=== PATIENT | male | born 1935 | race Caucasian/White ===

== ENCOUNTER 2018-01-04 23:34 | Inpatient (IN) | payer MEDICARE, SELFPAY ==
[2017-03-26 13:31] VITALS: BMI 25.5
[2018-01-04 23:45] VITALS: BP 115/50; PULSE 84; RESP 18; TEMP 37.3; O2SAT 96
--- NOTE | 2018-01-04 23:45 | PCM.HP.STD ---
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 Patient is a poor historian. Per records he was sitting at kitchen table earlier this evening when he became dizzy and felt like he was going to throw up. He was confused and disoriented which is not normal for him. In the ER patient was diagnosed with urinary tract infection and given a gram of Rocephin. initial lactate is 2.0, UA is positive for nitrites and leukocytes and blood. Currently his sodium is 135, potassium 3.9 chloride 103 bicarb 28 and glucose 108. Troponin is negative, WBC count is 11.8, hemoglobin 12.4, hematocrit 38.4, INR is 1.16. Chest xray report shows possible bilateral upper lobe infiltrates but may be the result of pulmonary edema. The patient has a smoking history despite an extensive cardiac history and his BNTP is markedly elevated. The patient denies pain or nausea presently but is confused and not reliable as a historian. He will be admitted for further management. Blood cultures were drawn in [facility]. Initial temp in [place] was 99.3. Past Medical History Past Medical History (Chronic Problems): Chronic Problems (Last Reviewed 01/01/18 @ 15:45 by Cherelle Regan) 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) Implant: 01/26/2013 Other secondary pulmonary hypertension (Chronic) Nonrheumatic tricuspid (valve) insufficiency (Chronic) Nonrheumatic mitral (valve) insufficiency (Chronic) Chronic systolic (congestive) heart failure (Chronic) Old myocardial infarction (Chronic) Atherosclerotic heart disease of [place] coronary artery without angina pectoris (Chronic) History of coronary artery stent placement (Chronic) PCI/BMS to distal LAD 03/26/2017 Renal insufficiency (Chronic) Acute on chronic systolic (congestive) heart failure (Chronic) Status post ICD and pacemaker (Chronic) Ischemic cardiomyopathy (Chronic) Coronary artery disease (Chronic) Status post stents Hyperlipidemia (Chronic) Hypertension (Chronic) Allergies No Known Allergies Allergy (Verified 01/01/18 15:49) Home Medications: Ambulatory Orders Medication Instructions Recorded Aspirin E.C. [Ecotrin] 81 mg PO DAILY@0800 #90 tab 03/27/17 Atorvastatin Calcium [Lipitor] 20 mg PO QHS #90 tab 03/27/17 Carvedilol [Coreg (Beta Eric)] 3.125 mg PO BID #90 tab 03/27/17 Clopidogrel Bisulfate [Plavix] 75 mg PO DAILY #90 tab 03/27/17 Furosemide [Lasix] 40 mg PO DAILY #90 tab 03/27/17 losartan 25 mg tablet 25 mg PO QDAY 11/10/17 hydrochlorothiazide 25 mg tablet 25 mg PO QAM #30 tab 01/01/18 Smoking Status: Former smoker - *Family History Maternal History Items: No pertinent history Review of Systems Constitutional: Reports: Chills, Fever, Malaise, Weakness. Denies: Weight Change HEENT: Denies: Head Aches, Sinus Congestion, Sinus Drainage Cardiovascular: Denies: Chest Pain, Palpitations Respiratory: Denies: Cough, Shortness of breath at rest, Sputum production Gastrointestinal: Denies: Abdominal Pain, Nausea, Vomiting Genitourinary: Reports: Dysuria, Incontinence Musculoskeletal: Denies: Joint Pain, Joint Tenderness Skin: Denies: Rash, Wounds Neurological: Reports: Confusion. Denies: Focal weakness, Numbness, Tingling Psychiatric: Denies: Anxiety, Depression, Homicidal Ideations, Suicidal Ideations Hematologic/ Lymphatic: Denies: Easy Bruising, Easy Bleeding VTE Information - Inpt Only VTE Present on Admission: No VTE Mechan Device Prophylaxis: SCD's VTE Pharm Prophylaxis ordered?: No Patient Problems: Active and Suspected Problems (Last Reviewed 01/01/18 @ 15:45 by Cherelle Regan) UTI (urinary tract infection) (Acute) - Physical Exam General: Alert, Cooperative, Confused HEENT: Atraumatic, Normocephalic Neck: Supple Lungs: Clear to auscultation, Normal air movement Cardiovascular: Regular rate, Regular Rhythm, Normal S1, Normal S2, No murmurs Abdomen: Bowel Sounds Present, Soft, Non Tender Extremities: No edema, Capillary Refill Less than 3 Seconds Skin: No rashes Musculoskeletal: No Tenderness to Palpation of Joints or Extremities, - - no cva tenderness Neurological: Neuro grossly intact Psych/Mental Status: Normal Affect, Appropriate Assessment/Plan Active and Suspected Problems (Last Reviewed 01/01/18 @ 15:45 by Cherelle Regan) UTI (urinary tract infection) (Acute) Chronic Problems (Last Reviewed 01/01/18 @ 15:45 by Cherelle Regan) 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) Implant: 01/26/2013 Other secondary pulmonary hypertension (Chronic) Nonrheumatic tricuspid (valve) insufficiency (Chronic) Nonrheumatic mitral (valve) insufficiency (Chronic) Chronic systolic (congestive) heart failure (Chronic) Old myocardial infarction (Chronic) Atherosclerotic heart disease of [place] coronary artery without angina pectoris (Chronic) History of coronary artery stent placement (Chronic) PCI/BMS to distal LAD 03/26/2017 Renal insufficiency (Chronic) Acute on chronic systolic (congestive) heart failure (Chronic) Status post ICD and pacemaker (Chronic) Ischemic cardiomyopathy (Chronic) Coronary artery disease (Chronic) Status post stents Hyperlipidemia (Chronic) Hypertension (Chronic) Plan - admit to PCU - 1gram iv rocephin q 24hours - IV hydration with normal saline at 100cc/hour due to history of CHF we will try gentle rehydration - cbc, bmp in am - continue routine home medications - zofran 4mg IV q8hrs prn - scds for DVT prophylaxis Code Visit Inpatient E&M: 79070 Init Hosp L3
[2018-01-04 23:51] VITALS: BMI 23.6
[2018-01-05] VITALS (12 sets, daily range): BP systolic 95–116; BP diastolic 47–61; PULSE 62–103; RESP 16–18; TEMP 36.6–37.3; O2SAT 95–96
[2018-01-05] MEDS: 0.9% Normal Saline 1,000 ML 100 ML IV (01:33)
[2018-01-05] MEDS: 0.9% NaCl Peripheral Flush Adult/Peds IV (01:34)
[2018-01-05 06:36] LABS: Hematocrit 36.6 % (40-54); Hemoglobin 11.5 g/dl (13.0-16.5); Mean Corp Hgb Conc 31.4 g/gl (32-36); Mean Corpuscular Hgb 28.5 pg (27.0-32.0); Mean Corpuscular Volume 90.6 fL (80-94); Mean Platelet Vol. 11.5 fl (6.2-12.0); Platelet Count 120 K/mm3 (150-450); RBC Distribution Width CV 16.1 % (11.6-14.6); RBC Distribution Width SD 53.3 fl (35.1-43.9); Red Blood Count 4.04 M/mm3 (4.6-6.2); White Blood Count 10.8 K/mm3 (4.4-11.0)
[2018-01-05 06:37] LABS: Scan Indicated on CBC? Y/N NO
[2018-01-05 06:54] LABS: Anion Gap 10 (5-15); BUN 28 mg/dL (7-18); BUN/Creat Ratio 18.3 RATIO (10-20); Chloride 105 mmol/L (98-107); Creatinine, Serum 1.53 mg/dL (0.70-1.30); EST Glomerular Filtration Rate 47 mL/min (>60); Est Glom Filt Rate - Afr Amer 56 mL/min (>60); Estimated Creatinine Clearance 38.44 ml/min; Glucose 86 mg/dL (74-106); Potassium 3.2 mmol/L (3.5-5.1); Sodium Level 141 mmol/L (136-145)
--- NOTE | 2018-01-05 07:50 | RAD_ITS ---
STUDY: X-RAY CHEST REASON FOR EXAM: Male, 82 years old. Congestive heart failure. TECHNIQUE: AP and lateral views of the chest. COMPARISON: Comparison is made with prior study dated March 24, 2017. FINDINGS: Mild degree of vascular congestion. Increased markings at the left lung base suggestive of left basilar atelectasis. There is no demonstrated pleural abnormality. There is borderline cardiomegaly. Left sided dual chamber pacemaker. Mitral valve replacement. Normal mediastinum and timothy. Normal visualized pulmonary arteries. There is atherosclerotic tortuosity of the aortic arch and descending thoracic aorta. There are diffuse degenerative changes of the visualized thoracic spine. Normal visualized ribs, clavicles, and shoulders. There is no demonstrated abnormality of the visualized soft tissue structures of the upper abdomen. RAD/Chest PA and Lateral IMPRESSION: Mild degree of vascular congestion and mild left basilar atelectasis. Electronically Signed: Tarik Sanchez MD at 13:55 EDT Tel [phone], Service support ,
[2018-01-05] MEDS: Clopidogrel Bisulfate 75 MG Tablet PO (10:44)
[2018-01-05] MEDS: Aspirin E.C. 81 MG Tablet PO (10:44)
[2018-01-05] MEDS: Carvedilol 3.125 MG TABLET PO ×2 (10:44→21:41)
--- NOTE | 2018-01-05 11:14 | CASEMGMT ---
This RN CM to room to complete CM assessment at this time. Pt still with confusion and is extremely hard of hearing. Pt states for this RN CM to call his lduejpka-hr-uth, Tatianna, for information at this time. Pt states not to call daughter in law, Cheryle, because they have some issues, but there is no number for her on chart at this time. Message left with Tatianna, daughter in law, at this time to return call to this RN CM to complete CM assessment. SStaten RN CM
--- NOTE | 2018-01-05 12:38 | PN_ITS ---
<Babar Nunez - Last Filed: 01/05/18 12:26> Patient Problems: Active and Suspected Problems (Last Reviewed 01/01/18 @ 15:45 by Cherelle Regan) UTI (urinary tract infection) (Acute) Subjective: The pt is in bed upright. He is confused and very hard of hearing. He was retaining about 800 cc of urine and a bolivar was placed. He states he has urinary problems frequently, and when asked about a urologist he says he does not see one because he has no use for one. He denies abdominal pain. No fevers or chills overnight. He is coughing frequently. - Physical Exam General: Alert, Cooperative, Confused HEENT: Atraumatic, PERRLA, EOMI, Normocephalic Neck: Supple, No JVD, Negative Carotid Bruits Lungs: Clear to auscultation, Normal air movement Cardiovascular: Regular rate, No murmurs Abdomen: Bowel Sounds Present, Soft, Non Tender Extremities: No edema, Capillary Refill Less than 3 Seconds Skin: No rashes, No breakdown Musculoskeletal: No Tenderness to Palpation of Joints or Extremities Neurological: Cranial nerves II-XII grossly intact Psych/Mental Status: Normal Affect, Appropriate, Alert and oriented to time, place, person, mood and affect Comment: bolivar with pink urine Vital Signs Temp Pulse Resp BP Pulse Ox 98.9 F 67 16 95/48 L 95 01/05/18 10:55 01/05/18 10:55 01/05/18 10:55 01/05/18 10:55 01/05/18 10:55 Oxygen Delivery Method Room Air Weight: 74.5 kg Body Mass Index (BMI) 23.6 Intake and Output for Last 24 Hours 01/03/18 01/04/18 01/05/18 23:59 23:59 23:59 Intake Total 1139 / 1139 Output Total 1650 / 1650 Balance -511 / -511 Laboratory Tests Past 24 Hrs 01/05/18 01/05/18 05:10 05:10 WBC 10.8 RBC 4.04 L Hgb 11.5 L Hct 36.6 L MCV 90.6 MCH 28.5 MCHC 31.4 L RDW 16.1 H RDW Differential 53.3 H Plt Count 120 L MPV 11.5 Sodium 141 Potassium 3.2 L Chloride 105 Carbon Dioxide 26.0 Anion Gap 10 BUN 28 H Creatinine 1.53 H Estim Creat Clear Calc 38.44 Est GFR (MDRD) Af Amer 56 L Est GFR (MDRD) Non-Af 47 L BUN/Creatinine Ratio 18.3 Glucose 86 Calcium 8.0 L Assessment/Plan Active and Suspected Problems (Last Reviewed 01/01/18 @ 15:45 by Cherelle Regan) UTI (urinary tract infection) (Acute) 1. Acute sepsis 2/2 UTI, questionable pna BL upper baltazar - he presented to [place] and was found to have elevated white count, + UA, LA of 2.0, tachycardia, and a cxr with BL upper lobe infiltrates. Continue rocephin will add azithro until we see repeat CXR. White count resolved, afebrile. We will need to obtain the urine and blood culture results from [place] tomorrow if they have resulted. 2. Acute metabolic encephalopathy 2/2 above - presenting complaint was confusion. He answers questions but seems confused. He is also very hard of hearing making it difficult to communicate. He lives by himself with family next door. 3. Acute urinary retention - bolivar in place. add flomax. 4. Hx of CHF with cardiomyopathy- continue home medications. he has a ICD and pacemaker 5. Elevated Creatinine - unclear baseline. Trend. 6. Hx CAD with prior [place] - on asa, statin, coreg, plavix, cozaar 7. HTN - hold HCTZ for unclear renal status. 8. Debility - ptot eval DVT ppx: SCDs DC planning: PTOT, may need placed. SW to discuss with family today This patient was seen by Babar Nunez PA-C under the supervision of Doctor Omaira. <James Castano - Last Filed: 01/05/18 13:08> - Physical Exam Vital Signs Temp Pulse Resp BP Pulse Ox 99.1 F 62 16 101/47 L 95 01/05/18 12:25 01/05/18 12:25 01/05/18 12:25 01/05/18 12:25 01/05/18 12:25 Oxygen Delivery Method Room Air Weight: 74.5 kg Body Mass Index (BMI) 23.6 Intake and Output for Last 24 Hours 01/03/18 01/04/18 01/05/18 23:59 23:59 23:59 Intake Total 1139 / 1139 Output Total 1650 / 1650 Balance -511 / -511 Laboratory Tests Past 24 Hrs 01/05/18 01/05/18 05:10 05:10 WBC 10.8 RBC 4.04 L Hgb 11.5 L Hct 36.6 L MCV 90.6 MCH 28.5 MCHC 31.4 L RDW 16.1 H RDW Differential 53.3 H Plt Count 120 L MPV 11.5 Sodium 141 Potassium 3.2 L Chloride 105 Carbon Dioxide 26.0 Anion Gap 10 BUN 28 H Creatinine 1.53 H Estim Creat Clear Calc 38.44 Est GFR (MDRD) Af Amer 56 L Est GFR (MDRD) Non-Af 47 L BUN/Creatinine Ratio 18.3 Glucose 86 Calcium 8.0 L Assessment/Plan This patient was seen in conjunction with Babar Nunez PA-C. I have independently interviewed and examined the patient and reviewed pertinent historical, laboratory, and other data. Please refer to Babar Nunez PA-C note for details of this patient's presentation, findings, and recommendations. I have reviewed Babar Nunez PA-C note and concur with documented findings. In brief, patient is a 82-year-old male past medical history significant for hypertension CAD cardiomyopathy status post AICD was transferred from [facility] with changes in his mental status and assessment of sepsis secondary to acute cystitis versus suspected pneumonia made admitted to a monitored bed for further management Physical Examination: GENERAL: Not in distress HEENT: Clear conjunctiva, NECK; supple, normal thyroid, CHEST: Diminished to auscultation bilaterally, HEART: Regular S1 S2, no audible murmurs ABDOMEN: soft, non-tender, normoactive bowel sounds, [employer] AS[employer]BLER: Awake, oriented to self and place SKIN: No Rash Assessment: 1. Sepsis secondary to acute cystitis and suspected community-acquired pneumonia 2. Acute infectious encephalopathy 3. Coronary artery disease; patient is on dual antiplatelet therapy in addition to beta blockers as well as statin therapy 4. Hypertension 5. Dyslipidemia 6. Ischemic cardiomyopathy status post AICD placement 7. Acute urinary retention 8. Kidney disease stage III 9. Debility Recommendations: 1. I have discussed the results of my overview and impressions with the patient 2. Options for management were reviewed Code Visit Code Visit Inpatient E&M: 80193 Subs Hosp L3
[2018-01-05] MEDS: Furosemide 40 MG Tablet PO (13:51)
[2018-01-05] MEDS: Tamsulosin HCl 0.4 MG Capsule PO (17:19)
[2018-01-05] MEDS: guaiFENesin 1,200 MG Tablet 1200 MG PO (21:41)
[2018-01-05] MEDS: Atorvastatin Calcium 20 MG Tablet PO (21:41)
[2018-01-06] VITALS (15 sets, daily range): BP systolic 94–105; BP diastolic 42–58; PULSE 64–89; RESP 16–21; TEMP 36.3–37.9; O2SAT 93–96
[2018-01-06 05:57] LABS: Absolute Lymphocyte Count 1.63 X10^3/ul (0.83-4.51); Absolute Neutrophil Count 6.1 X10^3/uL (2.0-7.7); Basophil# 0.02 X10^3/uL; Basophil% 0.2 % (0-1); Eosinophil# 0.19 X10^3/uL; Hematocrit 36.1 % (40-54); Hemoglobin 11.7 g/dl (13.0-16.5); Lymphocyte # 1.63 X10^3/ul (4.0); Lymphocyte % 17.4 % (19-41); Mean Corp Hgb Conc 32.4 g/gl (32-36); Mean Corpuscular Volume 89.6 fL (80-94); Mean Platelet Vol. 11.5 fl (6.2-12.0); Monocyte# 1.41 X10^3/uL; Monocyte% 15.1 % (0-10); Neutrophil # 6.09 X10^3/uL (2.7-7.7); Neutrophil % 65.1 % (47-70); Platelet Count 116 K/mm3 (150-450); RBC Distribution Width CV 15.8 % (11.6-14.6); RBC Distribution Width SD 51.5 fl (35.1-43.9); Red Blood Count 4.03 M/mm3 (4.6-6.2); White Blood Count 9.4 K/mm3 (4.4-11.0)
[2018-01-06 06:05] LABS: Anion Gap 7 (5-15); BUN 25 mg/dL (7-18); BUN/Creat Ratio 17.5 RATIO (10-20); Calcium,Total 8.1 mg/dL (8.5-10.1); Chloride 104 mmol/L (98-107); Creatinine, Serum 1.43 mg/dL (0.70-1.30); EST Glomerular Filtration Rate 50 mL/min (>60); Est Glom Filt Rate - Afr Amer 61 mL/min (>60); Estimated Creatinine Clearance 41.12 ml/min; Glucose 87 mg/dL (74-106); Potassium 3.5 mmol/L (3.5-5.1); Sodium Level 138 mmol/L (136-145)
[2018-01-06 06:11] LABS: POSITIVE COUNT NO; POSITIVE DIFFERENTIAL NO; POSITIVE MORPHOLOGY NO
[2018-01-06] MEDS: Ipratropium/Albuterol Sulfate 3 ML AMPUL.NEB INHALATION ×3 (06:54→19:57)
[2018-01-06] MEDS: Aspirin E.C. 81 MG Tablet PO (09:20)
[2018-01-06] MEDS: Carvedilol 3.125 MG TABLET PO (09:20)
[2018-01-06] MEDS: Furosemide 40 MG Tablet PO (09:21)
[2018-01-06] MEDS: guaiFENesin 1,200 MG Tablet 1200 MG PO ×2 (09:21→21:23)
[2018-01-06] MEDS: Clopidogrel Bisulfate 75 MG Tablet PO (09:21)
[2018-01-06] MEDS: 0.9% NaCl Peripheral Flush Adult/Peds IV (09:23)
--- NOTE | 2018-01-06 12:42 | CASEMGMT ---
Addendum entered by Lorraine Agosto 01/06/18 13:56: Pt is current with [facility] and per Reba Edison from [facility], pt is stubborn and refuses to take lasix and flomax most of time. She states that pt is not knowledgeable about his chronic medical conditions at all. She states that daughter in law and son prepare all meals for pt. Per daughter in law, pt was confused for her when she visited last pm. She states that pt is active with [facility] and that the program has been a great help to pt and family. This RN CM to f/u with daughter in law in the am to verify discharge plan for pt at that time. Yunier ESCOBAR CM Original Note: Face to Face with patient for initial transition planning/care coordination assessment and pt is unable to answer questions for assessment at this time. This RN JUMA placed call to pt's daughter in law, Tatianna, at this time and RN JUMA introduced self and role at [facility], Tatianna voices understanding and consents to assessment for pt at this time. Pt A/O x2 at this time and unable to answers questions appropriately at this time. Pt is sitting up in bed in no distress at this time. Care providers, pharmacy, and demographics verified. See attached link. Pt voices no further concerns/needs at this time. Advised pt to ask for CM if any further questions/concerns/needs arise, voices understanding. PLAN: Home with family, possible C, if family agrees. Yunier ESCOBAR CM
--- NOTE | 2018-01-06 14:15 | PCM.PROGNOTE ---
<Babar Nunez - Last Filed: 01/06/18 14:15> Patient Problems: Active and Suspected Problems (Last Reviewed 01/01/18 @ 15:45 by Cherelle Regan) UTI (urinary tract infection) (Acute) Subjective: Pt up in bed, no complaints today. Denies fever or chills. No further cough. No SOB. The bolivar is somewhat uncomfortably, he denies burning. He reportedly at home has severe urinary retention and only urinates 20cc at a time but refuses to see a urologist and take flomax. He also intermittently refuses to take lasix. [facility] checks on him at home and encourages him to take his meds. 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 The family talked to him last night and said they feel he is confused. - Physical Exam General: Alert, Cooperative, Confused HEENT: Atraumatic, PERRLA, EOMI, Normocephalic, - - severely hard of hearing Neck: Supple, No JVD, Negative Carotid Bruits Lungs: Clear to auscultation, Normal air movement Cardiovascular: Regular rate, No murmurs Abdomen: Bowel Sounds Present, Soft, Non Tender Extremities: No edema, Capillary Refill Less than 3 Seconds Skin: No rashes, No breakdown Musculoskeletal: No Tenderness to Palpation of Joints or Extremities Neurological: Cranial nerves II-XII grossly intact Psych/Mental Status: Normal Affect, Appropriate Vital Signs Temp Pulse Resp BP Pulse Ox 100.3 F H 89 20 H 97/51 L 95 01/06/18 09:22 01/06/18 13:45 01/06/18 13:45 01/06/18 09:22 01/06/18 09:22 Oxygen Delivery Method Room Air Weight: 74.5 kg Body Mass Index (BMI) 23.6 Intake and Output for Last 24 Hours 01/04/18 01/05/18 01/06/18 23:59 23:59 23:59 Intake Total 1379 / 1379 935 / 935 Output Total 2175 / 2175 1325 / 1325 Balance -796 / -796 -390 / -390 Microbiology Past 72 Hours 01/05/18 17:00 Legionella Antigen - Final Urine Catheter - Bolivar 01/05/18 17:00 Streptococcus pneumoniae Antigen (M - Final Urine Catheter - [place] Laboratory Tests Past 24 Hrs 01/06/18 01/06/18 05:00 05:00 WBC 9.4 RBC 4.03 L Hgb 11.7 L Hct 36.1 L MCV 89.6 MCH 29.0 MCHC 32.4 RDW 15.8 H RDW Differential 51.5 H Plt Count 116 L MPV 11.5 Immature Gran % (Auto) 0.200 Neut % (Auto) 65.1 Lymph % (Auto) 17.4 L Young % (Auto) 15.1 H Eos % (Auto) 2.0 Baso % (Auto) 0.2 Absolute Neuts (auto) 6.1 Absolute Lymphs (auto) 1.63 Total Counted Not Reportable Sodium 138 Potassium 3.5 Chloride 104 Carbon Dioxide 27.0 Anion Gap 7 BUN 25 H Creatinine 1.43 H Estim Creat Clear Calc 41.12 Est GFR (MDRD) Af Amer 61 Est GFR (MDRD) Non-Af 50 L BUN/Creatinine Ratio 17.5 Glucose 87 Calcium 8.1 L Assessment/Plan Active and Suspected Problems (Last Reviewed 01/01/18 @ 15:45 by Cherelle Regan) UTI (urinary tract infection) (Acute) 1. Acute sepsis 2/2 UTI, questionable pna BL upper baltazar - he presented to [place] and was found to have elevated white count, + UA, LA of 2.0, tachycardia, and a cxr with BL upper lobe infiltrates. Rocephin and Azithro. Repeat CXR with vascular congestion and atelectasis. Lungs are now clear on exam. I suspect this was more fluid overload and urinary retention with the patient not taking flomax or lasix at home. White count resolved The prelim urine culture shows presumptive E coli. Blood cultures still pending will call [place] tomorrow to check. He continues to have a fever. Will continue IV abx overnight and re-eval in the AM. 2. Acute metabolic encephalopathy 2/2 above - according to family he is still confused presenting complaint was confusion. He answers questions but seems confused. He is also very hard of hearing making it difficult to communicate. He lives by himself with family next door. 3. Acute urinary retention - bolivar in place. Flomax. He needs outpatient follow up with Urology which he refuses to do. He does not take his flomax at home and urinates 20 cc at a time reportedly. 4. Hx of CHF with cardiomyopathy- continue home medications. he has a ICD and pacemaker. Continue lasix. 5. Elevated Creatinine - improve. Likely underlying CKD we will see how much he improves with the bolivar and flomax. 6. Hx CAD with prior [place] - on asa, statin, coreg, plavix, cozaar 7. HTN - NICHOLAS and HCTZ held for poor blood pressure 8. Debility - ptot 9. Hypokalemia resolved. DVT ppx: SCDs DC planning: PTOT. Family does not want SNF or Home health as they care for him near deputy insurance commissioner. He will likely be stable for discharge home tomorrow. This patient was seen by Babar Nunez PA-C under the supervision of Doctor Omaira. <James Castano - Last Filed: 01/06/18 15:10> - Physical Exam Vital Signs Temp Pulse Resp BP Pulse Ox 100.3 F H 89 20 H 97/51 L 95 01/06/18 09:22 01/06/18 13:45 01/06/18 13:45 01/06/18 09:22 01/06/18 09:22 Oxygen Delivery Method Room Air Weight: 74.5 kg Body Mass Index (BMI) 23.6 Intake and Output for Last 24 Hours 01/04/18 01/05/18 01/06/18 23:59 23:59 23:59 Intake Total 1379 / 1379 935 / 935 Output Total 2175 / 2175 1325 / 1325 Balance -796 / -796 -390 / -390 Microbiology Past 72 Hours 01/05/18 17:00 Legionella Antigen - Final Urine Catheter - Bol[place]ar 01/05/18 17:00 Streptococcus pneumoniae Antigen (M - Final Urine Catheter - [place] Laboratory Tests Past 24 Hrs 01/06/18 01/06/18 05:00 05:00 WBC 9.4 RBC 4.03 L Hgb 11.7 L Hct 36.1 L MCV 89.6 MCH 29.0 MCHC 32.4 RDW 15.8 H RDW Differential 51.5 H Plt Count 116 L MPV 11.5 Immature Gran % (Auto) 0.200 Neut % (Auto) 65.1 Lymph % (Auto) 17.4 L Young % (Auto) 15.1 H Eos % (Auto) 2.0 Baso % (Auto) 0.2 Absolute Neuts (auto) 6.1 Absolute Lymphs (auto) 1.63 Total Counted Not Reportable Sodium 138 Potassium 3.5 Chloride 104 Carbon Dioxide 27.0 Anion Gap 7 BUN 25 H Creatinine 1.43 H Estim Creat Clear Calc 41.12 Est GFR (MDRD) Af Amer 61 Est GFR (MDRD) Non-Af 50 L BUN/Creatinine Ratio 17.5 Glucose 87 Calcium 8.1 L Assessment/Plan This patient was seen in conjunction with Babar Nunez PA-C. I have independently interviewed and examined the patient and reviewed pertinent historical, laboratory, and other data. Please refer to Babar Nunez PA-C note for details of this patient's presentation, findings, and recommendations. I have reviewed Babar Nunez PA-C note and concur with documented findings. In brief, patient is a 82-year-old male past medical history significant for hypertension CAD cardiomyopathy status post AICD was transferred from [facility] with changes in his mental status and assessment of sepsis secondary to acute cystitis versus suspected pneumonia made admitted to a monitored bed for further management 01/06/2018: Patient seen his level of sensorium and clinical condition continues to improve Physical Examination: GENERAL: Not in distress HEENT: Clear conjunctiva, NECK; supple, normal thyroid, CHEST: Diminished to auscultation bilaterally, HEART: Regular S1 S2, no audible murmurs ABDOMEN: soft, non-tender, normoactive bowel sounds, MANAGER FOOD BEVERAGE: Awake, oriented to self and place SKIN: No Rash Assessment: 1. Sepsis secondary to acute cystitis and suspected community-acquired pneumonia 2. Acute infectious encephalopathy 3. Coronary artery disease; patient is on dual antiplatelet therapy in addition to beta blockers as well as statin therapy 4. Hypertension 5. Dyslipidemia 6. Ischemic cardiomyopathy status post AICD placement 7. Acute urinary retention 8. Kidney disease stage III 9. Debility Recommendations: 1. I have discussed the results of my overview and impressions with the patient 2. Options for management were reviewed Code Visit Inpatient E&M: 77545 Subs Hosp L2
--- NOTE | 2018-01-06 14:27 | PN_ITS ---
<Babar Nunez - Last Filed: 01/06/18 14:15> Patient Problems: Active and Suspected Problems (Last Reviewed 01/01/18 @ 15:45 by Cherelle Regan) UTI (urinary tract infection) (Acute) Subjective: Pt up in bed, no complaints today. Denies fever or chills. No further cough. No SOB. The bolivar is somewhat uncomfortably, he denies burning. He reportedly at home has severe urinary retention and only urinates 20cc at a time but refuses to see a urologist and take flomax. He also intermittently refuses to take lasix. [facility] checks on him at home and encourages him to take his meds. His family lives next door and they do not want him placed as they provide him with nearly medical secretary receptionist care. The family talked to him last night and said they feel he is confused. - Physical Exam General: Alert, Cooperative, Confused HEENT: Atraumatic, PERRLA, EOMI, Normocephalic, - - severely hard of hearing Neck: Supple, No JVD, Negative Carotid Bruits Lungs: Clear to auscultation, Normal air movement Cardiovascular: Regular rate, No murmurs Abdomen: Bowel Sounds Present, Soft, Non Tender Extremities: No edema, Capillary Refill Less than 3 Seconds Skin: No rashes, No breakdown Musculoskeletal: No Tenderness to Palpation of Joints or Extremities Neurological: Cranial nerves II-XII grossly intact Psych/Mental Status: Normal Affect, Appropriate Vital Signs Temp Pulse Resp BP Pulse Ox 100.3 F H 89 20 H 97/51 L 95 01/06/18 09:22 01/06/18 13:45 01/06/18 13:45 01/06/18 09:22 01/06/18 09:22 Oxygen Delivery Method Room Air Weight: 74.5 kg Body Mass Index (BMI) 23.6 Intake and Output for Last 24 Hours 01/04/18 01/05/18 01/06/18 23:59 23:59 23:59 Intake Total 1379 / 1379 935 / 935 Output Total 2175 / 2175 1325 / 1325 Balance -796 / -796 -390 / -390 Microbiology Past 72 Hours 01/05/18 17:00 Legionella Antigen - Final Urine Catheter - [place] 01/05/18 17:00 Streptococcus pneumoniae Antigen (M - Final Urine Catheter - [place] Laboratory Tests Past 24 Hrs 01/06/18 01/06/18 05:00 05:00 WBC 9.4 RBC 4.03 L Hgb 11.7 L Hct 36.1 L MCV 89.6 MCH 29.0 MCHC 32.4 RDW 15.8 H RDW Differential 51.5 H Plt Count 116 L MPV 11.5 Immature Gran % (Auto) 0.200 Neut % (Auto) 65.1 Lymph % (Auto) 17.4 L [place] % (Auto) 15.1 H Eos % (Auto) 2.0 Baso % (Auto) 0.2 Absolute Neuts (auto) 6.1 Absolute Lymphs (auto) 1.63 Total Counted Not Reportable Sodium 138 Potassium 3.5 Chloride 104 Carbon Dioxide 27.0 Anion Gap 7 BUN 25 H Creatinine 1.43 H Estim Creat Clear Calc 41.12 Est GFR (MDRD) Af Amer 61 Est GFR (MDRD) Non-Af 50 L BUN/Creatinine Ratio 17.5 Glucose 87 Calcium 8.1 L Assessment/Plan Active and Suspected Problems (Last Reviewed 01/01/18 @ 15:45 by Cherelle Regan) UTI (urinary tract infection) (Acute) 1. Acute sepsis 2/2 UTI, questionable pna BL upper baltazar - he presented to [facility] and was found to have elevated white count, + UA, LA of 2.0, tachycardia, and a cxr with BL upper lobe infiltrates. Rocephin and Azithro. Repeat CXR with vascular congestion and atelectasis. Lungs are now clear on exam. I suspect this was more fluid overload and urinary retention with the patient not taking flomax or lasix at home. White count resolved The prelim urine culture shows presumptive E coli. Blood cultures still pending will call [facility] tomorrow to check. He continues to have a fever. Will continue IV abx overnight and re-eval in the AM. 2. Acute metabolic encephalopathy 2/2 above - according to family he is still confused presenting complaint was confusion. He answers questions but seems confused. He is also very hard of hearing making it difficult to communicate. He lives by himself with family next door. 3. Acute urinary retention - bolivar in place. Flomax. He needs outpatient follow up with Urology which he refuses to do. He does not take his flomax at home and urinates 20 cc at a time reportedly. 4. Hx of CHF with cardiomyopathy- continue home medications. he has a ICD and pacemaker. Continue lasix. 5. Elevated Creatinine - improve. Likely underlying CKD we will see how much he improves with the bolivar and flomax. 6. Hx CAD with prior [place] - on asa, statin, coreg, plavix, cozaar 7. HTN - NICHOLAS and HCTZ held for poor blood pressure 8. Debility - ptot 9. Hypokalemia resolved. DVT ppx: SCDs DC planning: PTOT. Family does not want SNF or Home health as they care for him near medical secretary receptionist. He will likely be stable for discharge home tomorrow. This patient was seen by Babar Nunez PA-C under the supervision of Doctor Omaira. <James Castano - Last Filed: 01/06/18 15:10> - Physical Exam Vital Signs Temp Pulse Resp BP Pulse Ox 100.3 F H 89 20 H 97/51 L 95 01/06/18 09:22 01/06/18 13:45 01/06/18 13:45 01/06/18 09:22 01/06/18 09:22 Oxygen Delivery Method Room Air Weight: 74.5 kg Body Mass Index (BMI) 23.6 Intake and Output for Last 24 Hours 01/04/18 01/05/18 01/06/18 23:59 23:59 23:59 Intake Total 1379 / 1379 935 / 935 Output Total 2175 / 2175 1325 / 1325 Balance -796 / -796 -390 / -390 Microbiology Past 72 Hours 01/05/18 17:00 Legionella Antigen - Final Urine Catheter - [place] 01/05/18 17:00 Streptococcus pneumoniae Antigen (M - Final Urine Catheter - [place] Laboratory Tests Past 24 Hrs 01/06/18 01/06/18 05:00 05:00 WBC 9.4 RBC 4.03 L Hgb 11.7 L Hct 36.1 L MCV 89.6 MCH 29.0 MCHC 32.4 RDW 15.8 H RDW Differential 51.5 H Plt Count 116 L MPV 11.5 Immature Gran % (Auto) 0.200 Neut % (Auto) 65.1 Lymph % (Auto) 17.4 L [place] % (Auto) 15.1 H Eos % (Auto) 2.0 Baso % (Auto) 0.2 Absolute Neuts (auto) 6.1 Absolute Lymphs (auto) 1.63 Total Counted Not Reportable Sodium 138 Potassium 3.5 Chloride 104 Carbon Dioxide 27.0 Anion Gap 7 BUN 25 H Creatinine 1.43 H Estim Creat Clear Calc 41.12 Est GFR (MDRD) Af Amer 61 Est GFR (MDRD) Non-Af 50 L BUN/Creatinine Ratio 17.5 Glucose 87 Calcium 8.1 L Assessment/Plan This patient was seen in conjunction with Babar Nunez PA-C. I have independently interviewed and examined the patient and reviewed pertinent historical, laboratory, and other data. Please refer to Babar Nunez PA-C note for details of this patient's presentation, findings, and recommendations. I have reviewed Babar Nunez PA-C note and concur with documented findings. In brief, patient is a 82-year-old male past medical history significant for hypertension CAD cardiomyopathy status post AICD was transferred from [facility] with changes in his mental status and assessment of sepsis secondary to acute cystitis versus suspected pneumonia made admitted to a monitored bed for further management 01/06/2018: Patient seen his level of sensorium and clinical condition continues to improve Physical Examination: GENERAL: Not in distress HEENT: Clear conjunctiva, NECK; supple, normal thyroid, CHEST: Diminished to auscultation bilaterally, HEART: Regular S1 S2, no audible murmurs ABDOMEN: soft, non-tender, normoactive bowel sounds, CONSTRUCTION MILLWRIGHT: Awake, oriented to self and place SKIN: No Rash Assessment: 1. Sepsis secondary to acute cystitis and suspected community-acquired pneumonia 2. Acute infectious encephalopathy 3. Coronary artery disease; patient is on dual antiplatelet therapy in addition to beta blockers as well as statin therapy 4. Hypertension 5. Dyslipidemia 6. Ischemic cardiomyopathy status post AICD placement 7. Acute urinary retention 8. Kidney disease stage III 9. Debility Recommendations: 1. I have discussed the results of my overview and impressions with the patient 2. Options for management were reviewed Code Visit Inpatient E&M: 64924 Subs Hosp L2
[2018-01-06] MEDS: Tamsulosin HCl 0.4 MG Capsule PO (17:44)
[2018-01-06] MEDS: Atorvastatin Calcium 20 MG Tablet PO (21:23)
[2018-01-07] VITALS (13 sets, daily range): BP systolic 97–106; BP diastolic 44–54; PULSE 64–79; RESP 16–20; TEMP 36.9–37.3; O2SAT 94–96
[2018-01-07] MEDS: Ipratropium/Albuterol Sulfate 3 ML AMPUL.NEB INHALATION ×3 (06:40→19:01)
[2018-01-07] MEDS: Clopidogrel Bisulfate 75 MG Tablet PO (09:21)
[2018-01-07] MEDS: Furosemide 40 MG Tablet PO (09:21)
[2018-01-07] MEDS: guaiFENesin 1,200 MG Tablet 1200 MG PO ×2 (09:21→21:41)
[2018-01-07] MEDS: Aspirin E.C. 81 MG Tablet PO (09:21)
[2018-01-07] MEDS: 0.9% NaCl Peripheral Flush Adult/Peds IV (09:22)
--- NOTE | 2018-01-07 09:40 | CASEMGMT ---
This LUZ DENNISON received call from pt's daughter in law, Tatianna, and she states concerns with pt going home at this time. Emotional support given. Tatianna states that her and her are interested in pt going to a SNF at this time. Daughter in law, Tatianna, states that they do not feel that they will be able to care for pt adequately at home at this time d/t confusion/medical concerns. Tatianna states that they would like pt placed on TCU list and they are also interested in [facility]. Referral to Nere[facility] OROPE[facility] at this time, voices understanding. Yunier ESCOBAR CM
--- NOTE | 2018-01-07 12:39 | PCM.PROGNOTE ---
<Carla Santos - Last Filed: 01/07/18 13:11> Patient Problems: Active and Suspected Problems (Last Reviewed 01/01/18 @ 15:45 by Cherelle Regan) UTI (urinary tract infection) (Acute) Subjective: Patient seen and examined. Confused this morning. Denies fever, chills. Denies cough. Manzano in place and draining. Family notified case management that they do not feel they can take him home. Pre-CERT started for SNF. - Physical Exam General: Alert, Cooperative, No apparent distress, Confused HEENT: Atraumatic, PERRLA, EOMI, Normocephalic Neck: Supple, No JVD, Negative Carotid Bruits Lungs: Clear to auscultation, Normal air movement Cardiovascular: Regular rate, No murmurs Abdomen: Bowel Sounds Present, Soft, Non Tender, Non-Distended Extremities: No clubbing, No cyanosis, No edema, Capillary Refill Less than 3 Seconds Skin: No rashes, No breakdown Musculoskeletal: No Tenderness to Palpation of Joints or Extremities Neurological: Cranial nerves II-XII grossly intact, Neuro grossly intact Psych/Mental Status: Normal Affect, Appropriate Vital Signs Temp Pulse Resp BP Pulse Ox 99 F 68 16 103/50 L 96 01/07/18 09:18 01/07/18 11:33 01/07/18 09:18 01/07/18 09:18 01/07/18 09:18 Oxygen Delivery Method Room Air Weight: 74.5 kg Body Mass Index (BMI) 23.6 Intake and Output for Last 24 Hours 01/05/18 01/06/18 01/07/18 23:59 23:59 23:59 Intake Total 1379 / 1379 1385 / 1385 489 / 489 Output Total 2175 / 2175 2024 / 2024 1350 / 1350 Balance -796 / -796 -640 / -640 -861 / -861 Microbiology Past 72 Hours 01/05/18 17:00 Legionella Antigen - Final Urine Catheter - [place] 01/05/18 17:00 Streptococcus pneumoniae Antigen (M - Final Urine Catheter - [place] Assessment/Plan Active and Suspected Problems (Last Reviewed 01/01/18 @ 15:45 by Cherelle Regan) UTI (urinary tract infection) (Acute) Patient is an 82-year-old male admitted 01/04/2018 due to confusion, nausea, UTI. 1. Acute sepsis secondary to Klebsiella UTI-urine culture completed at [facility] in [place] positive for Klebsiella. Susceptible to Rocephin. Patient with leukocytosis, lactic acid 2.0, tachycardia at outside facility. Patient with questionable pneumonia bilateral upper lobes on admission. Chest x-ray showed mild degree of vascular congestion and mid left basilar atelectasis. Do not further suspect pneumonia. Lungs clear. Suspect congestion secondary to fluid overload as a result of chronic urinary retention and noncompliance with Lasix regimen. Continue home Lasix and Flomax regimen. Manzano catheter in place. No further leukocytosis. T-max 99F over the last 24 hours. Blood cultures drawn at [facility] and pending. 2. Acute metabolic encephalopathy secondary to #1-patient remains confused. Continue treatment as noted above. 3. Acute on chronic urinary retention-Manzano in place, draining. Continue Flomax regimen. Patient has refused to follow-up with urology as outpatient and is also noncompliant with his Flomax and Lasix regimen. Recommend outpatient follow-up with urology. 4. Chronic systolic CHF with ischemic cardiomyopathy-follows with Dr. Soto. Status post ICD and pacemaker. Echocardiogram from February 2017 showed an EF of 20%, moderate mitral valve insufficiency, moderate tricuspid valve insufficiency, mild aortic valve calcification. Continue home regimen of aspirin, statin, beta-josé, Plavix, furosemide. Hydrochlorothiazide, losartan on hold. 5. Elevated creatinine-suspected secondary to urinary retention with underlying chronic kidney disease. Continue Manzano catheter and Flomax. Creatinine improved today. 6. CAD status post PCI-continue aspirin, statin, Plavix, beta-josé. 7. Hypertension-stable, continue current regimen. 8. General physical debility-family agreeable to SNF at discharge. Pre-cert pending. PT/OT. 9. Hypokalemia-resolved. DVT prophylaxis-SCDs. Discharge planning: Stable for discharge pending SNF pre-cert. This patient was seen by KYRIE Johnson under the supervision of Dr. Castano. <James Castano - Last Filed: 01/07/18 14:03> - Physical Exam Vital Signs Temp Pulse Resp BP Pulse Ox 99 F 73 17 103/50 L 96 01/07/18 09:18 01/07/18 13:32 01/07/18 13:32 01/07/18 09:18 01/07/18 09:18 Oxygen Delivery Method Room Air Weight: 74.5 kg Body Mass Index (BMI) 23.6 Intake and Output for Last 24 Hours 01/05/18 01/06/18 01/07/18 23:59 23:59 23:59 Intake Total 1379 / 1379 1385 / 1385 489 / 489 Output Total 2175 / 2175 2024 / 2024 1350 / 1350 Balance -796 / -796 -640 / -640 -861 / -861 Microbiology Past 72 Hours 01/05/18 17:00 Legionella Antigen - Final Urine Catheter - [place] 01/05/18 17:00 Streptococcus pneumoniae Antigen (M - Final Urine Catheter - [place] Assessment/Plan This patient was seen in conjunction with KYRIE Johnson. I have independently interviewed and examined the patient and reviewed pertinent historical, laboratory, and other data. Please refer to KYRIE Johnson note for details of this patient's presentation, findings, and recommendations. I have reviewed KYRIE Johnson note and concur with documented findings. In brief, patient is a 82-year-old male past medical history significant for hypertension CAD cardiomyopathy status post AICD was transferred from [facility] with changes in his mental status and assessment of sepsis secondary to acute cystitis versus suspected pneumonia made admitted to a monitored bed for further management 01/06/2018: Patient seen his level of sensorium and clinical condition continues to improve 01/07/2018: Patient seen remains severely deconditioned and plan is for patient to be discharged to snf facility pending insurance precertification Physical Examination: GENERAL: Not in distress HEENT: Clear conjunctiva, NECK; supple, normal thyroid, CHEST: Diminished to auscultation bilaterally, HEART: Regular S1 S2, no audible murmurs ABDOMEN: soft, non-tender, normoactive bowel sounds, MANAGER PRIMARY: Awake, oriented to self and place SKIN: No Rash Assessment: 1. Sepsis secondary to acute cystitis and suspected community-acquired pneumonia 2. Acute infectious encephalopathy 3. Coronary artery disease; patient is on dual antiplatelet therapy in addition to beta blockers as well as statin therapy 4. Hypertension 5. Dyslipidemia 6. Ischemic cardiomyopathy status post AICD placement 7. Acute urinary retention 8. Kidney disease stage III 9. Debility Recommendations: 1. I have discussed the results of my overview and impressions with the patient 2. Options for management were reviewed Code Visit Inpatient E&M: 25913 Subs Hosp L2
--- NOTE | 2018-01-07 13:08 | PN_ITS ---
<Carla Santos - Last Filed: 01/07/18 13:11> Patient Problems: Active and Suspected Problems (Last Reviewed 01/01/18 @ 15:45 by Cherelle Regan) UTI (urinary tract infection) (Acute) Subjective: Patient seen and examined. Confused this morning. Denies fever, chills. Denies cough. Manzano in place and draining. Family notified case management that they do not feel they can take him home. Pre-CERT started for SNF. - Physical Exam General: Alert, Cooperative, No apparent distress, Confused HEENT: Atraumatic, PERRLA, EOMI, Normocephalic Neck: Supple, No JVD, Negative Carotid Bruits Lungs: Clear to auscultation, Normal air movement Cardiovascular: Regular rate, No murmurs Abdomen: Bowel Sounds Present, Soft, Non Tender, Non-Distended Extremities: No clubbing, No cyanosis, No edema, Capillary Refill Less than 3 Seconds Skin: No rashes, No breakdown Musculoskeletal: No Tenderness to Palpation of Joints or Extremities Neurological: Cranial nerves II-XII grossly intact, Neuro grossly intact Psych/Mental Status: Normal Affect, Appropriate Vital Signs Temp Pulse Resp BP Pulse Ox 99 F 68 16 103/50 L 96 01/07/18 09:18 01/07/18 11:33 01/07/18 09:18 01/07/18 09:18 01/07/18 09:18 Oxygen Delivery Method Room Air Weight: 74.5 kg Body Mass Index (BMI) 23.6 Intake and Output for Last 24 Hours 01/05/18 01/06/18 01/07/18 23:59 23:59 23:59 Intake Total 1379 / 1379 1385 / 1385 489 / 489 Output Total 2175 / 2175 2024 / 2024 1350 / 1350 Balance -796 / -796 -640 / -640 -861 / -861 Microbiology Past 72 Hours 01/05/18 17:00 Legionella Antigen - Final Urine Catheter - [place] 01/05/18 17:00 Streptococcus pneumoniae Antigen (M - Final Urine Catheter - [place] Assessment/Plan Active and Suspected Problems (Last Reviewed 01/01/18 @ 15:45 by Cherelle Regan) UTI (urinary tract infection) (Acute) Patient is an 82-year-old male admitted 01/04/2018 due to confusion, nausea, UTI. 1. Acute sepsis secondary to Klebsiella UTI-urine culture completed at [facility] in [place] positive for Klebsiella. Susceptible to Rocephin. Patient with leukocytosis, lactic acid 2.0, tachycardia at outside facility. Patient with questionable pneumonia bilateral upper lobes on admission. Chest x -ray showed mild degree of vascular congestion and mid left basilar atelectasis. Do not further suspect pneumonia. Lungs clear. Suspect congestion secondary to fluid overload as a result of chronic urinary retention and noncompliance with Lasix regimen. Continue home Lasix and Flomax regimen. Manzano catheter in place. No further leukocytosis. T-max 99F over the last 24 hours. Blood cultures drawn at [facility] and pending. 2. Acute metabolic encephalopathy secondary to #1-patient remains confused. Continue treatment as noted above. 3. Acute on chronic urinary retention-Manzano in place, draining. Continue Flomax regimen. Patient has refused to follow-up with urology as outpatient and is also noncompliant with his Flomax and Lasix regimen. Recommend outpatient follow-up with urology. 4. Chronic systolic CHF with ischemic cardiomyopathy-follows with Dr. Soto. Status post ICD and pacemaker. Echocardiogram from February 2017 showed an EF of 20% , moderate mitral valve insufficiency, moderate tricuspid valve insufficiency, mild aortic valve calcification. Continue home regimen of aspirin, statin, beta- josé, Plavix, furosemide. Hydrochlorothiazide, losartan on hold. 5. Elevated creatinine-suspected secondary to urinary retention with underlying chronic kidney disease. Continue Manzano catheter and Flomax. Creatinine improved today. 6. CAD status post PCI-continue aspirin, statin, Plavix, beta-josé. 7. Hypertension-stable, continue current regimen. 8. General physical debility-family agreeable to SNF at discharge. Pre-cert pending. PT/OT. 9. Hypokalemia-resolved. DVT prophylaxis-SCDs. Discharge planning: Stable for discharge pending SNF pre-cert. This patient was seen by KYRIE Johnson under the supervision of Dr. Castano. <James Castano - Last Filed: 01/07/18 14:03> - Physical Exam Vital Signs Temp Pulse Resp BP Pulse Ox 99 F 73 17 103/50 L 96 01/07/18 09:18 01/07/18 13:32 01/07/18 13:32 01/07/18 09:18 01/07/18 09:18 Oxygen Delivery Method Room Air Weight: 74.5 kg Body Mass Index (BMI) 23.6 Intake and Output for Last 24 Hours 01/05/18 01/06/18 01/07/18 23:59 23:59 23:59 Intake Total 1379 / 1379 1385 / 1385 489 / 489 Output Total 2175 / 2175 2024 / 2024 1350 / 1350 Balance -796 / -796 -640 / -640 -861 / -861 Microbiology Past 72 Hours 01/05/18 17:00 Legionella Antigen - Final Urine Catheter - [place] 01/05/18 17:00 Streptococcus pneumoniae Antigen (M - Final Urine Catheter - [place] Assessment/Plan This patient was seen in conjunction with KYRIE Johnson. I have independently interviewed and examined the patient and reviewed pertinent historical, laboratory, and other data. Please refer to KYRIE Johnson note for details of this patient's presentation, findings, and recommendations. I have reviewed KYRIE Johnson note and concur with documented findings. In brief, patient is a 82-year-old male past medical history significant for hypertension CAD cardiomyopathy status post AICD was transferred from [facility] with changes in his mental status and assessment of sepsis secondary to acute cystitis versus suspected pneumonia made admitted to a monitored bed for further management 01/06/2018: Patient seen his level of sensorium and clinical condition continues to improve 01/07/2018: Patient seen remains severely deconditioned and plan is for [facility] pending insurance precertification Physical Examination: GENERAL: Not in distress HEENT: Clear conjunctiva, NECK; supple, normal thyroid, CHEST: Diminished to auscultation bilaterally, HEART: Regular S1 S2, no audible murmurs ABDOMEN: soft, non-tender, normoactive bowel sounds, SAT ACT INSTRUCTOR: Awake, oriented to self and place SKIN: No Rash Assessment: 1. Sepsis secondary to acute cystitis and suspected community-acquired pneumonia 2. Acute infectious encephalopathy 3. Coronary artery disease; patient is on dual antiplatelet therapy in addition to beta blockers as well as statin therapy 4. Hypertension 5. Dyslipidemia 6. Ischemic cardiomyopathy status post AICD placement 7. Acute urinary retention 8. Kidney disease stage III 9. Debility Recommendations: 1. I have discussed the results of my overview and impressions with the patient 2. Options for management were reviewed Code Visit Inpatient E&M: 65687 Subs Hosp L2
[2018-01-07] MEDS: Tamsulosin HCl 0.4 MG Capsule PO (16:53)
--- NOTE | 2018-01-07 17:16 | CASEMGMT ---
Social Work Reason for referral: SNF placement. Date of referral: 01/07/18 Initial visit: 01/07/18 Met with patient in room. This social science manager introduced self as well as social work role. This social science manager communicating concern of patient returning back to home alone. Patient voicing understanding but unsure of [facility] placement at this time. Patient was open to this socia worker discussing [facility] placement as well as this social science manager speaking with patient daughter, Tatianna about discharge plan. Telephone call to Tatianna. Tatianna voicing to agree that patient requires [facility] stay and is unable to discharge home alone. Tatianna voicing that first option of [facility] would be TCU and second would be [facility]. Support given. Telephone call to TCU, they do not have beds. Telephone call to [facility] reporting to have beds. [facility] reviewed clinical information and is voicing to be able to accept patient in the event that a precert is obtained. [facility] starting precert. [facility] also requesting copies of patient insurance cards, none on chart at this time. This social science manager requesting for Tatianna to bring in cards and have cards copied, Tatianna planning to bring in insurance cards this evening. PLAN: Discharge to [facility] pending precert. Social work to follow up with. Ladonna LORA, ROLL FORMER
[2018-01-07] MEDS: Atorvastatin Calcium 20 MG Tablet PO (21:41)
[2018-01-08] VITALS (13 sets, daily range): BP systolic 94–108; BP diastolic 49–58; PULSE 66–83; RESP 14–18; TEMP 36.5–37.2; O2SAT 93–95
[2018-01-08 06:17] LABS: Hematocrit 37.8 % (40-54); Hemoglobin 12.2 g/dl (13.0-16.5); Mean Corp Hgb Conc 32.3 g/gl (32-36); Mean Corpuscular Hgb 28.5 pg (27.0-32.0); Mean Corpuscular Volume 88.3 fL (80-94); Mean Platelet Vol. 11.3 fl (6.2-12.0); Platelet Count 135 K/mm3 (150-450); RBC Distribution Width CV 15.4 % (11.6-14.6); RBC Distribution Width SD 49.9 fl (35.1-43.9); Red Blood Count 4.28 M/mm3 (4.6-6.2); White Blood Count 8.9 K/mm3 (4.4-11.0)
[2018-01-08 06:18] LABS: Scan Indicated on CBC? Y/N NO
[2018-01-08 06:33] LABS: Anion Gap 8 (5-15); BUN 22 mg/dL (7-18); BUN/Creat Ratio 17.7 RATIO (10-20); Calcium,Total 8.4 mg/dL (8.5-10.1); Chloride 99 mmol/L (98-107); Creatinine, Serum 1.24 mg/dL (0.70-1.30); EST Glomerular Filtration Rate 59 mL/min (>60); Est Glom Filt Rate - Afr Amer 72 mL/min (>60); Estimated Creatinine Clearance 47.42 ml/min; Glucose 95 mg/dL (74-106); Potassium 3.2 mmol/L (3.5-5.1); Sodium Level 135 mmol/L (136-145)
[2018-01-08] MEDS: Ipratropium/Albuterol Sulfate 3 ML AMPUL.NEB INHALATION ×3 (06:38→20:06)
[2018-01-08] MEDS: Clopidogrel Bisulfate 75 MG Tablet PO (09:23)
[2018-01-08] MEDS: guaiFENesin 1,200 MG Tablet 1200 MG PO ×2 (09:23→21:34)
[2018-01-08] MEDS: Aspirin E.C. 81 MG Tablet PO (09:23)
[2018-01-08] MEDS: Furosemide 40 MG Tablet PO (09:23)
[2018-01-08] MEDS: 0.9% NaCl Peripheral Flush Adult/Peds IV (09:24)
--- NOTE | 2018-01-08 10:04 | CASEMGMT ---
SANDIP faxed insurance cards and updated PT/OT to [facility] per their request. Await pre-cert. Denice VOGEL MSW
--- NOTE | 2018-01-08 10:33 | PCM.PROGNOTE ---
<Carla Santos - Last Filed: 01/08/18 10:52> Patient Problems: Active and Suspected Problems (Last Reviewed 01/01/18 @ 15:45 by Cherelle Regan) UTI (urinary tract infection) (Acute) Subjective: Patient seen and examined. Sitting up in bed eating breakfast. States he rested well overnight. Denies complaints. Remains pleasantly confused. Waiting on pre-cert to SNF. - Physical Exam General: Alert, Cooperative, No apparent distress, Confused HEENT: Atraumatic, PERRLA, EOMI, Normocephalic Neck: Supple, No JVD, Negative Carotid Bruits Lungs: Clear to auscultation, Normal air movement Cardiovascular: Regular rate, No murmurs Abdomen: Bowel Sounds Present, Soft, Non Tender, Non-Distended Extremities: No clubbing, No cyanosis, No edema, Capillary Refill Less than 3 Seconds Skin: No rashes, No breakdown Musculoskeletal: No Tenderness to Palpation of Joints or Extremities Neurological: Cranial nerves II-XII grossly intact, Neuro grossly intact Psych/Mental Status: Normal Affect, Appropriate Vital Signs Temp Pulse Resp BP Pulse Ox 97.7 F L 71 16 107/58 L 93 01/08/18 09:22 01/08/18 09:22 01/08/18 09:22 01/08/18 09:22 01/08/18 09:22 Oxygen Delivery Method Room Air Weight: 74.5 kg Body Mass Index (BMI) 23.6 Intake and Output for Last 24 Hours 01/06/18 01/07/18 01/08/18 23:59 23:59 23:59 Intake Total 1385 / 1385 789 / 789 Output Total 2024 350 / 350 Balance -640 / -640 -1261 / -1261 -350 / -350 Microbiology Past 72 Hours 01/05/18 17:00 Legionella Antigen - Final Urine Catheter - Manzano 01/05/18 17:00 Streptococcus pneumoniae Antigen (M - Final Urine Catheter - Manzano Laboratory Tests Past 24 Hrs 01/08/18 01/08/18 05:25 05:25 WBC 8.9 RBC 4.28 L Hgb 12.2 L Hct 37.8 L MCV 88.3 MCH 28.5 MCHC 32.3 RDW 15.4 H RDW Differential 49.9 H Plt Count 135 L MPV 11.3 Sodium 135 L Potassium 3.2 L Chloride 99 Carbon Dioxide 28.0 Anion Gap 8 BUN 22 H Creatinine 1.24 Estim Creat Clear Calc 47.42 Est GFR (MDRD) Af Amer 72 Est GFR (MDRD) Non-Af 59 L BUN/Creatinine Ratio 17.7 Glucose 95 Calcium 8.4 L Assessment/Plan Active and Suspected Problems (Last Reviewed 01/01/18 @ 15:45 by Cherelle Regan) UTI (urinary tract infection) (Acute) Patient is an 82-year-old male admitted 01/04/2018 due to confusion, nausea, UTI. 1. Acute sepsis secondary to Klebsiella UTI-urine culture completed at [facility] in [place] positive for Klebsiella. Susceptible to Rocephin. Patient with leukocytosis, lactic acid 2.0, tachycardia at outside facility. Patient with questionable pneumonia bilateral upper lobes on admission. Chest x-ray showed mild degree of vascular congestion and mid left basilar atelectasis. Do not further suspect pneumonia. Lungs clear. Suspect congestion secondary to fluid overload as a result of chronic urinary retention and noncompliance with Lasix regimen. Continue home Lasix and Flomax regimen. Manzano catheter in place. No further leukocytosis. T-max 99.2F over the last 24 hours. Blood cultures drawn at [facility] and pending. 2. Acute metabolic encephalopathy secondary to #1-patient remains confused although improved. Continue treatment as noted above. 3. Acute on chronic urinary retention-Manzano in place, draining. Continue Flomax regimen. Patient has refused to follow-up with urology as outpatient and is also noncompliant with his Flomax and Lasix regimen. Recommend outpatient follow-up with urology. 4. Chronic systolic CHF with ischemic cardiomyopathy-follows with Dr. Soto. Status post ICD and pacemaker. Echocardiogram from February 2017 showed an EF of 20%, moderate mitral valve insufficiency, moderate tricuspid valve insufficiency, mild aortic valve calcification. Continue home regimen of aspirin, statin, beta-josé, Plavix, furosemide. Hydrochlorothiazide, losartan on hold. 5. Elevated creatinine-suspected secondary to urinary retention with underlying chronic kidney disease. Continue Manzano catheter and Flomax. Creatinine now WNL. 6. CAD status post PCI-continue aspirin, statin, Plavix, beta-josé. 7. Hypertension-stable, continue current regimen. 8. General physical debility-family agreeable to SNF at discharge. Pre-cert pending. PT/OT. 9. Hypokalemia-replaced orally, monitor BMP. DVT prophylaxis-SCDs. Discharge planning: Stable for discharge pending SNF pre-cert. This patient was seen by KYRIE Johnson under the supervision of Dr. Castano. <James Castaon - Last Filed: 01/08/18 13:28> - Physical Exam Vital Signs Temp Pulse Resp BP Pulse Ox 97.7 F L 73 16 107/58 L 93 01/08/18 09:22 01/08/18 11:00 01/08/18 09:22 01/08/18 09:22 01/08/18 09:22 Oxygen Delivery Method Room Air Weight: 74.5 kg Body Mass Index (BMI) 23.6 Intake and Output for Last 24 Hours 01/06/18 01/07/18 01/08/18 23:59 23:59 23:59 Intake Total 1385 / 1385 789 / 789 543 / 543 Output Total 2024 / 2024 2049 / 2049 665 / 665 Balance -640 / -640 -1261 / -1261 -122 / -122 Microbiology Past 72 Hours 01/05/18 17:00 Legionella Antigen - Final Urine Catheter - [facility]zano 01/05/18 17:00 Streptococcus pneumoniae Antigen (M - Final Urine Catheter - Manzano Laboratory Tests Past 24 Hrs 01/08/18 01/08/18 01/08/18 05:25 05:25 05:25 WBC 8.9 RBC 4.28 L Hgb 12.2 L Hct 37.8 L MCV 88.3 MCH 28.5 MCHC 32.3 RDW 15.4 H RDW Differential 49.9 H Plt Count 135 L MPV 11.3 Sodium 135 L Potassium 3.2 L Chloride 99 Carbon Dioxide 28.0 Anion Gap 8 BUN 22 H Creatinine 1.24 Estim Creat Clear Calc 47.42 Est GFR (MDRD) Af Amer 72 Est GFR (MDRD) Non-Af 59 L BUN/Creatinine Ratio 17.7 Glucose 95 Calcium 8.4 L Magnesium 2.0 Assessment/Plan This patient was seen in conjunction with KYRIE Johnson. I have independently interviewed and examined the patient and reviewed pertinent historical, laboratory, and other data. Please refer to Carla Tom, DATA CAPTURE CLERK-C note for details of this patient's presentation, findings, and recommendations. I have reviewed KYRIE Johnson note and concur with documented findings. In brief, patient is a 82-year-old male past medical history significant for hypertension CAD cardiomyopathy status post AICD was transferred from [facility] with changes in his mental status and assessment of sepsis secondary to acute cystitis versus suspected pneumonia made admitted to a monitored bed for further management 01/06/2018: Patient seen his level of sensorium and clinical condition continues to improve 01/07/2018: Patient seen remains severely deconditioned and plan is for [facility] be [facility] facility pending insurance precertification 01/08/2018; insurance approval is still pending prior to patient being discharged to prison facility. Clinical condition continues to improve. Potassium 3.2 today correction initiated. Physical Examination: GENERAL: Not in distress HEENT: Clear conjunctiva, NECK; supple, normal thyroid, CHEST: Diminished to auscultation bilaterally, HEART: Regular S1 S2, no audible murmurs ABDOMEN: soft, non-tender, normoactive bowel sounds, ICT ANALYST: Awake, oriented to self and place SKIN: No Rash Assessment: 1. Sepsis secondary to acute cystitis and suspected community-acquired pneumonia 2. Acute infectious encephalopathy 3. Coronary artery disease; patient is on dual antiplatelet therapy in addition to beta blockers as well as statin therapy 4. Hypertension 5. Dyslipidemia 6. Ischemic cardiomyopathy status post AICD placement 7. Acute urinary retention 8. Kidney disease stage III 9. Debility Recommendations: 1. I have discussed the results of my overview and impressions with the patient 2. Options for management were reviewed Code Visit Inpatient E&M: 07713 Subs Hosp L2
--- NOTE | 2018-01-08 10:51 | PN_ITS ---
<Carla Santos - Last Filed: 01/08/18 10:52> Patient Problems: Active and Suspected Problems (Last Reviewed 01/01/18 @ 15:45 by Cherelle Regan) UTI (urinary tract infection) (Acute) Subjective: Patient seen and examined. Sitting up in bed eating breakfast. States he rested well overnight. Denies complaints. Remains pleasantly confused. Waiting on pre- cert to SNF. - Physical Exam General: Alert, Cooperative, No apparent distress, Confused HEENT: Atraumatic, PERRLA, EOMI, Normocephalic Neck: Supple, No JVD, Negative Carotid Bruits Lungs: Clear to auscultation, Normal air movement Cardiovascular: Regular rate, No murmurs Abdomen: Bowel Sounds Present, Soft, Non Tender, Non-Distended Extremities: No clubbing, No cyanosis, No edema, Capillary Refill Less than 3 Seconds Skin: No rashes, No breakdown Musculoskeletal: No Tenderness to Palpation of Joints or Extremities Neurological: Cranial nerves II-XII grossly intact, Neuro grossly intact Psych/Mental Status: Normal Affect, Appropriate Vital Signs Temp Pulse Resp BP Pulse Ox 97.7 F L 71 16 107/58 L 93 01/08/18 09:22 01/08/18 09:22 01/08/18 09:22 01/08/18 09:22 01/08/18 09:22 Oxygen Delivery Method Room Air Weight: 74.5 kg Body Mass Index (BMI) 23.6 Intake and Output for Last 24 Hours 01/06/18 01/07/18 01/08/18 23:59 23:59 23:59 Intake Total 1385 / 1385 789 / 789 Output Total 2024 350 / 350 Balance -640 / -640 -1261 / -1261 -350 / -350 Microbiology Past 72 Hours 01/05/18 17:00 Legionella Antigen - Final Urine Catheter - [facility]zano 01/05/18 17:00 Streptococcus pneumoniae Antigen (M - Final Urine Catheter - [facility] Laboratory Tests Past 24 Hrs 01/08/18 01/08/18 05:25 05:25 WBC 8.9 RBC 4.28 L Hgb 12.2 L Hct 37.8 L MCV 88.3 MCH 28.5 MCHC 32.3 RDW 15.4 H RDW Differential 49.9 H Plt Count 135 L MPV 11.3 Sodium 135 L Potassium 3.2 L Chloride 99 Carbon Dioxide 28.0 Anion Gap 8 BUN 22 H Creatinine 1.24 Estim Creat Clear Calc 47.42 Est GFR (MDRD) Af Amer 72 Est GFR (MDRD) Non-Af 59 L BUN/Creatinine Ratio 17.7 Glucose 95 Calcium 8.4 L Assessment/Plan Active and Suspected Problems (Last Reviewed 01/01/18 @ 15:45 by Cherelle Regan) UTI (urinary tract infection) (Acute) Patient is an 82-year-old male admitted 01/04/2018 due to confusion, nausea, UTI. 1. Acute sepsis secondary to Klebsiella UTI-urine culture completed at [facility] in [place] positive for Klebsiella. Susceptible to Rocephin. Patient with leukocytosis, lactic acid 2.0, tachycardia at outside facility. Patient with questionable pneumonia bilateral upper lobes on admission. Chest x -ray showed mild degree of vascular congestion and mid left basilar atelectasis. Do not further suspect pneumonia. Lungs clear. Suspect congestion secondary to fluid overload as a result of chronic urinary retention and noncompliance with Lasix regimen. Continue home Lasix and Flomax regimen. Manzano catheter in place. No further leukocytosis. T-max 99.2F over the last 24 hours. Blood cultures drawn at [facility] and pending. 2. Acute metabolic encephalopathy secondary to #1-patient remains confused although improved. Continue treatment as noted above. 3. Acute on chronic urinary retention-Manzano in place, draining. Continue Flomax regimen. Patient has refused to follow-up with urology as outpatient and is also noncompliant with his Flomax and Lasix regimen. Recommend outpatient follow-up with urology. 4. Chronic systolic CHF with ischemic cardiomyopathy-follows with Dr. Soto. Status post ICD and pacemaker. Echocardiogram from February 2017 showed an EF of 20% , moderate mitral valve insufficiency, moderate tricuspid valve insufficiency, mild aortic valve calcification. Continue home regimen of aspirin, statin, beta- josé, Plavix, furosemide. Hydrochlorothiazide, losartan on hold. 5. Elevated creatinine-suspected secondary to urinary retention with underlying chronic kidney disease. Continue Manzano catheter and Flomax. Creatinine now WNL. 6. CAD status post PCI-continue aspirin, statin, Plavix, beta-josé. 7. Hypertension-stable, continue current regimen. 8. General physical debility-family agreeable to SNF at discharge. Pre-cert pending. PT/OT. 9. Hypokalemia-replaced orally, monitor BMP. DVT prophylaxis-SCDs. Discharge planning: Stable for discharge pending SNF pre-cert. This patient was seen by KYRIE Johnson under the supervision of Dr. Castano. <James Castano - Last Filed: 01/08/18 13:28> - Physical Exam Vital Signs Temp Pulse Resp BP Pulse Ox 97.7 F L 73 16 107/58 L 93 01/08/18 09:22 01/08/18 11:00 01/08/18 09:22 01/08/18 09:22 01/08/18 09:22 Oxygen Delivery Method Room Air Weight: 74.5 kg Body Mass Index (BMI) 23.6 Intake and Output for Last 24 Hours 01/06/18 01/07/18 01/08/18 23:59 23:59 23:59 Intake Total 1385 / 1385 789 / 789 543 / 543 Output Total 2024 / 2024 2049 / 2049 665 / 665 Balance -640 / -640 -1261 / -1261 -122 / -122 Microbiology Past 72 Hours 01/05/18 17:00 Legionella Antigen - Final Urine Catheter - [facility]zano 01/05/18 17:00 Streptococcus pneumoniae Antigen (M - Final Urine Catheter - Manzano Laboratory Tests Past 24 Hrs 01/08/18 01/08/18 01/08/18 05:25 05:25 05:25 WBC 8.9 RBC 4.28 L Hgb 12.2 L Hct 37.8 L MCV 88.3 MCH 28.5 MCHC 32.3 RDW 15.4 H RDW Differential 49.9 H Plt Count 135 L MPV 11.3 Sodium 135 L Potassium 3.2 L Chloride 99 Carbon Dioxide 28.0 Anion Gap 8 BUN 22 H Creatinine 1.24 Estim Creat Clear Calc 47.42 Est GFR (MDRD) Af Amer 72 Est GFR (MDRD) Non-Af 59 L BUN/Creatinine Ratio 17.7 Glucose 95 Calcium 8.4 L Magnesium 2.0 Assessment/Plan This patient was seen in conjunction with KYRIE Johnson. I have independently interviewed and examined the patient and reviewed pertinent historical, laboratory, and other data. Please refer to Carla Tom, RIVET HEATER-C note for details of this patient's presentation, findings, and recommendations. I have reviewed KYRIE Johnson note and concur with documented findings. In brief, patient is a 82-year-old male past medical history significant for hypertension CAD cardiomyopathy status post AICD was transferred from [facility] with changes in his mental status and assessment of sepsis secondary to acute cystitis versus suspected pneumonia made admitted to a monitored bed for further management 01/06/2018: Patient seen his level of sensorium and clinical condition continues to improve 01/07/2018: Patient seen remains severely deconditioned and plan is for patient to be discharged to fdc facility pending insurance precertification 01/08/2018; insurance approval is still pending prior to patient being discharged to fdc facility. Clinical condition continues to improve. Potassium 3.2 today correction initiated. Physical Examination: GENERAL: Not in distress HEENT: Clear conjunctiva, NECK; supple, normal thyroid, CHEST: Diminished to auscultation bilaterally, HEART: Regular S1 S2, no audible murmurs ABDOMEN: soft, non-tender, normoactive bowel sounds, LITHOGRAPHIC PROOFER APPRENTICE: Awake, oriented to self and place SKIN: No Rash Assessment: 1. Sepsis secondary to acute cystitis and suspected community-acquired pneumonia 2. Acute infectious encephalopathy 3. Coronary artery disease; patient is on dual antiplatelet therapy in addition to beta blockers as well as statin therapy 4. Hypertension 5. Dyslipidemia 6. Ischemic cardiomyopathy status post AICD placement 7. Acute urinary retention 8. Kidney disease stage III 9. Debility Recommendations: 1. I have discussed the results of my overview and impressions with the patient 2. Options for management were reviewed Code Visit Inpatient E&M: 58392 Subs Hosp L2
--- NOTE | 2018-01-08 16:58 | CASEMGMT ---
This LUZ DENNISON received message from pt's daughter in law requesting update on SNF placement. Call to bridget Campuzanotr in law, and updated that we are awaiting precert from insurance at this time. Precert explained and she voices understanding at this time. Advised her that it will now be until Thursday before pt can be dispositioned pending precert, voices understanding. Tatianna voices no further concerns/questions at this time. Advised her that Olivia OROPEZA would call her as soon as precert obtained and that she is welcome to call thursday am to check on status, voices understanding. SStvalreiy ESCOBAR CM
[2018-01-08] MEDS: Tamsulosin HCl 0.4 MG Capsule PO (17:10)
[2018-01-08] MEDS: Atorvastatin Calcium 20 MG Tablet PO (21:34)
[2018-01-09] VITALS (14 sets, daily range): BP systolic 96–117; BP diastolic 51–58; PULSE 67–83; RESP 16–18; TEMP 36.2–37.5; O2SAT 94–100
[2018-01-09 06:19] LABS: Anion Gap 7 (5-15); BUN 18 mg/dL (7-18); BUN/Creat Ratio 15.3 RATIO (10-20); Calcium,Total 8.5 mg/dL (8.5-10.1); Chloride 100 mmol/L (98-107); Creatinine, Serum 1.18 mg/dL (0.70-1.30); EST Glomerular Filtration Rate 63 mL/min (>60); Est Glom Filt Rate - Afr Amer 76 mL/min (>60); Estimated Creatinine Clearance 49.84 ml/min; Glucose 98 mg/dL (74-106); Potassium 3.2 mmol/L (3.5-5.1); Sodium Level 134 mmol/L (136-145)
[2018-01-09] MEDS: Ipratropium/Albuterol Sulfate 3 ML AMPUL.NEB INHALATION ×3 (07:14→18:44)
--- NOTE | 2018-01-09 10:53 | PCM.PROGNOTE ---
Patient Problems: Active and Suspected Problems (Last Reviewed 01/01/18 @ 15:45 by Cherelle Regan) UTI (urinary tract infection) (Acute) Subjective: He is awake and alert, mild to moderate confusion, probably at baseline. Minimal cough. +Manzano cath for urinary retention. - Physical Exam General: Alert, Cooperative, Confused - oriented to person, some difficulty with place, not to time. HEENT: Atraumatic, Normocephalic Oral: Moist Mucosa, No Gingival or Mucosal Lesions/ Ulcerations Neck: Supple, No JVD Lungs: Clear to auscultation, Normal air movement, No rhonchi, No wheeze, No rales Cardiovascular: Regular rate, Regular Rhythm, Normal S1, Normal S2, No murmurs, No Ectopic Activity Abdomen: Bowel Sounds Present, Soft, Non Tender, Non-Distended, No Hepato-splenomegaly Extremities: No clubbing, No cyanosis, No edema Skin: No rashes, No breakdown Musculoskeletal: No Tenderness to Palpation of Joints or Extremities, No Muscle Wasting Lymphatic: No Cervical, Supraclavicular, or Inguinal Adenopathy Neurological: Cranial nerves II-XII grossly intact, Neuro grossly intact Psych/Mental Status: Normal Affect Vital Signs Temp Pulse Resp BP Pulse Ox 97.2 F L 73 16 117/56 L 95 01/09/18 09:34 01/09/18 09:34 01/09/18 09:34 01/09/18 09:34 01/09/18 09:34 Oxygen Delivery Method Room Air Weight: 164 lb 3.91 oz Body Mass Index (BMI) 23.6 Intake and Output for Last 24 Hours 01/07/18 01/08/18 01/09/18 23:59 23:59 23:59 Intake Total 789 / 789 963 / 963 Output Total 2049 / 2049 1565 / 1565 300 / 300 Balance -1261 / -1261 -602 / -602 -300 / -300 Laboratory Tests Past 24 Hrs 01/08/18 01/09/18 05:25 05:22 Sodium 134 L Potassium 3.2 L Chloride 100 Carbon Dioxide 27.0 Anion Gap 7 BUN 18 Creatinine 1.18 Estim Creat Clear Calc 49.84 Est GFR (MDRD) Af Amer 76 Est GFR (MDRD) Non-Af 63 BUN/Creatinine Ratio 15.3 Glucose 98 Calcium 8.5 Magnesium 2.0 Diagnostic Data Chest X-Ray 01/05/18 07:50 IMPRESSION: Mild degree of vascular congestion and mild left basilar atelectasis. Electronically Signed: Tarik Sanchez MD at 13:55 EDT Tel [phone], Service support , Medical Necessity - Tobacco Use Smoking Status: Former smoker Assessment/Plan Active and Suspected Problems (Last Reviewed 01/01/18 @ 15:45 by Cherelle Regan) UTI (urinary tract infection) (Acute) Patient is a 82-year-old male past medical history significant for hypertension CAD cardiomyopathy status post AICD was transferred from [facility] with changes in his mental status and assessment of sepsis secondary to acute cystitis versus suspected pneumonia made admitted to a monitored bed for further management #1 Acute metabolic encephalopathy with underling mild to moderate dementia, due to klebsiella UTI. Culture from [facility] in [place] showed Klebsiella, susceptible to ceftriaxone. Positive for leukocytosis and elevated lactic acid to 2.0, along with tachycardia. CXR showed mild congestion and atelectasis, pneumonia less likely. Continue ceftriaxone. Plan to discharge with quinolone (CIPRO or Levaquin), or Ceftin. Bacteria sensitive cross the spectrum except penicillin group. His mental status probably at baseline now. #2 Urinary retention. Continue Manzano catheter. Planned for follow-up with urology as outpatient. Continue Flomax. He had been non-compliant with Flomax, and also did not see urology as outpatient before. #3 Chronic systolic CHF with ischemic cardiomyopathy He follows with Dr. Soto as outpatient. Status post ICD and pacemaker placement at [place] [facility] [place]. Echocardiogram from February 2017 showed an EF of 20%, moderate mitral valve insufficiency, moderate tricuspid valve insufficiency, mild aortic valve calcification. Continue home regimen of aspirin, statin, beta-josé, Plavix, furosemide. HCTZ and losartan on hold for low blood pressure. #4 STACY. Due to urinary retention / obstruction. Creatinine 1.53 on admission, improved to 1.18. #5 Coronary artery disease. History of PCI. Continue aspirin, Plavix, statin, and Beta-josé. #6 Essential hypertension. Blood pressure has been low. HCTZ and Losartan on hold. Continue to monitor. Plan to restart ARB when possible. #7 generalized weakness with deconditioning. With likely underling mild to moderate dementia. Agreeable for SNF for rehab. Pre-cert pending. PT/OT. #8 Hypokalemia. Corrected. Monitor BMP. VTE prophylaxis: SCD / Lovenox. GI prophylaxis: PPI po. Patient is full code. Disposition: SNF. Pre-cert pending. Code Visit Inpatient E&M: 45118 Subs Hosp L2
[2018-01-09] MEDS: Furosemide 40 MG Tablet PO (10:56)
[2018-01-09] MEDS: Clopidogrel Bisulfate 75 MG Tablet PO (10:56)
[2018-01-09] MEDS: Aspirin E.C. 81 MG Tablet PO (10:56)
[2018-01-09] MEDS: guaiFENesin 1,200 MG Tablet 1200 MG PO ×2 (10:56→21:45)
[2018-01-09] MEDS: 0.9% NaCl Peripheral Flush Adult/Peds IV (10:57)
[2018-01-09] MEDS: Carvedilol 3.125 MG TABLET PO (10:58)
--- NOTE | 2018-01-09 11:05 | PN_ITS ---
Patient Problems: Active and Suspected Problems (Last Reviewed 01/01/18 @ 15:45 by Cherelle Regan) UTI (urinary tract infection) (Acute) Subjective: He is awake and alert, mild to moderate confusion, probably at baseline. Minimal cough. +Manzano cath for urinary retention. - Physical Exam General: Alert, Cooperative, Confused - oriented to person, some difficulty with place, not to time. HEENT: Atraumatic, Normocephalic Oral: Moist Mucosa, No Gingival or Mucosal Lesions/ Ulcerations Neck: Supple, No JVD Lungs: Clear to auscultation, Normal air movement, No rhonchi, No wheeze, No rales Cardiovascular: Regular rate, Regular Rhythm, Normal S1, Normal S2, No murmurs, No Ectopic Activity Abdomen: Bowel Sounds Present, Soft, Non Tender, Non-Distended, No Hepato- splenomegaly Extremities: No clubbing, No cyanosis, No edema Skin: No rashes, No breakdown Musculoskeletal: No Tenderness to Palpation of Joints or Extremities, No Muscle Wasting Lymphatic: No Cervical, Supraclavicular, or Inguinal Adenopathy Neurological: Cranial nerves II-XII grossly intact, Neuro grossly intact Psych/Mental Status: Normal Affect Vital Signs Temp Pulse Resp BP Pulse Ox 97.2 F L 73 16 117/56 L 95 01/09/18 09:34 01/09/18 09:34 01/09/18 09:34 01/09/18 09:34 01/09/18 09:34 Oxygen Delivery Method Room Air Weight: 164 lb 3.91 oz Body Mass Index (BMI) 23.6 Intake and Output for Last 24 Hours 01/07/18 01/08/18 01/09/18 23:59 23:59 23:59 Intake Total 789 / 789 963 / 963 Output Total 2049 / 2049 1565 / 1565 300 / 300 Balance -1261 / -1261 -602 / -602 -300 / -300 Laboratory Tests Past 24 Hrs 01/08/18 01/09/18 05:25 05:22 Sodium 134 L Potassium 3.2 L Chloride 100 Carbon Dioxide 27.0 Anion Gap 7 BUN 18 Creatinine 1.18 Estim Creat Clear Calc 49.84 Est GFR (MDRD) Af Amer 76 Est GFR (MDRD) Non-Af 63 BUN/Creatinine Ratio 15.3 Glucose 98 Calcium 8.5 Magnesium 2.0 Diagnostic Data Chest X-Ray 01/05/18 07:50 IMPRESSION: Mild degree of vascular congestion and mild left basilar atelectasis. Electronically Signed: Tarik Sanchez MD at 13:55 EDT Tel [phone], Service support , Medical Necessity - Tobacco Use Smoking Status: Former smoker Assessment/Plan Active and Suspected Problems (Last Reviewed 01/01/18 @ 15:45 by Cherelle Regan) UTI (urinary tract infection) (Acute) Patient is a 82-year-old male past medical history significant for hypertension CAD cardiomyopathy status post AICD was transferred from [facility] with changes in his mental status and assessment of sepsis secondary to acute cystitis versus suspected pneumonia made admitted to a monitored bed for further management #1 Acute metabolic encephalopathy with underling mild to moderate dementia, due to klebsiella UTI. Culture from [facility] in [place] showed Klebsiella, susceptible to ceftriaxone. Positive for leukocytosis and elevated lactic acid to 2.0, along with tachycardia. CXR showed mild congestion and atelectasis, pneumonia less likely. Continue ceftriaxone. Plan to discharge with quinolone (CIPRO or Levaquin), or Ceftin. Bacteria sensitive cross the spectrum except penicillin group. His mental status probably at baseline now. #2 Urinary retention. Continue Manzano catheter. Planned for follow-up with urology as outpatient. Continue Flomax. He had been non-compliant with Flomax, and also did not see urology as outpatient before. #3 Chronic systolic CHF with ischemic cardiomyopathy He follows with Dr. Soto as outpatient. Status post ICD and pacemaker placement at [facility] at [place]. Echocardiogram from February 2017 showed an EF of 20%, moderate mitral valve insufficiency, moderate tricuspid valve insufficiency, mild aortic valve calcification. Continue home regimen of aspirin, statin, beta-josé, Plavix, furosemide. HCTZ and losartan on hold for low blood pressure. #4 STACY. Due to urinary retention / obstruction. Creatinine 1.53 on admission, improved to 1.18. #5 Coronary artery disease. History of PCI. Continue aspirin, Plavix, statin, and Beta-josé. #6 Essential hypertension. Blood pressure has been low. HCTZ and Losartan on hold. Continue to monitor. Plan to restart ARB when possible. #7 generalized weakness with deconditioning. With likely underling mild to moderate dementia. Agreeable for SNF for rehab. Pre-cert pending. PT/OT. #8 Hypokalemia. Corrected. Monitor BMP. VTE prophylaxis: SCD / Lovenox. GI prophylaxis: PPI po. Patient is full code. Disposition: SNF. Pre-cert pending. Code Visit Inpatient E&M: 62519 Subs Hosp L2
[2018-01-09] MEDS: Tamsulosin HCl 0.4 MG Capsule PO (18:26)
[2018-01-09] MEDS: Atorvastatin Calcium 20 MG Tablet PO (21:45)
[2018-01-10] VITALS (12 sets, daily range): BP systolic 103–108; BP diastolic 52–55; PULSE 63–76; RESP 14–20; TEMP 36.8–37.1; O2SAT 94–95
[2018-01-10] MEDS: Enoxaparin 40 MG/0.4 ML Syringe SC (05:52)
[2018-01-10 05:57] LABS: Hematocrit 40.6 % (40-54); Hemoglobin 13.1 g/dl (13.0-16.5); Mean Corp Hgb Conc 32.3 g/gl (32-36); Mean Corpuscular Hgb 28.9 pg (27.0-32.0); Mean Corpuscular Volume 89.6 fL (80-94); Mean Platelet Vol. 10.9 fl (6.2-12.0); Platelet Count 165 K/mm3 (150-450); RBC Distribution Width CV 15.4 % (11.6-14.6); RBC Distribution Width SD 50.5 fl (35.1-43.9); Red Blood Count 4.53 M/mm3 (4.6-6.2)
[2018-01-10 06:00] LABS: Scan Indicated on CBC? Y/N NO
[2018-01-10 06:08] LABS: Anion Gap 8 (5-15); BUN 17 mg/dL (7-18); Calcium,Total 8.6 mg/dL (8.5-10.1); Chloride 100 mmol/L (98-107); Creatinine, Serum 1.13 mg/dL (0.70-1.30); EST Glomerular Filtration Rate 66 mL/min (>60); Est Glom Filt Rate - Afr Amer 80 mL/min (>60); Estimated Creatinine Clearance 52.04 ml/min; Glucose 86 mg/dL (74-106); Potassium 3.6 mmol/L (3.5-5.1); Sodium Level 135 mmol/L (136-145)
[2018-01-10] MEDS: Ipratropium/Albuterol Sulfate 3 ML AMPUL.NEB INHALATION ×2 (06:41→19:27)
[2018-01-10] MEDS: Aspirin E.C. 81 MG Tablet PO (09:20)
[2018-01-10] MEDS: Furosemide 40 MG Tablet PO (09:21)
[2018-01-10] MEDS: Pantoprazole Sodium 20 MG Tablet PO (09:21)
[2018-01-10] MEDS: Clopidogrel Bisulfate 75 MG Tablet PO (09:21)
[2018-01-10] MEDS: 0.9% NaCl Peripheral Flush Adult/Peds IV (09:21)
[2018-01-10] MEDS: guaiFENesin 1,200 MG Tablet 1200 MG PO ×2 (09:21→20:52)
--- NOTE | 2018-01-10 09:47 | PCM.PROGNOTE ---
Patient Problems: Active and Suspected Problems (Last Reviewed 01/01/18 @ 15:45 by Cherelle Regan) UTI (urinary tract infection) (Acute) Subjective: He feels well. He has no complains. He denied of any pain, pleasantly confused. - Physical Exam General: Alert, Cooperative, Confused - oriented to person and place, but not to time. HEENT: Atraumatic, Normocephalic Oral: Moist Mucosa, No Gingival or Mucosal Lesions/ Ulcerations Neck: Supple, No JVD Lungs: Clear to auscultation, Normal air movement, No rhonchi, No wheeze, No rales Cardiovascular: Regular rate, Regular Rhythm, Normal S1, Normal S2, No murmurs, No Ectopic Activity Abdomen: Bowel Sounds Present, Soft, Non Tender, Non-Distended, No Hepato-splenomegaly Extremities: No clubbing, No cyanosis, No edema Skin: No rashes, No breakdown Musculoskeletal: No Tenderness to Palpation of Joints or Extremities, No Muscle Wasting Lymphatic: No Cervical, Supraclavicular, or Inguinal Adenopathy Neurological: Cranial nerves II-XII grossly intact, Neuro grossly intact Psych/Mental Status: Normal Affect - Physical Exam Vital Signs Temp Pulse Resp BP Pulse Ox 98.7 F 70 14 105/55 L 95 01/10/18 09:06 01/10/18 09:06 01/10/18 09:06 01/10/18 09:06 01/10/18 09:06 Oxygen Delivery Method Room Air Weight: 164 lb 3.91 oz Body Mass Index (BMI) 23.6 Intake and Output for Last 24 Hours 01/08/18 01/09/18 01/10/18 23:59 23:59 23:59 Intake Total 963 / 963 1031 / 1031 Output Total 1565 / 1565 1575 / 1575 350 / 350 Balance -602 / -602 -544 / -544 -350 / -350 Laboratory Tests Past 24 Hrs 01/10/18 01/10/18 05:16 05:16 WBC 9.0 RBC 4.53 L Hgb 13.1 Hct 40.6 MCV 89.6 MCH 28.9 MCHC 32.3 RDW 15.4 H RDW Differential 50.5 H Plt Count 165 MPV 10.9 Sodium 135 L Potassium 3.6 Chloride 100 Carbon Dioxide 27.0 Anion Gap 8 BUN 17 Creatinine 1.13 Estim Creat Clear Calc 52.04 Est GFR (MDRD) Af Amer 80 Est GFR (MDRD) Non-Af 66 BUN/Creatinine Ratio 15.0 Glucose 86 Calcium 8.6 Diagnostic Data Chest X-Ray 01/05/18 07:50 IMPRESSION: Mild degree of vascular congestion and mild left basilar atelectasis. Electronically Signed: Tarik Sanchez MD at 13:55 EDT Tel [phone], Service support , Medical Necessity - Tobacco Use Smoking Status: Former smoker Assessment/Plan Active and Suspected Problems (Last Reviewed 01/01/18 @ 15:45 by Cherelle Regan) UTI (urinary tract infection) (Acute) Patient is a 82-year-old male past medical history significant for hypertension CAD cardiomyopathy status post AICD implantation was transferred from [facility] with acute mental status change with underling dementia. CXR unremarkable, thought to be due to Klebsiella UTI. #1 Acute metabolic encephalopathy with underling mild to moderate dementia, due to klebsiella UTI. Culture from [facility] in [place] showed Klebsiella, susceptible to ceftriaxone. Positive for leukocytosis and elevated lactic acid to 2.0, along with tachycardia. CXR showed mild congestion and atelectasis, pneumonia less likely. Continue ceftriaxone. Plan to discharge with quinolone (CIPRO or Levaquin), or Ceftin. Bacteria sensitive across the spectrum except penicillin group. His mental status probably at baseline now. #2 Urinary retention. Continue Manzano catheter. Planned for follow-up with urology as outpatient. Continue Flomax. He had been non-compliant with Flomax, and also did not see urology as outpatient before. #3 Chronic systolic CHF with ischemic cardiomyopathy He follows with Dr. Soto as outpatient. Status post ICD and pacemaker placement at [facility] at [place]. Echocardiogram from February 2017 showed an EF of 20%, moderate mitral valve insufficiency, moderate tricuspid valve insufficiency, mild aortic valve calcification. Continue home regimen of aspirin, statin, beta-josé, Plavix, furosemide. HCTZ and losartan on hold for low blood pressure. Plan to restart low dose losartan when BP is better. #4 STACY. Due to urinary retention / obstruction. Creatinine 1.53 on admission, improved to 1.18. #5 Coronary artery disease. History of PCI. Continue aspirin, Plavix, statin, and Beta-josé. #6 Essential hypertension. Blood pressure has been low. HCTZ and Losartan on hold. Continue to monitor. Plan to restart ARB when possible. #7 generalized weakness with deconditioning. With likely underling mild to moderate dementia. Agreeable for SNF for rehab. Pre-cert pending. PT/OT. #8 Hypokalemia. Corrected. Monitor BMP. VTE prophylaxis: SCD / Lovenox. GI prophylaxis: PPI po. Patient is full code. Disposition: SNF. Pre-cert pending. Code Visit Inpatient E&M: 83610 Subs Hosp L2
--- NOTE | 2018-01-10 10:05 | PN_ITS ---
Patient Problems: Active and Suspected Problems (Last Reviewed 01/01/18 @ 15:45 by Cherelle Regan) UTI (urinary tract infection) (Acute) Subjective: He feels well. He has no complains. He denied of any pain, pleasantly confused. - Physical Exam General: Alert, Cooperative, Confused - oriented to person and place, but not to time. HEENT: Atraumatic, Normocephalic Oral: Moist Mucosa, No Gingival or Mucosal Lesions/ Ulcerations Neck: Supple, No JVD Lungs: Clear to auscultation, Normal air movement, No rhonchi, No wheeze, No rales Cardiovascular: Regular rate, Regular Rhythm, Normal S1, Normal S2, No murmurs, No Ectopic Activity Abdomen: Bowel Sounds Present, Soft, Non Tender, Non-Distended, No Hepato- splenomegaly Extremities: No clubbing, No cyanosis, No edema Skin: No rashes, No breakdown Musculoskeletal: No Tenderness to Palpation of Joints or Extremities, No Muscle Wasting Lymphatic: No Cervical, Supraclavicular, or Inguinal Adenopathy Neurological: Cranial nerves II-XII grossly intact, Neuro grossly intact Psych/Mental Status: Normal Affect - Physical Exam Vital Signs Temp Pulse Resp BP Pulse Ox 98.7 F 70 14 105/55 L 95 01/10/18 09:06 01/10/18 09:06 01/10/18 09:06 01/10/18 09:06 01/10/18 09:06 Oxygen Delivery Method Room Air Weight: 164 lb 3.91 oz Body Mass Index (BMI) 23.6 Intake and Output for Last 24 Hours 01/08/18 01/09/18 01/10/18 23:59 23:59 23:59 Intake Total 963 / 963 1031 / 1031 Output Total 1565 / 1565 1575 / 1575 350 / 350 Balance -602 / -602 -544 / -544 -350 / -350 Laboratory Tests Past 24 Hrs 01/10/18 01/10/18 05:16 05:16 WBC 9.0 RBC 4.53 L Hgb 13.1 Hct 40.6 MCV 89.6 MCH 28.9 MCHC 32.3 RDW 15.4 H RDW Differential 50.5 H Plt Count 165 MPV 10.9 Sodium 135 L Potassium 3.6 Chloride 100 Carbon Dioxide 27.0 Anion Gap 8 BUN 17 Creatinine 1.13 Estim Creat Clear Calc 52.04 Est GFR (MDRD) Af Amer 80 Est GFR (MDRD) Non-Af 66 BUN/Creatinine Ratio 15.0 Glucose 86 Calcium 8.6 Diagnostic Data Chest X-Ray 01/05/18 07:50 IMPRESSION: Mild degree of vascular congestion and mild left basilar atelectasis. Electronically Signed: Tarik Sanchez MD at 13:55 EDT Tel [phone], Service support , Medical Necessity - Tobacco Use Smoking Status: Former smoker Assessment/Plan Active and Suspected Problems (Last Reviewed 01/01/18 @ 15:45 by Cherelle Regan) UTI (urinary tract infection) (Acute) Patient is a 82-year-old male past medical history significant for hypertension CAD cardiomyopathy status post AICD implantation was transferred from [facility] with acute mental status change with underling dementia. CXR unremarkable, thought to be due to Klebsiella UTI. #1 Acute metabolic encephalopathy with underling mild to moderate dementia, due to klebsiella UTI. Culture from [facility] in [place] showed Klebsiella, susceptible to ceftriaxone. Positive for leukocytosis and elevated lactic acid to 2.0, along with tachycardia. CXR showed mild congestion and atelectasis, pneumonia less likely. Continue ceftriaxone. Plan to discharge with quinolone (CIPRO or Levaquin), or Ceftin. Bacteria sensitive across the spectrum except penicillin group. His mental status probably at baseline now. #2 Urinary retention. Continue Manzano catheter. Planned for follow-up with urology as outpatient. Continue Flomax. He had been non-compliant with Flomax, and also did not see urology as outpatient before. #3 Chronic systolic CHF with ischemic cardiomyopathy He follows with Dr. Soto as outpatient. Status post ICD and pacemaker placement at [facility] at [place]. Echocardiogram from February 2017 showed an EF of 20%, moderate mitral valve insufficiency, moderate tricuspid valve insufficiency, mild aortic valve calcification. Continue home regimen of aspirin, statin, beta-josé, Plavix, furosemide. HCTZ and losartan on hold for low blood pressure. Plan to restart low dose losartan when BP is better. #4 STACY. Due to urinary retention / obstruction. Creatinine 1.53 on admission, improved to 1.18. #5 Coronary artery disease. History of PCI. Continue aspirin, Plavix, statin, and Beta-josé. #6 Essential hypertension. Blood pressure has been low. HCTZ and Losartan on hold. Continue to monitor. Plan to restart ARB when possible. #7 generalized weakness with deconditioning. With likely underling mild to moderate dementia. Agreeable for SNF for rehab. Pre-cert pending. PT/OT. #8 Hypokalemia. Corrected. Monitor BMP. VTE prophylaxis: SCD / Lovenox. GI prophylaxis: PPI po. Patient is full code. Disposition: SNF. Pre-cert pending. Code Visit Inpatient E&M: 21360 Subs Hosp L2
[2018-01-10] MEDS: Tamsulosin HCl 0.4 MG Capsule PO (18:31)
[2018-01-10] MEDS: Atorvastatin Calcium 20 MG Tablet PO (20:51)
[2018-01-11] VITALS (14 sets, daily range): BP systolic 94–112; BP diastolic 48–59; PULSE 65–73; RESP 16–18; TEMP 36.4–37; O2SAT 93–98
[2018-01-11] MEDS: Enoxaparin 40 MG/0.4 ML Syringe SC (05:29)
[2018-01-11 06:00] LABS: Hematocrit 39.9 % (40-54); Mean Corp Hgb Conc 32.6 g/gl (32-36); Mean Corpuscular Hgb 28.7 pg (27.0-32.0); Mean Corpuscular Volume 88.1 fL (80-94); Mean Platelet Vol. 11.3 fl (6.2-12.0); Platelet Count 208 K/mm3 (150-450); RBC Distribution Width CV 15.1 % (11.6-14.6); RBC Distribution Width SD 48.7 fl (35.1-43.9); Red Blood Count 4.53 M/mm3 (4.6-6.2); White Blood Count 9.7 K/mm3 (4.4-11.0)
[2018-01-11 06:04] LABS: Scan Indicated on CBC? Y/N NO
[2018-01-11 06:38] LABS: Anion Gap 8 (5-15); BUN 19 mg/dL (7-18); BUN/Creat Ratio 16.4 RATIO (10-20); Calcium,Total 8.9 mg/dL (8.5-10.1); Chloride 98 mmol/L (98-107); Creatinine, Serum 1.16 mg/dL (0.70-1.30); EST Glomerular Filtration Rate 64 mL/min (>60); Est Glom Filt Rate - Afr Amer 78 mL/min (>60); Estimated Creatinine Clearance 50.69 ml/min; Glucose 98 mg/dL (74-106); Potassium 3.9 mmol/L (3.5-5.1); Sodium Level 134 mmol/L (136-145)
[2018-01-11] MEDS: Ipratropium/Albuterol Sulfate 3 ML AMPUL.NEB INHALATION ×3 (06:44→18:49)
[2018-01-11] MEDS: Aspirin E.C. 81 MG Tablet PO (08:56)
[2018-01-11] MEDS: Clopidogrel Bisulfate 75 MG Tablet PO (08:57)
[2018-01-11] MEDS: Pantoprazole Sodium 20 MG Tablet PO (08:57)
[2018-01-11] MEDS: Furosemide 40 MG Tablet PO (08:57)
[2018-01-11] MEDS: guaiFENesin 1,200 MG Tablet 1200 MG PO ×2 (08:57→22:05)
--- NOTE | 2018-01-11 09:58 | CASEMGMT ---
SANDIP faxed updates to [facility]. SANDIP called Francesca at [facility] and she said they will submit these updates. She said they have not heard from insurance so they are going to call them. Plan: [facility] pending pre-cert Denice VOGEL MSW
--- NOTE | 2018-01-11 13:15 | PCM.PROGNOTE ---
<Carla Santos - Last Filed: 01/11/18 13:21> Patient Problems: Active and Suspected Problems (Last Reviewed 01/01/18 @ 15:45 by Cherelle Regan) UTI (urinary tract infection) (Acute) Subjective: Patient seen and examined. Denies complaints. Denies fever, chills. Denies pain. Aware that pre-CERT is pending to SNF. - Physical Exam General: Alert, Cooperative, No apparent distress HEENT: Atraumatic, PERRLA, EOMI, Normocephalic Neck: Supple, No JVD, Negative Carotid Bruits Lungs: Clear to auscultation, Normal air movement Cardiovascular: Regular rate, No murmurs Abdomen: Bowel Sounds Present, Soft, Non Tender, Non-Distended Extremities: No clubbing, No cyanosis, No edema, Capillary Refill Less than 3 Seconds Skin: No rashes, No breakdown Musculoskeletal: No Tenderness to Palpation of Joints or Extremities Neurological: Cranial nerves II-XII grossly intact, Neuro grossly intact Psych/Mental Status: Normal Affect, Appropriate Vital Signs Temp Pulse Resp BP Pulse Ox 98.6 F 69 18 109/59 L 93 01/11/18 08:30 01/11/18 12:00 01/11/18 08:30 01/11/18 08:30 01/11/18 08:30 Oxygen Delivery Method Room Air Weight: 74.5 kg Body Mass Index (BMI) 23.6 Intake and Output for Last 24 Hours 01/09/18 01/10/18 01/11/18 23:59 23:59 23:59 Intake Total 1031 / 1031 763 / 763 544 / 544 Output Total 1575 / 1575 1050 / 1050 1025 / 1025 Balance -544 / -544 -287 / -287 -481 / -481 Laboratory Tests Past 24 Hrs 01/11/18 01/11/18 05:20 05:20 WBC 9.7 RBC 4.53 L Hgb 13.0 Hct 39.9 L MCV 88.1 MCH 28.7 MCHC 32.6 RDW 15.1 H RDW Differential 48.7 H Plt Count 208 MPV 11.3 Sodium 134 L Potassium 3.9 Chloride 98 Carbon Dioxide 28.0 Anion Gap 8 BUN 19 H Creatinine 1.16 Estim Creat Clear Calc 50.69 Est GFR (MDRD) Af Amer 78 Est GFR (MDRD) Non-Af 64 BUN/Creatinine Ratio 16.4 Glucose 98 Calcium 8.9 Medical Necessity - Tobacco Use Smoking Status: Former smoker Assessment/Plan Active and Suspected Problems (Last Reviewed 01/01/18 @ 15:45 by Cherelle Regan) UTI (urinary tract infection) (Acute) Patient is an 82-year-old male admitted 01/04/2018 due to confusion, nausea, UTI. 1. Acute sepsis secondary to Klebsiella UTI-urine culture completed at [facility] in [place] positive for Klebsiella. Susceptible to Rocephin. Patient with leukocytosis, lactic acid 2.0, tachycardia at outside facility. Patient with questionable pneumonia bilateral upper lobes on admission. Chest x-ray showed mild degree of vascular congestion and mid left basilar atelectasis. Do not further suspect pneumonia. Lungs clear. Suspect congestion secondary to fluid overload as a result of chronic urinary retention and noncompliance with Lasix regimen. Continue home Lasix and Flomax regimen. Manzano catheter in place. No further leukocytosis. Patient received 7 days of IV Rocephin. Discontinue antibiotics. 2. Acute metabolic encephalopathy secondary to #1-patient remains confused although improved. Continue treatment as noted above. 3. STACY secondary to Acute on chronic urinary retention-Manzano in place, draining. Continue Flomax regimen. Patient has refused to follow-up with urology as outpatient and is also noncompliant with his Flomax and Lasix regimen. Recommend outpatient follow-up with urology. Acute kidney injury resolved. 4. Chronic systolic CHF with ischemic cardiomyopathy-follows with Dr. Soto. Status post ICD and pacemaker. Echocardiogram from February 2017 showed an EF of 20%, moderate mitral valve insufficiency, moderate tricuspid valve insufficiency, mild aortic valve calcification. Continue home regimen of aspirin, statin, beta-josé, Plavix, furosemide. Hydrochlorothiazide, losartan on hold. 5. CAD status post PCI-continue aspirin, statin, Plavix, beta-josé. 6. Hypertension-stable, continue current regimen. 7. General physical debility-family agreeable to SNF at discharge. Pre-cert pending. PT/OT. 8. Hypokalemia-resolved, monitor BMP. DVT prophylaxis-SCDs. Discharge planning: Stable for discharge pending SNF pre-cert. This patient was seen by KYRIE Johnson under the supervision of Dr. Lomeli. <ArmaniKapil E - Last Filed: 01/11/18 14:32> - Physical Exam Vital Signs Temp Pulse Resp BP Pulse Ox 98.6 F 70 16 109/59 L 93 01/11/18 08:30 01/11/18 12:59 01/11/18 12:59 01/11/18 08:30 01/11/18 08:30 Oxygen Delivery Method Room Air Weight: 164 lb 3.91 oz Body Mass Index (BMI) 23.6 Intake and Output for Last 24 Hours 01/09/18 01/10/18 01/11/18 23:59 23:59 23:59 Intake Total 1031 / 1031 763 / 763 544 / 544 Output Total 1575 / 1575 1050 / 1050 1025 / 1025 Balance -544 / -544 -287 / -287 -481 / -481 Laboratory Tests Past 24 Hrs 01/11/18 01/11/18 05:20 05:20 WBC 9.7 RBC 4.53 L Hgb 13.0 Hct 39.9 L MCV 88.1 MCH 28.7 MCHC 32.6 RDW 15.1 H RDW Differential 48.7 H Plt Count 208 MPV 11.3 Sodium 134 L Potassium 3.9 Chloride 98 Carbon Dioxide 28.0 Anion Gap 8 BUN 19 H Creatinine 1.16 Estim Creat Clear Calc 50.69 Est GFR (MDRD) Af Amer 78 Est GFR (MDRD) Non-Af 64 BUN/Creatinine Ratio 16.4 Glucose 98 Calcium 8.9 Assessment/Plan Hospitalist note: I am seeing this patient in conjunction with Carla Santos. I independently seen and examined the patient. Progress note above and laboratory data and I agree with the above treatment plan. Patient was admitted for confusion and nausea, found to have acute cystitis with sepsis as well as metabolic encephalopathy and acute kidney injury. Patient is hard of hearing. He is seen and examined today. He denies any significant complaints. His vital signs are stable. - Physical Exam General: Alert, hard of hearing, cooperative, No apparent distress. HEENT: Atraumatic, PERRLA, EOMI. Neck: Supple, No JVD, Negative Carotid Bruits, Trachea Midline, Thyroid Normal. Lungs: Diminished breath sounds bilateral, otherwise clear, No rhonchi, No wheeze, No rales. Cardiovascular: Regular rate, Regular Rhythm, Normal S1, Normal S2, PMI Normal. Abdomen: Bowel Sounds Present, Soft, Non Tender, Non-Distended, No Hepato-splenomegaly. Extremities: No clubbing, No cyanosis, No edema Skin: No rashes, No breakdown Neurological: Neuro grossly intact Vital Signs are stable. Assessment and plan: #1 Klebsiella acute cystitis/UTI with sepsis: Patient completed 7 days of IV Rocephin. He has been afebrile, no leukocytosis.: Awaiting insurance approval for placement to assisted facility. Upon admission, patient was started on IV Rocephin as well as Zithromax for questionable pneumonia. He completed 7 days of Rocephin, still on IV Zithromax. #2 acute metabolic encephalopathy: Secondary to infection in addition to possible baseline dementia. #3 acute kidney injury on top of stage III chronic kidney disease. Secondary to chronic urinary retention, on Manzano catheter. He is on Flomax. His creatinine has been around 1.3-1.5 mg/dL. He has been on IV fluids, creatinine came down to 1.16 today, improved. #4 other chronic medical problems: Stable, continue current medications as above. This note was generated with Jogg dictation software. It may contain incorrect words, spelling, and punctuation that were not noted in checking the note before signing. Code Visit Inpatient E&M: 54591 Subs Hosp L2
--- NOTE | 2018-01-11 13:21 | PN_ITS ---
<Carla Santos - Last Filed: 01/11/18 13:21> Patient Problems: Active and Suspected Problems (Last Reviewed 01/01/18 @ 15:45 by Cherelle Regan) UTI (urinary tract infection) (Acute) Subjective: Patient seen and examined. Denies complaints. Denies fever, chills. Denies pain. Aware that pre-CERT is pending to SNF. - Physical Exam General: Alert, Cooperative, No apparent distress HEENT: Atraumatic, PERRLA, EOMI, Normocephalic Neck: Supple, No JVD, Negative Carotid Bruits Lungs: Clear to auscultation, Normal air movement Cardiovascular: Regular rate, No murmurs Abdomen: Bowel Sounds Present, Soft, Non Tender, Non-Distended Extremities: No clubbing, No cyanosis, No edema, Capillary Refill Less than 3 Seconds Skin: No rashes, No breakdown Musculoskeletal: No Tenderness to Palpation of Joints or Extremities Neurological: Cranial nerves II-XII grossly intact, Neuro grossly intact Psych/Mental Status: Normal Affect, Appropriate Vital Signs Temp Pulse Resp BP Pulse Ox 98.6 F 69 18 109/59 L 93 01/11/18 08:30 01/11/18 12:00 01/11/18 08:30 01/11/18 08:30 01/11/18 08:30 Oxygen Delivery Method Room Air Weight: 74.5 kg Body Mass Index (BMI) 23.6 Intake and Output for Last 24 Hours 01/09/18 01/10/18 01/11/18 23:59 23:59 23:59 Intake Total 1031 / 1031 763 / 763 544 / 544 Output Total 1575 / 1575 1050 / 1050 1025 / 1025 Balance -544 / -544 -287 / -287 -481 / -481 Laboratory Tests Past 24 Hrs 01/11/18 01/11/18 05:20 05:20 WBC 9.7 RBC 4.53 L Hgb 13.0 Hct 39.9 L MCV 88.1 MCH 28.7 MCHC 32.6 RDW 15.1 H RDW Differential 48.7 H Plt Count 208 MPV 11.3 Sodium 134 L Potassium 3.9 Chloride 98 Carbon Dioxide 28.0 Anion Gap 8 BUN 19 H Creatinine 1.16 Estim Creat Clear Calc 50.69 Est GFR (MDRD) Af Amer 78 Est GFR (MDRD) Non-Af 64 BUN/Creatinine Ratio 16.4 Glucose 98 Calcium 8.9 Medical Necessity - Tobacco Use Smoking Status: Former smoker Assessment/Plan Active and Suspected Problems (Last Reviewed 01/01/18 @ 15:45 by Cherelle Regan) UTI (urinary tract infection) (Acute) Patient is an 82-year-old male admitted 01/04/2018 due to confusion, nausea, UTI. 1. Acute sepsis secondary to Klebsiella UTI-urine culture completed at [facility] in [place] positive for Klebsiella. Susceptible to Rocephin. Patient with leukocytosis, lactic acid 2.0, tachycardia at outside facility. Patient with questionable pneumonia bilateral upper lobes on admission. Chest x -ray showed mild degree of vascular congestion and mid left basilar atelectasis. Do not further suspect pneumonia. Lungs clear. Suspect congestion secondary to fluid overload as a result of chronic urinary retention and noncompliance with Lasix regimen. Continue home Lasix and Flomax regimen. Manzano catheter in place. No further leukocytosis. Patient received 7 days of IV Rocephin. Discontinue antibiotics. 2. Acute metabolic encephalopathy secondary to #1-patient remains confused although improved. Continue treatment as noted above. 3. STACY secondary to Acute on chronic urinary retention-Manzano in place, draining. Continue Flomax regimen. Patient has refused to follow-up with urology as outpatient and is also noncompliant with his Flomax and Lasix regimen. Recommend outpatient follow-up with urology. Acute kidney injury resolved. 4. Chronic systolic CHF with ischemic cardiomyopathy-follows with Dr. Soto. Status post ICD and pacemaker. Echocardiogram from February 2017 showed an EF of 20% , moderate mitral valve insufficiency, moderate tricuspid valve insufficiency, mild aortic valve calcification. Continue home regimen of aspirin, statin, beta- josé, Plavix, furosemide. Hydrochlorothiazide, losartan on hold. 5. CAD status post PCI-continue aspirin, statin, Plavix, beta-josé. 6. Hypertension-stable, continue current regimen. 7. General physical debility-family agreeable to SNF at discharge. Pre-cert pending. PT/OT. 8. Hypokalemia-resolved, monitor BMP. DVT prophylaxis-SCDs. Discharge planning: Stable for discharge pending SNF pre-cert. This patient was seen by KYRIE Johnson under the supervision of Dr. Lomeli. <ArmaniKapil E - Last Filed: 01/11/18 14:32> - Physical Exam Vital Signs Temp Pulse Resp BP Pulse Ox 98.6 F 70 16 109/59 L 93 01/11/18 08:30 01/11/18 12:59 01/11/18 12:59 01/11/18 08:30 01/11/18 08:30 Oxygen Delivery Method Room Air Weight: 164 lb 3.91 oz Body Mass Index (BMI) 23.6 Intake and Output for Last 24 Hours 01/09/18 01/10/18 01/11/18 23:59 23:59 23:59 Intake Total 1031 / 1031 763 / 763 544 / 544 Output Total 1575 / 1575 1050 / 1050 1025 / 1025 Balance -544 / -544 -287 / -287 -481 / -481 Laboratory Tests Past 24 Hrs 01/11/18 01/11/18 05:20 05:20 WBC 9.7 RBC 4.53 L Hgb 13.0 Hct 39.9 L MCV 88.1 MCH 28.7 MCHC 32.6 RDW 15.1 H RDW Differential 48.7 H Plt Count 208 MPV 11.3 Sodium 134 L Potassium 3.9 Chloride 98 Carbon Dioxide 28.0 Anion Gap 8 BUN 19 H Creatinine 1.16 Estim Creat Clear Calc 50.69 Est GFR (MDRD) Af Amer 78 Est GFR (MDRD) Non-Af 64 BUN/Creatinine Ratio 16.4 Glucose 98 Calcium 8.9 Assessment/Plan Hospitalist note: I am seeing this patient in conjunction with Carla Santos. I independently seen and examined the patient. Progress note above and laboratory data and I agree with the above treatment plan. Patient was admitted for confusion and nausea, found to have acute cystitis with sepsis as well as metabolic encephalopathy and acute kidney injury. Patient is hard of hearing. He is seen and examined today. He denies any significant complaints. His vital signs are stable. - Physical Exam General: Alert, hard of hearing, cooperative, No apparent distress. HEENT: Atraumatic, PERRLA, EOMI. Neck: Supple, No JVD, Negative Carotid Bruits, Trachea Midline, Thyroid Normal. Lungs: Diminished breath sounds bilateral, otherwise clear, No rhonchi, No wheeze, No rales. Cardiovascular: Regular rate, Regular Rhythm, Normal S1, Normal S2, PMI Normal. Abdomen: Bowel Sounds Present, Soft, Non Tender, Non-Distended, No Hepato- splenomegaly. Extremities: No clubbing, No cyanosis, No edema Skin: No rashes, No breakdown Neurological: Neuro grossly intact Vital Signs are stable. Assessment and plan: #1 Klebsiella acute cystitis/UTI with sepsis: Patient completed 7 days of IV Rocephin. He has been afebrile, no leukocytosis.: Awaiting insurance approval for placement to group home facility. Upon admission, patient was started on IV Rocephin as well as Zithromax for questionable pneumonia. He completed 7 days of Rocephin, still on IV Zithromax. #2 acute metabolic encephalopathy: Secondary to infection in addition to possible baseline dementia. #3 acute kidney injury on top of stage III chronic kidney disease. Secondary to chronic urinary retention, on Manzano catheter. He is on Flomax. His creatinine has been around 1.3-1.5 mg/dL. He has been on IV fluids, creatinine came down to 1.16 today, improved. #4 other chronic medical problems: Stable, continue current medications as above. This note was generated with [employer] dictation software. It may contain incorrect words, spelling, and punctuation that were not noted in checking the note before signing. Code Visit Inpatient E&M: 56674 Subs Hosp L2
[2018-01-11] MEDS: Tamsulosin HCl 0.4 MG Capsule PO (17:46)
[2018-01-11] MEDS: Carvedilol 3.125 MG TABLET PO (22:05)
[2018-01-11] MEDS: Atorvastatin Calcium 20 MG Tablet PO (22:05)
[2018-01-12] VITALS (9 sets, daily range): BP systolic 93–111; BP diastolic 47–66; PULSE 63–78; RESP 16–18; TEMP 36.3–36.8; O2SAT 92–97
[2018-01-12] MEDS: Enoxaparin 40 MG/0.4 ML Syringe SC (05:28)
[2018-01-12 06:03] LABS: Hematocrit 39.2 % (40-54); Hemoglobin 12.6 g/dl (13.0-16.5); Mean Corp Hgb Conc 32.1 g/gl (32-36); Mean Corpuscular Hgb 28.3 pg (27.0-32.0); Mean Corpuscular Volume 88.1 fL (80-94); Mean Platelet Vol. 11.3 fl (6.2-12.0); Platelet Count 212 K/mm3 (150-450); RBC Distribution Width CV 15.1 % (11.6-14.6); RBC Distribution Width SD 48.2 fl (35.1-43.9); Red Blood Count 4.45 M/mm3 (4.6-6.2)
[2018-01-12 06:08] LABS: Scan Indicated on CBC? Y/N NO
[2018-01-12 06:12] LABS: Anion Gap 6 (5-15); BUN 18 mg/dL (7-18); BUN/Creat Ratio 16.1 RATIO (10-20); Calcium,Total 8.7 mg/dL (8.5-10.1); Chloride 102 mmol/L (98-107); Creatinine, Serum 1.12 mg/dL (0.70-1.30); EST Glomerular Filtration Rate 67 mL/min (>60); Est Glom Filt Rate - Afr Amer 81 mL/min (>60); Glucose 96 mg/dL (74-106); Potassium 3.9 mmol/L (3.5-5.1); Sodium Level 136 mmol/L (136-145)
[2018-01-12] MEDS: Ipratropium/Albuterol Sulfate 3 ML AMPUL.NEB INHALATION (06:49)
[2018-01-12] MEDS: Aspirin E.C. 81 MG Tablet PO (08:34)
--- NOTE | 2018-01-12 10:33 | PCM.EXTCARCO ---
- Diet 01/05/18 00:10 Diet: Cardiac/Low Cholesterol Food consistency:: Regular Liquid Consistency:: Regular/Thin Is pt able to select menu?: Yes - Routine Orders/Code Status Enema Type: Fleetz Enema Frequency: Daily PRN Suppository Type: Dulcolax 10mg Suppository Frequency: Daily PRN O2 Liters per Minute: 2 O2 Frequency: PRN Keep PO Greater than or Equal to (%): 90 Routine Lab Work: CBC, BMP, - - Q Week Code Status: Full Code - Suggestions for Active Care Change Position every (hours): 2 Times a day to sit in chair: 3 - Therapies Physical Therapy: Eval and Treat Occupational Therapy: Eval and Treat - Allergies/Procedures Done in Hospital Allergies/Adverse Reactions: Allergies No Known Allergies Allergy (Verified 01/01/18 15:49) Procedures: None - Type of Care/Length of Stay Estimated LOS: Convalescent Care Less Than 30 days Type of Care Needed: Skilled Rehab Potential: Fair Prognosis: Fair - Additional Orders/Day of Discharge H&P will serve as current which was dated: 01/04/18 Day of Discharge: 01/12/18 - Follow Up Care Primary Care Physician: Ellis Quijano DO [Primary Care Provider] - Please follow up with your Primary Care Physician in: 1 Week Please Follow Up With: Mil Gomez MD - Urology When: 1 Week Please Follow Up With: Toan Soto MD When: As scheduled
--- NOTE | 2018-01-12 10:36 | PCM.DC.SUM ---
<Carla Santos - Last Filed: 01/12/18 10:45> Discharge Date and Diagnosis Date of Admission: 01/04/18 Date of Discharge: 01/12/18 - Primary Discharge Diagnosis Active and Suspected Problems (Last Reviewed 01/01/18 @ 15:45 by Cherelle Regan) 1. Acute sepsis secondary to Klebsiella UTI 2. Acute metabolic encephalopathy secondary to #1 3. Acute kidney injury secondary to acute on chronic urinary retention 4. 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) Implant: 01/26/2013 Other secondary pulmonary hypertension (Chronic) Nonrheumatic tricuspid (valve) insufficiency (Chronic) Nonrheumatic mitral (valve) insufficiency (Chronic) Chronic systolic (congestive) heart failure (Chronic) Old myocardial infarction (Chronic) Atherosclerotic heart disease of [place] coronary artery without angina pectoris (Chronic) History of coronary artery stent placement (Chronic) PCI/BMS to distal LAD 03/26/2017 Renal insufficiency (Chronic) Acute on chronic systolic (congestive) heart failure (Chronic) Status post ICD and pacemaker (Chronic) Ischemic cardiomyopathy (Chronic) Coronary artery disease (Chronic) Status post stents Hyperlipidemia (Chronic) Hypertension (Chronic) Hospital Course and Treatment Imaging Results: Diagnostic Data Chest X-Ray 01/05/18 07:50 IMPRESSION: Mild degree of vascular congestion and mild left basilar atelectasis. Electronically Signed: Tarik Sanchez MD at 13:55 EDT Tel [phone], Service support , Operations: None Procedures: None Summary of Care Provided: Patient is an 82-year-old male admitted 01/04/2018 due to confusion, nausea, UTI. 1. Acute sepsis secondary to Klebsiella UTI-urine culture completed at [facility] in [place] positive for Klebsiella. Susceptible to Rocephin. Patient with leukocytosis, lactic acid 2.0, tachycardia at outside facility. Patient with questionable pneumonia bilateral upper lobes on admission. Chest x-ray showed mild degree of vascular congestion and mid left basilar atelectasis. Do not suspect pneumonia. Lungs clear. Suspect congestion secondary to fluid overload as a result of chronic urinary retention and noncompliance with Lasix regimen. Continue home Lasix and Flomax regimen. Manzano catheter in place. No further leukocytosis. Patient received 7 days of IV Rocephin. Discontinue antibiotics. 2. Acute metabolic encephalopathy secondary to #1-patient remains confused although improved. Suspect patient may have underlying dementia as well. Recommend further outpatient follow-up. 3. STACY secondary to Acute on chronic urinary retention-Manzano in place, draining. Continue Flomax regimen. Patient has refused to follow-up with urology as outpatient and is also noncompliant with his Flomax and Lasix regimen. Recommend outpatient follow-up with urology in 1 week. Acute kidney injury resolved. 4. Chronic systolic CHF with ischemic cardiomyopathy-follows with Dr. Soto. Status post ICD and pacemaker. Echocardiogram from February 2017 showed an EF of 20%, moderate mitral valve insufficiency, moderate tricuspid valve insufficiency, mild aortic valve calcification. Continue home regimen of aspirin, statin, beta-eric, Plavix, furosemide, hydrochlorothiazide, losartan. 5. CAD status post PCI-continue aspirin, statin, Plavix, beta-eric. 6. Hypertension-stable, continue current regimen. 7. General physical debility-SNF at discharge. Continue physical therapy and Occupational Therapy. 8. Hypokalemia-resolved, monitor BMP Q Week at SNF. General: Alert, Cooperative, No apparent distress HEENT: Atraumatic, PERRLA, EOMI, Normocephalic Neck: Supple, No JVD, Negative Carotid Bruits Lungs: Clear to auscultation, Normal air movement Cardiovascular: Regular rate, No murmurs Abdomen: Bowel Sounds Present, Soft, Non Tender, Non-Distended Extremities: No clubbing, No cyanosis, No edema, Capillary Refill Less than 3 Seconds Skin: No rashes, No breakdown Musculoskeletal: No Tenderness to Palpation of Joints or Extremities Neurological: Cranial nerves II-XII grossly intact, Neuro grossly intact Psych/Mental Status: Normal Affect, Appropriate Patient seen and examined prior to discharge. Physical assessment as noted above. Patient stable for discharge to SNF. This patient was seen by KYRIE Johnson under the supervision of Dr. Lomeli. Home Medications: Medications to take at Discharge Aspirin E.C. [Ecotrin] 81 mg PO DAILY@0800 #90 tab 03/27/17 Atorvastatin Calcium [Lipitor] 20 mg PO QHS #90 tab 03/27/17 Carvedilol [Coreg (Beta Eric)] 3.125 mg PO BID #90 tab 03/27/17 Clopidogrel Bisulfate [Plavix] 75 mg PO DAILY #90 tab 03/27/17 Furosemide [Lasix] 40 mg PO DAILY #90 tab 03/27/17 losartan 25 mg tablet 25 mg PO QDAY 11/10/17 hydrochlorothiazide 25 mg tablet 25 mg PO QAM #30 tab 01/01/18 Potassium Chloride [K-Dur] 20 meq PO DAILYCM tablet 01/12/18 Tamsulosin HCl [Flomax] 0.4 mg PO DAILY@1730 capsule 01/12/18 Primary Care Physician: Ellis Quijano DO [Primary Care Provider] - Please follow up with your Primary Care Physician in: 1 Week Please Follow Up With: Mil Gomez MD - Urology When: 1 Week Please Follow Up With: Toan Soto MD When: As scheduled Disposition: Custodial facility Minutes spent on discharge:: 35 Patient Condition:: Stable Medical Necessity - Tobacco Use Smoking Status: Former smoker Meaningful Use Info Meaningful Use Diagnoses (Choose all that apply): None applicable <Kapil Lomeli E - Last Filed: 01/12/18 15:40> Discharge Date and Diagnosis - Secondary Discharge Diagnosis Chronic Problems (Last Reviewed 01/01/18 @ 15:45 by Cherelle Regan) 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) Implant: 01/26/2013 Other secondary pulmonary hypertension (Chronic) Nonrheumatic tricuspid (valve) insufficiency (Chronic) Nonrheumatic mitral (valve) insufficiency (Chronic) Chronic systolic (congestive) heart failure (Chronic) Old myocardial infarction (Chronic) Atherosclerotic heart disease of [place] coronary artery without angina pectoris (Chronic) History of coronary artery stent placement (Chronic) PCI/BMS to distal LAD 03/26/2017 Renal insufficiency (Chronic) Acute on chronic systolic (congestive) heart failure (Chronic) Status post ICD and pacemaker (Chronic) Ischemic cardiomyopathy (Chronic) Coronary artery disease (Chronic) Status post stents Hyperlipidemia (Chronic) Hypertension (Chronic) Hospital Course and Treatment Summary of Care Provided: Hospitalist note: Discharge summary above reviewed as well as physical examination and I agree with above discharge plan. Patient seen and examined today and appeared to be stable to be discharged to care home facility. He remained intermittently confused and disoriented. His vital signs are stable. He was admitted because of confusion and nausea and he was found to have Klebsiella acute cystitis with sepsis as well as metabolic encephalopathy secondary to infection in addition to baseline dementia. He was treated with IV Rocephin for 7 days and he completed treatment. He has been afebrile and he has no more leukocytosis. He was found to have acute kidney injury secondary to acute on chronic renal distention and he was treated with IV fluids and Manzano catheter and also Flomax for chronic urinary retention. His kidney function improved and his creatinine came down to normal. His other chronic medical problems were stable and he was continued on his chronic medications. Patient discharged to care home facility in a stable medical condition, he completed 7 days of IV Rocephin and no antibiotic prescribed upon discharge, continued on his chronic home medication without any changes, recommended follow-up with PCP in 1 week and follow-up with urology in 1 week for chronic urinary retention. . Code Visit Inpatient E&M: 83780 Disch Hosp
--- NOTE | 2018-01-12 10:43 | DS.PCM_ITS ---
<Carla Santos - Last Filed: 01/12/18 10:45> Discharge Date and Diagnosis Date of Admission: 01/04/18 Date of Discharge: 01/12/18 - Primary Discharge Diagnosis Active and Suspected Problems (Last Reviewed 01/01/18 @ 15:45 by Cherelle Regan) 1. Acute sepsis secondary to Klebsiella UTI 2. Acute metabolic encephalopathy secondary to #1 3. Acute kidney injury secondary to acute on chronic urinary retention 4. 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 Electronically Signed: Tarik Sanchez MD at 13:55 EDT Tel [phone], Service support , Operations: None Procedures: None Summary of Care Provided: Patient is an 82-year-old male admitted 01/04/2018 due to confusion, nausea, UTI. 1. Acute sepsis secondary to Klebsiella UTI-urine culture completed at [facility] in [place] positive for Klebsiella. Susceptible to Rocephin. Patient with leukocytosis, lactic acid 2.0, tachycardia at outside facility. Patient with questionable pneumonia bilateral upper lobes on admission. Chest x -ray showed mild degree of vascular congestion and mid left basilar atelectasis. Do not suspect pneumonia. Lungs clear. Suspect congestion secondary to fluid overload as a result of chronic urinary retention and noncompliance with Lasix regimen. Continue home Lasix and Flomax regimen. Manzano catheter in place. No further leukocytosis. Patient received 7 days of IV Rocephin. Discontinue antibiotics. 2. Acute metabolic encephalopathy secondary to #1-patient remains confused although improved. Suspect patient may have underlying dementia as well. Recommend further outpatient follow-up. 3. STACY secondary to Acute on chronic urinary retention-Manzano in place, draining. Continue Flomax regimen. Patient has refused to follow-up with urology as outpatient and is also noncompliant with his Flomax and Lasix regimen. Recommend outpatient follow-up with urology in 1 week. Acute kidney injury resolved. 4. Chronic systolic CHF with ischemic cardiomyopathy-follows with Dr. Soto. Status post ICD and pacemaker. Echocardiogram from February 2017 showed an EF of 20% , moderate mitral valve insufficiency, moderate tricuspid valve insufficiency, mild aortic valve calcification. Continue home regimen of aspirin, statin, beta- eric, Plavix, furosemide, hydrochlorothiazide, losartan. 5. CAD status post PCI-continue aspirin, statin, Plavix, beta-eric. 6. Hypertension-stable, continue current regimen. 7. General physical debility-SNF at discharge. Continue physical therapy and Occupational Therapy. 8. Hypokalemia-resolved, monitor BMP Q Week at SNF. General: Alert, Cooperative, No apparent distress HEENT: Atraumatic, PERRLA, EOMI, Normocephalic Neck: Supple, No JVD, Negative Carotid Bruits Lungs: Clear to auscultation, Normal air movement Cardiovascular: Regular rate, No murmurs Abdomen: Bowel Sounds Present, Soft, Non Tender, Non-Distended Extremities: No clubbing, No cyanosis, No edema, Capillary Refill Less than 3 Seconds Skin: No rashes, No breakdown Musculoskeletal: No Tenderness to Palpation of Joints or Extremities Neurological: Cranial nerves II-XII grossly intact, Neuro grossly intact Psych/Mental Status: Normal Affect, Appropriate Patient seen and examined prior to discharge. Physical assessment as noted above. Patient stable for discharge to SNF. This patient was seen by KYRIE Johnson under the supervision of Dr. Lomeli. Home Medications: Medications to take at Discharge Aspirin E.C. [Ecotrin] 81 mg PO DAILY@0800 #90 tab 03/27/17 Atorvastatin Calcium [Lipitor] 20 mg PO QHS #90 tab 03/27/17 Carvedilol [Coreg (Beta Eric)] 3.125 mg PO BID #90 tab 03/27/17 Clopidogrel Bisulfate [Plavix] 75 mg PO DAILY #90 tab 03/27/17 Furosemide [Lasix] 40 mg PO DAILY #90 tab 03/27/17 losartan 25 mg tablet 25 mg PO QDAY 11/10/17 hydrochlorothiazide 25 mg tablet 25 mg PO QAM #30 tab 01/01/18 Potassium Chloride [K-Dur] 20 meq PO DAILYCM tablet 01/12/18 Tamsulosin HCl [Flomax] 0.4 mg PO DAILY@1730 capsule 01/12/18 Primary Care Physician: Ellis Quijano DO [Primary Care Provider] - Please follow up with your Primary Care Physician in: 1 Week Please Follow Up With: Mil Gomez MD - Urology When: 1 Week Please Follow Up With: Toan Soto MD When: As scheduled Disposition: [facility] facility Minutes spent on discharge:: 35 Patient Condition:: Stable Medical Necessity - Tobacco Use Smoking Status: Former smoker Meaningful Use Info Meaningful Use Diagnoses (Choose all that apply): None applicable <Kapil Lomeli E - Last Filed: 01/12/18 15:40> Discharge Date and Diagnosis - Secondary Discharge Diagnosis Chronic Problems (Last Reviewed 01/01/18 @ 15:45 by Cherelle Regan) 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) Implant: 01/26/2013 Other secondary pulmonary hypertension (Chronic) Nonrheumatic tricuspid (valve) insufficiency (Chronic) Nonrheumatic mitral (valve) insufficiency (Chronic) Chronic systolic (congestive) heart failure (Chronic) Old myocardial infarction (Chronic) Atherosclerotic heart disease of [place] coronary artery without angina pectoris (Chronic) History of coronary artery stent placement (Chronic) PCI/BMS to distal LAD 03/26/2017 Renal insufficiency (Chronic) Acute on chronic systolic (congestive) heart failure (Chronic) Status post ICD and pacemaker (Chronic) Ischemic cardiomyopathy (Chronic) Coronary artery disease (Chronic) Status post stents Hyperlipidemia (Chronic) Hypertension (Chronic) Hospital Course and Treatment Summary of Care Provided: Hospitalist note: Discharge summary above reviewed as well as physical examination and I agree with above discharge plan. Patient seen and examined today and appeared to be stable to be discharged to [facility] facility. He remained intermittently confused and disoriented. His vital signs are stable. He was admitted because of confusion and nausea and he was found to have Klebsiella acute cystitis with sepsis as well as metabolic encephalopathy secondary to infection in addition to baseline dementia. He was treated with IV Rocephin for 7 days and he completed treatment. He has been afebrile and he has no more leukocytosis. He was found to have acute kidney injury secondary to acute on chronic renal distention and he was treated with IV fluids and Manzano catheter and also Flomax for chronic urinary retention. His kidney function improved and his creatinine came down to normal. His other chronic medical problems were stable and he was continued on his chronic medications. Patient discharged to [facility] facility in a stable medical condition, he completed 7 days of IV Rocephin and no antibiotic prescribed upon discharge, continued on his chronic home medication without any changes, recommended follow -up with PCP in 1 week and follow-up with urology in 1 week for chronic urinary retention. . Code Visit Inpatient E&M: 53917 Disch Hosp
[2018-01-12] MEDS: Magnesium Hydroxide 30 ML UDC PO (10:45)
[2018-01-12] MEDS: Carvedilol 3.125 MG TABLET PO (10:49)
[2018-01-12] MEDS: Pantoprazole Sodium 20 MG Tablet PO (10:49)
[2018-01-12] MEDS: guaiFENesin 1,200 MG Tablet 1200 MG PO (10:49)
[2018-01-12] MEDS: Clopidogrel Bisulfate 75 MG Tablet PO (10:49)
[2018-01-12] MEDS: Furosemide 40 MG Tablet PO (10:49)
--- NOTE | 2018-01-12 11:36 | CASEMGMT ---
Received insurance approval for [facility]. SANDIP faxed orders to [facility]. Completed convalescent on HENS. Called [facility] and arranged for patient to get picked up at 1p via wc van. SANDIP then called patient's daughter in law, Tatianna and let her know this information. She wanted SW to set up transport as patient would not allow them to take him to a shelter. SANDIP told her that insurance does not pay for ambulette and it would be around $45 base fee and then $4.50 per mile. She verbalized understanding. SANDIP let Mirta at [facility] know knot picker cloth time and she would let staff know. SANDIP also notified RN. Plan: d/c to [facility] under skilled level of care on a convalescent stay. [facility] transported him via ambulette at 1p. Denice VOGEL MSW
--- NOTE | 2018-01-12 12:00 | NURSING ---
CALLED REPORT TO BESTNURSE AT [facility].
== END 2018-01-12 13:08 | disposition skilled nursing facility (03) | DRG 871 ==
PROVIDERS: Hospitalist; Internal Medicine; Nurse Practitioner Family; Physician Assistant; Admitting Provider Family Medicine; Family Provider Family Medicine; PCP Family Medicine; Visit Provider Hospitalist
DX: A41.9 Sepsis, unspecified organism (principal); G93.41 Metabolic encephalopathy; N17.9 Acute kidney failure, unspecified; N30.00 Acute cystitis without hematuria; I50.22 Chronic systolic (congestive) heart failure; I25.10 Atherosclerotic heart disease of native coronary artery without angina pectoris; B96.1 Klebsiella pneumoniae [K. pneumoniae] as the cause of diseases classified elsewhere; E87.6 Hypokalemia; I27.20 Pulmonary hypertension, unspecified; I25.5 Ischemic cardiomyopathy; I25.2 Old myocardial infarction; Z95.5 Presence of coronary angioplasty implant and graft; Z95.810 Presence of automatic (implantable) cardiac defibrillator; R33.9 Retention of urine, unspecified; E78.5 Hyperlipidemia, unspecified; N28.9 Disorder of kidney and ureter, unspecified; I36.1 Nonrheumatic tricuspid (valve) insufficiency; I34.0 Nonrheumatic mitral (valve) insufficiency; Z87.891 Personal history of nicotine dependence; I10 Essential (primary) hypertension
CPT/HCPCS: 36415; 71046; 80048; 83735; 85025; 85027; 87449; 94640; 94667; 94668; 97110; 97116; 97162; 97166; 97530; 97802; J7030; J7040; A4216; J0696

== ENCOUNTER 2018-02-10 10:15 | Day surgery (SDC) | payer MEDICARE, SELFPAY ==
[2017-03-26 13:31] VITALS: BMI 25.5
[2018-02-03 10:25] VITALS: BP 103/59; PULSE 71; RESP 16; TEMP 36.3; O2SAT 96; BMI 23.8
[2018-02-10] VITALS (11 sets, daily range): BP systolic 87–113; BP diastolic 47–74; PULSE 51–73; RESP 16–18; TEMP 36.2–36.7; O2SAT 92–97; BMI 23.8
--- NOTE | 2018-02-10 11:55 | PROS_PTH ---
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 Mil Gomez MD : [id number] BED: DIS: 02/11/2018 SPEC #: [id number] RECD: 02/10/18 17:31 STATUS: [address] RD #: [id number] MARION: 02/10/18 11:[address]: Mil Gomez DEPT: SURGICAL PATHOLOGY RECD BY: Zak Meza ENTERED: 02/11/18 11:51 SP TYPE: TURP OTHR DR: Dr. Ellis Quijano, DO Tissues: Prostate, NOS Procedures: Surgery Specimen Level IV HEADER OPERATION: Cysto, TUR prostate, Olympus PRE-OP DIAGNOSIS: BPH with obstruction, urinary retention TISSUE SUBMITTED: Prostate tissue MICROSCOPIC DIAGNOSIS Prostatic tissue, TUR: Benign prostatic tissue with focal mild chronic inflammation. SJ:cydney 02/12/18 MICROSCOPIC DESCRIPTION Slides are reviewed. GROSS DESCRIPTION Received in fixative is one container labeled with the patient's name and designated prostate tissue. The specimen consists of multiple irregular fragments of peters-brown soft tissue mixed with blood clot that in aggregate measure 3 x 1.5 x 0.2 and weighing 1 gm. The entire specimen is submitted in one cassette. / SJ:cydney 02/11/18 TC:3 CPT: 79081
[2018-02-10] MEDS: Cefazolin 2 GM in 0.9% Normal Saline 100 ML IV (13:08)
[2018-02-10] MEDS: 0.9% Normal Saline 1,000 ML 75 ML IV ×2 (13:10→22:35)
--- NOTE | 2018-02-10 14:06 | PCM.OPRPT ---
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 Post-Operative Diagnosis: Same. Surgery/Procedure Performed:: Transurethral resection of the prostate Description of Surgical Findings:: 82-year-old male who had a very large prostate and has a fairly stretched out bladder with a lot of diverticuli. He is able to urinate however he is not emptying his bladder completely he does have overflow incontinence. Weak stream and difficulty emptying his bladder because of his chronic obstruction his bladder is all stretched out today we can do a TURP to alleviate the obstruction hopefully he will be able to urinate better empty his bladder better but his bladder probably will be changed still have chronic retention in the urine but at least on the low pressure system. 82-year-old male taken back to the operating room after smooth induction of general anesthesia he was placed supine on the table, the penis and testicles were prepped and draped in usual sterile fashion. Went into the bladder with a 26 flow continuous flow resectoscope, in evaluated the prostate he had a bilateral hypertrophy no median lobe and about a 40 g prostate with significant bilateral hypertrophy and obstruction inside the bladder was heavily trabeculated diverticuli and saccules throughout the bladder and stretched out floppy bladder. I then switched over to the button vaporization, plasma vaporization button and started at the 6:00 vaporize old only back to the veru and then vaporized the right lobe of the prostate vaporized the left lobe of the prostate, and then went down to the sphincter and proximal to the sphincter and vaporized the prosthetic tissue to open it up and then vaporized a nice channel all the way from the verumontanum all the way to the bladder neck. I then used the button to obtain hemostasis and at the end of the case irrigated out all the minor chips from the bladder only a few chips since we vaporize most of it and then did a flow test had a nice wide open flow looked back at the sphincter the sphincter was intact and coapting. And then I put a three-way catheter into the bladder a 22 [place] three-way catheter with continuous bladder irrigation and he will be kept overnight in the hospital. Type of Anesthesia:: General Drains: 3 way bolivar Estimated Blood Loss (mL): 50cc - Admit VTE Documentation VTE Present on Admission: No VTE Mechan Device Prophylaxis: SCD's VTE Pharm Prophylaxis ordered?: No Reason prophylaxis not ordered:: Treatment Not Indicated
[2018-02-10] MEDS: Ibuprofen 600 MG Tablet PO (16:08)
[2018-02-10] MEDS: Tamsulosin HCl 0.4 MG Capsule PO (17:48)
[2018-02-10] MEDS: Carvedilol 3.125 MG TABLET PO (20:05)
[2018-02-10] MEDS: Atorvastatin Calcium 20 MG Tablet PO (20:05)
[2018-02-10] MEDS: Acetaminophen 325 MG Tablet PO (20:05)
[2018-02-10] MEDS: Docusate Sodium 100 MG Capsule PO (20:05)
--- NOTE | 2018-02-11 00:52 | NURSING ---
Spo2 dropped to 80s while sleeping. applied 2L NC O2.
[2018-02-11 02:50] VITALS: BP 91/47; PULSE 63; RESP 18; TEMP 36.4; O2SAT 96
--- NOTE | 2018-02-11 07:18 | PCM.DC.URO ---
Discharge Diet: Light diet - advance as tolerated Discharge Activity: Return to Normal Activity Instructions: Transurethral Resection of the Prostate (TURP): Home Recovery Allergies/Adverse Reactions: Allergies No Known Allergies Allergy (Verified 02/03/18 10:03) Medications to take at Discharge Aspirin E.C. [Ecotrin] 81 mg PO DAILY@0800 #90 tab 03/27/17 Atorvastatin Calcium [Lipitor] 20 mg PO QHS #90 tab 03/27/17 Carvedilol [Coreg (Beta Eric)] 3.125 mg PO BID #90 tab 03/27/17 Furosemide [Lasix] 40 mg PO DAILY #90 tab 03/27/17 losartan 25 mg tablet 25 mg PO QDAY 11/10/17 Potassium Chloride [K-Dur] 20 meq PO DAILYCM tablet 01/12/18 Hydrochlorothiazide [Hctz] 12.5 mg PO QAM 02/03/18 Loratadine 10 mg PO DAILY 02/03/18 Ciprofloxacin [Cipro] 500 mg PO BID #14 tab 02/11/18 The following prescriptions were given: Ciprofloxacin [Cipro] 500 mg PO BID #14 tab Primary Care Physician: Ellis Quijano DO [Primary Care Provider] - Please Follow Up With: Mil Gomez MD When: ThursdayFebruary 23 at 9:30 am.
[2018-02-11 08:20] VITALS: BP 90/39; PULSE 61; RESP 16; TEMP 36.4; O2SAT 94
[2018-02-11] MEDS: Carvedilol 3.125 MG TABLET PO (08:31)
[2018-02-11] MEDS: HYDROCHLOROTHIAZIDE 12.5 MG CAPSULE PO (08:31)
[2018-02-11] MEDS: Docusate Sodium 100 MG Capsule PO (08:31)
[2018-02-11] MEDS: Pantoprazole Sodium 40 MG Tablet PO (08:31)
[2018-02-11] MEDS: Losartan Potassium 25 MG Tablet PO (08:31)
[2018-02-11] MEDS: Furosemide 40 MG Tablet PO (08:31)
[2018-02-11] MEDS: Loratadine 10 MG Tablet PO (08:31)
[2018-02-11 11:10] VITALS: BP 103/30; PULSE 60; RESP 16; TEMP 36.9; O2SAT 94
== END 2018-02-11 13:53 | disposition home or self-care (01) ==
LOC: SDC 10:17 → AC 10:17 → MS3 02-11 13:44
PROVIDERS: Family Provider Family Medicine; PCP Family Medicine; Visit Provider Urology
PROC: (CPT 52601; principal; 2018-02-10 11:45)
DX: N40.1 Benign prostatic hyperplasia with lower urinary tract symptoms (principal); N41.1 Chronic prostatitis; R33.8 Other retention of urine; N13.8 Other obstructive and reflux uropathy; N39.490 Overflow incontinence; R35.1 Nocturia; R35.0 Frequency of micturition; R39.12 Poor urinary stream; R30.0 Dysuria; I25.10 Atherosclerotic heart disease of native coronary artery without angina pectoris; I10 Essential (primary) hypertension; E78.00 Pure hypercholesterolemia, unspecified; Z79.82 Long term (current) use of aspirin; Z79.899 Other long term (current) drug therapy; Z87.440 Personal history of urinary (tract) infections; Z87.891 Personal history of nicotine dependence; Z95.810 Presence of automatic (implantable) cardiac defibrillator; Z95.5 Presence of coronary angioplasty implant and graft
CPT/HCPCS: 52601; 88305; J7030; J7120; J2405

== ENCOUNTER 2019-06-18 16:57 | Emergency (ER) | payer MEDICARE, SELFPAY ==
[2017-03-26 13:31] VITALS: BMI 25.5
[2018-12-03 13:54] VITALS: BMI 25.2
[2019-06-18] VITALS (11 sets, daily range): BP systolic 85–100; BP diastolic 49–75; PULSE 57–106; RESP 17–30; TEMP 36.1; O2SAT 97–100; BMI 27.4
--- NOTE | 2019-06-18 17:03 | RAD_ITS ---
STUDY: X-RAY CHEST REASON FOR EXAM: Male, 83 years old. Cardiac arrest TECHNIQUE: AP COMPARISON: 01/05/2018 FINDINGS: Three lead cardiac conduction device is seen via the left subclavian vein with lead tips projecting over the right atrium and right ventricle, respectively, with left atrial lead projecting over the left atrium/posterior cardiac border. EKG leads project over the chest. The lungs are clear and expanded. There is no demonstrated pleural abnormality. Normal size heart. Normal mediastinum and timothy. Normal visualized pulmonary arteries. Normal visualized aortic arch and descending thoracic aorta. Normal visualized thoracic spine. Normal visualized ribs, clavicles, and shoulders. There is no demonstrated abnormality of the visualized soft tissue structures of the upper abdomen. RAD/Chest 1 View (Portable) IMPRESSION: Stable, nonacute portable x-ray examination of the chest. Electronically Signed: Ray Pickard MD (Brooks) at 17:25 EDT , Service support ,
--- NOTE | 2019-06-18 17:04 | EKG12_ITS ---
Test Reason : CODE BLUE Blood Pressure : / mmHG Vent. Rate : 128 BPM Atrial Rate : 128 BPM P-R Int : 000 ms QRS Dur : 160 ms QT Int : 388 ms P-R-T Axes : 000 099 -51 degrees QTc Int : 566 ms Atrial fibrillation with rapid ventricular response with frequent fast ventricular rhythm Right bundle branch block Anteroseptal infarct , age undetermined T wave abnormality, consider inferior ischemia Abnormal ECG Confirmed by KERRIE VELEZ, MYRTLE ([id number]), editor department MELISSA TANG ([id number]) on 06/20/2019 11:39:47 AM Referred By: SHAYLEE Confirmed By:MYRTLE SY MD
[2019-06-18 17:37] LABS: Absolute Lymphocyte Count 10.71 X10^3/uL (0.83-4.51); Absolute Neutrophil Count 11.3 X10^3/uL (2.0-7.7); Basophil# 0.13 X10^3/uL; Basophil% 0.5 % (0-1); Eosinophils% 1.2 % (0-5); Hematocrit 47.6 % (40-54); Hemoglobin 15.8 g/dL (13.0-16.5); Lymphocyte # 10.71 X10^3/ul (4.0); Lymphocyte % 43.9 % (19-41); Mean Corp Hgb Conc 33.2 g/dL (32-36); Mean Corpuscular Hgb 31.8 pg (27.0-32.0); Mean Corpuscular Volume 95.8 fL (80-94); Mean Platelet Vol. 10.9 fl (6.2-12.0); Monocyte# 1.59 X10^3/uL; Monocyte% 6.5 % (0-10); NRBC Flagged by Analyzer 0.1 % (0-5); Neutrophil # 11.34 X10^3/uL (2.7-7.7); Neutrophil % 46.5 % (47-70); POSITIVE DIFFERENTIAL YES; POSITIVE MORPHOLOGY YES; Platelet Count 188 K/mm3 (150-450); RBC Distribution Width CV 13.1 % (11.6-14.6); RBC Distribution Width SD 46.2 fl (35.1-43.9); Red Blood Count 4.97 M/mm3 (4.6-6.2); White Blood Count 24.4 K/mm3 (4.4-11.0)
[2019-06-18 17:42] LABS: Differential Indicated SCAN CRITERIA MET
[2019-06-18 17:45] LABS: International Normalized Ratio 1.1; Prothrombin Time (Protime)PT. 13.5 SECONDS (11.7-14.9)
[2019-06-18 17:46] LABS: Partial Thromboplast Time 29.6 Seconds (24.1-36.2)
--- NOTE | 2019-06-18 17:50 | CM.ED ---
Clinical Faculty Responding to Code Blue, Code Blue canceled. Patient family present. This renal social worker providing emotional and verbal support. Patient family aware of what is happening. No further needs at this time. Will continue to follow as needed. Jairon COLE, JASPREET
--- NOTE | 2019-06-18 17:55 | ED.VIS.GEN ---
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 Per paramedics he called because of chest pain. When they arrived he was unresponsive and apparently pulseless. Rhythm strips that they brought to reveal he had runs of V. tach as well as V. fib. When patient was in V. fib squad defibrillator because his AICD did not fire. Paramedics informed me that his AICD fired multiple times in route. Upon arrival patient had peripheral cyanosis. He was moaning. He was not able to follow directions. Prior similar symptoms: No - Per old records no Recent Illness/Hospitalization: No - Past Medical History (1) Atherosclerotic heart disease of [place] coronary artery without angina pectoris Status: Chronic (2) Chronic systolic (congestive) heart failure Status: Chronic (3) Coronary artery disease Status: Chronic Comment: Status post stents (4) Hyperlipidemia Status: Chronic (5) Hypertension Status: Chronic (6) Ischemic cardiomyopathy Status: Chronic (7) Renal insufficiency Status: Chronic (8) Status post ICD and pacemaker Status: Chronic Past Medical History - Allergies and Home Meds Allergies/Adverse Reactions: Allergies No Known Allergies Allergy (Verified 06/18/19 17:05) Primary Care Physician: Ellis Quijano DO [Primary Care Provider] - Prior records reviewed: Yes Lives: Alone Smoking Status: Current every day smoker Alcohol: None Drugs: None - Family History Maternal Family History: Family History (Last Reviewed 08/03/18 @ 14:46 by Toan Soto MD) Brother Myocardial infarction Family History: Reports: No pertinent history Review of Systems ROS: Unable to Obtain - Information documented is all that is available. Patient has no recall. Cardiovascular: Reports: Chest pain Physical Exam Vital Signs/Narrative: Vital Signs Temp Pulse Resp BP Pulse Ox 06/18/19 17:05 102 H 30 H 98 06/18/19 16:59 96.9 F L 106 H 30 H 100/69 98 Inital Vital Signs reviewed: Yes General: Well nourished, Well developed, No Acute Distress Head: Normocephalic, Atraumatic Eyes: Perrl, EOMI. Negative for: Pale conjunctiva, Scleral icterus ENT: Moist mucous membranes, No rhinorrhea, - - Cyanosis of the ears Neck: Supple, Nontender, No lymphadenopathy, No JVD Cardiovascular: Regular rate, Regular rhythm, No murmurs, Normal S1, Normal S2 Respiratory: No distress, CTA bilaterally, Chest nontender. Negative for: Rales, Rhonchi, Wheezing Abdomen: Soft, Nontender, Nondistended, Normal bowel sounds Back: Nontender, Normal Inspection Extremities: Nontender, No edema Skin: Normal color, No rash Neurological: Cranial nerves II-XII grossly intact, Normal Strength, Normal Sensation. Negative for: Alert, Oriented x3 Psychological: Normal affect, Normal Mood Diagnostic/Tx/Re-eval Chest X-Ray - ED: 1 View, Normal, Mediastinum, Bony Structures, No Acute Disease, Chronic Changes Impressions Chest X-Ray 06/18/19 17:03 IMPRESSION: Stable, nonacute portable x-ray examination of the chest. Electronically Signed: Ray Pickard MD (Brooks) at 17:25 EDT , Service support , 06/18/19 17:03 Chest 1 View (Portable) [RAD] Stat Laboratory Results 06/18/19 06/18/19 06/18/19 17:25 17:25 17:25 WBC 24.4 H RBC 4.97 Hgb 15.8 Hct 47.6 MCV 95.8 H MCH 31.8 MCHC 33.2 RDW Std Deviation 46.2 H RDW Coeff of Darrell 13.1 Plt Count 188 MPV 10.9 Immature Gran % (Auto) 1.400 H Neut % (Auto) 46.5 L Lymph % (Auto) 43.9 H Coles % (Auto) 6.5 Eos % (Auto) 1.2 Baso % (Auto) 0.5 Absolute Neuts (auto) 11.3 H Absolute Lymphs (auto) 10.71 H Nucleated RBC % 0.1 Differential Comment SCANNED Diff Path Review May foll Atypical Lymphocytes RARE Reactive Lymphocytes RARE Platelet Estimate ADEQUATE RBC Morphology NORM C+C PT 13.5 INR 1.1 APTT 29.6 Specimen Type Sample Site pH Bicarbonate Actual POC Total CO2 Base Excess O2 Saturation ABG pCO2 ABG pO2 Oswaldo Test O2 Delivery Device Liter Flow Blood Gas Notified Whom Blood Gas Notified Time Sodium 140 Potassium 2.8 L Chloride 103 Carbon Dioxide 26.0 Anion Gap 11 BUN 28 H Creatinine 1.84 H Estim Creat Clear Calc 30.42 Est GFR (MDRD) Af Amer 45 L Est GFR (MDRD) Non-Af 38 L BUN/Creatinine Ratio 15.2 Glucose 143 H Calcium 9.0 Troponin I 0.611 H* 06/18/19 17:40 WBC RBC Hgb Hct MCV MCH MCHC RDW Std Deviation RDW Coeff of Darrell Plt Count MPV Immature Gran % (Auto) Neut % (Auto) Lymph % (Auto) Coles % (Auto) Eos % (Auto) Baso % (Auto) Absolute Neuts (auto) Absolute Lymphs (auto) Nucleated RBC % Differential Comment Diff Path Review Atypical Lymphocytes Reactive Lymphocytes Platelet Estimate RBC Morphology PT INR APTT Specimen Type ART Sample Site R Radial pH 7.39 Bicarbonate Actual 19.9 L POC Total CO2 21 Base Excess -5 L O2 Saturation 98 ABG pCO2 32.7 L ABG pO2 106 H Oswaldo Test POS O2 Delivery Device Nasal Can Liter Flow 5.0 Blood Gas Notified Whom ED MD Blood Gas Notified Time 545 Sodium Potassium Chloride Carbon Dioxide Anion Gap BUN Creatinine Estim Creat Clear Calc Est GFR (MDRD) Af Amer Est GFR (MDRD) Non-Af BUN/Creatinine Ratio Glucose Calcium Troponin I - Medical Decision Making Patient brought to ER because of chest pain per uncertain if the chest pain was because his defibrillator fired or other causes. Will obtain EKG and troponin to rule out ischemia. Based on rhythm strip provided by [employer] his AICD fired numerous times appropriately. There is concern that his AICD fired inappropriately as well. The rep for his device was contacted since we do not have a device that can interrogate his AICD. I was informed patient's troponin is elevated at 0.611. Part of this may be attributed to the firing of his defibrillator. Need to rule out cardiac ischemia. He will receive aspirin and will discuss case with Dr. Soto who is on-call for cardiology regarding anticoagulation. Dr. Toan Soto was spoken to upon patient's presentation regarding dysrhythmic medication. He was started on amnio bolus and drip. Patient received Lovenox as well because of the elevated troponin. His potassium is low and will need replacement as well. There is evidence of acute kidney injury. Prior was normal from approximately 1.5 years ago. - Critical Care Time Critical care time (excluding procedures): 30-74 minutes, Discussing w/Patient &/or Family/Brine Room Laborer, Discussing w/Consultants, Arranging Admission or Transfer, Performing Direct Patient Care at Bedside - Critical care time 41 minutes ED Disposition - Plan for ED Patient: Disposition: Acute Care Hospital [facility] Diagnosis: Non-ST elevation VA (NSTEMI), Sustained ventricular tachycardia, Ventricular fibrillation seen on rip tailer, Acute kidney injury, Hypokalemia Referrals: Ellis Quijano DO [Primary Care Provider] -
[2019-06-18 18:02] LABS: Anion Gap 11 (5-15); BUN 28 mg/dL (7-18); BUN/Creat Ratio 15.2 RATIO (10-20); Chloride 103 mmol/L (98-107); Creatinine, Serum 1.84 mg/dL (0.70-1.30); EST Glomerular Filtration Rate 38 mL/min (>60); Est Glom Filt Rate - Afr Amer 45 mL/min (>60); Estimated Creatinine Clearance 30.42 ml/min; Glucose 143 mg/dL (74-106); Potassium 2.8 mmol/L (3.5-5.1); Sodium Level 140 mmol/L (136-145)
--- NOTE | 2019-06-18 18:04 | ED.RN ---
CRITICAL TROPONIN 0.[address] JUNE NOTIFIED. NO NEW ORDERS RECEIVED.
[2019-06-18 18:12] LABS: Differential Comment SCANNED; Reactive Lymphocyte RARE
[2019-06-18 18:14] LABS: Platelet Estimate ADEQUATE (ADEQ); Red Cell Morphology NORM C+C NORMAL (NORM C&C)
[2019-06-18 18:15] LABS: Atypical Lymphocyte RARE %
[2019-06-18 18:20] LABS: Allen Test POS; Base Excess -5 mmol/L (-2 to +2); Bicarbonate 19.9 mmol/L (22-26); Blood Gas Specimen Type ART; O2 Delivery Device Nasal Can; PO2 106 mmHG (75-100); SITE R Radial; SO2 98 % (95-99); Time Given 545; Total Carbon Dioxide 21 mmol/L; pCO2 32.7 mmHg (35-45); pH 7.39 (7.35-7.45)
--- NOTE | 2019-06-18 18:37 | HP.PCM_ITS ---
Problem List (1) Non-ST elevation [place] (NSTEMI) Status: Acute (2) Sustained ventricular tachycardia Status: Acute (3) Ventricular fibrillation seen on monitor technician Status: Acute (4) Hypokalemia Status: Acute (5) History of coronary artery stent placement Status: Chronic Comment: PCI/BMS to distal LAD 03/26/2017 (6) Ischemic cardiomyopathy Status: Chronic (7) Coronary artery disease Status: Chronic Qualifiers: Coronary Disease-Associated Artery/Lesion type: [place] artery [place] vs. transplanted heart: unspecified whether [place] or transplanted heart Comment: Status post stents (8) Hyperlipidemia Status: Chronic Qualifiers: Hyperlipidemia type: unspecified Qualified Code(s): E78.5 - Hyperlipidemia, unspecified (9) Hypertension Status: Chronic Qualifiers: Hypertension type: essential hypertension Qualified Code(s): I10 - Essential (primary) hypertension (10) Sudden cardiac arrest Status: Acute History of Present Illness Date of Admission: 06/18/19 Chief Complaint: Chest pain, s/p cardiac arrest - 1 day The patient is a 83 year old M with past medical history of PMHx of CAD s/p stents, ischemic cardiomyopathy, last EF in 2017 was 20%, s/p ICD, chronic smoker who comes in with complaints of chest pain and had an out of hospital cardiac arrest. Patient lives with his son and [id number]. [id number] went outside and came back into the house and had him shouting from his room. He walked out of his room to the living area and complain of chest pain. She helped him to sit down. He seemed to have slumped backwards. He did not lose consciousness for her. She called the EMS. EMS reports at the time of this note is still pending. Per ED staff, patient was noted en route to have had a cardiac arrest with no pulse. Rhythm strip shows runs of V. tach and V. fib. On the way coming to the emergency department, patient went into V. fib again. His AICD has not fired so he received a shock en route. Subsequently the squad realized that his AICD was firing several times. On arrival to the emergency department, patient's AICD kept firing. It stopped when a magnet was placed over the AICD. Vitals in the ED showed temperature 96.9 F, heart rate 106, blood pressure 100/69, respiratory rate was 30, SPO2 is 98% in the nonrebreather. His admitting blood work showed a BC count of 24.4, hemoglobin 15.8, platelet count 188, INR 1.1, sodium 140, potassium 2.8, chloride 103, bicarbonate 26, BUN 28, creatinine 1.84, baseline creatinine is 1.1, troponin is 0.611, EKG shows atrial fib with RVR, RBBB, periods of V. tach Past Medical History Past Medical History (Chronic Problems): Chronic Problems (Last Reviewed 08/03/18 @ 14:46 by Toan Soto MD) 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) Implant: 01/26/2013 Other secondary pulmonary hypertension (Chronic) Nonrheumatic tricuspid (valve) insufficiency (Chronic) Nonrheumatic mitral (valve) insufficiency (Chronic) Chronic systolic (congestive) heart failure (Chronic) Old myocardial infarction (Chronic) Atherosclerotic heart disease of [place] coronary artery without angina pectoris (Chronic) History of coronary artery stent placement (Chronic) PCI/BMS to distal LAD 03/26/2017 Renal insufficiency (Chronic) Acute on chronic systolic (congestive) heart failure (Chronic) Status post ICD and pacemaker (Chronic) Ischemic cardiomyopathy (Chronic) Coronary artery disease (Chronic) Status post stents Hyperlipidemia (Chronic) Hypertension (Chronic) Medical History: Medical History (Last Reviewed 08/03/18 @ 14:46 by Toan Soto MD) UTI (urinary tract infection) (Acute) N39.0 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) Z95.810 Implant: 01/26/2013 Other secondary pulmonary hypertension (Chronic) I27.29 Nonrheumatic tricuspid (valve) insufficiency (Chronic) I36.1 Nonrheumatic mitral (valve) insufficiency (Chronic) I34.0 Chronic systolic (congestive) heart failure (Chronic) I50.22 Old myocardial infarction (Chronic) I25.2 Atherosclerotic heart disease of [place] coronary artery without angina pectoris (Chronic) I25.10 Renal insufficiency (Chronic) N28.9 Acute on chronic systolic (congestive) heart failure (Chronic) I50.23 Status post ICD and pacemaker (Chronic) Ischemic cardiomyopathy (Chronic) I25.5 Coronary artery disease (Chronic) I25.10 Status post stents Hyperlipidemia (Chronic) E78.5 Hypertension (Chronic) I10 Allergies No Known Allergies Allergy (Verified 06/18/19 17:05) Home Medications: Ambulatory Orders Medication Instructions Recorded Aspirin E.C. [Ecotrin] 81 mg PO DAILY@0800 #90 tab 03/27/17 Atorvastatin Calcium [Lipitor] 20 mg PO QHS #90 tab 03/27/17 Carvedilol [Coreg (Beta Eric)] 3.125 mg PO BID #90 tab 03/27/17 losartan 25 mg tablet 25 mg PO QDAY 11/10/17 Potassium Chloride [K-Dur] 20 meq PO DAILYCM tab 01/12/18 Hydrochlorothiazide [Hctz] 12.5 mg PO QAM 02/03/18 Loratadine 10 mg PO DAILY 02/03/18 Surgical History: Surgical History (Last Reviewed 08/03/18 @ 14:46 by Toan Soto MD) History of coronary artery stent placement (Chronic) Z95.5 PCI/BMS to distal LAD 03/26/2017 History of transurethral resection of prostate Onset Date: 02/10/18 Z98.890, Z90.79 Surgical History: - - Status post prostatectomy, status post stent placement. Psychiatric History: No pertinent psych hx Lives: With Family Smoking Status: Current every day smoker Alcohol: None Drugs: None - *Family History Maternal Family History: Family History (Last Reviewed 08/03/18 @ 14:46 by Toan Soto MD) Brother Myocardial infarction History Items: No pertinent history Sibling Family History: Family History (Last Reviewed 08/03/18 @ 14:46 by Toan Soto MD) Brother Myocardial infarction History Items: Heart Disease - [place] Review of Systems Constitutional: Reports: Malaise, Weakness, Fatigue. Denies: Anorexia, Chills, Fever, Weight Change Eyes: Denies: Blurred vision, Cataracts, Conjunctivae Inflammation, Pain, Redness, Vision Change HEENT: Denies: Head Aches, Hearing Changes Cardiovascular: Reports: Chest Pain, Chest Tightness, Light Headedness. Denies: Orthopnea, Palpitations, Paroxysmal Noc. Dyspnea Respiratory: Denies: Cough, Hemoptysis, Shortness of breath upon exertion, Sputum production Gastrointestinal: Denies: Abdominal Pain Genitourinary: Denies: Dysuria, Frequency Musculoskeletal: Denies: Joint stiffness, Joint swelling Skin: Denies: Pruritis Neurological: Denies: Difficulty swallowing Psychiatric: Denies: Homicidal Ideations, Suicidal Ideations Hematologic/ Lymphatic: Denies: Adenopathy, Anemia VTE Information - Inpt Only VTE Present on Admission: No VTE Pharm Prophylaxis ordered?: Yes Patient Problems: Active and Suspected Problems (Last Reviewed 08/03/18 @ 14:46 by Toan Soto MD) Non-ST elevation [place] (NSTEMI) (Acute) Sustained ventricular tachycardia (Acute) Ventricular fibrillation seen on monitor technician (Acute) Acute kidney injury (Acute) Hypokalemia (Acute) Sudden cardiac arrest (Acute) - Physical Exam General: Alert, Oriented x3, Cooperative, No apparent distress HEENT: Atraumatic, PERRLA, EOMI, Normocephalic Oral: Moist Mucosa Neck: Supple Lungs: Clear to auscultation, Normal air movement Cardiovascular: Regular rate, Regular Rhythm, Normal S1, Normal S2, No murmurs Abdomen: Bowel Sounds Present, Soft, Non Tender, Non-Distended, No Hepato-s plenomegaly Extremities: No edema Skin: No rashes, No breakdown Musculoskeletal: No Tenderness to Palpation of Joints or Extremities Neurological: Cranial nerves II-XII grossly intact Psych/Mental Status: Normal Affect, Appropriate Vital Signs Temp Pulse Resp BP Pulse Ox 96.9 F L 102 H 30 H 100/69 98 06/18/19 16:59 06/18/19 17:05 06/18/19 17:05 06/18/19 16:59 06/18/19 17:05 Oxygen Delivery Method Non-Rebreather Weight: 84.4 kg Body Mass Index (BMI) 27.4 Intake and Output for Last 24 Hours 06/16/19 06/17/19 06/18/19 23:59 23:59 23:59 Intake Total 103 / 103 Balance 103 / 103 Laboratory Tests Past 24 Hrs 06/18/19 06/18/19 06/18/19 17:25 17:25 17:25 WBC 24.4 H RBC 4.97 Hgb 15.8 Hct 47.6 MCV 95.8 H MCH 31.8 MCHC 33.2 RDW Std Deviation 46.2 H RDW Coeff of Darrell 13.1 Plt Count 188 MPV 10.9 Immature Gran % (Auto) 1.400 H Neut % (Auto) 46.5 L Lymph % (Auto) 43.9 H [place] % (Auto) 6.5 Eos % (Auto) 1.2 Baso % (Auto) 0.5 Absolute Neuts (auto) 11.3 H Absolute Lymphs (auto) 10.71 H Nucleated RBC % 0.1 Differential Comment SCANNED Diff Path Review May foll Atypical Lymphocytes RARE Reactive Lymphocytes RARE Platelet Estimate ADEQUATE RBC Morphology NORM C+C PT 13.5 INR 1.1 APTT 29.6 Specimen Type Sample Site pH Bicarbonate Actual POC Total CO2 Base Excess O2 Saturation ABG pCO2 ABG pO2 Oswaldo Test O2 Delivery Device Liter Flow Blood Gas Notified Whom Blood Gas Notified Time Sodium 140 Potassium 2.8 L Chloride 103 Carbon Dioxide 26.0 Anion Gap 11 BUN 28 H Creatinine 1.84 H Estim Creat Clear Calc 30.42 Est GFR (MDRD) Af Amer 45 L Est GFR (MDRD) Non-Af 38 L BUN/Creatinine Ratio 15.2 Glucose 143 H Calcium 9.0 Magnesium Troponin I 0.611 H* 06/18/19 06/18/19 17:25 17:40 WBC RBC Hgb Hct MCV MCH MCHC RDW Std Deviation RDW Coeff of Darrell Plt Count MPV Immature Gran % (Auto) Neut % (Auto) Lymph % (Auto) [place] % (Auto) Eos % (Auto) Baso % (Auto) Absolute Neuts (auto) Absolute Lymphs (auto) Nucleated RBC % Differential Comment Diff Path Review Atypical Lymphocytes Reactive Lymphocytes Platelet Estimate RBC Morphology PT INR APTT Specimen Type ART Sample Site R Radial pH 7.39 Bicarbonate Actual 19.9 L POC Total CO2 21 Base Excess -5 L O2 Saturation 98 ABG pCO2 32.7 L ABG pO2 106 H Oswaldo Test POS O2 Delivery Device Nasal Can Liter Flow 5.0 Blood Gas Notified Whom ED MD Blood Gas Notified Time 545 Sodium Potassium Chloride Carbon Dioxide Anion Gap BUN Creatinine Estim Creat Clear Calc Est GFR (MDRD) Af Amer Est GFR (MDRD) Non-Af BUN/Creatinine Ratio Glucose Calcium Magnesium Pending Troponin I Assessment/Plan All Active Problems (Last Reviewed 08/03/18 @ 14:46 by Toan Soto MD) Non-ST elevation [place] (NSTEMI) (Acute) Sustained ventricular tachycardia (Acute) Ventricular fibrillation seen on monitor technician (Acute) Acute kidney injury (Acute) Hypokalemia (Acute) Sudden cardiac arrest (Acute) UTI (urinary tract infection) (Acute) Code Visit Inpatient E&M: 78606 Init Hosp L3
[2019-06-18] MEDS: Enoxaparin 80 MG/0.8 ML Syringe SC (19:00)
--- NOTE | 2019-06-18 20:23 | CM.ED ---
Social Work Referral for advanced care planning per nursing staff. Met with patient and patient family in room. Patient [id number], Tatianna requesting for health care power of assistant district attorney paper work to be completed with patient. This social welfare administrator educating Tatianna that patient will need to be alert and oriented as well as agreeable to completing documents. This social welfare administrator educating patient on advanced care planning. Patient stating to be unsure of who patient would like to notify as health care power of assistant district attorney and is not wanting to complete documents. Patient also stating to be unsure what code status patient would like to be. Patient stating I don't think I am ready to . This social welfare administrator voicing that it is patient's choice. Patient also presenting with some disorientation during conversation with this social welfare administrator. Patient unsure of current location and what has happened to patient today. Dr. Troy stating to have communicated to both patient and patient family what occurred today. This socia worker re-educating patient that patient had a medical emergency today and that plan is for patient to be transferred to [facility]. Patient and patient family voicing understanding and thanking this social welfare administrator. Jairon Rojas MSW, JASPREET
[2019-06-22 08:59] LABS: Pathologist Review Reviewed
== END 2019-06-18 21:14 | disposition short-term general hospital (02) ==
LOC: ED 18:24 → ICU 19:05
PROVIDERS: Emergency Provider Emergency Medicine; Family Provider Family Medicine; PCP Family Medicine
DX: I21.4 Non-ST elevation (NSTEMI) myocardial infarction (principal); I47.2 Ventricular tachycardia; I49.01 Ventricular fibrillation; N17.9 Acute kidney failure, unspecified; E87.6 Hypokalemia; I13.0 Hypertensive heart and chronic kidney disease with heart failure and stage 1 through stage 4 chronic kidney disease, or unspecified chronic kidney disease; I50.22 Chronic systolic (congestive) heart failure; N18.9 Chronic kidney disease, unspecified; I25.5 Ischemic cardiomyopathy; I25.10 Atherosclerotic heart disease of native coronary artery without angina pectoris; I48.91 Unspecified atrial fibrillation; E78.5 Hyperlipidemia, unspecified; F17.200 Nicotine dependence, unspecified, uncomplicated; Z79.82 Long term (current) use of aspirin; Z79.899 Other long term (current) drug therapy; Z95.810 Presence of automatic (implantable) cardiac defibrillator; Z95.5 Presence of coronary angioplasty implant and graft
CPT/HCPCS: 36600; 71045; 80048; 82803; 83735; 84484; 85025; 85610; 85730; 93005; 96365; 96366; 96367; 96372; 99251; 99285; J7030; A4216; G0463

== ENCOUNTER 2019-07-10 13:02 | Emergency (ER) | payer MEDICARE, SELFPAY ==
[2017-03-26 13:31] VITALS: BMI 25.5
[2019-07-04 09:20] VITALS: BMI 27.4
[2019-07-10 13:03] VITALS: BP 140/57; PULSE 69; PULSE 70; RESP 19; RESP 22; TEMP 36.8; O2SAT 96; O2SAT 97; BMI 25.5
--- NOTE | 2019-07-10 13:08 | EKG12_ITS ---
Test Reason : CP Blood Pressure : / mmHG Vent. Rate : 070 BPM Atrial Rate : 070 BPM P-R Int : 176 ms QRS Dur : 178 ms QT Int : 534 ms P-R-T Axes : 061 -53 030 degrees QTc Int : 576 ms Atrial-sensed ventricular-paced rhythm Abnormal ECG Confirmed by KERRIE VELEZ, MYRTLE ([id number]), technical writer and editor RICHARD IRBY ([id number]) on 07/11/2019 2:59:27 PM Referred By: ISH Confirmed By:MYRTLE SY MD
--- NOTE | 2019-07-10 13:16 | ED.DCSUM_ITS ---
History of Present Illness Chief Complaint: Chest Pain Informant: Patient, Family Onset: Today Maximum Severity: Mild Narrative: Patient history of cardiovascular disease cardiac stents, [place], ICD cardiac defibrillator, basically he had his ICD cardiac defibrillator revised end of May at [facility] into a pacemaker he did not wish to have an ICD placed he was discharged the end of May, he was doing well until today when he began having pain around the pacemaker site such that if he pushes on the pacemaker and moves the pacemaker up towards his shoulder the pain goes away it then falls back into the pocket he has pain He has no numbness weakness to his hand no other complaints no fever no cough no trauma Past Medical History - Allergies and Home Meds Allergies/Adverse Reactions: Allergies No Known Allergies Allergy (Verified 07/10/19 13:03) Primary Care Physician: Ellis Quijano DO [Primary Care Provider] - Past Medical History: - - Recent revision of ICD to pacemaker at [facility] history of cardiovascular disease stents [place] Smoking Status: Current every day smoker - Family History Maternal Family History: Family History (Last Reviewed 07/04/19 @ 15:24 by IRVIN Abdullahi) Brother Myocardial infarction Family History: Reports: No pertinent history Review of Systems General: Reports: - - Only complaint is pain around the pacer pocket site. Denies: Chills, Fever, Sweats Eyes: Denies: Visual changes - bilaterally, Diplopia ENT: Denies: Rhinorrhea, Sore throat Cardiovascular: Denies: Chest pain, Palpitations Respiratory: Denies: Dyspnea, Cough, Dyspnea on exertion Gastrointestinal: Denies: Abdominal pain, Nausea, Vomiting, Diarrhea, Melena, Hematochezia Genitourinary: Denies: Dysuria, Hematuria, Frequency Musculoskeletal: Denies: Back pain, Extremity Pain Skin: Denies: Rash, Wounds Neurological: Denies: Headache, Weakness, Numbness Physical Exam Vital Signs/Narrative: Vital Signs Temp Pulse Resp BP Pulse Ox 07/10/19 13:03 98.2 F 70 19 H 140/57 H 96 General: Well nourished, Well developed, No Acute Distress Head: Normocephalic, Atraumatic Eyes: Perrl, EOMI ENT: Moist mucous membranes, No rhinorrhea Neck: Supple, Nontender Cardiovascular: Regular rate, Regular rhythm, No murmurs, - - The pacer pocket site is is intact the incisions intact there is no obvious fullness or fluctuance or redness or warmth around the site, there is palpable pain to the area, it is relieved when he basically takes the pacer and pushes up toward his shoulder again there is no fluctuance or subcu air crepitus the chest wall is otherwise unremarkable as his left upper extremity exam Respiratory: No distress, CTA bilaterally, Chest nontender Abdomen: Soft, Nontender, Nondistended, Normal bowel sounds Back: Nontender, Normal Inspection Extremities: Nontender, No edema Skin: Normal color, No rash Neurological: Alert, Oriented x3, Cranial nerves II-XII grossly intact, Normal Strength, Normal Sensation Psychological: Normal affect, Normal Mood Diagnostic/Tx/Re-eval - Medical Decision Making His EKG shows paced rhythm nothing acute screening labs are obtained chest x-ray pain management we understand from the family that it is possible that Dr. Gareth Romero was the merchandise marker who placed the pacemaker will discuss with the merchandise marker corsets salesperson or that physician The patient's EKG shows a paced rhythm rate about 70, the patient's chest x-ray per radiology shows nothing acute the labs are all unremarkable,, we spoke with Dr. fuller on-call for his merchandise marker discussed the case in detail the patient's pain has resolved now with no therapy he required no pain management a nd indicates now it may be intermittent Dr. fuller agrees the patient discharged home follow-up in the office in the next few days no further care plan for the emergency department, return for change in symptoms patient and are comfortable this plan Home stable Impression final inteRemittent pain involving pacemaker pocket soft tissue area no signs of infection ED Disposition - Plan for ED Patient: Diagnosis: Chest pain Instructions: CHEST PAIN, Uncertain Cause, Chest Wall Contusion Prescriptions: Hydrocodone Bitart/Apap 5-325 [[place] 5MG-325MG] 1 tab PO Q4H PRN PRN 2 Days #10 tab PRN Reason: Pain Prescription Printed Referrals: Ellis Quijano DO [Primary Care Provider] -
[2019-07-10 13:20] VITALS: O2SAT 96
--- NOTE | 2019-07-10 13:25 | RAD_ITS ---
STUDY: X-RAY CHEST REASON FOR EXAM: Male, 83 years old. Chest pain TECHNIQUE: Single AP portable view of the chest. COMPARISON: June 18, 2019. FINDINGS: Pacemaker device on the left. The lungs are clear and expanded. There is no demonstrated pleural abnormality. There is mild cardiac enlargement. Normal mediastinum and timothy. Normal visualized pulmonary arteries. Normal visualized aortic arch and descending thoracic aorta. Normal visualized thoracic spine. Normal visualized ribs, clavicles, and shoulders. There is no demonstrated abnormality of the visualized soft tissue structures of the upper abdomen. RAD/Chest 1 View (Portable) IMPRESSION: Degenerative changes, as described above. No demonstrated acute cardiopulmonary process. Electronically Signed: Amos Wynne MD at 15:06 EDT , Service support ,
[2019-07-10 13:30] VITALS: BP 128/51; PULSE 60; RESP 15; O2SAT 97
[2019-07-10 13:31] LABS: Absolute Neutrophil Count 7.3 X10^3/uL (2.0-7.7); Basophil# 0.08 X10^3/uL; Basophil% 0.7 % (0-1); Eosinophil# 0.46 X10^3/uL; Eosinophils% 3.9 % (0-5); Hematocrit 47.4 % (40-54); Hemoglobin 15.1 g/dL (13.0-16.5); Mean Corp Hgb Conc 31.9 g/dL (32-36); Mean Corpuscular Hgb 30.8 pg (27.0-32.0); Mean Corpuscular Volume 96.5 fL (80-94); Monocyte# 1.15 X10^3/uL; Monocyte% 9.8 % (0-10); NRBC Flagged by Analyzer 0 % (0-5); Neutrophil # 7.28 X10^3/uL (2.7-7.7); Neutrophil % 62.2 % (47-70); Platelet Count 186 K/mm3 (150-450); RBC Distribution Width CV 13.6 % (11.6-14.6); RBC Distribution Width SD 48.5 fl (35.1-43.9); Red Blood Count 4.91 M/mm3 (4.6-6.2); White Blood Count 11.7 K/mm3 (4.4-11.0)
--- NOTE | 2019-07-10 13:34 | NURSING ---
[id number] ZACKARY IRBY, [facility], THROUGH [employer] WORKER [phone] MIKE YOUNG, [facility], [phone] GONZALEZ SAFETY INSTRUCTOR
--- NOTE | 2019-07-10 13:36 | NURSING ---
DR GONZALEZ RETURNED CALL
[2019-07-10 13:49] LABS: Anion Gap 3 (5-15); BUN 18 mg/dL (7-18); BUN/Creat Ratio 11.6 RATIO (10-20); Calcium,Total 8.8 mg/dL (8.5-10.1); Chloride 108 mmol/L (98-107); Creatinine, Serum 1.55 mg/dL (0.70-1.30); EST Glomerular Filtration Rate 46 mL/min (>60); Est Glom Filt Rate - Afr Amer 55 mL/min (>60); Estimated Creatinine Clearance 37.28 ml/min; Glucose 89 mg/dL (74-106); Potassium 4.3 mmol/L (3.5-5.1); Sodium Level 141 mmol/L (136-145)
[2019-07-10 14:31] VITALS: BP 119/48; PULSE 60; RESP 18; O2SAT 95
[2019-07-10 15:27] VITALS: BP 105/55; PULSE 56; RESP 15
== END 2019-07-10 15:28 | disposition home or self-care (01) ==
LOC: ED 13:52
PROVIDERS: Emergency Provider Emergency Medicine; Family Provider Family Medicine; PCP Family Medicine
DX: R07.9 Chest pain, unspecified (principal); I25.10 Atherosclerotic heart disease of native coronary artery without angina pectoris; F17.200 Nicotine dependence, unspecified, uncomplicated; Z79.82 Long term (current) use of aspirin; Z79.899 Other long term (current) drug therapy; I25.2 Old myocardial infarction; Z95.5 Presence of coronary angioplasty implant and graft; Z95.810 Presence of automatic (implantable) cardiac defibrillator
CPT/HCPCS: 71045; 80048; 84484; 85025; 93005; 99284; A4216

== ENCOUNTER → 2019-12-15 15:09 | Outpatient (CLI) | payer MEDICARE, SELFPAY ==
[2017-03-26 13:31] VITALS: BMI 25.5
[2019-10-27 15:21] VITALS: BMI 24.2
== END ==
PROVIDERS: PCP Family Medicine; Visit Provider Family Medicine
DX: N30.00 Acute cystitis without hematuria (principal)
CPT/HCPCS: 87077; 87086; 87088; 87186

== ENCOUNTER → 2020-01-23 12:48 | Outpatient (CLI) | payer MEDICARE, SELFPAY ==
[2017-03-26 13:31] VITALS: BMI 25.5
[2019-10-27 15:21] VITALS: BMI 24.2
== END ==
PROVIDERS: PCP Family Medicine; Visit Provider Family Medicine
DX: R31.9 Hematuria, unspecified (principal)
CPT/HCPCS: 87077; 87086; 87088; 87186

== ENCOUNTER → 2020-03-08 15:29 | Outpatient (CLI) | payer MEDICARE, SELFPAY ==
[2017-03-26 13:31] VITALS: BMI 25.5
[2019-10-27 15:21] VITALS: BMI 24.2
[2020-03-08 18:14] LABS: Absolute Lymphocyte Count 1.06 X10^3/uL (0.83-4.51); Absolute Neutrophil Count 6.7 X10^3/uL (2.0-7.7); Basophil# 0.04 X10^3/uL; Basophil% 0.4 % (0-1); Eosinophil# 0.14 X10^3/uL; Eosinophils% 1.6 % (0-5); Lymphocyte # 1.06 X10^3/ul (4.0); Lymphocyte % 11.8 % (19-41); Mean Corp Hgb Conc 31.1 g/dL (32-36); Mean Corpuscular Hgb 28.2 pg (27.0-32.0); Mean Corpuscular Volume 90.5 fL (80-94); Mean Platelet Vol. 11.6 fl (6.2-12.0); Monocyte# 0.96 X10^3/uL; Monocyte% 10.7 % (0-10); NRBC Flagged by Analyzer 0 % (0-5); Neutrophil # 6.72 X10^3/uL (2.7-7.7); Neutrophil % 75.1 % (47-70); Platelet Count 133 K/mm3 (150-450); RBC Distribution Width CV 15.7 % (11.6-14.6); Red Blood Count 4.97 M/mm3 (4.6-6.2)
[2020-03-08 18:28] LABS: ALB/GLOB Ratio 0.7 RATIO (0.9-2.4); AST(SGOT) 22 U/L (15-37); Alanine Aminotransfer ALT/SGPT 26 U/L (16-61); Albumin, Serum 3.3 g/dL (3.2-5.0); Alkaline Phosphatase 114 U/L (45-117); Anion Gap 9 (5-15); BUN 23 mg/dL (7-18); BUN/Creat Ratio 13.9 RATIO (10-20); Calcium,Total 8.9 mg/dL (8.5-10.1); Chloride 101 mmol/L (98-107); Creatinine, Serum 1.66 mg/dL (0.70-1.30); EST Glomerular Filtration Rate 42 mL/min (>60); Est Glom Filt Rate - Afr Amer 51 mL/min (>60); Globulin 4.6 g/dL (2.2-4.2); Glucose 95 mg/dL (74-106); Potassium 2.9 mmol/L (3.5-5.1); Protein, Total 7.9 g/dL (6.4-8.2); Sodium Level 142 mmol/L (136-145); Thyroid Stim Hormone (TSH) 0.56 uIU/mL (0.358-3.74)
[2020-03-08 18:34] LABS: BNP,B-Type NATRIURETIC PEPTIDE 1826.7 pg/mL (0-100)
--- OUTSIDE RECORDS SUMMARY | 2020-08-07 10:46 | XMS RPT_ITS | CCD ---
:1935 External Reference #:[id number] Author Organization [facility] Care Team Providers Name Role Phone Damien Wei Unavailable Damien Wei Unavailable LUZ Manzanares, M Unavailable Unavailable LUZ Robledo, M Unavailable Unavailable LUZ Robledo, M Unavailable Unavailable LUZ Robledo, M Unavailable Unavailable LUZ Robledo, M Unavailable Unavailable Shereen, Y Unavailable Unavailable Damien Wei Unavailable Damien Wei Unavailable Medications Medication Name Sig Date Prescriber Location aspirin ASPIRIN EC 81 MG 04-02-2017 Tor[facility] Crawford rt [facility] One tablet by Group (44 752) mouth daily ASPIRIN [id number] Marianne Manzanares RN atorvastatin ATORVASTATIN CALCIUM 04-02-2017 [facility] 20 MG TABS One Group ([id number]) tablet by mouth every night ATORVASTATIN CALCIUM [id number] Toan Soto MD carvedilol COREG 3.125 MG TABS 04-02-2017 Alice Low RN [facility] One tablet by mouth Group (4 4688) twice daily CARVEDILOL [id number] Toan Soto MD clopidogrel CLOPIDOGREL 04-02-2017 [facility] BISULFATE 75 MG TABS Group ( 16662) One tablet by mouth daily CLOPIDOGREL BISULFATE [id number] Toan Soto MD furosemide FUROSEMIDE 40 MG 04-02-2017 [facility] TABS One tablet by Group (44 691) mouth daily FUROSEMIDE [id number] Toan Soto MD lisinopril ZESTRIL 2.5 MG TABS 04-02-2017 - [facility] One tablet by mouth 04-22-2017 Group (4 4691) daily LISINOPRIL [id number] Toan Soto MD Losartan LOSARTAN POTASSIUM 04-22-[address] [facility] 25 MG TABS One Group ([id number]) tablet by mouth daily LOSARTAN POTASSIUM [id number] Toan Soto MD No information No information [facility] available. available. Group ([id number]) Problems Category Problem Name Status Date Location Acute myocardial Myocardial infarction Active 10-26-1959 - [facility] infarction Group ([id number]) Conduction disorders Presence of automatic Active 04-22-2017 - [facility] (implantable) cardiac Group (43207) defibrillator Congestive heart failure; Congestive heart Active 10-26-1959 - [facility] nonhypertensive failure Group (24321 ) Coronary atherosclerosis Generalized ischemic Active 04-02-20 17 - [facility] and other heart disease myocardial dysfunction Group (10255) Disorders of lipid Hyperlipidemia Active [facility] metabolism Group (29462) Essential hypertension Hypertensive disorder Active [facility] (65658) 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 Group (52146) Pulmonary heart disease Other secondary Active 04-02-2017 - [facility] pulmonary hypertension Group (89002) Unclassified Implantation of Active 04-02-2017 - [facility] internal cardiac Group (4469 1) defibrillator Unclassified Placement of stent in Active 04-02-2017 - [facility] coronary artery Group (69613 ) Unclassified No current problems or Active [facility] disability Group (38690) Results Result Name Value Range Unit Interpretation Flag Date Location therapy nt on 06-23 THERAPY NT HNO ID: [id number] Normal 06-23-2019 [place] Author: Katarzyna Psoada General Service: Physical Therapy Medical Author Type: Physical Therapist Center Type: Therapy (PT/OT/Speech/Resp) ([id number]) Filed: 06/23/2019 12:07 PM Note Text: Physical Therapy Evaluation SERVICE DATE: 06/23/2019 SERVICE TIME: 919 to 944 ROOM: [place] [address] Recommended Discharge Disposition: Home PT Anticipated Discharge Needs: Physical Assist at Home;Supervi radha at Home Physical Assist at Home for: Cleaning;Laundry;Meals;Safety;S elf Care;Shopping;Transportation Supervision at Home due to: (at risk for falling) PT Recommendations to Nursing: Ambulate with device;To bathr oom;Transfer to/from chair;OOB for Meals;With assist of 1 person Device: Wheeled Walker PT 6 Clicks Score: 17 Precautions/Activity Restrictions: Fall Risk Precaution/Activity Restriction Comments: Pacemaker precauti ons Isolation Type: None ASSESSMENT : This patient was admitted for NSTEMI and ICD malfunction, clement s the past medical history of dementia impacting current functional lev el, as well as the social factors complicating the discharge of is home mario ne for brief periods. This patient is below baseline functioning of leela natarajan and will benefit from continued skilled therapy in the hospital for treatment of the following body systems/impairments: musculoskeletal, integumentary, cardiopulmonary, neuromuscular (gait, transfers, bed mobilit y, balance, safety and strengthening). Patient Disposition at Start of Session: Supine in Bed Patient Disposition at End of Session: Supine in Bed;Call Be ll in Reach;Bed Alarm Tolerated Full Session Physical Therapy Problem List: Education Deficit;Safety Defi cits;Decreased Strength;Functional Mobility Impairment;Balance Impaired Patient /Caregiver Goals: Go Home Goals for Plan of Care: Able to perform HEP with: Independent Transfer supine to/from sit with: Independent Transfer sit to/from stand with: Independent Ambulate with: Supervision Distance: 50 Device: Wheeled Walker Rehab Potential: Good PLAN: Treatment Frequency (times per week): 5(2-5) Current admission Treatment Interventions: Education;Strengthening;Functional Mobility Training;Balance Training Plan of Care developed with: Patient TREATMENT INTERVENTIONS: Therapy Diagnosis: Muscle Weakness (generalized);Unsteadines s on feet;Abnormalities of gait and mobility-other Interventions Provided: Evaluation;Gait Training (99302) $ Evaluation-Moderate (27569) Billed Units: 1 unit History and examination of body systems see assessment secti on above. This patient?s clinical presentation is evolving. The patient required a moderate complexity evaluation. Gait Training (71208) Treatment Minutes: 10 1 unit Skilled Intervention(s): Instruction in use of equipment, cu es for sequence and pattern with the walker, patient was instructed on hand placement, to stay in walker frame and to turn with the walk er closer to him. Repeated cued needed for safety, required physical assi st to maintain midline balance. Education on pacer precautions Total Timed Code Treatment Minutes: 10 Total Treatment Time (minutes): 25 SUBJECTIVE: Current Hospital Course: Chart reviewed; NSTEMI with ICD not firing, had Pacemeaker placed on 06/22/19 Reason for Physical Therapy Consult : Mobility Relevant Past Medical History: Vfib Patient Report: Patient has not complaints other than not wa nting to use his walker. Home Environment Patient Lives With: Family(son and dtr-in-law) Assistance Available: 24 Hour Entry To Home: Stairs Number Of Stairs Into Home: 2 Number Of Stairs To Bed/Bath: 0(lives in trailer) Tub/Shower Type: tub with bench Laundry: family completes Equipment Owned: Wheeled Walker;Shower Bench Prior Functional Level: Within Functional Limits Prior Functional Level Comments: Does not use a walker but h e does have a walker OBJECTIVE: CURRENT FUNCTIONAL STATUS: Current Functional Mobility Assist Level Additional Informat ion Rolling Supine to Sit Minimal Assistance Sit to Supine Moderate Assistance Scooting Moderate Assistance Sit to Stand Minimal Assistance Stand to Sit Minimal Assistance Bed to Chair Toilet/Commode Gait Minimal Assistance Gait Device: Wheeled Walker Gait Distance (feet): 50 ft intervals Stairs Curb Step Car Transfer General Gait Deviations: Lateral sway increased;Flexed trunk posture;Difficulty changing direction/turning;Loss of Balanc e(lateral loss of balance with assist to recover) Range of Motion: WFL(following pacer precautions) Strength: Lower Extremity Comments Right Lower Extremity Strength Comments: 4-/5 Left Lower Extremity Strength Comments: 4-/5 Balance: Dynamic Standing Dynamic Standing Balance: Minimal [facility]: Walk 25 feet or more Please see discipline specific clinical documentation [facility] for complete details for this therapy evaluation/treatment. SIGNATURE: Katarzyna Posada PT PATIENT NAME: Leo Mc DATE: June 23, 2019 TIME: 11:54 AM THERAPY NT HNO ID: [id number] Normal 06-23-2019 [place] Author: Saba Parada/Hemal Corona OT General Service: Occupational Therapy Medical Author Type: Occupational Therapist Center Type: Therapy (PT/OT/Speech/Resp) ([id number]) Filed: 06/23/2019 9:15 AM Note Text: Occupational Therapy Evaluation SERVICE DATE: 06/23/2019 SERVICE TIME: 0835 to 0900 ROOM: [id number] Recommended Discharge Disposition: Home OT Recommended Discharge Disposition Comments: with 24 hr famil y assist available at d/c to ensure safety with all ADLs and function al mobility for fall prevention and maintenance of pacemaker precautions . Anticipated Discharge Needs: Physical Assist at Home;Supervi radha at Home Physical Assist at Home for: Cleaning;Laundry;Meals;Safety;S elf Care;Shopping;Transportation Supervision at Home due to: Decreased safety awareness;Impai red cognition OT Recommendations to Nursing: To Bathroom for ADL?s /and or Toileting;OOB for meals;With assist of 1 person Equipment: Wheeled Walker OT 6 Clicks Score: 19 Precautions/Activity Restrictions: Fall Risk Precaution/Activity Restriction Comments: Pacemaker precauti ons Isolation Type: None ASSESSMENT: Patient presents with defibrillator malfunctioning, requirin g defibrillation and CPR on ambulance. Pt with past medical hi story significant for HTN, HFrEF 25%, CAD, and nicotine dependence . Pt demo's impaired ADLs and functional mobility, requiring CGA (min as sist) at times to maintain good balance, which ultimately improved with whe eled walker use. Pt requires CGA for ADLs to ensure safety and cuing to maintain pacemaker precautions. Pt alert to self, place, and year but difficulty with time and situation (baseline confusion). Rec home OT to maximize his independence and ensure safety, as well as 24 hr assist/supe rvision from family. Patient Disposition at Start of Session: Supine in Bed;Call [place] in Reach Patient Disposition at End of Session: Supine in Bed;Call Be ll in Reach;Bed Alarm Tolerated Full Session Occupational Therapy Problem List: Safety Deficits;Cognitive Deficit;Impaired Self Care;Functional Mobility Impairment;Ba adina Impaired Patient /Caregiver Goals: Go Home Goals for Plan of Care: Grooming with: Supervision Upper Body Bathing with: Modified Independent Lower Body Bathing with: Modified Independent Lower Body Dressing with: Independent Chair Transfer with: Supervision Toilet Transfer with: Supervision Additional Goal 1: Pt will demo good safety with ADLs and fu nctional mobility Demonstrate Competence With Education with: Independent(pace maker precautions) Increased Awareness of Cognitive Impairments as Related to A DL's/IADL's: Verbalized;Demonstrated Rehab Potential: Good PLAN: Treatment Frequency (times per week): 5(1-4) Current admission Treatment Interventions: Education;Self Care / Home Manageme nt;Functional Mobility Training Plan of Care developed with: Patient TREATMENT INTERVENTIONS: Therapy Diagnosis: Reduced mobility-other;Decreased activiti es of daily living (ADL);Unsteadiness on feet;Signs and Symptoms Involvi ng Cognitive Functions and Awareness Interventions Provided: Evaluation;Self Detention Management (96342) $ Evaluation-Moderate (77850) Billed Units: 1 unit OT Evaluation Moderate Complexity: Occupational Profile - Extended review of patient's medical record completed including patient's physical, cognitive, and psych o-social history (please see current hospital course of evaluation). Occupational Performance - Pt presents with deficits in feed ing, grooming, UE bathing/dressing, LE bathing/dressing, functional transfe rs, functional mobility, decreased safety awareness, decreased insight into deficits Complexity in Clinical Decision Making - The extent of clini jessica reasoning was moderate, several treatment options present for the paresh ent, need for modification during the evaluation was minimal/moderate, com orbidities affecting occupational performance: Vfib, HTN, nicotine depe ndence Self Detention Management (22170) Treatment Minutes: 9 1 unit Skilled Intervention(s): Educated pt on role of OT in the acute care setting. Educate d pt on pacemaker precautions and how to maintain them while complet ing all ADLs. Facilitated edge of bed ADL (LB dressing with undergarments) to increase ADL participation/independence and increase activity toleran ce in unsupported standing. Provided CG assistance, cues, fall gua rding assist, sequencing to safely complete ADL. Facilitated safe function al mobility in room and to/from bathroom to assess functional mobility safe ty and ADL independence. Provided min verbal cuing to safely navigate I V pole (mobility improved with wheeled walker use). Educated pt on fall prevention strategies, reinforcing the use of their call lig ht / up with assistance for functional mobility; Pt left in bed with bed alarm activated, call light in reach upon OT exit. 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 No c/o pain . I stagger a lot. Home Environment Patient Lives With: Family(son and dtr-in-law) Assistance Available: 24 Hour Entry To Home: Stairs Number Of Stairs Into Home: 2 Number Of Stairs To Bed/Bath: 0(lives in trailer) Tub/Shower Type: tub with bench Laundry: family completes Equipment Owned: Wheeled Walker;Shower Bench Prior Functional Level: Within Functional Limits Prior Functional Level Comments: indep with ADLs and mobilit y; family completes IADLs; reports that they recently took away his li cense and he misses it OBJECTIVE: Cognition/Communication Deficits Orientation Deficits: Not oriented to Time(confused at times ) Responsiveness: Alert Follows Commands: 2-step Commands Cueing to Follow Commands: Minimum Memory Deficits: Short Term(unable to recall pacemaker preca utions) Executive Function Deficits: Judgement;Problem Solving;Safet y Awareness Judgement Deficit: Minimal impairment Problem Solving Deficit: Minimal impairment Safety Awareness Deficit: Minimal impairment Cognitive Clinical Tests and Screens: (baseline confusion) CURRENT FUNCTIONAL STATUS: Current Activities of Daily Living Assist Level Feeding Set Up Grooming Contact Guard Assistance Bathing Upper Body Minimal Assistance Bathing Lower Body Minimal Assistance Dressing Upper Body Contact Guard Assistance Dressing Lower Body Contact Guard Assistance Toileting Contact Guard Assistance Functional Mobility Assist Level Rolling Supine to Sit Stand By Assistance Sit to Supine Stand By Assistance Scooting Stand By Assistance Sit to Stand Stand By Assistance Stand to Sit Stand By Assistance Bed to Chair Toilet/Commode Contact Guard Assistance Functional Mobility Contact Guard Assistance(min assist at t imes; improved with walker use) IV Pole;Wheeled Walker Hand Dominance: Left Range of Motion: WFL(grossly, not tested fully in L shoulder ) Strength: WFL(grossly, not tested in LUE) Balance: Dynamic Standing Dynamic Standing Balance: Contact Guard Assistance(min carolyn t at times) Activity Tolerance: Standing Activity Standing Activity: Functional mobility in room, to/from bath room; LB dressing with undergarments Standing Activity Tolerance (in minutes): 9 Please see discipline specific clinical documentation [facility] for complete details for this therapy evaluation/treatment. SIGNATURE: DEBRA Terry/Leticia PATIENT NAME: Leo soliz DATE: June 23, 2019 TIME: 9:08 AM glucose meter on 13-06-29 Glucose [Mass/Vol] 106 70-99 mg/dL High 06-23-2019 [facility] ([id number]) Comment: Result Comment: RN NOTIFIED Performed By: #### TSH3 #### [facility] [address] [place] [id number] consult prog on 201 07-03-29 CONSULT PROG HNO ID: [id number] Normal 06-23-20 [facility] Author: Donald (Chute Man.[facility]) Sen [facility] Service: Electrophysiology ([id number]) Author Type: Nurse Specialist Type: Consult Progress Note Filed: 06/23/2019 3:53 PM Note Text: PROGRESS NOTE ELECTROPHYSIOLOGY SERVICE SERVICE DATE: 06/23/2019 SERVICE TIME: 3:29 PM Subjective INTERIM HISTORY: S/P [employer] ADVISOR-D generator change yesterday. Cuello ed to dual chamber pacemaker only (patient no longer wants defibrillato r). RV lead is non-functional so pacing ventricle per LV lead only AND RA l ead is pacing. Patient resting in bed. C/O soreness left upper chest incisi on area. Denies SOB, dizziness, palpitations. ROS limited due to BURNS PAIUTE AND poor memory. Denies SOB, di zziness, palpitations, nausea, vomiting. Objective PHYSICAL EXAM: Body mass index is 26.22 kg/m?. O2 Therapy: Room Air Patient Vitals for the past 24 hrs: BP Temp Temp src Pulse Resp SpO2 Weight 06/23/19 1448 93/70 36.6 ?C (97.9 ?F) Oral 61 20 92 % ? 06/23/19 0707 122/59 37 ?C (98.6 ?F) Oral 63 20 93 % ? 06/23/19 0600 ? 82.9 kg (182 lb 12.2 oz) 06/23/19 0145 114/65 36.4 ?C (97.5 ?F) Oral 69 20 93 % ? 06/22/19 1945 117/60 36.6 ?C (97.9 ?F) Oral 61 20 94 % ? 06/22/19 1830 ? 36.5 ?C (97.7 ?F) Oral ? 06/22/19 1730 ? 36.5 ?C (97.7 ?F) Oral ? 06/22/19 1630 97/59 36.6 ?C (97.9 ?F) Oral 60 20 94 % ? 06/22/19 1615 121/60 36.6 ?C (97.9 ?F) Oral (!) 59 20 93 % ? 06/22/19 1600 115/65 36.5 ?C (97.7 ?F) Oral (!) 59 20 93 % ? 06/22/19 1545 105/65 36.5 ?C (97.7 ?F) Oral 63 20 94 % ? Pleasant, comfortable, not in acute distress. SKIN: warm AND dry; pale color. HEENT: Normocephalic. NECK: Supple, no JVD, no carotid bruits auscultated. LUNGS: Scattered end-expiratory wheezes AND fine crackles on inspiration auscultated posteriorly. Respirations unlabored at rest. CARDIAC: normal S1, S2, regular rate AND rhythm, no signific ant murmurs or gallops auscultated. ABDOMEN: Soft, round, nontender to superficial palpation, be wel sounds auscultated. EXTREMITIES: No edema lower extremities. NEURO: awake, alert, cooperative, moves all 4 extremities. PULSES: bilateral radial AND dorsalis pedis pulses palpable. MEDICATIONS: Current Facility-Administered Medications Medication Dose Route Frequency - atorvastatin 40 mg tab(s) (LIPITOR) 40 mg ORAL AT BEDTIME - aspirin, enteric coated 81 mg tab(s) 81 mg ORAL DAILY - sulfamethoxazole-trimethoprim 800-160 mg 1 tablet (BACTRIM DS,SEPTRA DS) 1 tablet ORAL q 12 H - furosemide 20 mg tab(s) (LASIX) 20 mg ORAL DAILY - amiodarone 400 mg tab(s) (PACERONE) 400 mg ORAL BID - [MAR Hold due to Transfer] sodium phosphate 30 mmol in D5W 250 mL 30 mmol INTRAVENOUS ONCE - meperidine (PF) 12.5 mg injection (DEMEROL) 12.5 mg INTRAV ENOUS q 10 MIN PRN - ipratropium-albuterol 3 mL nebulizer solution (DUONEB) 3 m L INHALATION PRN - ondansetron (PF) 4 mg injection (ZOFRAN) 4 mg INTRAVENOUS PRN - NaCl 0.9% 2-10 mL 2-10 mL INTRAVENOUS q 12 H - vancomycin iv piggyback 1 g in D5W 200 mL (VANCOCIN) 1 g I NTRAVENOUS ONCE - HYDROcodone 5 mg - acetaminophen 325 mg tablet (NORCO) 1 t ablet ORAL q 6 H PRN DATA: Diagnostic tests reviewed for today's visit: Most recent labs and imaging results. CXR 06/22 after procedu re did not show any pleural effusion, Most recent EKG 06/19/19 Most recent Echo 06/20/19 TELEMETRY: AV pacing at 60 bpm, intermittent V. Pacing AND a trial sensing, rare non-sensing Past 72 Hour Labs: Recent Labs 06/22/19 0325 06/21/19 0530 WBC -- 9.15* RBC -- 4.28* HB -- 13.3* HCT -- 39.6* MCV -- 92.5 MCH -- 31.1 MCHC -- 33.6 PLT -- 126* MPV -- 11.2 GLUC 93 99 BUN 15 17 CREAT 1.29* 1.29* NA 141 139 K 3.6 3.4* CHLOR 110* 108* CO2 26 28 ALB 2.9* -- CA 7.5* 8.3* MG 1.8 -- 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 In the setting of hypokalem ia. Rhythm stable now. No further VT or V. Fib since admission. Was on IV Amiodaron e for 72 hours which was changed to po 400 mg BID on 06/21. Discussed with Christophe Romero AND will give Amiodarone 400 mg BID X 1 week then 400 mg daily. ICD generator at end-of-life. Patient expressed desire not to be shocked a nymore. ? ICD/BiVentricular pacemaker with generator at end-of-life - refused generator replacement earlier this year. Patient desired no further shocks so device was generator was changed yesterday (06/22) AND con verted to dual chamber pacemaker (RV lead nonfunctioning so pacing ventricl e with LV lead). Pacing AV most of the time per telemetry. S/P change to dual chamber pacemaker AND generator change - rhythm stable with AV pacing. Dressing dry AND intact left upper ch est - Dressing to stay on until wound check in one week. No complications. ? Ischemic cardiomyopathy - Not SOB but lung sounds with some fine crackles AND wheezes at this time. On Coreg, Plavix, Lasix, HCTZ, [place] at home which have not been started in the hospital except for Lasix 20 mg daily. S/P Bi-Ventricular pacemaker/ICD placed 2012. Per chart at [facility], Echo February 2017 with EF 20%, per cardiac cath March 2017 EF 25%. Ech o 06/20 with EF 25% AND diastolic dysfunction stage 2. Continue heart failur e meds when able. Not sure why getting LR at 125 ml/hr at this time - wi ll D/C. ? NSTEMI - troponins elevated in the setting of multiple defib rillations AND?chest pain. Cardiac cath 06/20 showed moderate in-s tent restenosis of the mid and distal LAD stents?(30-40%)?with mild distal left krysten n coronary artery disease; RCA with mild diffuse disease (per chart lei or RCA stent); Circ with mild diffuse disease. Continue medical therapy (as pirin, Plavix, statin, beta josé (after pacer generator changed). ? CKD - improved since admit; stable. ? Hypokalemia: 2.8 on arrival to [place]; corrected to 4.7 o n 06/20 AND normal today at 3.6.Continue to monitor K+ as outpatient. ?On bactr im for UTI- watch for hyperkalemia. Discussed with Dr. Romero this AM. OK to discharge from the EP standpoint. Patient will follow up in [place] for his wound check AND device checks. ? SIGNATURE: Donald Chatterjee APRN.CNS PATIENT NAME: Leo Mc DATE: June 23, 2019 TIME: 3:29 PM PAGER/CONTACT #: [phone] case mgt init judies on 2019-06-23 CASE MGT INIT HNO ID: [id number] Normal 06-23- 019 [place] Author: Carlos (Rn) [facility] Service: Care Management ([id number]) Author Type: Registered Nurse Type: Care Mgt Initial Assessment Filed: 06/23/2019 2:59 PM Note Text: CARE MANAGEMENT: ASSESSMENT AND DISCHARGE PLAN SERVICE DATE: 06/23/2019 SERVICE TIME: 1115 PRIMARY CARE PHYSICIAN: Ellis Quijano DO ADMISSION STATUS: Inpatient Needs Prior to Discharge: Home Care Order;To Be Determined 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 Health Issues Impacting Discharge Plan: V-Tach Last Discharge Date: 01/04/18 Is this Within the Past 30 days? No Advance Directive: Current Advance Directive: None In Chart: No Clerk Secretary Attempted to Assist with AD Completion: Yes Action: Education Provided Health Literacy: 1. How often do you need to have someone help you when you r ead instructions, pamphlets, or other written material from your doctor or pharmacy? Sometimes - 3 2. How confident are you filling out medical forms by yourse lf? Somewhat - 3 If Patient scores > 3 on either question, the following inte rventions were put into place: Patient did not score > 3 FUNCTIONAL AND COGNITIVE/BEHAVIORAL PRIOR TO ADMISSION: Baseline Mental Status: Alert AND Oriented, Person, Place an d Time Functional Status: Needs Assistance Does Patient Currently Receive Any Community Services or [facility] Care? None Equipment Prior to Admission: Tub bench/chair Walker Has the Patient Been in a [facility] Facility in the [place] [facility] No SOCIAL: Living Arrangement: Home Lives With: Son and Ofrlvcyo-By-Hpe, and Grandson Financial Resources: Retired Primary Contact: Extended Emergency Contact Information Primary Emergency Contact: Tatianna Mc Address: [address] [place] [address] Relation: Daughter Supportive: Yes Other Important Patient Contacts: None Caregiver Assessment: Caregiver is ready, willing and able to meet the patient's n eeds as recommended by the inter-professional team? Yes Patient's transition needs and plan for meeting these needs: Family able to provide transport at D/C Does the patient have an acute stroke diagnosis, or has the patient had a stroke during this admission? No Medication Adherence: I am convinced of the importance of my prescription medicati on: Agree mostly - 0 I worry that my prescription medication will do more harm th an good to me Disagree mostly - 0 I feel financially burdened by my wxj-hn-[id number] expenses for my prescription medication: Disagree mostly -0 Patient is categorized as low risk < 2 Are you interested in bedside delivery of your medications? Yes Food Concerns: In the Last Month, Have You had Trouble Getting Food? No tro uble getting food During the Last Month, Have You Worried Whether Your Food Wo uld Run Out Before You Had Enough Money to Buy More? No Is the Patient Psychosocially Complex? No ASSESSMENT AND PLAN: Medical Needs: 2 or more chronic diseases Psychosocial Needs: None FREEDOM OF CHOICE EXPLAINED: The patient and/or family has been given the Provider List: Yes Provider List: Home Care POTENTIAL TRANSITION PLANS Home Home Care Met with patient at bedside prior to D/C. Patient is from [facility] with Son, Rrbcpjoa-He-Uvg, and Grandson. 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 +Rx, +PCP, +DME, Family able to provide transport at D/C. [facility] will be following at D/C. SIGNATURE: Carlos Hart RN PATIENT NAME: Leo Mc DATE: June 23, 2019 TIME: 2:41 PM PAGER/CONTACT #: [phone] xr chest 1v frontal on 2019-06-22 XR CHEST 1V * * *Final Report* * * Normal 06-22 [facility] FRONTAL DATE OF EXAM: Jun 22 2019 5:50PM [facility] [id number] - XR CHEST 1V FRONTAL / ([id number]) PROCEDURE REASON: Post-operative / post-procedure assessment , asymptomatic * * * * Physician Interpretation * * * * EXAMINATION: CHEST RADIOGRAPH (SINGLE VIEW AP OR PA) CLINICAL HISTORY: Post-operative / post-procedure assessment , asymptomatic MQ: XC1_5 Comparison: Chest radiograph 06/19/2019 and 01/04/2018. RESULT: Lines, tubes, and devices: Multiple monitoring wires overlie the chest. There is redemonstration of a left subclavian ICD with new I CD device. Lungs and pleura: No pneumothorax. No parenchymal consolidat ion. Biapical pleural thickening. No pleural effusion. Cardiomediastinal silhouette: Stable cardiomediastinal silho uette. Other: None. IMPRESSION: No acute radiographic abnormality. A wet reading is made available at time of dictation as requ ested. Groundman/Lineman: PSCB Transcribe Date/Time: Jun 22 2019 5:59P Dictated by : JESSICA ELIAS MD This examination was interpreted and the report reviewed and electronically signed by: JESSICA ELIAS MD on Jun 22 2019 6:01PM EST renal panel on 2018 Phosphate [Mass/Vol] 1.5 2.5-4.9 mg/dL Critically low 08- [facility] (00 000) Comment: Result Comment: RESULT RECHE CKED Performed By: #### HA1C #### [facility] [address] [place], [place] [address] Creatinine [Mass/Vol] 1.29 0.67-1.17 mg/dL High 06-22-20 [facility] (00 000) Comment: Performed By: #### HA1C #### [facility] [address] [place], [place] [address] Albumin [Mass/Vol] 2.9 3.4-5.0 g/dL Low 06-22-2019 [facility] ([id number]) Comment: Performed By: #### HA1C #### [facility] [address] [place], [place] [address] Anion gap [Moles/Vol] 9 8-16 mmol/L Normal 06-22-20 [facility] ([id number]) Comment: Performed By: #### HA1C #### [facility] [address] [place], [place] [address] Calcium [Mass/Vol] 7.5 8.5-10.1 mg/dL Low 06-22-2019 [facility] ([id number]) Comment: Performed By: #### HA1C #### [facility] [address] [place], [place] [address] CO2 [Moles/Vol] 26 21-32 mEq/L Normal 06-22-2019 [facility] ([id number]) Comment: Performed By: #### HA1C #### [facility] [address] [place], [place] [address] Glucose [Mass/Vol] 93 70-99 mg/dL Normal 06-22-2019 [facility] ([id number]) Comment: Performed By: #### HA1C #### [facility] [address] [place], [place] [address] Urea nitrogen [Mass/Vol] 15 7-18 mg/dL Normal 06-22 [facility] ([id number]) Comment: Performed By: #### HA1C #### [facility] [address] [place], [place] [address] Chloride [Moles/Vol] 110 98-107 mEq/L High 9 [facility] ([id number]) Comment: Performed By: #### HA1C #### [facility] [address] [place], [place] [address] Potassium [Moles/Vol] 3.6 3.5-5.1 mEq/L Normal 06-22-20 19 [facility] ([id number]) Comment: Performed By: #### HA1C #### [facility] [address] [place], [place] [address] Sodium [Moles/Vol] 141 136-145 mEq/L Normal 06-22-2019 [facility] ([id number]) Comment: Performed By: #### HA1C #### [facility] [address] [place] [id number] progress on 2019-05 PROGRESS HNO ID: [id number] Normal 06-22-2019 [facility] Author: Guanako Burch [facility] ([id number]) Service: Electrophysiology Author Type: Physician Type: Progress Notes Filed: 06/22/2019 3:41 PM Note Text: The ICD lead is nonfunctional with impedence over 4000 and n o capture. His LV lead has very poor capture with bipolar pacing but re asonable unipolar pacing. 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 I did access the subclavian laterally with a micro puncture needle and unable to cross with a standard J wire or a glide wire. Because his LV lead is a multipolar lead, I cannot simply pl tierra in the RV port. I connected all the leads traditionally, the RV lead i s programmed subthreshold output with elevated sensing to avoid sensing n oise. The AV delay is short to promote consistent LV pacing. The patient does have dual chamber pacing which is in keeping with his wishes. The only option for replacing the RV lead would be an extraction which is no t consistent with Leo's wishes. I did discuss this with him at the end of the case. He indicated he was satisified that he had pacing only and n o risk for an ICD shock. He should continue the amiodarone 400mg bid for o ne week then lower to daily. He will follow up with Dr. Soto and the [facility] device clinic. His alf prognosis is poor. If no new issues or complications, I would anticipate he can be discharged in am . Guanako Romero, DO PROGRESS HNO ID: [id number] Normal 06-22-2019 [facility] Author: James Kaye [facility] ([id number]) Service: Hospital Medicine Author Type: Physician Type: Progress Notes Filed: 06/22/2019 2:41 PM Note Text: DEPARTMENT OF HOSPITAL MEDICINE PROGRESS NOTE SERVICE DATE: 06/22/2019 SERVICE TIME: 2:36 PM Hospital Medicine/Primary Attending: James Kaye MD NIGHT AND WEEKEND COVERAGE: After 7pm please page [phone] CHIEF COMPLAINT: VT SUBJECTIVE: Patient is feeling okay. He is scheduled for con version of his ICD to a regular pacemaker. He refused replacement of nm s ICD generator. He does realize that if he develops recurrent gurjit tained V. tach or V. fib he will likely . He is currently not havin g any chest pain. No shortness of breath. OBJECTIVE: PHYSICAL EXAM: BP 116/53 Pulse 56 Temp (Src) 98.1 (Oral) Resp 20 Ht 5' 10 (1.78m) Wt 182 lb 8.7 oz (82.8kg) SpO2 94% B NC 26.19 kg/(m2). O2 Therapy: Room Air General - AANDOx3, NAD, Calm CV - RRR S1 S2, No M/R/G RESP - CTA B/L No wheezes, ronchi, rales ABD - soft, NT, ND +BS EXT - no gross joint deformity, no clubbing, cyanosis, edema MEDICATIONS: Current Facility-Administered Medications Medication Dose Route Frequency - [DEC Hold due to Transfer] atorvastatin 40 mg tab(s) (LIPI TOR) 40 mg ORAL AT BEDTIME - [DEC Hold due to Transfer] aspirin, enteric coated 81 mg t ab(s) 81 mg ORAL DAILY - [DEC Hold due to Transfer] sulfamethoxazole-trimethoprim 8 00-160 mg 1 tablet (BACTRIM DS,SEPTRA DS) 1 tablet ORAL q 12 H - [MAR Hold due to Transfer] furosemide 20 mg tab(s) (LASIX) 20 mg ORAL DAILY - [MAR Hold due to Transfer] amiodarone 400 mg tab(s) (PACER ONE) 400 mg ORAL BID - [MAR Hold due to Transfer] sodium phosphate 30 mmol in D5W 250 mL 30 mmol INTRAVENOUS ONCE DATA: Diagnostic tests reviewed for today's visit: CMP: Recent Labs 06/22/19 0325 NA 141 K 3.6 CHLOR 110* CO2 26 BUN 15 CREAT 1.29* GLUC 93 CA 7.5* MG 1.8 ANION 9 MG/PHOS: Recent Labs 06/22/19 0325 MG 1.8 P 1.5* Assessment/Plan 1. Paroxysmal V. tach/V. fib. He is not having his generator replaced. This is being converted to a permanent pacemaker. He is down for this procedure now. 2. Ischemic cardiomyopathy. Recent cardiac catheterization s hows no more than 40% stenotic vessels. Echocardiogram recently done show s left ventricular systolic function of 25%. 3. Non-ST elevation NC. Tolerated procedures well and is rec overing well so far. 4. Hypophosphatemia. He will be getting intravenous K-Phos. VTE Prophylaxis: Pneumatic Compression Device Disposition: Home Plan of care discussed with: Patient SIGNATURE: James Kaye MD PATIENT NAME: Leo Mc DATE: June 22, 2019 TIME: 2:36 PM PAGER/CONTACT #: [phone] plan of care on 201 07-03-28 PLAN OF CARE HNO ID: [id number] Normal 06-22-20 19 [facility] Author: Guanako Burch [facility] Service: Electrophysiology ([id number]) Author Type: Physician Type: Plan of Care Filed: 06/22/2019 9:18 AM Note Text: As previously noted had a long discussion with Leo and his family about options for management of his CRTD that is EOL. Leo has si gnificant memory impairment and did want his family to participate in decision process. He and his family designated his grandson Leo as my sales person. They discussed and determined that they did not want and ICD and Leo Sr. Very clearly and repeatedly expressed that he does not want to get shocked by his device. They would like to pursue replace ment of a CRTPPM. I spoke with Leo Euceda. He confirmed that he dose not want an ICD but is agreeable to a pacmaker. Will plan to perform later t maikel. Leo Euceda and his family were advised that a CRTPPM would not be li fe saving with recurrent VT or VF and if he has recurrence of this arrhythm ia he will likely . They had indicated that they understood prior to making their decision. Guanako Romero, DO mdrd gfr on 2019-05 GFR/1.73 sq M 53.11 >60mL/min/1.73m2 mL/min/{1.73_m2} Normal Rosa predicted among Gene ral non-blacks MDRD Heal th (S/P/Bld) [Vol Syste m rate/Area] ([id number]) Comment: Result Comment: If the patie nt is , multiply the result by 1.210. Performed By: #### GFR #### [place] [address] magnesium blood on 2019-06-22 Magnesium [Mass/Vol] 1.8 1.6-2.6 mg/dL Normal 9 [facility] ([id number]) Comment: Performed By: #### HA1C #### [place] [address] anes preop on 06-22 ANES PREOP HNO ID: [id number] Normal 06-22-2019 [facility] Author: Herson [facility] Service: Anesthesiology ([id number]) Author Type: Physician Type: Anesthesia PreOp Filed: 06/22/2019 3:19 PM Note Text: ANESTHESIOLOGY DAY OF SURGERY NOTE SERVICE DATE: 06/22/2019 SERVICE TIME: 3:18 PM : 1935 Procedure(s) (LRB): (GENERATOR CHANGE MULTI CHAMBER RETAIL [employer]MET[employer] SALES BEAUTY ADVISOR-PPM) REMOVAL OF PERMANEN T PACEMAKER PULSE GENERATOR W/ REPLACEMENT OF PACEMAKER PULSE GENERATOR MULTI LEAD SYSTEM (Left) Surgeon(s): Guanako Romero Estimated body mass index is 26.19 kg/m? as calculated from the following: Height as of this encounter: 177.8 cm (5' 10). Weight as of this encounter: 82.8 kg (182 lb 8.7 oz). Most recent hematocrit and potassium results: Hematocrit 39.6 06/21/2019 Potassium 3.6 06/22/2019 ANES DOS/PREOP NOTE: Vitals: 06/21/19 1953 06/22/19 0323 06/22/19 0600 06/22/19 0745 BP: 131/61 126/57 116/53 Pulse: 63 63 (!) 56 Resp: 20 20 20 Temp: 37.1 ?C (98.8 ?F) 36.9 ?C (98.4 ?F) 36.7 ?C (98.1 ?F) TempSrc: Oral Oral Oral SpO2: 95% 95% 94% Weight: 82.8 kg (182 lb 8.7 oz) Height: ACTIVE PROBLEM LIST Nstemi (Non-St Elevated Myocardial Infarction) ([facility]) Ischemic Cardiomyopathy Ventricular Fibrillation, Paroxysmal ([facility]) Nicotine use disorder, F17.2 PAST MEDICAL HISTORY Diagnosis Date - CAD (coronary artery disease), osage coronary artery Stents LAD AND RCA - Cardiac arrest with ventricular fibrillation ([facility]) 019 - HTN (hypertension) - Hyperlipidemia - Ischemic cardiomyopathy - Nonrheumatic mitral (valve) insufficiency - Nonrheumatic tricuspid (valve) insufficiency - NSTEMI (non-ST elevated myocardial infarction) ([facility]) 06/18 - Old NC (myocardial infarction) - Other secondary pulmonary hypertension ([facility]) - Paroxysmal atrial fibrillation ([facility]) 06/18/2019 - Renal insufficiency - S/P ICD (internal cardiac defibrillator) procedure - Systolic heart failure, chronic ([facility]) PAST SURGICAL HISTORY Procedure Laterality Date - IMPLANTABLE CARDIAC DEFIB ICD 01/26/2013 [facility] - Bi-Ventricular Pacemaker/Defibrillator - LEFT HEART CATH 06/20/2019 Moderate in-stent restenosis of the mid and distal LAD stent s with mild distal left main coronary artery disease. - STENT - CORONARY LAD AND RCA No family history on file. Social History: Social History Tobacco Use - Smoking status: Current Every Day Smoker Types: Cigarettes - Smokeless tobacco: Never Used Substance Use Topics - Alcohol use: Yes - Drug use: No No current facility-administered medications on file prior t o encounter. Current Outpatient Medications on File Prior to Encounter: hydroCHLOROthiazide (HYDRODIURIL, ESIDRIX) 25 mg tablet Take 25 mg by mouth once daily. losartan (COZAAR) 25 mg tablet Take 25 mg by mouth once carmen y. aspirin, enteric coated (ASPIRIN, ENTERIC COATED) 81 mg EC t ablet Take 81 mg by mouth once daily. atorvastatin (LIPITOR) 20 mg tablet Take 20 mg by mouth carmen y at bedtime. carvedilol (COREG) 3.125 mg tablet Take 3.125 mg by mouth tw ice daily with meals. clopidogrel (PLAVIX) 75 mg tablet Take 75 mg by mouth once d aily. furosemide (LASIX) 40 mg tablet Take 40 mg by mouth once kathy ly. Current Facility-Administered Medications Medication Dose Route Frequency Provider Last Rate Last Dose - [MAR Hold due to Transfer] sodium phosphate 30 mmol in D5W 250 mL 30 mmol INTRAVENOUS ONCE Grady D Walker 62 mL/hr at 06/22/19912 30 mmol at 06/22/19912 - [MAR Hold due to Transfer] sulfamethoxazole-trimethoprim 8 00-160 mg 1 tablet (BACTRIM DS,SEPTRA DS) 1 tablet ORAL q 12 H Mahendra (Re s) Ro 1 tablet at 06/22/19915 - [MAR Hold due to Transfer] furosemide 20 mg tab(s) (LASIX) 20 mg ORAL DAILY Donald (Chute Man.Coal Getter) Sen, TAXATION AGENT 20 mg at 06/22/19915 - [MAR Hold due to Transfer] amiodarone 400 mg tab(s) (PACER ONE) 400 mg ORAL BID Donald (Chute Man.Coal Getter) Sen, TAXATION AGENT 400 mg at 06/22/19915 - [MAR Hold due to Transfer] atorvastatin 40 mg tab(s) (LIPI TOR) 40 mg ORAL AT BEDTIME Mahendra (Res) Ro 40 mg at 06/21/19 220 5 - [MAR Hold due to Transfer] aspirin, enteric coated 81 mg t ab(s) 81 mg ORAL DAILY Mahendra (Res) Ro 81 mg at 06/22/19 0915 Allergies: ALLERGIES No Known Allergies DOS EXAM: Adequate NPO status: Yes Anesthetic risks, benefits, alternatives, personnel and cons ent discussed: Yes Patient agrees to proceed: Yes Previous Anesthesia: No history of adverse event. Airway Assessment: MP 1; Neck ROM: Limited Flexion and Exten radha; Airway Evaluation: No significant abnormalities Symptoms of Sleep Apnea: Hypertension, Age over 50 (83 year old) and Male gender Dentition: Dentures: upper Additional Physical Exam: Lungs: Patient health status unchanged since recent history and physical. See history and physical for exam findings. Cardiac: Patient health status unchanged since recent histor y and physical. See history and physical for exam findings. Additional Pertinent Findings: N/A Blood Products: Not anticipated for this procedure. Anesthetic Plan: General, Standard ASA Monitors Pain Management Plan: Parenteral or Oral and per Surgical Se rvice ASA Class: 4 Other Medical Problems: None Chronic Beta José medication administered within 24 hours : Yes I have interviewed and examined the patient. I have reviewed the medical record and/or the pre-anesthesia evaluation, pertinent labs, and test results. Significant changes in the patient's condition since the His tory and Physical, not otherwise documented in primary service progre ss notes: No This contains updated information obtained within 48 hours o f Surgery/Procedure. SIGNATURE: Herson Presley MD PATIENT NAME: Leo Mc DATE: June 22, 2019 TIME: 3:18 PM CSN: [id number] anes post on 06-22 ANES POST HNO ID: [id number] Normal 06-22-2019 [facility] Author: Herson Shields [facility] ([id number]) Service: Anesthesiology Author Type: Physician Type: Anesthesia PostOp Filed: 06/22/2019 3:48 PM Note Text: POST ANESTHESIA EVALUATION NOTE SERVICE DATE: 06/22/2019 SERVICE TIME: 3:48 PM : 1935 Vitals: 06/21/19 1454 06/21/19195206/22/1932206/22/19 0745 Temp: 36.8 ?C (98.2 ?F) 37.1 ?C (98.8 ?F) 36.9 ?C (98.4 ?F) 36.7 ?C (98.1 ?F) 06/21/19169906/21/19195206/22/1932206/22/19 0745 BP: (!) 113/44 131/61 126/57 116/53 06/21/19169906/21/19195206/22/1932206/22/19 0745 Pulse: 65 63 63 (!) 56 06/21/190 06/21/19195206/22/1932206/22/19 0745 Resp: 20 20 20 20 06/21/19 1700 06/21/19 1953 06/22/19 0323 06/22/19 0745 SpO2: 94% 95% 95% 94% Validated Vital Signs: Yes POST ANES STATUS: No apparent anesthetic complications. The patient is appropriately hydrated with stable respiratory and cardiovas cular status. Patient has safe and adequate airway control. The patient clement s appropriate pain relief and no significant post operative nausea or vomi ting. The patient has achieved baseline mental status. Intra-Operative Events: No Significant Anesthesia Events Further assessment by Anesthesia Service: None Other Remarks: SIGNATURE: Herson Presley MD PATIENT NAME: Leo Mc DATE: June 22, 2019 TIME: 3:48 PM PAGER/CONTACT #: [phone] progress on 2019-05 PROGRESS HNO ID: [id number] Normal 06-21-2019 [facility] Author: Leilani Suarez [facility] Service: Cardiovascular Medicine ([id number]) Author Type: Physician Type: Progress Notes Filed: 06/21/2019 11:09 AM Note Text: Cardiovascular Intensive Care Progress Note June 21, 2019 Patient Name: Leo Mc Patient Location: [id number] [facility]* Admission Date: 06/18/2019 Length of Stay: 3 Primary Service: Cardiovascular Intensive Care Case Background: 83 year old White male PMHx: HTN, HLD, renal insufficiency, HFrEF (last EF 25% (Mar), CAD status post angioplasty and bare-metal stenting to the dista l left anterior descending artery in March 2017, and status post ICD implantation in 2012 Presented on 06/18/2019 with the complaint of defibrillator m alfunction after pulseless VT where the device didn't shock him. Admitted for Post cardiac arrest (pulseless VT). Brought to the CVICU for post cardiac arrest monitoring in s etting of malfunctioning defibrillator. Hosp. Course: patient had coronary cath to rule out new isch emic events. Stenosis 30-40% was found in multiple vessels. ICD was inter rogated by [facility] in the ED and reported due to severe battery depletion unable to access rhythm events. The patient has some sort of dementia and not capable of making complex decisions. The patient previously mentioned that he doesn't want to be shocked again by the device and he ref used to replace the device battery in December because he doesn't want to get a shock. The family is involved and had a long discussion with Dr. Romero (EP) about replacing the generator. We are still waiting on family decision. No current facility-administered medications on file prior t o encounter. Current Outpatient Medications on File Prior to Encounter: hydroCHLOROthiazide (HYDRODIURIL, ESIDRIX) 25 mg tablet Take 25 mg by mouth once daily. losartan (COZAAR) 25 mg tablet Take 25 mg by mouth once carmen y. aspirin, enteric coated (ASPIRIN, ENTERIC COATED) 81 mg EC t ablet Take 81 mg by mouth once daily. atorvastatin (LIPITOR) 20 mg tablet Take 20 mg by mouth carmne y at bedtime. carvedilol (COREG) 3.125 mg tablet Take 3.125 mg by mouth tw ice daily with meals. clopidogrel (PLAVIX) 75 mg tablet Take 75 mg by mouth once d aily. furosemide (LASIX) 40 mg tablet Take 40 mg by mouth once ktahy ly. Interval History for 06/21/19: Patient seen and examined in the AM. No overnight events. Th e patient denies any concerns. Coronary cath done yesterday showed 30- 40% stenosis of multiple vessels. Dr. Romero had a discussion with the f quang about replacing the device generator. The family are thinking abou t it and will decide today. Further details are in Dr. Romero's note on . Review of Systems: Review of Systems Constitutional: Negative for chills. HENT: Negative for nosebleeds. Eyes: Negative for blurred vision. Respiratory: Negative for cough and shortness of breath. Cardiovascular: Negative for chest pain and palpitations. Gastrointestinal: Negative for abdominal pain, nausea and vo miting. Genitourinary: Negative for dysuria, frequency and urgency. BP 108/61 Pulse 54 Temp (Src) 97.9 (Temporal) Resp 16 Ht 5' 10 (1.78m) Wt 183 lb 10.3 oz (83.3kg) SpO2 94% BMI 26.35 kg/(m2). O2 Therapy: Room Air Temp (24hrs), Av.4 ?C (97.5 ?F), Min:36.3 ?C (97.3 ?F), Max:36.6 ?C (97.9 ?F) Physical Exam Constitutional: He is well-developed, well-nourished, and in no distress. HENT: Head: Normocephalic and atraumatic. Eyes: Pupils are equal, round, and reactive to light. EOM ar e normal. No scleral icterus. Neck: Neck supple. No tracheal deviation present. No thyrome jaden present. Cardiovascular: Normal heart sounds. Exam reveals no gallop and no friction rub. No murmur heard. Pulmonary/Chest: Effort normal and breath sounds normal. He has no wheezes. He has no rales. Abdominal: Soft. Bowel sounds are normal. He exhibits no mas s. There is no tenderness. There is no guarding. Lymphadenopathy: He has no cervical adenopathy. Neurological: He is alert. Knows he is in a hospital and knows that I am a doctor but c ouldn't tell what day it is Telemetry: few pvcs EKG: QTc 478 ms, Ventricular rate 52 bpm, PVCs, normal axis Most recent echo: EF 25%, LV grade II DD Intake/Output Summary (Last 24 hours) at 06/21/2019 0830 Last data filed at 06/21/2019 0600 Gross per 24 hour Intake 807.2 ml Output 1450 ml Net -642.8 ml Current active therapies: Current Facility-Administered Medications Medication Dose Route Frequency - potassium chloride 80-120 mEq oral liquid 80-120 mEq ORAL/ FEEDING TUBE PRN - potassium chloride iv piggyback 20 mEq/100 mL 20 mEq INTRA VENOUS PRN - magnesium sulfate in water 2 g in sterile water 50 ml 2 g INTRAVENOUS PRN - sodium phosphate 45 mmol in NaCl 0.9% 250 mL 45 mmol INTRA VENOUS PRN - calcium gluconate 4 g in NaCl 0.9% 250 mL 4 g INTRAVENOUS PRN - amiodarone 360 mg in D5W 200 mL (NEXTERONE) 0.5 mg/min INT RAVENOUS CONTINUOUS - atorvastatin 40 mg tab(s) (LIPITOR) 40 mg ORAL AT BEDTIME - aspirin, enteric coated 81 mg tab(s) 81 mg ORAL DAILY - cefTRIAXone 1 g in D5W 100 mL MB+ (ROCEPHIN) 1 g INTRAVENO US q 24 H DATA: BLOOD GAS: No results for input(s): VPH, VPC2, VPO2C, RESPHC O3, BASEX, C7PELFYM, PH, PCO2, RESPHCO3, BASEX, Q8YRYJRD in the last 16 8 hours. Invalid input(s): PO2C CBC: Recent Labs 06/21/19 0530 06/20/19 0440 06/19/19 0735 06/18/19 2320 WBC 9.15* 14.33* 15.40* 19.38* HB 13.3* 13.1* 13.2* 14.5 HCT 39.6* 38.8* 40.1 43.8 PLT 126* 123* 125* 143 MCV 92.5 92.4 93.7 93.2 COAG: Recent Labs 06/20/19 0440 06/19/19 1845 06/19/19 1330 06/19/19 0735 APTT 50.6* 49.8* 58.8* 29.6 INR -- -- -- 1.05 BMP: Recent Labs 06/21/19 0530 06/20/19 0650 06/18/19 2320 GLUC 99 99 120* NA 139 139 142 K 3.4* 3.7 4.0 CHLOR 108* 109* 108* CO2 28 25 23 ANION 6* 9 15 BUN 17 23* 26* CREAT 1.29* 1.49* 1.39* CHEM: Recent Labs 06/21/19 0530 06/20/19 0650 06/18/19 2320 ALB -- -- 3.4 TPROT -- -- 7.4 CA 8.3* 8.4* 9.1 MG -- -- 1.8 HEPATIC: Recent Labs 06/18/19 2320 ALKPHOS 71 ALT 39 AST 68* TBILI 0.3 URINALYSIS: Recent Labs 06/19/19 0040 SPGR 1.018 UGLUC NEGATIVE UBILI NEGATIVE UKET NEGATIVE UPROT 100* UROBIL 0.2 UWBC 379.9* CARDIAC: Recent Labs 06/18/19 2320 PBNP 3,857 Assessment/Plan Reviewed in its entirety and amended as appropriate on 06/21 ASSESSMENT ANDPLAN NSTEMI- likely type II -Troponin peaked at 12.4 and trended down. - Coronary cath on 06/20/2019 with 30-40% stenosis of multipl e vessels. Stents were patent. - Discontinue heparin - Continue ASA, atorvastatin and metoprolol. - Limited echocardiogram showed EF 25% and LV grade II DD. ? AICD dysfunction/ ventricular arrhythmias- -Patient on amiodarone gtt. -EP consulted and decided that the device generator will nee d to be replaced. The patient previously refused to replace the kait luann. He has some dementia and unable to make complex decisions. The [facility] is involved in a discussion with Dr. Romero. They will decide today. -Patient on cardiac telemetry. ? UTI- -Patient initiated on ceftriaxone. -Urine culture ordered. Signed: Ceci Navarro DO PGY-1 Pager: [phone] Date: June 21, 2019 Time: 8:30 AM Recommendations are not finalized until co-signed by Staff catherine chin. Patient was seen and discussed with resident. I have stefano jones seen and examined the patient. I have reviewed labs, clinical data an d pertinent images. I agree with the documentation above. Mg findings w ere confirmed and updated. I'll summarize our mutual assessment and plan b elow. This is an 83-year-old gentleman with history of coronary ar alondra disease, chronic systolic heart failure and AICD in place. The patien t presented to the [facility] with confusion. He developed ventricula r fibrillation there, AICD did not fire and then he required external defib rillation twice. For elevated troponins he was diagnosed with non-STEM I and was treated with IV heparin. He is also on IV amiodarone current ly. Critical Care Documentation: Non-STEMI type II Ventricular fibrillation AICD with suspected malfunction, end-of-life Chronic systolic heart failure from ischemic cardiac myopath y with LVEF of 20% History of coronary artery disease with previous percutaneou s coronary interventions. Plan: Left heart catheterization with no significant obstructive C AD and no intervention was performed. Will discuss with EP cardiology the plan for long-term amiod arone. If okay, will switch him to by mouth amiodarone loading dose fr om today. Patient and family are still not clear about AICD generator change. Patient had refused it back in December 2018. Dr. Romero had d iscussion with the patient yesterday and we are still waiting for patient's and family's decision. Continue on aspirin 81 mg daily and atorvastatin 40 mg daily . This patient has a high probability of sudden, clinically si gnificant deterioration, which requires the highest level of physician preparedness to intervene urgently. I managed/supervised life or organ page pporting interventions that required frequent physician assessment. I devoted my full attention to the direct care of this patient for the am ount of time indicated below. Time I spent with family or surrogate(s) is included only if the patient was incapable of providing the necessary information or participating in medical decision making. Time devoted to teaching is not included. ?? Time spent providing critical care services: 40 minutes excl uding procedures. nursing prog on 201 07-03-27 NURSING PROG HNO ID: [id number] Normal 06-21-20 [facility] Author: Lizz PrattRn) LUZ Venegas [place] ([id number]) Service: Nursing Author Type: Registered Nurse Type: Nursing Progress Note Filed: 06/21/2019 11:22 AM Note Text: Report to 4100. Ayaka Armstrong hemogram on 2019-05 Erythrocyte distribution 13.2 11.6-14.4 % Normal 06-21 [facility] width (RBC) [Ratio] System ([id number]) Comment: Performed By: #### HA1C #### [facility] [address] [place], [place] [address] Hematocrit (Bld) [Volume 39.6 40.1-51.0 % Low 06-21 [facility]] System (00 000) Comment: Performed By: #### HA1C #### [facility] [address] [place], [place] [address] Hemoglobin (Bld) [Mass/Vol] 13.3 13.7-17.5 g/dL Low [facility] (00 000) Comment: Performed By: #### HA1C #### [facility] [address] [place], [place] [address] MCH (RBC) [Entitic mass] 31.1 25.7-32.2 pg Normal 06-21 [facility] (00 000) Comment: Performed By: #### HA1C #### [facility] [address] [place], [place] [address] MCHC (RBC) [Mass/Vol] 33.6 32.3-36.5 % Normal 06-21-20 19 [facility] ([id number]) Comment: Performed By: #### HA1C #### [facility] [address] [place], [place] [address] MCV (RBC) [Entitic vol] 92.5 83.2-95.6 fl Normal 2018 [facility] (00 000) Comment: Performed By: #### HA1C #### [facility] [address] [place] [id number] Platelet mean volume (Bld) 11.2 8.7-12.0 fl Normal [place] [facility] [Entitic vol] System (214[address]) Comment: Performed By: #### HA1C #### [facility] [address] [place], [place] [address] Platelets (Bld) [#/Vol] 126 141-365 thou/cmm Low 2018 [facility] (00 000) Comment: Performed By: #### HA1C #### [facility] [address] [place] [id number] RBC (Bld) [#/Vol] 4.28 4.63-6.08 mil/cmm Low 06-21-2019 [facility] [employer] [facility] ([id number]) Comment: Performed By: #### HA1C #### [facility] [address] [place] [id number] RDW SD 45.1 36.1-45.8 fl Normal 06-21-2019 [place] [facility] ([id number]) Comment: Performed By: #### HA1C #### [facility] [address] [place], [place] [address] WBC (Bld) [#/Vol] 9.15 4.23-9.07 thou/cmm High 06-21-2019 [employer] [facility] [place] [facility] ([id number]) Comment: Performed By: #### HA1C #### [facility] [address] [place] [id number] consult prog on 201 07-03-27 CONSULT PROG HNO ID: [id number] Normal 06-21-20 19 [facility] Author: Donald Moellern.Coal Getter) [facility] Service: Electrophysiology ([id number]) Author Type: Nurse Specialist Type: Consult Progress Note Filed: 06/21/2019 4:09 PM Note Text: PROGRESS NOTE ELECTROPHYSIOLOGY SERVICE SERVICE DATE: 06/21/2019 SERVICE TIME: 3:31 PM Subjective INTERIM HISTORY: Transferred out of CVICU this afternoon. No family at bedside at time of visit. I spoke to patient's grandson Georgia Mc who states family decided that patient wants pacemaker only (mathieu n it means replacing leads), but does not want a defibrillator. Patient denies any pain, SOB, palpitations, dizziness. States having trouble us ing urinal. Has condom catheter but it has fallen off. He is aware of ne ed to void. Lung sounds with some wheezes AND crackles. Respirations unl abored. Review of Systems Constitutional: Negative for chills and fever. HENT: Positive for hearing loss. Respiratory: Negative for cough, hemoptysis, sputum producti on and shortness of breath. Cardiovascular: Negative for chest pain, palpitations, ortho pnea, leg swelling and PND. Gastrointestinal: Negative for constipation, diarrhea, nause a and vomiting. Musculoskeletal: Negative. Neurological: Negative for dizziness and headaches. ROS limited due to BURNS PAIUTE AND decreased memory. Objective PHYSICAL EXAM: Body mass index is 26.35 kg/m?. O2 Therapy: Room Air Patient Vitals for the past 24 hrs: BP Temp Temp src Pulse Resp SpO2 Weight 06/21/19 1454 120/59 36.8 ?C (98.2 ?F) Oral (!) 58 20 94 % ? 06/21/19 1200 115/59 37.3 ?C (99.1 ?F) Oral (!) 57 20 94 % ? 06/21/19 1100 104/51 ? ? (!) 54 ? 94 % ? 06/21/19 1000 110/60 ? ? (!) 59 ? 94 % ? 06/21/19 0900 112/58 ? ? 64 ? 95 % ? 06/21/19 0800 100/68 ? ? (!) 57 ? 93 % ? 06/21/19 0710 ? 36.6 ?C (97.9 ?F) Temporal ? 06/21/19 0600 108/61 ? ? (!) 54 ? 94 % ? 06/21/19 0500 114/60 ? ? 62 ? 94 % 83.3 kg (183 lb 10.3 oz) 06/21/19 0400 121/64 ? ? 64 ? 93 % ? 06/21/19 0300 107/54 ? ? (!) 59 ? 93 % ? 06/21/19 0200 105/51 ? ? (!) 58 ? 92 % ? 06/21/19 0100 (!) 109/40 ? ? (!) 58 ? 93 % ? 06/21/19 0000 (!) 96/44 ? ? (!) 58 ? 93 % ? 06/20/19 2300 121/60 ? ? 63 ? 94 % ? 06/20/19 2200 121/63 ? ? 63 ? 94 % ? 06/20/19 2100 124/66 ? ? 63 ? 94 % ? 06/20/19 2000 122/66 ? ? 62 ? 94 % ? 06/20/19 1946 139/70 ? ? 62 ? 95 % ? 06/20/19 1900 139/70 ? ? 66 ? 96 % ? 06/20/19 1800 117/66 36.5 ?C (97.7 ?F) Temporal Art (!) 55 ? 96 % ? 06/20/19 1700 114/59 ? ? (!) 58 ? 95 % ? 06/20/19 1600 119/56 ? ? (!) 58 ? 96 % ? Pleasant, comfortable, not in acute distress. SKIN: warm AND dry; normal color. HEENT: Normocephalic. NECK: Supple, no JVD, no carotid bruits auscultated. LUNGS: Scattered fine crackles AND expiratory wheezes major gifts director iorly. Respirations unlabored at rest. No cough noted. CARDIAC: normal S1, S2, regular rate AND rhythm, no signific ant murmurs or gallops noted. ABDOMEN: Soft, round, nontender to superficial palpation, be wel sounds auscultated. EXTREMITIES: No edema lower extremities. NEURO: awake, alert, oriented to person. Knows place is hos pital, knows the correct year AND thought it was June. Moves all 4 e xtremities. PULSES: bilateral radial AND dorsalis pedis pulses palpable. MEDICATIONS: Current Facility-Administered Medications Medication Dose Route Frequency - atorvastatin 40 mg tab(s) (LIPITOR) 40 mg ORAL AT BEDTIME - aspirin, enteric coated 81 mg tab(s) 81 mg ORAL DAILY - sulfamethoxazole-trimethoprim 800-160 mg 1 tablet (BACTRIM DS,SEPTRA DS) 1 tablet ORAL q 12 H - amiodarone 400 mg tab(s) (PACERONE) 400 mg ORAL TID DATA: Diagnostic tests reviewed for today's visit: Most recent labs and imaging results. Most recent EKG Most recent Echo 06/20/19: CONCLUSIONS: - Technically difficult exam due to bandages/chest tubes/wou nd, suboptimal positioning and body habitus. - Exam indication: VT - The left ventricle is normal in size. There is moderate up per septal left ventricular hypertrophy. Left ventricular systolic function is severely decreased. ?EF = 25 ? 5% (visual est.) Definity contrast used for endoc ardial border detection. Grade II left ventricular diastolic dysfunction. - The right ventricle is normal in size. Right ventricular s ystolic function is normal. - The patient has not had a prior CC echocardiographic exam for comparison. TELEMETRY: NSR with RBBB, occasional PVCs, pacing spikes wit h non-sensing AND non-capture; no further NSVT since 4 beat run on 06/20 at 0027. Past 72 Hour Labs: Recent Labs 06/21/19 0530 06/20/19 0440 06/19/19 1140 06/19/19 0735 06/18/19 2320 TROPI -- -- -- -- 8.900* 12.400* < > 8.110* WBC 9.15* -- 14.33* -- -- 15.40* -- 19.38* RBC 4.28* -- 4.20* -- -- 4.28* -- 4.70 HB 13.3* -- 13.1* -- -- 13.2* -- 14.5 HCT 39.6* -- 38.8* -- -- 40.1 -- 43.8 MCV 92.5 -- 92.4 -- -- 93.7 -- 93.2 MCH 31.1 -- 31.2 -- -- 30.8 -- 30.9 MCHC 33.6 -- 33.8 -- -- 32.9 -- 33.1 PLT 126* -- 123* -- -- 125* -- 143 MPV 11.2 -- 11.1 -- -- 10.8 -- 11.2 GLUC 99 < > -- -- -- -- -- 120* BUN 17 < > -- -- -- -- -- 26* CREAT 1.29* < > -- -- -- -- -- 1.39* NA 139 < > -- -- -- -- -- 142 K 3.4* < > -- -- -- -- -- 4.0 CHLOR 108* < > -- -- -- -- -- 108* CO2 28 < > -- -- -- -- -- 23 TPROT -- -- -- -- -- -- -- 7.4 ALB -- -- -- -- -- -- -- 3.4 CA 8.3* < > -- -- -- -- -- 9.1 ALKPHOS -- -- -- -- -- -- -- 71 TBILI -- -- -- -- -- -- -- 0.3 AST -- -- -- -- -- -- -- 68* ALT -- -- -- -- -- -- -- 39 PTSEC -- -- -- -- -- 10.9 -- -- APTT -- -- 50.6* < > -- 29.6 -- -- INR -- -- -- -- -- 1.05 -- -- MG -- -- -- -- -- -- -- 1.8 < > = values in this interval not displayed. Last Lab Drawn: Triglyceride 131 06/18/2019 HDL Cholesterol 28 06/18/2019 LDL Calculated 110 06/18/2019 Cholesterol, Total 164 06/18/2019 Assessment/Plan Patient Active Hospital Problem List: ? S/P paroxysmal V. Tach AND V. Fib arrest - required mu ltiple defibrillations per device AND paramedics. In the setting of hypokalem ia. Rhythm stable now. No further VT or V. Fib since admission. Was on IV Amiodaron e for 72 hours which was changed to po today. Discussed with Dr. Heather Saeed will give Amiodarone 400 mg BID. ICD generator at end-of-life. Patient expressed desire not to be shocked anymore. ? ICD/BiVentricular pacemaker with generator at end-of-life - has refused generator replacement earlier this year. Last interrogation ([facility]) 12/31/18 with 1.[address] Romero had long di scussion with family last evening (see note) re: options. I spoke with gra tricia Mc at this time as he was chosen as family spokesperson AND he states they decided that patient does not want defibrillator/furthe r shocks, but OK with having a pacemaker even it requires lead replacement . ? Ischemic cardiomyopathy - Not SOB but lung sounds with some fine crackles AND wheezes at this time. On Coreg, Plavix, Lasix, HCTZ, [place] at home which have not been started in the hospital. S/P Bi-Ventricu lar pacemaker/ICD placed 2012. Per chart at [place], Echo March 14 with EF 20%, per cardiac cath March 2017 EF 25%. Echo 06/20 with EF 25% AND diastolic dysfunction stage 2. Continue heart failure meds when able. Will resume Lasix 20 mg daily at this time. ? NSTEMI - troponins elevated in the setting of multiple defib rillations AND chest pain. Cardiac cath 06/20 showed moderate in-stent reste nosis of the mid and distal LAD stents (30-40%) with mild distal left krysten n coronary artery disease; RCA with mild diffuse disease (per chart lei or RCA stent); Circ with mild diffuse disease. Continue medical therapy (as pirin, Plavix, statin, beta josé (after pacer/ICD generator changed). CKD - improved since admit. ? Hypokalemia: 2.8 on arrival to [place]; corrected to 4.7 on 06/20 AND today below normal 3.4. Will given K-Dur 40 meq today. Continue to monitor. On bactrim for UTI- watch for hyperkalemia. Check BMP AND Mg+ level in AM. SIGNATURE: Donald Chatterjee APRN.TAXATION AGENT PATIENT NAME: Leo Mc DATE: June 21, 2019 TIME: 3:31 PM PAGER/CONTACT #: [phone] basic panel on 2018 Creatinine [Mass/Vol] 1.29 0.67-1.17 mg/dL High 06-21-20 19 [employer] (00 000) Comment: Performed By: #### HA1C #### [facility] [address] [place], [place] [address] Anion gap [Moles/Vol] 6 8-16 mmol/L Low 06-21-20 19 [facility] ([id number]) Comment: Performed By: #### HA1C #### [facility] [address] [place], [place] [address] Calcium [Mass/Vol] 8.3 8.5-10.1 mg/dL Low 06-21-2019 [facility] ([id number]) Comment: Performed By: #### HA1C #### [facility] [address] [place], [place] [address] CO2 [Moles/Vol] 28 21-32 mEq/L Normal 06-21-2019 [facility] ([id number]) Comment: Performed By: #### HA1C #### [facility] [address] [place], [place] [address] Glucose [Mass/Vol] 99 70-99 mg/dL Normal 06-21-2019 [facility] ([id number]) Comment: Performed By: #### HA1C #### [facility] [address] [place], [place] [address] Urea nitrogen [Mass/Vol] 17 7-18 mg/dL Normal 06-21 [facility] ([id number]) Comment: Performed By: #### HA1C #### [facility] [address] [place], [place] [address] Chloride [Moles/Vol] 108 98-107 mEq/L High 9 [facility] ([id number]) Comment: Performed By: #### HA1C #### [facility] [address] [place], [place] [address] Potassium [Moles/Vol] 3.4 3.5-5.1 mEq/L Low 06-21-20 19 [facility] ([id number]) Comment: Performed By: #### HA1C #### [facility] [address] [place], [place] [address] Sodium [Moles/Vol] 139 136-145 mEq/L Normal 06-21-2019 [facility] ([id number]) Comment: Performed By: #### HA1C #### [facility] [address] [place] [address] progress on 2019-05 PROGRESS HNO ID: [id number] Normal 06-20-2019 [facility] Author: Leilani Suarez [facility] Service: Cardiovascular Medicine ([id number]) Author Type: Physician Type: Progress Notes Filed: 06/20/2019 5:40 PM Note Text: Cardiovascular Intensive Care Progress Note June 20, 2019 Patient Name : Leo Mc Patient Location: [id number]* Admission Date: 06/18/2019 Length of Stay: 2 Primary Service: Cardiovascular Intensive Care Interval History: Patient seen and examined in the AM. Patient has no new conc erns. No overnight events. The patient denies new symptoms. He will h ave cath today to assess coronary arteries. Review of Systems: Review of Systems Constitutional: Negative for chills and fever. HENT: Negative for congestion, sinus pain and sore throat. Respiratory: Negative for cough, hemoptysis and shortness of breath. Cardiovascular: Negative for chest pain, palpitations, ortho pnea and leg swelling. Gastrointestinal: Negative for abdominal pain, heartburn, na usea and vomiting. Genitourinary: Negative for dysuria, frequency and urgency. Skin: Negative for itching and rash. Neurological: Negative for dizziness, weakness and headaches . Subjective No past medical history on file. No current facility-administered medications on file prior t o encounter. Current Outpatient Medications on File Prior to Encounter: hydroCHLOROthiazide (HYDRODIURIL, ESIDRIX) 25 mg tablet Take 25 mg by mouth once daily. losartan (COZAAR) 25 mg tablet Take 25 mg by mouth once carmen y. aspirin, enteric coated (ASPIRIN, ENTERIC COATED) 81 mg EC t ablet Take 81 mg by mouth once daily. atorvastatin (LIPITOR) 20 mg tablet Take 20 mg by mouth carmen y at bedtime. carvedilol (COREG) 3.125 mg tablet Take 3.125 mg by mouth tw ice daily with meals. clopidogrel (PLAVIX) 75 mg tablet Take 75 mg by mouth once d aily. furosemide (LASIX) 40 mg tablet Take 40 mg by mouth once kathy ly. Objective Present Condition: 06/20/19 0700 06/20/19 0800 06/20/19 0900 06/20/19 1000 BP: 108/57 117/58 108/58 Pulse: (!) 59 70 67 (!) 56 Resp: Temp: 36.2 ?C (97.2 ?F) 36.3 ?C (97.3 ?F) TempSrc: Temporal Artery SpO2: 95% 95% 98% 97% Weight: 81.2 kg (179 lb 0.2 oz) 81.2 kg (179 lb 0.2 oz) Height: 177.8 cm (5' 10) Physical Exam Constitutional: He is oriented to person, place, and time an d well-developed, well-nourished, and in no distress. HENT: Head: Normocephalic and atraumatic. Mouth/Throat: No oropharyngeal exudate. Eyes: Pupils are equal, round, and reactive to light. EOM ar e normal. Neck: Normal range of motion. Neck supple. No JVD present. N o thyromegaly present. Cardiovascular: Normal heart sounds and intact distal pulses . Exam reveals no gallop and no friction rub. No murmur heard. Pulmonary/Chest: Effort normal and breath sounds normal. No respiratory distress. He has no wheezes. He has no rales. Abdominal: Soft. Bowel sounds are normal. He exhibits no dis tension. There is no tenderness. There is no rebound and no guarding. Musculoskeletal: He exhibits no edema. Lymphadenopathy: He has no cervical adenopathy. Neurological: He is alert and oriented to person, place, and time. Skin: Skin is warm and dry. Current Facility-Administered Medications Medication Dose Route Frequency Provider Last Rate Last Dose - [MAR Hold due to Transfer] cefTRIAXone 1 g in D5W 100 mL M B+ (ROCEPHIN) 1 g INTRAVENOUS q 24 H Herson (ResFranchesca Ibanez DO 200 mL/hr at 06/20/19818 1 g at 06/20/19818 - [MAR Hold due to Transfer] heparin iv infusion (LOW DOSE A CS/NOMOGRAM) 25,000 units in NaCl 0.45% 250 mL PREMIX 0-3,000 Units/hr IN TRAVENOUS CONTINUOUS Linda (Res) MD Dalia Stopped at 06/20/19 1 027 And - [MAR Hold due to Transfer] heparin RATE CHANGE bolus 1,000 -4,000 Units for subtherapeutic aptt results 1,000-4,000 Units INTRAVENOU S PRN Linda Gómez MD - [MAR Hold due to Transfer] NaCl 0.9% iv infusion 75 mL/hr INTRAVENOUS CONTINUOUS James Smith 75 mL/hr at 06/20/19 0800 75 m L/hr at 06/20/19 0800 - [MAR Hold due to Transfer] potassium chloride 80-120 mEq o ral liquid 80-120 mEq ORAL/FEEDING TUBE PRN Herson Ibanez, DO - [MAR Hold due to Transfer] potassium chloride iv piggyback 20 mEq/100 mL 20 mEq INTRAVENOUS PRN Herson Ibanez, DO - [MAR Hold due to Transfer] magnesium sulfate in water 2 g in sterile water 50 ml 2 g INTRAVENOUS PRN Herson Ibanez, DO - [MAR Hold due to Transfer] sodium phosphate 45 mmol in NaC l 0.9% 250 mL 45 mmol INTRAVENOUS PRN Herson Ibanez, DO - [MAR Hold due to Transfer] calcium gluconate 4 g in NaCl 0 .9% 250 mL 4 g INTRAVENOUS PRN Herson Ibanez, DO - [MAR Hold due to Transfer] amiodarone 360 mg in D5W 200 mL (NEXTERONE) 0.5 mg/min INTRAVENOUS CONTINUOUS Herson Ibanez DO 16.67 mL/hr at 06/20/19 1027 0.5 mg/min at 06/20/19 1027 - [MAR Hold due to Transfer] atorvastatin 40 mg tab(s) (LIPI TOR) 40 mg ORAL AT BEDTIME Herson Ibanez DO 40 mg at 06/19/19 2046 - [MAR Hold due to Transfer] aspirin, enteric coated 81 mg t ab(s) 81 mg ORAL DAILY Herson Ibanez DO 81 mg at 06/20/19 0819 - [MAR Hold due to Transfer] perflutren lipid microspheres 1 .1 mg/mL 1.3 mL injection (DEFINITY) 1.3 mL INTRAVENOUS DIRECTED PRN Erick Ibanez DO Labs: CBC: Recent Labs 06/20/19 0440 06/19/19 0735 06/18/19 2320 WBC 14.33* 15.40* 19.38* HB 13.1* 13.2* 14.5 HCT 38.8* 40.1 43.8 PLT 123* 125* 143 MCV 92.4 93.7 93.2 COAG: Recent Labs 06/20/19 0440 06/19/19 1845 06/19/19 1330 06/19/19 0735 APTT 50.6* 49.8* 58.8* 29.6 INR -- -- -- 1.05 BMP: Recent Labs 06/20/19 0650 06/18/19 2320 GLUC 99 120* NA 139 142 K 3.7 4.0 CHLOR 109* 108* CO2 25 23 ANION 9 15 BUN 23* 26* CREAT 1.49* 1.39* CHEM: Recent Labs 06/20/19 0650 06/18/19 2320 ALB -- 3.4 TPROT -- 7.4 CA 8.4* 9.1 MG -- 1.8 HEPATIC: Recent Labs 06/18/19 232 ALKPHOS 71 ALT 39 AST 68* TBILI 0.3 URINALYSIS: Recent Labs 06/19/19 0040 SPGR 1.018 UGLUC NEGATIVE UBILI NEGATIVE UKET NEGATIVE UPROT 100* UROBIL 0.2 UWBC 379.9* CARDIAC: No results for input(s): CKTEST, CKMB, CKMBP in the last 168 hours.TROPONIN@:8,No results found for: BNP:8)@ Intake/Output Summary (Last 24 hours) at 06/20/2019 1059 Last data filed at 06/20/2019 1000 Gross per 24 hour Intake 1288.2 ml Output 1025 ml Net 263.2 ml Serum creatinine: 1.39 mg/dL (H) 06/18/192319 Estimated creatinine clearance: 41.6 mL/min (A) Assessment/Plan NSTEMI- -Troponin peaked at 12.4 and trended down. -Patient started on heparin, ASA, atorvastatin and metoprolo l. -Scheduled for cardiac catheterization. -Echocardiogram ordered. AICD dysfunction/ ventricular arrhythmias- -Patient on amiodarone gtt. -EP consulted and decided to interrogate the device. They wi ll decide further management based on interrogation. -Patient on cardiac telemetry. UTI- -Patient initiated on ceftriaxone. -Urine culture ordered. Signed: Ceci Navarro DO, PGY-1 Pager: [phone] Date: June 20, 2019 Time: 11:02 AM Recommendations are not finalized until co-signed by Staff catherine chin. Patient was seen and discussed with resident. I have stefano jones seen and examined the patient. I have reviewed labs, clinical data an d pertinent images. I agree with the documentation above. Mg findings w ere confirmed and updated. I'll summarize our mutual assessment and plan b elsandy. Critical Care Documentation: This is an 83-year-old gentleman with history of coronary ar alondra disease, chronic systolic heart failure and AICD in place. The patien t presented to the [facility] with confusion. He developed ventricula r fibrillation there, AICD did not fire and then he required external defib rillation twice. For elevated troponins he was diagnosed with non-STEM I and was treated with IV heparin. He is also on IV amiodarone current ly. Non-STEMI, most likely type II Ventricular fibrillation Suspected AICD malfunction Chronic systolic heart failure from Ischemic cardiomyopathy with LVEF of 20% History of coronary artery disease with previous PCIs Plan Plan is to left heart catheterization to rule out ischemia. We'll continue on IV amiodarone and IV heparin. For his coronary artery disease he is appropriately on aspir in 81 mg daily and atorvastatin 40 mg daily which will continue. We'll touch base with EP. Patient will likely need an AICD g enerator change soon. This patient has a high probability of sudden, clinically si gnificant deterioration, which requires the highest level of physician preparedness to intervene urgently. I managed/supervised life or organ page pporting interventions that required frequent physician assessment. I devoted my full attention to the direct care of this patient for the am ount of time indicated below. Time I spent with family or surrogate(s) is included only if the patient was incapable of providing the necessary information or participating in medical decision making. Time devoted to teaching is not included. ?? Time spent providing critical care services: 38 minutes excl uding procedures. Leilani Tran MD, [facility] Cardiovascular Medicine Pager: [phone] June 20, 2019 plan of care on 201 07-03-26 PLAN OF CARE HNO ID: [id number] Normal 06-20-20 19 [facility] Author: [facility] Service: Electrophysiology ([id number]) Author Type: Physician Type: Plan of Care Filed: 06/20/2019 6:44 PM Note Text: Leo Mc had a medtronic ICD implanted 02-27-2006 and the n in 01-26-2103 it was upgraded to a [facility] CRTD by Dr. Esparza in [facility] and more recently followed by the device clinic in [place]. In December Mr. Mc was noted to be near [place] and advised to have his generator r eplaced and he declined, he was also offered a downgrade to a CRTPPM and de clined that, his sister was reportedly present for the conversation, he w as advised to follow up with his PCP to have palliative care. The family i ndicates that they though his ICD was deactivated. He received an ICD shoc k and presented to the ED in [place] with sustained VT not treated by his ICD as his device was EOL. His device was interrogated by [facility] in the ED and reported due to severe battery depletion unable to access rh ythm events. Mr. Mc was transferred here with an elevated troponin a nd NSTEMI. His troponin elevation exceeds what would be expected from I CD shock and defibrillation, he underwent a heart cath today with moderat e CAD appropriate for medical therapy. His echo shows an LVEF of 2 5% and moderate YUNI. Mr. Mc is awake and alert but with signif icant memory impairment. He indicates that he would not want to be shocke d again by his ICD. His family, including his sisters, his son (who is hearing impaired) and his grandson, Leo (the family indicated that Leo is our sales person) confirm that he did not want his ICD generat or replaced, that he had indicated that he had a good life and that he wo uld not want to be shocked again. I discussed that we have some options: We could leave his device alone, it likely will not be able to shock him again, but if they wanted to be sure, I could remove the generator and cap the leads. We could change out his generator and he would have full pac ing and shocking abilities. Or we could change out his device to a C RT PPM which will give pacing but no shocking. I reviewed all of these op tions and compared each with them. They are going to discuss with [place] joseph and will plan to make a decision in keeping with his preferences. He did ask his family for their opinion. We discussed that his likelihood o f recurrent VT is about 30% within the next year and that most likely wi thout changing the ICD would likely result in . I was very clear about this and they indicated that they understand. We discussed that there is no way that I could predict the time could be 6 months or 6 weeks o r 6 days or sooner. They are going to discuss as a family and will let m e tomorrow. I am not able to do his surgery til as will not be a t the hospital tomorrow, I did check with Dr. Brown and he does not clement ve better availability tomorrow either. I also discussed that he has a sprint merlin and this has a higher risk of lead fracture, if the lead is functioning we do not plan to replace regardless of which pr ocedure he ops for. I also emphasized that we do not need to do any procedu re. I do not think with his battery depletion that we can reliably deacti vate shocking but can check with [facility]. I also think that there is very low likelihood that his capaciters will reformat sufficiently to deliver recurrent shock. Please note that I spent 45 minutes with th e patient and his family discussing the above information and answering eir questions. Guanako Romero, DO PLAN OF CARE HNO ID: [id number] Normal 06-20-20 [facility] Author: Evelia Sherman (Pharmacist) [facility] Service: ? ([id number]) Author Type: Pharmacist Type: Plan of Care Filed: 06/20/2019 3:53 PM Note Text: MEDICATION HISTORY AND MEDICATION RECONCILIATION Patient Name:Yarely Mc : 1935 Source of history:Patient: Reliability of source: patient st nolan he does not take care of this own medications; his daughter Tatianna helps him (she is not available at this time) Medication Nonadherence Identified: Unable to assess at this time The above information represents the best possible medicatio n history: Incomplete- see discrepancies in chart below; also patient h imself is unable to verify what he is taking. Reconciliation completed? Yes All [employer] medications addressed by LIP Additional comments: No medication changes at this time; still need to discuss wi th patient's daughter. Note: Potassium chloride 20 mEq is not on patient's medication lis t, but was filled 03/29/19 for #90 for a 90 day supply Loratadine 10 mg is not on patient's medication list, but wa s filled 04/21/19 for #90 for a 90 day supply Allergies: ALLERGIES No Known Allergies Preferred Pharmacy: [facility] pharmacy ([phone]) Current [employer] Medications: Prior to Admission medications as of 06/19/19 0041 Medication Sig Last filled Taking hydroCHLOROthiazide (HYDRODIURIL, ESIDRIX) 12.5 mg tablet Ta ke 12.5 mg by mouth once daily. 04/21/19 for #90 for a 90 day supply losartan (COZAAR) 25 mg tablet Take 25 mg by mouth once carmen y. 01/20/19 for #90 for a 90 day supply aspirin, enteric coated (ASPIRIN, ENTERIC COATED) 81 mg EC t ablet Take 81 mg by mouth once daily. atorvastatin (LIPITOR) 20 mg tablet Take 20 mg by mouth carmen y at bedtime. No fill at [facility] since 12/2017 for a 30 day supply carvedilol (COREG) 3.125 mg tablet Take 3.125 mg by mouth tw ice daily with meals. 05/16/19 for #180 for a 90 day supply clopidogrel (PLAVIX) 75 mg tablet Take 75 mg by mouth once d aily. 05/16/19 for #90 for a 90 day supply furosemide (LASIX) 40 mg tablet Take 40 mg by mouth once kathy ly. No fill at [facility] since 2017 Evelia Sherman, Pharmacist June 20, 2019 3:45 PM hemogram/diff on 13-06-26 Abs Immature Grans 0.06 0.00-0.05 thou/cmm High 06-20-2019 [facility] (00 000) Comment: Performed By: #### HA1C #### [facility] [address] [place] [address] Abs Neut (ANC) 10.13 1.78-5.38 thou/cmm High 06-20-2019 [facility] ([id number]) Comment: Performed By: #### HA1C #### [facility] [address] [place], [place] [address] Abs. Baso 0.04 0.01-0.08 thou/cmm Normal 06-20-[address] [facility] ([id number]) Comment: Performed By: #### HA1C #### [facility] [address] [place], [place] [address] Abs. Jack 1.35 0.30-0.82 thou/cmm High 06-20-[address] [facility] (10605) Comment: Performed By: #### HA1C #### [facility] [address] [place], [place] [address] Basophils/100 WBC (Bld) 0.3 % Normal 2018 [facility] ([id number]) Comment: Performed By: #### HA1C #### [facility] [address] [place], [place] [address] Eosinophils (Bld) 0.24 0.04-0.54 thou/cmm Normal 06-20-2019 [facility] ([id number]) Comment: Performed By: #### HA1C #### [facility] [address] [place], [place] [address] Eosinophils/100 WBC (Bld) 1.7 % Normal 05-27 [facility] (63338) Comment: Performed By: #### HA1C #### [facility] [address] [place], [place] [address] Immature Grans 0.40 % Normal 06-20-2019 [facility] ([id number]) Comment: Performed By: #### HA1C #### [facility] [address] [place], [place] [address] Lymphocytes (Bld) 2.51 0.84-2.85 thou/cmm Normal 06-20-2019 [facility] ([id number]) Comment: Performed By: #### HA1C #### [facility] [address] [place], [place] [address] Lymphocytes/100 WBC (Bld) 17.5 % Normal 05-27 [facility] (91641) Comment: Performed By: #### HA1C #### [facility] [address] [place], [place] [address] Monocytes/100 WBC (Bld) 9.4 % Normal 2018 [facility] (08934) Comment: Performed By: #### HA1C #### [facility] [address] [place], [place] [address] Seg Neutrophil 70.7 % Normal 06-20-2019 [facility] ([id number]) Comment: Performed By: #### HA1C #### [facility] [address] [place], [place] [address] Erythrocyte distribution 13.2 11.6-14.4 % Normal 06-20 [facility] (RBC) [Ratio] System (53006) Comment: Performed By: #### HA1C #### [facility] [address] [place], [place] [address] Hematocrit (Bld) [Volume 38.8 40.1-51.0 % Low 06-20 [facility]] System (00 000) Comment: Performed By: #### HA1C #### [facility] [address] [place], [place] [address] Hemoglobin (Bld) [Mass/Vol] 13.1 13.7-17.5 g/dL Low [facility] (00 000) Comment: Performed By: #### HA1C #### [facility] [address] [place], [place] [address] MCH (RBC) [Entitic mass] 31.2 25.7-32.2 pg Normal 06-20 [facility] (00 000) Comment: Performed By: #### HA1C #### [facility] [address] [place], [place] [address] MCHC (RBC) [Mass/Vol] 33.8 32.3-36.5 % Normal 06-20-20 19 [facility] (40663) Comment: Performed By: #### HA1C #### [facility] [address] [place], [place] [address] MCV (RBC) [Entitic vol] 92.4 83.2-95.6 fl Normal 2018 [facility] (00 000) Comment: Performed By: #### HA1C #### [facility] [address] [place] [id number] Platelet mean volume (Bld) 11.1 8.7-12.[address] [facility] [Entitic vol] System (09162) Comment: Performed By: #### HA1C #### [facility] [address] [place] [id number] Platelets (Bld) [#/Vol] 123 141-365 thou/cmm Low 2018 [facility] (00 000) Comment: Performed By: #### HA1C #### [facility] [address] [place] [address] RBC (Bld) [#/Vol] 4.20 4.63-6.08 mil/cmm Low 06-20-2019 [facility] (03250) Comment: Performed By: #### HA1C #### [facility] [address] [place] [address] RDW SD 45.0 36.1-45.8 fl Normal 06-20-2019 [facility] (44751) Comment: Performed By: #### HA1C #### [facility] [address] [place] [id number] WBC (Bld) [#/Vol] 14.33 4.23-9.07 thou/cmm High 06-20-2019 [facility] (00 000) Comment: Performed By: #### HA1C #### [facility] [address] [place] [address] consult prog on 201 07-03-26 CONSULT PROG HNO ID: [id number] Normal 06-20-20 19 [facility] Author: Donald PrattChute Man.[facility]) [facility] Service: Electrophysiology ([id number]) Author Type: Nurse Specialist Type: Consult Progress Note Filed: 06/20/2019 4:15 PM Note Text: PROGRESS NOTE ELECTROPHYSIOLOGY SERVICE SERVICE DATE: 06/20/2019 SERVICE TIME: 2:29 PM Subjective INTERIM HISTORY: Chart reviewed. Patient seen AND examined. Cardiac cath done today - no culprit lesion for V. Tach/V. Fib due to isc hemia. Patient mildly disoriented. Denies any chest discomfort, SOB, palpit ations, dizziness at this time. Review of Systems Constitutional: Negative for fever. HENT: Positive for hearing loss. Respiratory: Negative for cough and shortness of breath. Cardiovascular: Negative for chest pain, palpitations, ortho pnea, leg swelling and PND. Gastrointestinal: Negative for nausea. Genitourinary: C/O urinating on himself Neurological: Negative for dizziness and headaches. - Limited ROS due to mild disorientation AND BURNS PAIUTE. Objective PHYSICAL EXAM: Body mass index is 25.69 kg/m?. O2 Therapy: Nasal Cannula 2L Patient Vitals for the past 24 hrs: BP Temp Temp src Pulse SpO2 Height Weight 06/20/19 1400 (!) 107/41 36.3 ?C (97.3 ?F) Temporal Art 70 9 7 % ? ? 06/20/19 1345 ? ? ? 65 97 % ? ? 06/20/19 1330 115/60 ? ? 63 97 % ? ? 06/20/19 1315 109/53 ? ? 67 97 % ? ? 06/20/19 1300 114/56 ? ? (!) 59 96 % ? ? 06/20/19 1245 112/59 ? ? (!) 59 96 % ? ? 06/20/19 1230 106/56 ? ? 60 96 % ? ? 06/20/19 1215 112/66 ? ? 60 96 % ? ? 06/20/19 1200 110/56 36.3 ?C (97.3 ?F) ? 65 95 % ? ? 06/20/19 1145 108/57 ? ? 63 95 % ? ? 06/20/19 1130 116/62 36.3 ?C (97.3 ?F) Temporal Art ? 06/20/19 1000 108/58 ? ? (!) 56 97 % ? ? 06/20/19 0900 ? ? ? 67 98 % ? ? 06/20/19 0800 117/58 36.3 ?C (97.3 ?F) Temporal Art 70 95 % 177.8 cm (5' 10) 81.2 kg (179 lb 0.2 oz) 06/20/19 0700 108/57 36.2 ?C (97.2 ?F) ? (!) 59 95 % ? 81.2 kg (179 lb 0.2 oz) 06/20/19 0600 98/55 ? ? (!) 56 95 % ? ? 06/20/19 0500 105/54 ? ? (!) 58 94 % ? ? 06/20/19 0400 102/51 36.4 ?C (97.5 ?F) ? (!) 59 96 % ? ? 06/20/19 0300 (!) 99/48 ? ? 62 95 % ? ? 06/20/19 0200 (!) 87/44 ? ? 61 94 % ? ? 06/20/19 0100 (!) 98/48 ? ? 60 95 % ? ? 06/20/19 0000 (!) 102/47 ? ? 60 93 % ? ? 06/19/19 2300 (!) 95/47 ? ? (!) 58 94 % ? ? 06/19/19 2100 (!) 88/40 ? ? 64 96 % ? ? 06/19/19 2000 95/53 ? ? 62 97 % ? ? 06/19/19 1900 ? 36.6 ?C (97.9 ?F) Temporal ? 06/19/19 1800 (!) 97/45 ? ? (!) 54 97 % ? ? 06/19/19 1700 95/56 ? ? (!) 54 97 % ? ? 06/19/19 1600 107/50 ? ? 64 98 % ? ? 06/19/19 1500 (!) 94/47 36.5 ?C (97.7 ?F) Temporal (!) 53 98 % ? ? Pleasant, comfortable, not in acute distress. SKIN: warm AND dry; pale color. HEENT: Normocephalic. NECK: Supple, no JVD, no carotid bruits auscultated. LUNGS: Clear to auscultation bilaterally. Respirations unlab ored at rest. CARDIAC: normal S1, soft S2, regular rate AND rhythm, no significant murmurs or gallops noted. ABDOMEN: Soft, nontender to superficial palpation, bowel kenji nds auscultated. EXTREMITIES: No edema lower extremities. NEURO: awake, alert, oriented to person, knows he's in a hos pital but doesn't know the name of it, knows his birthdate but not clemencia e how old he is, does not know the year, but knows the month AND that i t's the last week of the month; moves all 4 extremities. PULSES: bilateral radial AND dorsalis pedis pulses palpable. MEDICATIONS: Current Facility-Administered Medications Medication Dose Route Frequency - potassium chloride 80-120 mEq oral liquid 80-120 mEq ORAL/ FEEDING TUBE PRN - potassium chloride iv piggyback 20 mEq/100 mL 20 mEq INTRA VENOUS PRN - magnesium sulfate in water 2 g in sterile water 50 ml 2 g INTRAVENOUS PRN - sodium phosphate 45 mmol in NaCl 0.9% 250 mL 45 mmol INTRA VENOUS PRN - calcium gluconate 4 g in NaCl 0.9% 250 mL 4 g INTRAVENOUS PRN - amiodarone 360 mg in D5W 200 mL (NEXTERONE) 0.5 mg/min INT RAVENOUS CONTINUOUS - atorvastatin 40 mg tab(s) (LIPITOR) 40 mg ORAL AT BEDTIME - aspirin, enteric coated 81 mg tab(s) 81 mg ORAL DAILY - perflutren lipid microspheres 1.1 mg/mL 1.3 mL injection ( DEFINITY) 1.3 mL INTRAVENOUS DIRECTED PRN - cefTRIAXone 1 g in D5W 100 mL MB+ (ROCEPHIN) 1 g INTRAVENO US q 24 H DATA: Diagnostic tests reviewed for today's visit: Most recent labs and imaging results. Most recent EKG - 06/19 4:28 AM - sinus bradycardia 52 bpm, I VCD. Most recent Echo (no Echoes in Epic) - Echo today pending. P er notes from [place], Echo February 2017 with EF 20%, moderate MR, moderate TR . TELEMETRY: Sinus rhythm 60s to sinus bradycardia 50s, RBBB, occasional multiformed PVcs, rare pairs, ? R on T, 4 beats NSVT at 0027 , occasional PACs, yesterday intermittent sinus bradycardia in 40s. Past 72 Hour Labs: Recent Labs 06/20/19 0650 06/20/19 0440 06/19/19 1140 06/19/19 0735 06/18/19 2320 TROPI -- -- -- 8.900* 12.400* < > 8.110* WBC -- 14.33* -- -- 15.40* -- 19.38* RBC -- 4.20* -- -- 4.28* -- 4.70 HB -- 13.1* -- -- 13.2* -- 14.5 HCT -- 38.8* -- -- 40.1 -- 43.8 MCV -- 92.4 -- -- 93.7 -- 93.2 MCH -- 31.2 -- -- 30.8 -- 30.9 MCHC -- 33.8 -- -- 32.9 -- 33.1 PLT -- 123* -- -- 125* -- 143 MPV -- 11.1 -- -- 10.8 -- 11.2 GLUC 99 -- -- -- -- -- 120* BUN 23* -- -- -- -- -- 26* CREAT 1.49* -- -- -- -- -- 1.39* NA 139 -- -- -- -- -- 142 K 3.7 -- -- -- -- -- 4.0 CHLOR 109* -- -- -- -- -- 108* CO2 25 -- -- -- -- -- 23 TPROT -- -- -- -- -- -- 7.4 ALB -- -- -- -- -- -- 3.4 CA 8.4* -- -- -- -- -- 9.1 ALKPHOS -- -- -- -- -- -- 71 TBILI -- -- -- -- -- -- 0.3 AST -- -- -- -- -- -- 68* ALT -- -- -- -- -- -- 39 PTSEC -- -- -- -- 10.9 -- -- APTT -- 50.6* < > -- 29.6 -- -- INR -- -- -- -- 1.05 -- -- MG -- -- -- -- -- -- 1.8 < > = values in this interval not displayed. 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 In the setting of hypokalem ia. Rhythm stable now. No further VT or V. Fib since admission. 4 beats NSVT. On IV Amiodarone. ICD generator at end-of-life. ICD/BiVentricular pacemaker with generator at end-of-life - has refused generator replacement earlier this year. Last interrogation ([facility]) 12/31/18 with 1.6 months battery life. Agrees to generator rep lacement at this time so this will be arranged. Ischemic cardiomyopathy - Well compensated. No fluid overloa ded. On Coreg, Plavix, Lasix, HCTZ, Losartan at home. S/P Bi-Ventricular pa cemaker/ICD placed 2012. Per chart at [place], Echo February 2017 with EF 20% , per cardiac cath March 2017 EF 25%. Echo done today - pending. Continue h eart failure meds when able. NSTEMI - troponins elevated in the setting of multiple defib rillations AND chest pain. Cardiac cath today showed moderate in-stent rest enosis of the mid and distal LAD stents (30-40%) with mild distal left krysten n coronary artery disease; RCA with mild diffuse disease (per chart lei or RCA stent); Circ with mild diffuse disease. Continue medical therapy (as pirin, Plavix, statin, beta josé (after pacer/ICD generator changed). Hypokalemia: 2.8 on arrival to [place]; corrected to 4.7 tod ay. Continue to monitor. SIGNATURE: Donald Chatterjee APRN.CNS PATIENT NAME: Leo Mc DATE: June 20, 2019 TIME: 2:29 PM PAGER/CONTACT #: [id number] brief op not on 201 07-03-26 BRIEF OP NOT HNO ID: [id number] Normal 06-20-20 19 [facility] Author: James Burch [facility] Service: Interventional Cardiology ([id number]) Author Type: Physician Type: Brief Op Note Filed: 06/20/2019 11:28 AM Note Text: CARDIAC CATHETERIZATION REPORT PATIENT NAME: Leo Mc SERVICE DATE: 06/20/2019 SERVICE TIME: 11:24 AM [employer]: Attending: Leilani Tran RECOMMENDATIONS: Continued medical therapy and risk factor m odification Pre-Procedure Diagnosis: 83 y/o man with known CAD and ische natasha cardiomyopathy presents with V-Fib arrest and NSTEMI Post- Procedure Diagnosis: Moderate in-stent restenosis of t he mid and distal LAD stents with mild distal left main coronary artery disease. Procedure: Left Heart Catheterization Access: Right Femoral Artery Under Local anesthesia the Right Femoral Artery was entered by Modified Seldinger's technique using a micro puncture needle. A 6F sh eath was introduced into the Right Femoral Artery . Selective injecti ons were made in the left and right coronary arteries in various right and left anterior oblique views. An LV pressure was performed in 30 degree SEBASTIAN . The sheath was removed and hemostatsis was established using Angioseal closure device. There was no bleeding at the end of the procedure. T shanell pt was returned to the recovery room in a stable condition. FINDINGS: Hemodynamics: LVEDP: 24 mmHg LV - AORTA: No gradient. Coronary Angiography: Left Main: Large-caliber vessel with mild tapering distally estimated 30% luminal stenosis. Left Anterior Descending: Large caliber vessel. The mid vess el has a patent stent with moderate in-stent restenosis estimated 30- 40% luminal narrowing. The distal LAD has a patent stent with moderate i n-stent restenosis estimated 30-40% luminal narrowing. Circumflex: Large-caliber vessel with mild diffuse disease Right Coronary Artery: Right coronary artery is large calibe r dominant vessel with mild diffuse disease Collaterals: None LV Gram: LVEF: NA Wall Motion: NA Complications: None SIGNATURE: James Smith MD DATE: June 20, 2019 TIME: 11:24 AM basic panel on 2018 Creatinine [Mass/Vol] 1.49 0.67-1.17 mg/dL High 06-20-20 19 [id number] [facility] (00 000) Comment: Performed By: #### HA1C #### [address] [address] Glucose [Mass/Vol] 99 70-99 mg/dL Normal 06-20-2019 [facility] ([id number]) Comment: Performed By: #### HA1C #### [facility] [address] [place], [place] [address] Urea nitrogen [Mass/Vol] 23 7-18 mg/dL High 06-20 [facility] ([id number]) Comment: Performed By: #### HA1C #### [address] [address] Anion gap [Moles/Vol] 9 8-16 mmol/L Normal 06-20-20 19 [facility] ([id number]) Comment: Performed By: #### HA1C #### [facility] [address] [place], [place] [address] Calcium [Mass/Vol] 8.4 8.5-10.1 mg/dL Low 06-20-2019 [facility] ([id number]) Comment: Performed By: #### HA1C #### [facility] [address] [place], [place] [address] CO2 [Moles/Vol] 25 21-32 mEq/L Normal 06-20-2019 [facility] ([id number]) Comment: Performed By: #### HA1C #### [facility] [address] [place], [place] [address] Chloride [Moles/Vol] 109 98-107 mEq/L High 9 [facility] (24971) Comment: Performed By: #### HA1C #### [facility] [address] [place], [place] [address] Potassium [Moles/Vol] 3.7 3.5-5.1 mEq/L Normal 06-20-20 19 [facility] (28201) Comment: Performed By: #### HA1C #### [facility] [address] [place], [place] [address] Sodium [Moles/Vol] 139 136-145 mEq/L Normal 06-20-2019 [facility] (78098) Comment: Performed By: #### HA1C #### [facility] [address] [place], [place] [address] activated ptt on 13-06-26 aPTT Coag (Bld) [Time] 50.6 23.0-32.4 sec High 019 [facility] (67805) Comment: Result Comment: Unfractionat ed Heparin Therapeutic Ranges: Standard Heparin Nomogram: 53 to 78 seconds (anti-Xa le julito of 0.3 to 0.7 U/mL) Low Dose/ACS Nomogram: 49 to 67 seconds (anti-Xa le julito of 0.2 to 0.5 U/mL) Stroke Treatment Nomogram: 49 to 67 seconds (anti-Xa le julito of 0.2 to 0.5 U/mL) Note: The APTT therapeutic r eugene has been determined for the current lot of laboratory AP TT reagent in use throughout the [facility]. Performed By: #### HA1C #### [facility] [address] [place], [place] [address] xr chest 1v frontal on 2019-06-19 XR CHEST 1V * * *Final Report* * * Normal 06-19 [facility] DATE OF EXAM: Jun 19 2019 11:25[id number] - XR CHEST 1V FRONTAL / ([id number]) PROCEDURE REASON: Evaluate tube, line or lead position * * * * Physician Interpretation * * * * EXAMINATION: CHEST RADIOGRAPH (SINGLE VIEW AP ULTRASOUND POR TABLE UPRIGHT) CLINICAL HISTORY: Evaluate tube, line or lead position MQ: XC1_5 Comparison: AP chest 01/04/2018. RESULT: Lines, tubes, and devices: There is a triple lead cardiac pacer/defibrillator device with leads and battery pack in st able position. Lungs and pleura: No consolidation. No lung mass. No pleural effusion or pneumothorax. Cardiomediastinal silhouette: Cardiac silhouette size is upp er limits normal or minimally enlarged for AP technique but unchanged. Other: IMPRESSION: No acute radiographic abnormality. Stable appearance of triple lead cardiac pacer/defibrillator device. Cardiac size is upper limits normal versus minimally enlarge d, but unchanged. Groundman/Lineman: [facility]ITALSteven Transcribe Date/Time: Jun 19 2019 11:38A Dictated by : DANIA BRUNSON MD This examination was interpreted and the report reviewed and electronically signed by: DANIA BRUNSON MD on Jun 19 2019 11:41AM EST urinalysis routine on 2019-06-19 Bacteria LM.HPF (Urine sed) 4+ None Abnormal [facility] [#/Area] ([id number]) Comment: Performed By: #### URIN2 ### # [facility] [address] [place] [address] Ep Cells Urine 0.6 0.0-5.0 /hpf Normal 06-19-2019 [facility] (03987) Comment: Performed By: #### URIN2 ### # [facility] [address] [place], [place] [address] Hyaline Cast 1.4 0.0-1.0 /lpf High 06-19-2019 [facility] (98982) Comment: Performed By: #### URIN2 ### # [facility] [address] [place], [place] [address] RBC LM.HPF (Urine sed) 5.6 0.0-5.0 /hpf High 019 [place] [facility] [#/Area] System (00 000) Comment: Performed By: #### URIN2 ### # [facility] [address] [place], [place] [address] WBC LM.HPF (Urine sed) 379.9 0.0-5.0 /hpf High 019 [place] [facility] [#/Area] System (00 000) Comment: Performed By: #### URIN2 ### # [facility] [address] [place], [place] [address] Appearance (U) CLOUDY Normal 06-19-2019 [facility] (06352) Comment: Performed By: #### URIN2 ### # [facility] [address] [place], [place] [address] Bilirubin (U) NEGATIVE Negative mg/dL Normal 06-19-2019 [place] [facility] [Mass/Vol] System (0 0000) Comment: Performed By: #### URIN2 ### # [facility] [address] [place], [place] [address] Color (U) YELLOW Normal 06-19-2019 [facility] (71007) Comment: Performed By: #### URIN2 ### # [facility] [address] [place], [place] [address] Glucose Ql (U) NEGATIVE Negative Normal 06-19-2019 [facility] (52770) Comment: Performed By: #### URIN2 ### # [facility] [address] [place], [place] [address] Hemoglobin,Urine MODERATE Negative Abnormal 06-19-2019 [facility] (11238) Comment: Performed By: #### URIN2 ### # [facility] [address] [place], [place] [address] Ketone Urine NEGATIVE Negative Normal 06-19-2019 [facility] (82024) Comment: Performed By: #### URIN2 ### # [facility] [address] [place], [place] [address] Leukocytes Esterase LARGE Negative Abnormal 06-19-2019 [facility] (10280) Comment: Performed By: #### URIN2 ### # [facility] [address] [place], [place] [address] Nitrites Urine NEGATIVE Negative Normal 06-19-2019 [facility] (37029) Comment: Performed By: #### URIN2 ### # [facility] [address] [place], [place] [address] pH (U) 5.5 5.0-8.0 [pH] Normal 06-19-[address] [facility] (11429) Comment: Performed By: #### URIN2 ### # [facility] [address] [place], [place] [address] Protein (U) [Mass/Vol] 100 Negative mg/dL Abnormal 019 [facility] (00 000) Comment: Performed By: #### URIN2 ### # [facility] [address] [place], [place] [address] Specific Alexis, Ur 1.018 1.005-1.030 Normal 019 [facility] (00 000) Comment: Performed By: #### URIN2 ### # [facility] [address] [place], [place] [address] Urobilinogen,Ur 0.2 0.2-1.0 EU/dL Normal 06-19-2019 [facility] ([address]3112) Comment: Performed By: #### URIN2 ### # [facility] [address] [place], [place] [address] tsh, 3rd generation on 2019-06-19 TSH, 3rd generation 0.497 0.358-3.740 uIU/mL Normal 06-19-20 19 [facility] (00 000) Comment: Performed By: #### TSH3 #### [facility] [address] [place], [place] [address] troponin i on 06-19 Troponin I.cardiac 8.900 0.015-0.045 ng/ml Critically high [facility] [Mass/Vol] [facility] (13984) Comment: Performed By: #### TSH3 #### [address] [address] Troponin I.cardiac 12.400 0.015-0.045 ng/ml Critically high [facility] [Mass/Vol] [facility] (14907) Comment: Performed By: #### TSH3 #### [place] [address] Troponin I.cardiac 12.000 0.015-0.045 ng/ml Critically high [place] [facility] [Mass/Vol] [facility] ([address]) Comment: Performed By: #### TSH3 #### [place] [address] Troponin I.cardiac 8.110 0.015-0.045 ng/ml Critically high [facility] [Mass/Vol] [facility] ([address]) Comment: Performed By: #### TROP #### [place] [address] protime on INR Coag (PPP) [Relative 1.05 0.90-1.30 {INR} Normal 06-19 [facility] time] System (00 000) Comment: Result Comment: Vitamin K An tagonist (VKA) Therapeutic Range: INR 2 to 3 (Target INR of 2.5) Note: For patients treated w ith VKA drugs, such as warfarin, the [employer] 2012 Guideline recommends a therapeutic INR range of 2 to 3 (target INR of 2.5). This recommendation includes high -risk patients with antiphospholipid syndrome with previous arter ial or venous thromboembolism, current-generation mechanica l or bioprosthetic aortic heart valve replacement. VKA Therapeutic Range for so me Mechanical Valve Replacement: INR 2.5 to 3.5 (Target INR o f 3) Note: Patients with mechanic driver al aortic valve replacement and additional risk factors for thromboembolic events (atrial fibrillation, previous throm boembolism, LV dysfunction, hypercoagulable conditions) or an older generation mechanical AVR (i.e., ball in-Cage) or any mechanical MVR should have a INR therapeutic range of 2 .5 to 3.5 target INR of 3). Rox GH, et al. Chest 2012 ; 141:7S-47S Ellis RA, et al. [facility] 20 ; 70: 252-289 Performed By: #### TSH3 #### [facility] [address] [place], [place] [address] PT Coag (PPP) [Time] 10.9 9.7-13.0 sec Normal 9 [facility] (43618) Comment: Performed By: #### TSH3 #### [facility] [address] [place], [place] [address] progress on 2019-05 PROGRESS HNO ID: [id number] Normal 06-19-2019 [place] Author: Linda Gómez MD General Service: Cardiovascular Medicine Medical Author Type: Resident Center Type: Progress Notes ([id number]) Filed: 06/19/2019 3:17 PM Note Text: Attestation signed by Porfirio Sacnhez at 06/21/2019 8:0 3 AM This patient was seen in con junction with the resident staff, Nursing staff and Clinical Pharmacy. I have personally seen and examined the p atient. I have reviewed labs, clinical data and pertinent images. Arvin lynn discussed the case with the care team. I agree with the documentation, excepts as annotated. Clinical issues addressed on this visit: 1. NSTEMI (non-ST elevated myocardial in farction) (HCC) - ICD9: 410.70, ICD10: I21.4 2. Cardiomyopathy, ischemic - ICD9: 414.8, ICD10: I25.5 3. Chronic systolic heart failure (HCC) - ICD9: 428.22, ICD1 0: I50.22 4. Ventricular fibrillation, paroxysmal ([facility]) - ICD9: 427. 41, ICD10: I49.01 5. VT (ventricular tachycardia) ([facility]) - ICD9: 427.1, ICD10: I47.2 6. Implantable cardioverter-defibrillator (ICD) generator end of life - ICD9: V53.32, ICD10: Z45.02 7. Encounter for management of biventricular implantable cardioverter-defibrillator (ICD) - ICD9: V53.32, ICD10: Z45. 02 8. Ischemic cardiomyopathy - ICD9: 414.8, ICD10: I25.5 Porfirio Sanchez MD, [facility]. Pager # [phone] Cardiovascular Intensive Care Progress Note June 19, 2019 Patient Name: Leo Mc Patient Location: [id number] [facility]* Admission Date: 06/18/2019 Length of Stay: 1 Primary Service: Cardiovascular Intensive Care Interval History for 06/19/19: Patient seen and examined in the AM. Patient has no new comp laints overnight. He is a poor historian. He has BP in 90s/50s, hea rt rate in 50s, SpO2 in late 90s. The physical examination was unremark able. His lab reports show- BUN at 26, creatinine at 1.39, troponin at 12 (previously ~8), WBCs at 19.38. Urinalysis is significant for increased leucocyte esterase and enhanced WBCs in the urine. He was started on c eftriaxone for the same. His previous Echocardiogram shows an EF of 25%. Review of Systems: Review of Systems Constitutional: Negative for chills and fever. Eyes: Negative for blurred vision. Respiratory: Negative for cough, hemoptysis and shortness of breath. Cardiovascular: Negative for chest pain, palpitations and or thopnea. Gastrointestinal: Negative for abdominal pain, heartburn and nausea. Musculoskeletal: Negative for myalgias. Neurological: Negative for dizziness, weakness and headaches . Subjective No past medical history on file. No current facility-administered medications on file prior t o encounter. Current Outpatient Medications on File Prior to Encounter: hydroCHLOROthiazide (HYDRODIURIL, ESIDRIX) 25 mg tablet Take 25 mg by mouth once daily. losartan (COZAAR) 25 mg tablet Take 25 mg by mouth once carmen y. aspirin, enteric coated (ASPIRIN, ENTERIC COATED) 81 mg EC t ablet Take 81 mg by mouth once daily. atorvastatin (LIPITOR) 20 mg tablet Take 20 mg by mouth carmen y at bedtime. carvedilol (COREG) 3.125 mg tablet Take 3.125 mg by mouth tw ice daily with meals. clopidogrel (PLAVIX) 75 mg tablet Take 75 mg by mouth once d aily. furosemide (LASIX) 40 mg tablet Take 40 mg by mouth once kathy ly. Objective Present Condition: 06/19/19 1000 06/19/19 1100 06/19/19 1200 06/19/19 1300 BP: 101/52 (!) 88/49 98/55 (!) 95/49 Pulse: (!) 48 (!) 47 (!) 44 (!) 46 Resp: Temp: SpO2: 100% 100% 100% 100% Weight: Height: Physical Exam Constitutional: He is oriented to person, place, and time an d well-developed, well-nourished, and in no distress. HENT: Head: Normocephalic and atraumatic. Cardiovascular: Normal rate, regular rhythm, normal heart so unds and intact distal pulses. Exam reveals no friction rub. No murmur heard. Pulmonary/Chest: Effort normal and breath sounds normal. No respiratory distress. He has no wheezes. He has no rales. Abdominal: Soft. Bowel sounds are normal. He exhibits no dis tension. There is no tenderness. There is no rebound. Musculoskeletal: He exhibits no edema. Neurological: He is alert and oriented to person, place, and time. Skin: Skin is warm and dry. Current Facility-Administered Medications Medication Dose Route Frequency Provider Last Rate Last Dose - cefTRIAXone 1 g in D5W 100 mL MB+ (ROCEPHIN) 1 g INTRAVENO US q 24 H Herson Ibanez DO 200 mL/hr at 06/19/19 0611 1 g at 06/19/19 0611 - heparin iv infusion (LOW DOSE ACS/NOMOGRAM) 25,000 units i n NaCl 0.45% 250 mL PREMIX 0-3,000 Units/hr INTRAVENOUS CONTINUOUS Gastephanie covarrubias (Res) MD Dalia 10 mL/hr at 06/19/19 0740 1,000 Units/hr at 0740 And - heparin RATE CHANGE bolus 1,000-4,000 Units for subtherape utic aptt results 1,000-4,000 Units INTRAVENOUS PRN Linda (Res) Chhaya germain MD - potassium chloride 80-120 mEq oral liquid 80-120 mEq ORAL/ FEEDING TUBE PRN Herson (Res) Marcelle, DO - potassium chloride iv piggyback 20 mEq/100 mL 20 mEq INTRA VENOUS PRN Herson (Res) Briseidabaza, DO - magnesium sulfate in water 2 g in sterile water 50 ml 2 g INTRAVENOUS PRN Herson (Res) aTniaza, DO - sodium phosphate 45 mmol in NaCl 0.9% 250 mL 45 mmol INTRA VENOUS PRN Herson (Res) Taniaza, DO - calcium gluconate 4 g in NaCl 0.9% 250 mL 4 g INTRAVENOUS PRN Herson (Res) Marcelle, DO - amiodarone 360 mg in D5W 200 mL (NEXTERONE) 0.5 mg/min INT RAVENOUS CONTINUOUS Herson (ResFranchesca Goinsbaza, DO 16.67 mL/hr at 9 1145 0.5 mg/min at 06/19/19 1145 - atorvastatin 40 mg tab(s) (LIPITOR) 40 mg ORAL AT BEDTIME Herson (Eleanor Goinsbaza, DO 40 mg at 06/19/19 0023 - aspirin, enteric coated 81 mg tab(s) 81 mg ORAL DAILY [facility] joe (ResFranchesca Smithabbaza, DO 81 mg at 06/19/19 0740 - perflutren lipid microspheres 1.1 mg/mL 1.3 mL injection ( DEFINITY) 1.3 mL INTRAVENOUS DIRECTED PRN Herson (Eleanor Goinsbaza, DO Labs: CBC: Recent Labs 06/19/19 0735 06/18/19 2320 WBC 15.40* 19.38* HB 13.2* 14.5 HCT 40.1 43.8 PLT 125* 143 MCV 93.7 93.2 COAG: Recent Labs 06/19/19 1330 06/19/19 0735 APTT 58.8* 29.6 INR -- 1.05 BMP: Recent Labs 06/18/192319 GLUC 120* NA 142 K 4.0 CHLOR 108* CO2 23 ANION 15 BUN 26* CREAT 1.39* CHEM: Recent Labs 06/18/192319 ALB 3.4 TPROT 7.4 CA 9.1 MG 1.8 HEPATIC: Recent Labs 06/18/192319 ALKPHOS 71 ALT 39 AST 68* TBILI 0.3 URINALYSIS: Recent Labs 06/19/19 0040 SPGR 1.018 UGLUC NEGATIVE UBILI NEGATIVE UKET NEGATIVE UPROT 100* UROBIL 0.2 UWBC 379.9* CARDIAC: No results for input(s): CKTEST, CKMB, CKMBP in the last 168 hours.TROPONIN@:8,No results found for: BNP:8)@ Intake/Output Summary (Last 24 hours) at 06/19/2019 1501 Last data filed at 06/19/2019 1300 Gross per 24 hour Intake 528 ml Output 1075 ml Net -547 ml Serum creatinine: 1.39 mg/dL (H) 06/18/192319 Estimated creatinine clearance: 41.6 mL/min (A) Assessment/Plan NSTEMI- -Troponin at 12 in the latest reading. -Patient started on heparin, ASA, atorvastatin and metoprolo l. -Scheduled for cardiac catheterization. -Discontinue metoprolol is patient is bradycardic. -Schedule patient for an Echocardiogram. AICD dysfunction/ arrhythmias- -Patient on amiodarone gtt. -EP consulted -Patient on cardiac telemetry. UTI- -Patient initiated on ceftriaxone. -Urine culture ordered. Signed: Linda Gómez MD, PGY-1 Pager: [phone] [facility] Date: June 19, 2019 Time: 12:01 PM Recommendations are not finalized until co-signed by Staff catherine chin. n-terminal pro-bnp on 2019-06-19 Natriuretic peptide B (Bld) 3857 pg/ml Normal [employer] [facility] [Mass/Vol] System (0 0000) Comment: Result Comment: Note new ref erence range: Normal Reference Range: Patients <75 yrs old <125pg/ ml Patients >=75 yrs old <450 p g/ml Performed By: #### PBNP #### [facility] [address] [place], [place] [address] magnesium blood on 2019-06-19 Magnesium [Mass/Vol] 1.8 1.6-2.6 mg/dL Normal 9 [facility] (10593) Comment: Performed By: #### MAG #### [facility] [address] [place], [place] [address] lipid profile on 13-06-25 Cholesterol in HDL [Mass/Vol] 28 >40 mg/dL Normal 06-19-2019 [facility] (00 000) Comment: Performed By: #### LIPD2 ### # [facility] [address] [place], [place] [address] Cholesterol in LDL [Mass/Vol] 110 mg/dL Normal 06-19-2019 [facility] (00 000) Comment: Result Comment: No CAD and w ith fewer than 2 CAD risk factors <160 mg/dL No CAD but with 2 or more CA D risk factors <130 mg/dL Definite CAD or other athero sclerotic disease <100 mg/dL Performed By: #### LIPD2 ### # [facility] [address] [place], [place] [address] Cholesterol in LDL/Cholesterol 3.9 1.1-4.8 Normal 06-19-2019 [facility] in HDL [Mass ratio] System (25364) Comment: Result Comment: LDL,VLDL,LDL /HDL, Invalid if Triglyceride >400 Performed By: #### LIPD2 ### # [facility] [address] [place], [place] [address] Cholesterol.total/Cholesterol in HDL 5.9 2.1-7.3 Nor mal 06-19-2019 [facility] [Mass ratio] [facility] (15276) Comment: Performed By: #### LIPD2 ### # [facility] [address] [place], [place] [address] Cholesterol in VLDL 26 <50 Desired mg/dL Normal 06-19-20 [facility] [Mass/Vol] System (0 0000) Comment: Performed By: #### LIPD2 ### # [facility] [address] [place], [place] [address] Triglyceride [Mass/Vol] 131 0-149 mg/dL Normal 2018 [facility] (38986) Comment: Result Comment: < 200 Desira ble Result invalid if not a fast ing specimen. Performed By: #### LIPD2 ### # [facility] [address] [place], [place] [address] Cholesterol [Mass/Vol] 164 0-199 mg/dL Normal 019 [facility] (52885) Comment: Result Comment: <200 Desirab le 200-240 Borderline >240 High Performed By: #### LIPD2 ### # [facility] [address] [place], [place] [address] history physical on 2019-06-19 HISTORY PHYSICAL HNO ID: [id number] Normal 05-27 [facility] Author: Porfirio Grossman [facility] Service: Cardiovascular Medicine ([id number]) Author Type: Physician Type: HANDP Filed: 06/19/2019 12:59 PM Note Text: CVICU HISTORY AND PHYSICAL SERVICE DATE: 06/18/2019 HPI: Per notes from [facility] as patient is an extremely p oor historian and reports he does not know what happened to him. Leo Mc is a 83 year old male, transfer from [facility] with PMH of HTN, HLD, renal insufficiency, HFrEF (l ast EF 25% (March 2017), CAD status post angioplasty and bare-metal sten ting to the distal left anterior descending artery in March 2017, and sta tus post ICD implantation in 2012 who presented with a chief complaint of his defibrillator malfunctioning and at that time he called EMS. He was supposed to have the battery in his defib changed 4 months a go but has been unable to do so. EMS arrived on scene and placed him in the ambulance and when they placed him on the monitor his defib went off a nd he immediately became unresponsive and went into vtach and puls eless. Defib pads were placed on the patient as his defib failed to fire and he was manually defibrillated by EMS at 1642 and CPR was started. I O access obtained in left tibia. At the next rhythm check patient maddison t into v.fib and was defibrillated at 1645. 1mg epi was administered via IO. Next rhythm check he was in a.fib and had a palpable pulse. Patie nt then began to breath spontaneously and began yelling in pain. He currently denies any chest pain or SOB. Denies any pain a t all. Denies any fevers, chills or night sweats. Denies any nausea, vomit ing, diarrhea or constipation. Denies any headaches, vision changes, troub le swallowing, abdominal pain, LE pain or swelling. Denies any GI or sym ptoms. He is a currently 1ppd smoker. At [place] WBC 24.4, Hgb 15.8, Plt 188. INR 1.1. Na 140, K 2.8, Cl 103, CO2 26 Cr 1.84, eGFR 38, Glucose 143, Mg 2.0 Troponin 0.611. Cxr showe d no acute abnormality. He was started on an amiodarone bolus and gtt at [place]. He also received lovenox due to elevated troponin. And given a 500cc NS bolus as he was hypotensive. EKG showed afib with RVR, and RBBB. Currently he is in sinus bradycardia. Past Medical History: No past medical history on file. Past Surgical History: No past surgical history on file. Family History: No family history on file. Social History: Social History Tobacco Use - Smoking status: Current Every Day Smoker Types: Cigarettes - Smokeless tobacco: Never Used Substance Use Topics - Alcohol use: Yes - Drug use: No Medications: Prior to Admission Medications: hydroCHLOROthiazide (HYDRODIURIL, ESIDRIX) 25 mg tablet Take 25 mg by mouth once daily. losartan (COZAAR) 25 mg tablet Take 25 mg by mouth once carmen y. aspirin, enteric coated (ASPIRIN, ENTERIC COATED) 81 mg EC t ablet Take 81 mg by mouth once daily. atorvastatin (LIPITOR) 20 mg tablet Take 20 mg by mouth carmen y at bedtime. carvedilol (COREG) 3.125 mg tablet Take 3.125 mg by mouth tw ice daily with meals. clopidogrel (PLAVIX) 75 mg tablet Take 75 mg by mouth once d aily. furosemide (LASIX) 40 mg tablet Take 40 mg by mouth once kathy ly. No current facility-administered medications for this encoun ter. Allergies: ALLERGIES No Known Allergies Review of Systems: See HPI Physical Exam: General: no acute distress, AO x 2 (person and place) Cardiovascular: Regular bradycardic Respiratory: Clear to auscultation Abdomen: Soft, Nontender and Positive bowel sounds Extremities: Edema- No Neurologic: Awake, oriented, Alert and Follows commands Heart Cath March 2017 -ejection fraction of 25%, left main as angiographically nor mal, LAD with previous patent stent, mid LAD with 80% stenosis, distal LAD with mild luminal irregularities, circumflex artery with mild luminal irregularities less than 30%, and RCA with patent previous placed stent. IMPRESSION AND PLAN: There are no active hospital problems to display for this pa tient. Assessment V.tach arrest s/p defibrillation with ROSC NSTEMI ?AICD Malfunction, status post ICD implantation in 2012 CAD status post angioplasty and bare-metal stenting to the d istal LAD in March 2017 STACY on suspected CKD, baseline kidney function unknown UTI Hypokalemia HFrEF - EF 25% (March 2017) HTN HLD Active Tobacco Abuse - 1ppd smoker Patient is an extremely poor historian, states he does not t martina any medications Appears to have some baseline dementia, but may be secondary to UTI, currently alert and oriented to person and place; will need to clarify with family, states he lives with his son and daughter but d oes not know their phone numbers, no focal neurological deficits apprecia gloria on exam Plan -already received 150 mg bolus IV amio and 1 mg/min IV x 6 h rs -continue amio gtt at 0.5 mg/min IV x 18 hrs -trend troponins -start high dose atorvastatin 40 mg -start aspirin 81 mg daily -hold off on BB as he is bradycardic -Echo in the am -HbA1c and lipid panel ordered -replete electrolytes -Keep Mg>2.0 and K>4.0 -interrogate AICD -ceftriaxone for UTI -smoking cessation encouraged -DVT ppx with heparin; already received 80 mg subq x 1 at [facility] [place] -monitor hemodynamics SIGNATURE: Herson Ibanez DO PATIENT NAME: Leo Mc DATE: June 19, 2019 TIME: 12:09 AM PAGER/CONTACT #: [phone] This patient was seen in conjunction with the resident staff . I have personally seen and examined the patient. I have reviewed la bs, clinical data and pertinent images. I have discussed the case with [facility] care team. I agree with the documentation, excepts as annotated. Critical Care Documentation: As delineated above, the patient has the following organ/sys tem impairment(s): ASSESSMENT/PLAN: 1. NSTEMI (non-ST elevated myocardial infarction) (HCC) - IC D9: 410.70, ICD10: I21.4 -Elevated troponins up to 12. The patient presented to [facility] after of VT arrest. He was resuscitated by EMS. Patient has a history of ICD which is at end of life. Has not gotten the defibrillato r changed. Patient was defibrillated by external means by the EMS at [facility]. Patient is currently pain-free. The because of EKG changes i t is suspected that progression of coronary disease is at hand. Patient has a history of LAD and RCA stents. I spoke with Dr. Soto from [facility] about the condition of the patient upon transfer. Care will be oncology coordinator rdinated accordingly I have also discussed the case with Dr. Grimm for potenti al Catheterization within the next 24 hours. 2. Cardiomyopathy, ischemic - ICD9: 414.8, ICD10: I25.5 Ejection fraction 20%. The patient is currently on non-stabl e medications. No evidence of overt fluid overload. 3. Chronic systolic heart failure (HCC) - ICD9: 428.22, ICD1 0: I50.22 As above and continue to support. Porfirio Sanchez MD This patient has a high probability of sudden, clinically si gnificant deterioration, which requires the highest level of physician preparedness to intervene urgently. I managed/supervised life or organ page pporting interventions that required frequent physician assessment. I devoted my full attention to the direct care of this patient for the am ount of time indicated below. Time I spent with family or surrogate(s) is included only if the patient was incapable of providing the necessary information or participating in medical decision making. Time devoted to teaching is not included. ?? Time spent providing critical care services: 35 minutes excl uding procedures. Porfirio Sanchez MD, FACC. Pager # [phone] hgb a1c on HbA1c (Bld) [Mass fraction] 5.8 4.2-6.3 % Normal [facility] (00 000) Comment: Result Comment: Method is Na tional Glycohemoglobin Standardization Program (NGSP) compliant. Performed By: #### HA1C #### [address], [place] [address] HbA1c (Bld) [Mass fraction] 120 mg/dl Normal [facility] (10343) Comment: Performed By: #### HA1C #### [facility] [address] [place] [address] hemogram/diff on 13-06-25 Abs Immature Grans 0.12 0.00-0.05 thou/cmm High 06-19-2019 [facility] (00 000) Comment: Performed By: #### CBCD1 ### # [facility] [address] [place] [address] Abs Neut (ANC) 15.60 1.78-5.38 thou/cmm High 06-19-2019 [facility] (91941) Comment: Performed By: #### CBCD1 ### # [place] [address] Abs. Baso 0.04 0.01-0.08 thou/cmm Normal 06-19-[address] [facility] (44985) Comment: Performed By: #### CBCD1 ### # [facility] [address] [place] [address] Abs. Jack 1.14 0.30-0.82 thou/cmm High 06-19-[address] [facility] (35314) Comment: Performed By: #### CBCD1 ### # [place] [address] Basophils/100 WBC (Bld) 0.2 % Normal 2018 [facility] (81504) Comment: Performed By: #### CBCD1 ### # [place] [address] Eosinophils (Bld) [#/Vol] 0.02 0.04-0.54 thou/cmm Low 05-27 [facility] (00 000) Comment: Performed By: #### CBCD1 ### # [place] [address] Eosinophils/100 WBC (Bld) 0.1 % Normal 05-27 [facility] (46476) Comment: Performed By: #### CBCD1 ### # [facility] [address] [place], [place] [address] Immature Grans 0.60 % Normal 06-19-2019 [facility] (33336) Comment: Performed By: #### CBCD1 ### # [facility] [address] [place], [place] [address] Lymphocytes (Bld) 2.46 0.84-2.85 thou/cmm Normal 06-19-2019 [facility] [#/Vol] Health Sys tem (02696) Comment: Performed By: #### CBCD1 ### # [facility] [address] [place], [place] [address] Lymphocytes/100 WBC (Bld) 12.7 % Normal 05-27 [facility] (61666) Comment: Performed By: #### CBCD1 ### # [facility] [address] [place], [place] [address] Monocytes/100 WBC (Bld) 5.9 % Normal 2018 [facility] (37415) Comment: Performed By: #### CBCD1 ### # [facility] [address] [place], [place] [address] Seg Neutrophil 80.5 % Normal 06-19-2019 [facility] (99013) Comment: Performed By: #### CBCD1 ### # [facility] [address] [place], [place] [address] Erythrocyte distribution 13.2 11.6-14.4 % Normal 06-19 [facility] width (RBC) [Ratio] System (98346) Comment: Performed By: #### CBCD1 ### # [facility] [address] [place], [place] [address] Hematocrit (Bld) [Volume 43.8 40.1-51.0 % Normal 06-19 [facility] fraction] System (00 000) Comment: Performed By: #### CBCD1 ### # [facility] [address] [place], [place] [address] Hemoglobin (Bld) 14.5 13.7-17.5 g/dL Normal 06-19-2019 [facility] [Mass/Vol] System (0 0000) Comment: Performed By: #### CBCD1 ### # [facility] [address] [place], [place] [address] MCH (RBC) [Entitic mass] 30.9 25.7-32.2 pg Normal 06-19 [facility] (00 000) Comment: Performed By: #### CBCD1 ### # [facility] [address] [place], [place] [address] MCHC (RBC) [Mass/Vol] 33.1 32.3-36.5 % Normal 06-19-20 19 [facility] (09930) Comment: Performed By: #### CBCD1 ### # [facility] [address] [place], [place] [address] MCV (RBC) [Entitic vol] 93.2 83.2-95.6 fl Normal 2018 [facility] (00 000) Comment: Performed By: #### CBCD1 ### # [facility] [address] [place], [place] [address] Platelet mean volume (Bld) 11.2 8.7-12.[address] [facility] [Entitic vol] System (66357) Comment: Performed By: #### CBCD1 ### # [facility] [address] [place], [place] [address] Platelets (Bld) [#/Vol] 143 141-365 thou/cmm Normal 2018 [facility] (00 000) Comment: Performed By: #### CBCD1 ### # [facility] [address] [place], [place] [address] RBC (Bld) [#/Vol] 4.70 4.63-6.08 mil/cmm Normal 06-19-2019 [facility] (00 000) Comment: Performed By: #### CBCD1 ### # [facility] [address] [place], [place] [address] RDW SD 45.2 36.1-45.8 fl Normal 06-19-2019 [facility] (78449) Comment: Performed By: #### CBCD1 ### # [facility] [address] [place], [place] [address] WBC (Bld) [#/Vol] 19.38 4.23-9.07 thou/cmm High 06-19-2019 [facility] () Comment: Performed By: #### CBCD1 ### # [facility] [address] [place], [place] [address] hemogram on 2019-05 Erythrocyte distribution 13.3 11.6-14.4 % Normal 06-19 [facility] width (RBC) [Ratio] System (63578) Comment: Performed By: #### TSH3 #### [facility] [address] [place] [address] Hematocrit (Bld) [Volume 40.1 40.1-51.0 % Normal 06-19 [facility]] System ( 000) Comment: Performed By: #### TSH3 #### [place] [address] Hemoglobin (Bld) [Mass/Vol] 13.2 13.7-17.5 g/dL Low [facility] ( 000) Comment: Performed By: #### TSH3 #### [facility] [address] [place] [address] MCH (RBC) [Entitic mass] 30.8 25.7-32.2 pg Normal 06-19 [facility] ( 000) Comment: Performed By: #### TSH3 #### [place] [address] MCHC (RBC) [Mass/Vol] 32.9 32.3-36.5 % Normal 06-19-20 19 [facility] (82420) Comment: Performed By: #### TSH3 #### [facility] [address] [place], [place] [address] MCV (RBC) [Entitic vol] 93.7 83.2-95.6 fl Normal 2018 [facility] ( 000) Comment: Performed By: #### TSH3 #### [place] [address] Platelet mean volume (Bld) 10.8 8.7-12.[address] [facility] [Entitic vol] System (72240) Comment: Performed By: #### TSH3 #### [facility] [address] [place] [id number] Platelets (Bld) [#/Vol] 125 141-365 thou/cmm Low 2018 [facility] (00 000) Comment: Performed By: #### TSH3 #### [facility] [address] [place] [id number] RBC (Bld) [#/Vol] 4.28 4.63-6.08 mil/cmm Low 06-19-2019 [facility] (82336) Comment: Performed By: #### TSH3 #### [facility] [address] [place] [id number] RDW SD 46.0 36.1-45.8 fl High 06-19-2019 [facility] (55029) Comment: Performed By: #### TSH3 #### [facility] [address] [place] [id number] WBC (Bld) [#/Vol] 15.40 4.23-9.07 thou/cmm High 06-19-2019 [facility] (00 000) Comment: Performed By: #### TSH3 #### [facility] [address] [place] [id number] cult urine on 06-19 Cult Urine Test performed at [facility] Normal 06-19-2019 [facility] ORGANISM: *Escherichia coli (ID: 1) Health System 1,000-<5,000 CFU/ml For sensitivity repo rt see Date/ (61515) ORGANISM: *Klebsiella oxytoca (ID: 2) 50,000-99,000 CFU/ml For sensitivity report see Date/ ORGANISM: Normal Urogenital Valentina (ID: 3) 1,000-<5,000 CFU/ml Comment: Performed By: #### HA1C #### [facility] [address] [place] [address] Cult Urine Test performed at [facility] Normal 06-19-2019 [facility] ORGANISM: *Escherichia coli (ID: 1) System (53118) >100,000 CFU/ml CLSI breakpoints for therapy of uncomplicated UTI due to E. coli, K. pneumoniae or P. mirabilis were applied and may be used to predict the activity of oral agents (cefdinir, cefpodoxime, cefuroxime, and cephalexin). ORGANISM: *Klebsiella oxytoca (ID: 3) 10,000-50,000 CFU/ml CLSI breakpoints for therapy of uncomplicated UTI due to E. coli, K. pneumoniae or P. mirabilis were applied and may be used to predict the activity of oral agents (cefdinir, cefpodoxime, cefuroxime, and cephalexin). ORGANISM: Normal Urogenital Valentina (ID: 2) 1,000-<5,000 CFU/ml Comment: Performed By: #### HA1C #### [place] [address] consult on CONSULT HNO ID: [id number] Normal 06-19-2019 [facility] Author: Facundo [facility] Service: Electrophysiology ([id number]) Author Type: Physician Type: Consults Filed: 06/19/2019 11:58 AM Note Text: CONSULT NOTE SERVICE DATE: 06/19/2019 SERVICE TIME: 11:49 AM PHYSICIAN CONSULT (AK,AV,EU,FV,HL,FRANCISCO,MM,SP) Consult performed [facility] Consult ordered by: Rickie Busch Reason for consult: Ventricular fibrillation. PRIMARY CARE PHYSICIAN: DO Majo Hillman 83-year-old male with history of essential hypertension, cor onary disease, status post PCI to LAD in 2017, ischemic cardiomyopathy with severe LV systolic dysfunction, RBBB, status post [employer] system implant ation at an outside institution in 2012 who presented to [facility] with confusion, developed ventricular fibrillation that required external defibrillation twice, was diagnosed with NSTEMI, treated wit h low molecular weight and then unfractionated heparin, as well as amiodarone, and transferred to [facility]. According to the records the patien t does not take any medication. The patient is oriented to self only, not to date, time or l ocation, denies current complaints, not able to provide any meaningfu l history. According to the records his device was due for battery repl acement 4 months ago. Outside ECGs demonstrate sinus rhythm with right bundle-bran ch block. One tracing is suggestive of atrial fibrillation with RBBB. No d evice interrogation data is available. Chest x-ray reveals presence of a [employer]D system, likely [facility]. One of the ECG tracings is suggestive of pacing with failure to capture with background sinus bradycardia in the high 40s. Telemetry shows sinus bradycardia in the high 40s/low 50s, o ccasional PVCs. Laboratories are significant for hypokalemia with potassium of 2.8 and troponin elevation to 12, as well as elevated white count of 19. FUNCTIONAL STATUS: Independent. No past medical history on file. No past surgical history on file. No family history on file. Social History Tobacco Use - Smoking status: Current Every Day Smoker Types: Cigarettes - Smokeless tobacco: Never Used Substance Use Topics - Alcohol use: Yes - Drug use: No Medications Prior to Admission: hydroCHLOROthiazide (HYDRODIURIL, ESIDRIX) 25 mg tablet Take 25 mg by mouth once daily. Disp: Rfl: 01/04/2018 at Unknown time losartan (COZAAR) 25 mg tablet Take 25 mg by mouth once carmen y. Disp: Rfl: 01/04/2018 at Unknown time aspirin, enteric coated (ASPIRIN, ENTERIC COATED) 81 mg EC t ablet Take 81 mg by mouth once daily. Disp: Rfl: 01/04/2018 at Unknown time atorvastatin (LIPITOR) 20 mg tablet Take 20 mg by mouth carmen y at bedtime. Disp: Rfl: 01/03/2018 at Unknown time carvedilol (COREG) 3.125 mg tablet Take 3.125 mg by mouth tw ice daily with meals. Disp: Rfl: 01/04/2018 at Unknown time clopidogrel (PLAVIX) 75 mg tablet Take 75 mg by mouth once d aily. Disp: Rfl: 01/04/2018 at Unknown time furosemide (LASIX) 40 mg tablet Take 40 mg by mouth once kathy ly. Disp: Rfl: 01/04/2018 at Unknown time Current Facility-Administered Medications Medication Dose Route Frequency - potassium chloride 80-120 mEq oral liquid 80-120 mEq ORAL/ FEEDING TUBE PRN - potassium chloride iv piggyback 20 mEq/100 mL 20 mEq INTRA VENOUS PRN - magnesium sulfate in water 2 g in sterile water 50 ml 2 g INTRAVENOUS PRN - sodium phosphate 45 mmol in NaCl 0.9% 250 mL 45 mmol INTRA VENOUS PRN - calcium gluconate 4 g in NaCl 0.9% 250 mL 4 g INTRAVENOUS PRN - amiodarone 360 mg in D5W 200 mL (NEXTERONE) 0.5 mg/min INT RAVENOUS CONTINUOUS - atorvastatin 40 mg tab(s) (LIPITOR) 40 mg ORAL AT BEDTIME - aspirin, enteric coated 81 mg tab(s) 81 mg ORAL DAILY - perflutren lipid microspheres 1.1 mg/mL 1.3 mL injection ( DEFINITY) 1.3 mL INTRAVENOUS DIRECTED PRN - cefTRIAXone 1 g in D5W 100 mL MB+ (ROCEPHIN) 1 g INTRAVENO US q 24 H - heparin iv infusion (LOW DOSE ACS/NOMOGRAM) 25,000 units i n NaCl 0.45% 250 mL PREMIX 0-3,000 Units/hr INTRAVENOUS CONTINUOUS And - heparin RATE CHANGE bolus 1,000-4,000 Units for subtherape utic aptt results 1,000-4,000 Units INTRAVENOUS PRN Allergies As of Date: 06/18/2019 (No Known Allergies) Fully Assessed 06/18/2019 COMPLETE REVIEW OF SYSTEMS: Review of Systems Unable to perform ROS: Dementia Objective Physical Exam Constitutional: He is oriented to person, place, and time. H e appears well-developed and well-nourished. No distress. HENT: Head: Normocephalic and atraumatic. Eyes: Pupils are equal, round, and reactive to light. Conjun ctivae are normal. Cardiovascular: Regular rhythm. Bradycardic, S1-S2. Pulmonary/Chest: No stridor. No respiratory distress. He has no wheezes. He has no rales. Abdominal: There is no tenderness. Musculoskeletal: He exhibits no edema. Neurological: He is alert and oriented to person, place, and time. Skin: Skin is warm and dry. No rash noted. Psychiatric: He has a normal mood and affect. Judgment kiley l. Patient Vitals for the past 24 hrs: BP Temp Pulse Resp SpO2 Height Weight 06/19/19 1100 (!) 88/49 ? (!) 47 ? 100 % ? ? 06/19/19 1000 101/52 ? (!) 48 ? 100 % ? ? 06/19/19 0900 (!) 94/45 ? (!) 50 ? 100 % ? ? 06/19/19 0800 97/55 ? (!) 46 ? 99 % ? ? 06/19/19 0700 91/51 ? (!) 49 ? 98 % ? ? 06/19/19 0600 106/53 ? (!) 52 ? 99 % ? ? 06/19/19 0500 94/50 ? (!) 48 ? 98 % ? ? 06/19/19 0441 92/54 ? (!) 57 ? 98 % ? ? 06/19/19 0430 ? ? (!) 51 ? 98 % ? ? 06/19/19 0400 99/51 ? (!) 52 ? 98 % ? ? 06/19/19 0300 107/69 ? (!) 58 ? 98 % ? ? 06/19/19 0200 98/53 ? (!) 51 ? 97 % ? ? 06/19/19 0100 103/56 ? (!) 52 16 98 % ? ? 06/19/19 0039 ? 177.8 cm (5' 10) 82.2 kg (181 lb 3. 5 oz) 06/19/19 0000 103/53 ? (!) 52 16 98 % ? ? 06/18/19 2300 96/52 ? (!) 57 22 99 % ? ? 06/18/19 2231 (!) 88/48 ? (!) 54 18 100 % ? ? 06/18/19 2214 95/53 36.2 ?C (97.2 ?F) (!) 59 19 99 % ? ? Body mass index is 26 kg/m?. DATA: Diagnostic tests reviewed for today's visit: Most recent labs and imaging results. Assessment and recommendations: 83-year-old male with coronary disease, ischemic cardiomyopa thy, ventricular fibrillation in the setting of acute coronary sy ndrome (NSTEMI), suspected ICD malfunction (failure to defibrillate , failed to capture - possibly due to battery depletion). The rhythm is currently stable. Would proceed with intravenous amiodarone, as bradyc ardia is not severe, ischemic evaluation (coronary angiography) to determ ine anatomical substrate for ventricular fibrillation, and ICD interrogatio n Thursday morning. Further steps addressing ICD malfunction would be d etermined by results of interrogation. SIGNATURE: Facundo Cottrell MD PATIENT NAME: Leo Mc DATE: June 19, 2019 TIME: 11:49 AM PAGER: [id number] comprehensive panel on 2019-06-19 ALP [Catalytic activity/Vol] 71 45-117 U/L Normal 0 06-19-2019 [facility] (00 000) Comment: Performed By: #### P14 #### [facility] [address] [place], [place] [address] Bilirubin [Mass/Vol] 0.3 0.2-1.0 mg/dL Normal 9 [facility] (87645) Comment: Performed By: #### P14 #### [facility] [address] [place], [place] [address] Protein [Mass/Vol] 7.4 6.4-8.2 g/dL Normal 06-19-2019 [facility] (40765) Comment: Performed By: #### P14 #### [facility] [address] [place], [place] [address] ALT [Catalytic activity/Vol] 39 12-78 U/L Normal 0 06-19-2019 [facility] (00 000) Comment: Performed By: #### P14 #### [facility] [address] [place], [place] [address] AST [Catalytic activity/Vol] 68 15-37 U/L High 0 06-19-2019 [facility] (93897) Comment: Performed By: #### P14 #### [facility] [address] [place], [place] [address] Creatinine [Mass/Vol] 1.39 0.67-1.17 mg/dL High 06-19-20 19 [facility] (00 000) Comment: Performed By: #### P14 #### [facility] [address] [place], [place] [address] Albumin [Mass/Vol] 3.4 3.4-5.0 g/dL Normal 06-19-2019 [facility] (54647) Comment: Performed By: #### P14 #### [facility] [address] [place], [place] [address] Anion gap [Moles/Vol] 15 8-16 mmol/L Normal 06-19-20 19 [facility] (67893) Comment: Performed By: #### P14 #### [facility] [address] [place], [place] [address] CO2 [Moles/Vol] 23 21-32 mEq/L Normal 06-19-2019 [facility] (46627) Comment: Performed By: #### P14 #### [facility] [address] [place], [place] [address] Urea nitrogen [Mass/Vol] 26 7-18 mg/dL High 06-19 [facility] (58399) Comment: Performed By: #### P14 #### [facility] [address] [place], [place] [address] Calcium [Mass/Vol] 9.1 8.5-10.1 mg/dL Normal 06-19-2019 [facility] (56961) Comment: Performed By: #### P14 #### [facility] [address] [place], [place] [address] Glucose [Mass/Vol] 120 70-99 mg/dL High 06-19-2019 [facility] (34355) Comment: Performed By: #### P14 #### [facility] [address] [place], [place] [address] Chloride [Moles/Vol] 108 98-107 mEq/L High 9 [facility] (72618) Comment: Performed By: #### P14 #### [facility] [address] [place], [place] [address] Potassium [Moles/Vol] 4.0 3.5-5.1 mEq/L Normal 06-19-20 19 [facility] (87489) Comment: Performed By: #### P14 #### [facility] [address] [place], [place] [address] Sodium [Moles/Vol] 142 136-145 mEq/L Normal 06-19-2019 [facility] (58041) Comment: Performed By: #### P14 #### [facility] [address] [place], [place] [address] activated ptt on 13-06-25 aPTT Coag (Bld) [Time] 49.8 23.0-32.4 sec High [facility] (29562) Comment: Result Comment: Unfractionat ed Heparin Therapeutic Ranges: Standard Heparin Nomogram: 53 to 78 seconds (anti-Xa le julito of 0.3 to 0.7 U/mL) Low Dose/ACS Nomogram: 49 to 67 seconds (anti-Xa le julito of 0.2 to 0.5 U/mL) Stroke Treatment Nomogram: 49 to 67 seconds (anti-Xa le julito of 0.2 to 0.5 U/mL) Note: The APTT therapeutic r eugene has been determined for the current lot of laboratory AP TT reagent in use throughout the [facility]. Performed By: #### TSH3 #### [address] [address] aPTT Coag (Bld) [Time] 58.8 23.0-32.4 sec High [facility] (75269) Comment: Result Comment: Unfractionat ed Heparin Therapeutic Ranges: Standard Heparin Nomogram: 53 to 78 seconds (anti-Xa le julito of 0.3 to 0.7 U/mL) Low Dose/ACS Nomogram: 49 to 67 seconds (anti-Xa le julito of 0.2 to 0.5 U/mL) Stroke Treatment Nomogram: 49 to 67 seconds (anti-Xa le julito of 0.2 to 0.5 U/mL) Note: The APTT therapeutic r eugene has been determined for the current lot of laboratory AP TT reagent in use throughout the [facility]. Performed By: #### TSH3 #### [address] [address] aPTT Coag (Bld) [Time] 29.6 23.0-32.4 sec Normal [address] [place] [address] (00 000) Comment: Result Comment: Unfractionat ed Heparin Therapeutic Ranges: Standard Heparin Nomogram: 53 to 78 seconds (anti-Xa le julito of 0.3 to 0.7 U/mL) Low Dose/ACS Nomogram: 49 to 67 seconds (anti-Xa le julito of 0.2 to 0.5 U/mL) Stroke Treatment Nomogram: 49 to 67 seconds (anti-Xa le julito of 0.2 to 0.5 U/mL) Note: The APTT therapeutic r eugene has been determined for the current lot of laboratory AP TT reagent in use throughout the [facility]. Performed By: #### TSH3 #### [facility] [address] [place] [address] hosp on 2019-06-18 HOSP Patient:Leo Mc Normal 06-18-20 [place] MRN: General Height:5' 10(1.778 m) Medical Weight:182 lb 8.7 oz (82.8 kg) Center Outpatient Medications as of 06/22/19: (79515) hydroCHLOROthiazide (HYDRODIURIL, ESIDRIX) 25 mg tablet losartan (COZAAR) 25 mg tablet aspirin, enteric coated (ASPIRIN, ENTERIC COATED) 81 mg EC t ablet atorvastatin (LIPITOR) 20 mg tablet carvedilol (COREG) 3.125 mg tablet clopidogrel (PLAVIX) 75 mg tablet furosemide (LASIX) 40 mg tablet Admission/Clinic Administered Medications as of 06/22/19: sodium phosphate 30 mmol in D5W 250 mL sulfamethoxazole-trimethoprim 800-160 mg 1 tablet (BACTRIM D S,SEPTRA DS) furosemide 20 mg tab(s) (LASIX) amiodarone 400 mg tab(s) (PACERONE) atorvastatin 40 mg tab(s) (LIPITOR) aspirin, enteric coated 81 mg tab(s) Problem List: NSTEMI (non-ST elevated myocardial infarction) ([facility]) [I21.4] Ischemic cardiomyopathy [I25.5] Ventricular fibrillation, paroxysmal ([facility]) [I49.01] Nicotine use disorder, F17.2 [F17.200] Allergies: No Known Allergies Date Verified:06/22/19 Lab Values Lab Value Units Date High Low POTA* 3.6 mEq/L 06/22/2019 5.1 3.5 JACOB* 39.6 % 06/21/2019 51.0 40.1 Progress Notes (): Porfirio Sanchez MD 06/19/2019 12:59 PM Signed CVICU HISTORY AND PHYSICAL SERVICE DATE: 06/18/2019 HPI: Per notes from [facility] as patient is an extremely poor historian and reports he does not know what happened to him. Leo Mc is a 83 year old male, t rebekah from [facility] with PMH of HTN, HLD, renal insufficienc y, HFrEF (last EF 25% (March 2017), CAD status post angioplasty and bare-metal stenting to the dis ish left anterior descending artery in March 2017, and status post ICD im plantation in 2012 who presented with a chief compl aint of his defibrillator malfunctioning and at that time he called EMS. He was supposed to h ave the battery in his defib changed 4 months ago but has been unab le to do so. EMS arrived on scene and placed him in the ambulance and when they placed him on the monitor his defib went off and he immediately became unresponsive and went into vt ach and pulseless. Defib pads were placed on the patient as his defib failed to fire and h e was manually defibrillated by EMS at 1642 and CPR was started. IO a ccess obtained in left tibia. At the next rhythm ch pierce patient went into v.fib and was defibrillated at 1645. 1mg epi was administer ed via IO. Next rhythm check he was in a.fib and had a palpable pulse. Patient then began to breath spontaneously and began yelling in pain. He currently denies any chest pain or SOB. Denie s any pain at all. Denies any fevers, chills or night sweats. Denies any nausea, vomiting, diarrhea or constipation. Denies any headaches, vision changes, trouble swallowing, abdominal pain, LE pain or swelling. Denies any GI or sym ptoms. He is a currently 1ppd smoker. At [place] WBC 24.4, Hgb 15.8, Plt 188. INR 1.1. Na 140, K 2.8, C l 103, CO2 26 Cr 1.84, eGFR 38, Glucose 143, Mg 2.0 Troponin 0.611. Cxr showed no acute abnormality. He was started on an amiodarone bolus and gtt at [place]. He also received lovenox due to elevated troponin. And given a 500cc NS bolus as he was hypotensive. EKG showed afib with RVR, and RBBB. Currently he is in sinus bradycardia. Past Medical History: No past medical history on file. Past Surgical History: No past surgical history on file. Family History: No family history on file. Social History: Social History Tobacco Use - Smoking status: Current Every Day Smoker Types: Cigarettes - Smokeless tobacco: Never Used Substance Use Topics - Alcohol use: Yes - Drug use: No Medications: Prior to Admission Medications: hydroCHLOROthiazide (HYDRODI URIL, ESIDRIX) 25 mg tablet Take 25 mg by mouth once daily. losartan (COZAAR) 25 mg tablet Take 25 mg by mouth once carmen y. aspirin, enteric coated (ASP IRIN, ENTERIC COATED) 81 mg EC tablet Take 81 mg by mouth once daily. atorvastatin (LIPITOR) 20 mg tablet Take 20 mg by mouth carmen y at bedtime. carvedilol (COREG) 3.125 mg tablet Take 3.125 mg by mouth tw ice daily with meals. clopidogrel (PLAVIX) 75 mg tablet Take 75 mg by mouth once d aily. furosemide (LASIX) 40 mg tablet Take 40 mg by mouth once kathy ly. No current facility-administered medications for this encoun ter. Allergies: ALLERGIES No Known Allergies Review of Systems: See HPI Physical Exam: General: no acute distress, AO x 2 (person and place) Cardiovascular: Regular bradycardic Respiratory: Clear to auscultation Abdomen: Soft, Nontender and Positive bowel sounds Extremities: Edema- No Neurologic: Awake, oriented, Alert and Follows commands Heart Cath March 2017 -ejection fraction of 25%, left main as angiographically nor mal, LAD with previous patent stent, mid LAD with 80% stenosis, distal LAD with mild luminal irregularities, circumflex artery with mild luminal ir regularities less than 30%, and RCA with patent previous placed stent. IMPRESSION AND PLAN: There are no active hospital problems to display for this pa tient. Assessment V.tach arrest s/p defibrillation with ROSC NSTEMI ?AICD Malfunction, status post ICD implantation in 2012 CAD status post angioplasty and bare-metal stent ing to the distal LAD in March 2017 STACY on suspected CKD, baseline kidney function unknown UTI Hypokalemia HFrEF - EF 25% (March 2017) HTN HLD Active Tobacco Abuse - 1ppd smoker Patient is an extremely poor historian, states he does not take any medications Appears to have some baseline dementia, but may be secondary to UTI, currently alert and oriented to person and place; will need to clarify with family, states he lives with his son and daughter but does not know t heir phone numbers, no focal neurological deficits appreciated on exam Plan -already received 150 mg bolus IV amio and 1 mg/min IV x 6 h rs -continue amio gtt at 0.5 mg/min IV x 18 hrs -trend troponins -start high dose atorvastatin 40 mg -start aspirin 81 mg daily -hold off on BB as he is bradycardic -Echo in the am -HbA1c and lipid panel ordered -replete electrolytes -Keep Mg>2.0 and K>4.0 -interrogate AICD -ceftriaxone for UTI -smoking cessation encouraged -DVT ppx with heparin; already received 80 mg subq x 1 at [facility] -monitor hemodynamics SIGNATURE: Herson Ibanez DO PATIENT NAME: Leo Mc DATE: June 19, 2019 TIME: 12:09 AM PAGER/CONTACT #: [phone] This patient was seen in [facility] with the resident staff. I have personally seen and examined the patien t. I have reviewed labs, clinical data and pertinent images. I have discussed the case with the care team. I agre e with the documentation, excepts as annotated. Critical Care Documentation: As delineated above, the patient has the following organ/system impairment(s): ASSESSMENT/PLAN: 1. NSTEMI (non-ST elevated myocardial in farction) (HCC) - ICD9: 410.70, ICD10: I21.4 -Elevated troponins up to 12 . The patient presented to [facility] after of VT arrest. He was resuscitat ed by EMS. Patient has a history of ICD which is at end of life. Has not gotten the defibrillator changed. Patient was defibrillated by external means by the EMS at [place]. Patient is currently pain-fr ee. The because of EKG changes it is suspected that progression of coronary dise ase is at hand. Patient has a history of LAD and RCA stents. I spoke with Dr. Soto from [place] card iology about the condition of the patient upon transfer. Care will be coordinated accordin gly I have also discussed the case with Dr. Grimm for potential Catheterization within the next 24 hours. 2. Cardiomyopathy, ischemic - ICD9: 414.8, ICD10: I25.5 Ejection fraction 20%. The patient is currently on non-stable medications. No evidence of overt fluid overload. 3. Chronic systolic heart failure (HCC) - ICD9: 428.22, ICD1 0: I50.22 As above and continue to support. Porfirio Sanchez MD This patient has a high probability of sudden, clinically si gnificant deterioration, which requires the highest level of phy sician preparedness to intervene urgently. I manage d/supervised life or organ supporting interventions that required frequent physi shalom assessment. I devoted my full attention to the direct care of this patient for the amount of time indicated below. Time I spent with family or surroga te(s) is included only if the patient was incapable of providing the necessary information or participating in medical decision making. Time devoted to teaching is not included. ?? Time spent providing critical care services: 35 minutes excluding procedures. Porfirio Sanchez MD, [facility]. Pager # [phone] Previous Version Facundo Cottrell MD 06/19/2019 11:58 AM Signed CONSULT NOTE SERVICE DATE: 06/19/2019 SERVICE TIME: 11:49 AM PHYSICIAN CONSULT (AK,AV,EU,FV,HL,FRANCISCO,MM,SP) Consult performed by: Facundo Cottrell Consult ordered by: Rickie Busch Reason for consult: Ventricular fibrillation. PRIMARY CARE PHYSICIAN: Ellis Quijano, Subjective HPI 83-year-old male with history of essential hypertension, cor onary disease, status post PCI to LAD in , ischemic cardiomyopathy with severe LV systolic dysfunction, RBBB, status post [employer] system implantation at an outside institution in 2012 who pres ented to [facility] with confusion, developed ventricular fibrillation that required external defibrillati on twice, was diagnosed with NSTEMI, treat ed with low molecular weight and then unfractionated heparin, as well as amiodarone, and transferred to [facility]. Acc ording to the records the patient does not take any medication. The patient is oriented to self only, not to date, time or location, denies current complaints, not able to provide any meaningful histo ry. According to the records his device was due for batter y replacement 4 months ago. Outside ECGs demonstrate sinus rhythm with right bundle-bran ch block. One tracing is suggestive of atr ial fibrillation with RBBB. No device interrogation data is available. Chest x-ray reveals presence of a [employer] system, likely [facility] [facility]. One of the ECG tracings is suggestive of pacing with f ailure to capture with background sinus bradycardia in the high 40s. Telemetry shows sinus bradycardia in the high 40s/low 50s, occasional PVCs. Laboratories are significant for hypokalemia with potassium of 2.8 and troponin elevation to 12, as well as elevated white count of 19. FUNCTIONAL STATUS: Independent. No past medical history on file. No past surgical history on file. No family history on file. Social History Tobacco Use - Smoking status: Current Every Day Smoker Types: Cigarettes - Smokeless tobacco: Never Used Substance Use Topics - Alcohol use: Yes - Drug use: No Medications Prior to Admission: hydroCHLOROthiazide (HYDRODI URIL, ESIDRIX) 25 mg tablet Take 25 mg by mouth once daily. Disp: Rfl: 01/04/2018 at Unknown time losartan (COZAAR) 25 mg tablet Take 25 mg by mouth once carmen y. Disp: Rfl: 01/04/2018 at Unknown time aspirin, enteric coated (ASP IRIN, ENTERIC COATED) 81 mg EC tablet Take 81 mg by mouth once daily. Disp: Rfl: 01/04/2018 at Unknown time atorvastatin (LIPITOR) 20 mg tablet Take 20 mg by mouth daily at bedtime. Disp: Rfl: 01/03/2018 at Unknown time carvedilol (COREG) 3.125 mg tablet Take 3.125 mg by mouth tw ice daily with meals. Disp: Rfl: 01/04/2018 at Unknown time clopidogrel (PLAVIX) 75 mg tablet Take 75 mg by mouth once daily. Disp: Rfl: 01/04/2018 at Unknown time furosemide (LASIX) 40 mg tablet Take 40 mg by mouth once kathy ly. Disp: Rfl: 01/04/2018 at Unknown time Current Facility-Administered Medications Medication Dose Route Frequency - potassium chloride 80-120 mEq oral liquid 80-120 mEq ORAL/FEEDING TUBE PRN - potassium chloride iv piggyback 20 mEq/100 mL 20 mEq INTRA VENOUS PRN - magnesium sulfate in water 2 g in sterile water 50 ml 2 g INTRAVENOUS PRN - sodium phosphate 45 mmol in NaCl 0.9% 250 mL 45 mmol INTRA VENOUS PRN - calcium gluconate 4 g in NaCl 0.9% 250 mL 4 g INTRAVENOUS PRN - amiodarone 360 mg in D5W 2 00 mL (NEXTERONE) 0.5 mg/min INTRAVENOUS CONTINUOUS - atorvastatin 40 mg tab(s) (LIPITOR) 40 mg ORAL AT BEDTIME - aspirin, enteric coated 81 mg tab(s) 81 mg ORAL DAILY - perflutren lipid microspheres 1.1 mg/mL 1.3 mL injec tion (DEFINITY) 1.3 mL INTRAVENOUS DIRECTED PRN - cefTRIAXone 1 g in D5W 100 mL MB+ (ROCEPHIN) 1 g INTRAVENO US q 24 H - heparin iv infusion (LOW D OSE ACS/NOMOGRAM) 25,000 units in NaCl 0.45% 250 mL PREMIX 0-3,000 Units/hr INTRAVENOUS CONTINUOUS And - heparin RATE CHANGE bolus 1,000-4,000 Units fo r subtherapeutic aptt results 1,000-4,000 Units INTRAVENOUS PRN Allergies As of Date: 06/18/2019 (No Known Allergies) Fully Assessed 06/18/2019 COMPLETE REVIEW OF SYSTEMS: Review of Systems Unable to perform ROS: Dementia Objective Physical Exam Constitutional: He is oriented to person, place, and time. H e appears well-developed and well-nourished. No distress. HENT: Head: Normocephalic and atraumatic. Eyes: Pupils are equal, round, and react valeria to light. Conjunctivae are normal. Cardiovascular: Regular rhythm. Bradycardic, S1-S2. Pulmonary/Chest: No stridor. No respiratory distress. He has no wheezes. He has no rales. Abdominal: There is no tenderness. Musculoskeletal: He exhibits no edema. Neurological: He is alert and oriented to person, place, and time. Skin: Skin is warm and dry. No rash noted. Psychiatric: He has a normal mood and affect. Judgment kiley l. Patient Vitals for the past 24 hrs: BP Temp Pulse Resp SpO2 Height Weight 06/19/19 1100 (!) 88/49 ? (!) 47 ? 100 % ? ? 06/19/19 1000 101/52 ? (!) 48 ? 100 % ? ? 06/19/19 0900 (!) 94/45 ? (!) 50 ? 100 % ? ? 06/19/19 0800 97/55 ? (!) 46 ? 99 % ? ? 06/19/19 0700 91/51 ? (!) 49 ? 98 % ? ? 06/19/19 0600 106/53 ? (!) 52 ? 99 % ? ? 06/19/19 0500 94/50 ? (!) 48 ? 98 % ? ? 06/19/19 0441 92/54 ? (!) 57 ? 98 % ? ? 06/19/19 0430 ? ? (!) 51 ? 98 % ? ? 06/19/19 0400 99/51 ? (!) 52 ? 98 % ? ? 06/19/19 0300 107/69 ? (!) 58 ? 98 % ? ? 06/19/19 0200 98/53 ? (!) 51 ? 97 % ? ? 06/19/19 0100 103/56 ? (!) 52 16 98 % ? ? 06/19/19 0039 ? 177.8 cm (5' 10) 82.2 kg (181 lb 3. 5 oz) 06/19/19 0000 103/53 ? (!) 52 16 98 % ? ? 06/18/19 2300 96/52 ? (!) 57 22 99 % ? ? 06/18/19 2231 (!) 88/48 ? (!) 54 18 100 % ? ? 06/18/19 2214 95/53 36.2 ?C (97.2 ?F) (!) 59 19 99 % ? ? Body mass index is 26 kg/m?. DATA: Diagnostic tests reviewed for today's visit: Most recent labs and imaging results. Assessment and recommendations: 83-year-old male with coronary disease, ischemic cardi omyopathy, ventricular fibrillation in the setting of acute cor onary syndrome (NSTEMI), suspected ICD malfunction (failure to defibrillate, failed to capture - po ssibly due to battery depletion). The rhythm is currently stable. Would pr oceed with intravenous amiodarone, as bradycardia is not severe, ischem ic evaluation (coronary angiography) to determine anatomical substrate for ventricular fibrillation, and ICD interr ogation Thursday morning. Further steps addressing ICD malfunction would be determined by results of interrogation. SIGNATURE: Facundo Cottrell MD PATIENT NAME: Leo Mc DATE: June 19, 2019 TIME: 11:49 AM PAGER: [phone] Linda Gómez MD, 06/19/2019 3:17 PM Attested Attestation signed by Porfirio Sanchez at 06/21/2019 8:0 3 AM This patient was seen in [facility] with the resident staff, Nursing staff and Clinical Pharmacy. I have personally seen and examined the p atient. I have reviewed labs, clinical data and pertinent images. Arvin lynn discussed the case with the care team. I agree with the documentation, excepts as annotated. Clinical issues addressed on this visit: 1. NSTEMI (non-ST elevated myocardial in farction) ([facility]) - ICD9: 410.70, ICD10: I21.4 2. Cardiomyopathy, ischemic - ICD9: 414.8, ICD10: I25.5 3. Chronic systolic heart failure ([facility]) - ICD9: 428.22, ICD1 0: I50.22 4. Ventricular fibrillation, paroxysmal ([facility]) - ICD9: 427. 41, ICD10: I49.01 5. VT (ventricular tachycardia) ([facility]) - ICD9: 427.1, ICD10: I47.2 6. Implantable cardioverter-defibrillator (ICD) generator end of life - ICD9: V53.32, ICD10: Z45.02 7. Encounter for management of biventricular implantable cardioverter-defibrillator (ICD) - ICD9: V53.32, ICD10: Z45. 02 8. Ischemic cardiomyopathy - ICD9: 414.8, ICD10: I25.5 Porfirio Sanchez MD, [facility]. Pager # [phone] Cardiovascular Intensive Care Progress Note June 19, 2019 Patient Name: Leo Mc Patient Location: [id number] [facility]* Admission Date: 06/18/2019 Length of Stay: 1 Primary Service: Cardiovascular Intensive Care Interval History for 06/19/19: Patient seen and examined in the AM. Patient has no new complaints overnight. He is a poor historian. He has BP in 90s/50s, heart rate in 50s, SpO2 in late 90s. The physical examination was unremarkable. His lab reports show- BUN at 26, creatinine at 1.39, troponin at 12 (previously ~8), WBCs at 19.38. Urinalysis is significant for increased le ucocyte esterase and enhanced WBCs in the urine. He was started on ceftriaxone f or the same. His previous Echocardiogram shows an EF of 25%. Review of Systems: Review of Systems Constitutional: Negative for chills and fever. Eyes: Negative for blurred vision. Respiratory: Negative for cough, hemoptysis and shortness of breath. Cardiovascular: Negative for chest pain, palpitations and or thopnea. Gastrointestinal: Negative for abdominal pain, heartburn and nausea. Musculoskeletal: Negative for myalgias. Neurological: Negative for dizziness, weakness and headaches . Subjective No past medical history on file. No current facility-administered medications on file prior t o encounter. Current Outpatient Medications on File Prior to Encounter: hydroCHLOROthiazide (HYDRODI URIL, ESIDRIX) 25 mg tablet Take 25 mg by mouth once daily. losartan (COZAAR) 25 mg tablet Take 25 mg by mouth once carmen y. aspirin, enteric coated (ASP IRIN, ENTERIC COATED) 81 mg EC tablet Take 81 mg by mouth once daily. atorvastatin (LIPITOR) 20 mg tablet Take 20 mg by mouth carmen y at bedtime. carvedilol (COREG) 3.125 mg tablet Take 3.125 mg by mouth tw ice daily with meals. clopidogrel (PLAVIX) 75 mg tablet Take 75 mg by mouth once d aily. furosemide (LASIX) 40 mg tablet Take 40 mg by mouth once kathy ly. Objective Present Condition: 06/19/19 1000 06/19/19 1100 06/19/19 1200 06/19/19 1300 BP: 101/52 (!) 88/49 98/55 (!) 95/49 Pulse: (!) 48 (!) 47 (!) 44 (!) 46 Resp: Temp: SpO2: 100% 100% 100% 100% Weight: Height: Physical Exam Constitutional: He is oriented to person, place, and time and well-developed, well-nourished, and in no distress. HENT: Head: Normocephalic and atraumatic. Cardiovascular: Normal rate, regular rhythm, normal heart sounds and intact distal pulses. Exam reveals no friction rub. No murmur heard. Pulmonary/Chest: Effort normal and breath sounds normal. No respiratory distress. He has no wheezes. He has no rales. Abdominal: Soft. Bowel sound s are normal. He exhibits no distension. There is no tenderness. There is no rebound. Musculoskeletal: He exhibits no edema. Neurological: He is alert and oriented to person, place, and time. Skin: Skin is warm and dry. Current Facility-Administered Medications Medication Dose Route Frequency Provider Last Rate Last Dose - cefTRIAXone 1 g in D5W 100 mL MB+ (ROCEPHIN) 1 g INTRAVENOUS q 24 H Herson Ibanez, DO 200 mL/hr at 06/19/19 0611 1 g at 9 0611 - heparin iv infusion (LOW D OSE ACS/NOMOGRAM) 25,000 units in NaCl 0.45% 250 mL PREMIX 0-3,000 Units/hr INTRAVENOUS CONTINUOUS G pradeepangkyleigh (Fabian) MD Dalia 10 mL/hr at 06/19/19 0740 1,000 Units/hr at 06/19/19 0740 And - heparin RATE CHANGE bolus 1,000-4,000 Units fo r subtherapeutic aptt results 1,000-4,000 Units INTRAVENOUS PRN Erick Monzon Res D - potassium chloride 80-120 mEq oral liquid 80-120 mEq ORAL/FEEDING TUBE PRN Herson Ibanez, DO - potassium chloride iv piggyback 20 mEq /100 mL 20 mEq INTRAVENOUS PRN Herson (Fabian) Taniaza, DO - magnesium sulfate in water 2 g in sterile water 50 ml 2 g INTRAVENOUS PRN Herson Linton) Marcelle, DO - sodium phosphate 45 mmol in NaCl 0.9% 250 mL 45 mmol INTRAVENOUS PRN Herson (Fabian) Briseidabaza, DO - calcium gluconate 4 g in NaCl 0.9% 250 mL 4 g INTRAVENOUS PRN Herson (Fabian) Marcelle, DO - amiodarone 360 mg in D5W 2 00 mL (NEXTERONE) 0.5 mg/min INTRAVENOUS CONTINUOUS Herson (Res) Briseidabaza, DO 16.67 mL/hr a t 06/19/19 1145 0.5 mg/min at 06/19/19 1145 - atorvastatin 40 mg tab(s) (LIPITOR) 40 mg ORAL AT BEDTIME Herson (Res) Luisabbaza, DO 40 mg at 06/19/19 0023 - aspirin, enteric coated 81 mg tab(s) 81 mg ORAL DAILY Herson (Eleanor Goinsbaza, DO 81 mg at 06/19/19 0740 - perflutren lipid microspheres 1.1 mg/mL 1.3 mL injec tion (DEFINITY) 1.3 mL INTRAVENOUS DIRECTED PRN Herson (ResFranchesca Goinsbaza, DO Labs: CBC: Recent Labs 06/19/19 0735 06/18/19 2320 WBC 15.40* 19.38* HB 13.2* 14.5 HCT 40.1 43.8 PLT 125* 143 MCV 93.7 93.2 COAG: Recent Labs 06/19/19 1330 06/19/19 0735 APTT 58.8* 29.6 INR -- 1.05 BMP: Recent Labs 06/18/19 2320 GLUC 120* NA 142 K 4.0 CHLOR 108* CO2 23 ANION 15 BUN 26* CREAT 1.39* CHEM: Recent Labs 06/18/19 2320 ALB 3.4 TPROT 7.4 CA 9.1 MG 1.8 HEPATIC: Recent Labs 06/18/19 2320 ALKPHOS 71 ALT 39 AST 68* TBILI 0.3 URINALYSIS: Recent Labs 06/19/19 0040 SPGR 1.018 UGLUC NEGATIVE UBILI NEGATIVE UKET NEGATIVE UPROT 100* UROBIL 0.2 UWBC 379.9* CARDIAC: No results for input(s): CKTEST, CKMB, CKMBP in the last 168 hours.TROPONIN@:8,No results found for: BNP:8)@ Intake/Output Summary (Last 24 hours) at 06/19/2019 1501 Last data filed at 06/19/2019 1300 Gross per 24 hour Intake 528 ml Output 1075 ml Net -547 ml Serum creatinine: 1.39 mg/dL (H) 06/18/19 2320 Estimated creatinine clearance: 41.6 mL/min (A) Assessment/Plan NSTEMI- -Troponin at 12 in the latest reading. -Patient started on heparin, ASA, atorvastatin and metoprolo l. -Scheduled for cardiac catheterization. -Discontinue metoprolol is patient is bradycardic. -Schedule patient for an Echocardiogram. AICD dysfunction/ arrhythmias- -Patient on amiodarone gtt. -EP consulted -Patient on cardiac telemetry. UTI- -Patient initiated on ceftriaxone. -Urine culture ordered. Signed: Linda Gómez MD, PGY-1 Pager: [phone] [facility] Date: June 19, 2019 Time: 12:01 PM Recommendations are not finalized until co-signed by Staff catherine chin. Leilani Tran MD 06/20/2019 5:40 PM Addendum Cardiovascular Intensive Care Progress Note June 20, 2019 Patient Name: Leo Mc Patient Location: [id number] [facility]-323* Admission Date: 06/18/2019 Length of Stay: 2 Primary Service: Cardiovascular Intensive Care Interval History: Patient seen and examined in the AM. Pat ient has no new concerns. No overnight events. The patient denies new symptoms. He will have cath t maikel to assess coronary arteries. Review of Systems: Review of Systems Constitutional: Negative for chills and fever. HENT: Negative for congestion, sinus pain and sore throat. Respiratory: Negative for cough, hemoptysis and shortness of breath. Cardiovascular: Negative for chest pain, palpitations, ortho pnea and leg swelling. Gastrointestinal: Negative for abdominal pain, heartburn, nausea and vomiting. Genitourinary: Negative for dysuria, frequency and urgency. Skin: Negative for itching and rash. Neurological: Negative for dizziness, weakness and headaches . Subjective No past medical history on file. No current facility-administered medications on file prior t o encounter. Current Outpatient Medications on File Prior to Encounter: hydroCHLOROthiazide (HYDRODI URIL, ESIDRIX) 25 mg tablet Take 25 mg by mouth once daily. losartan (COZAAR) 25 mg tablet Take 25 mg by mouth once carmen y. aspirin, enteric coated (ASP IRIN, ENTERIC COATED) 81 mg EC tablet Take 81 mg by mouth once daily. atorvastatin (LIPITOR) 20 mg tablet Take 20 mg by mouth carmen y at bedtime. carvedilol (COREG) 3.125 mg tablet Take 3.125 mg by mouth tw ice daily with meals. clopidogrel (PLAVIX) 75 mg tablet Take 75 mg by mouth once d aily. furosemide (LASIX) 40 mg tablet Take 40 mg by mouth once kathy ly. Objective Present Condition: 06/20/19 0700 06/20/19 0800 06/20/19 0900 06/20/19 1000 BP: 108/57 117/58 108/58 Pulse: (!) 59 70 67 (!) 56 Resp: Temp: 36.2 ?C (97.2 ?F) 36.3 ?C (97.3 ?F) TempSrc: Temporal Artery SpO2: 95% 95% 98% 97% Weight: 81.2 kg (179 lb 0.2 oz) 81.2 kg (179 lb 0.2 oz) Height: 177.8 cm (5' 10) Physical Exam Constitutional: He is oriented to person, place, and time and well-developed, well-nourished, and in no distress. HENT: Head: Normocephalic and atraumatic. Mouth/Throat: No oropharyngeal exudate. Eyes: Pupils are equal, round, and reactive to light. EOM ar e normal. Neck: Normal range of motion. Neck supple. No JVD present. N o thyromegaly present. Cardiovascular: Normal heart sounds and intact d istal pulses. Exam reveals no gallop and no friction rub. No murmur heard. Pulmonary/Chest: Effort normal and breath sounds normal. No respiratory distress. He has no wheezes. He has no rales. Abdominal: Soft. Bowel sound s are normal. He exhibits no distension. There is no tenderness. There is no rebound and no guarding. Musculoskeletal: He exhibits no edema. Lymphadenopathy: He has no cervical adenopathy. Neurological: He is alert and oriented to person, place, and time. Skin: Skin is warm and dry. Current Facility-Administered Medications Medication Dose Route Frequency Provider Last Rate Last Dose - [MAR Hold due to Transfer] cefTRIAXone 1 g in D5W 100 mL MB+ (ROCEPHIN) 1 g INTRAVENOUS q 24 H Herson Ibanez DO ( Res) 200 mL/hr at 06/20/19818 1 g at 06/20/19818 - [MAR Hold due to Transfer] heparin iv infusion (LOW DOSE ACS/NOMOGRAM) 25,000 units in NaCl 0.45% 250 mL PREMIX 0-3,000 Units/hr INTRAVENO US CONTINUOUS Linda (Fabian) MD Dalia Stopped at 06/20/19 1027 And - [MAR Hold due to Transfer] heparin RATE CHANGE bolus 1,000-4,000 Units for subtherapeutic aptt results 1,000-4,000 Units INTRAVEN OUS PRN Linda (Eleanor Gómez MD - [MAR Hold due to Transfer] NaCl 0.9% iv infusion 75 mL/hr INTRAVENOUS CONTINUOUS James Smith 75 mL/hr at 06/20/19 080 0 75 mL/hr at 06/20/19 0800 - [MAR Hold due to Transfer] potassium chloride 80-120 mEq oral liquid 80-120 mEq ORAL/FEEDING TUBE PRN Herson Ibanez, DO - [MAR Hold due to Transfer] potassium chloride iv piggyback 20 mEq/100 mL 20 mEq INTRAVENOUS PRN Herson Ibanez, DO - [MAR Hold due to Transfer] magnesium sulfate in water 2 g in sterile water 50 ml 2 g INTRAVENOUS PRN Herson Ibanez, DO - [MAR Hold due to Transfer] sodium phosphate 45 mmol in NaCl 0.9% 250 mL 45 mmol INTRAVENOUS PRN Herson Ibanez, DO - [MAR Hold due to Transfer] calcium gluconate 4 g in NaCl 0 .9% 250 mL 4 g INTRAVENOUS PRN Herson Ibanez, DO - [MAR Hold due to Transfer] amiodarone 360 mg in D5W 200 mL (NEXTERONE) 0.5 mg/min INTRAVENOUS CONTINUOU S Herson Ibanez DO 16.67 mL/hr at 06/20/19 1027 0.5 mg/min at 06/20/19 1027 - [MAR Hold due to Transfer] atorvastati n 40 mg tab(s) (LIPITOR) 40 mg ORAL AT BEDTIME Herson Ibanez DO 40 mg at 06/19/192045 - [MAR Hold due to Transfer] aspirin, enteric coated 8 1 mg tab(s) 81 mg ORAL DAILY Herson Ibanez DO 81 mg at 06/20/19818 - [MAR Hold due to Transfer] perflutren lipid microspheres 1.1 mg/mL 1.3 mL injection (DEFINITY) 1.3 mL INTRAVENOUS DIRECTED PRN Herson (Eleanor Ibanez DO Labs: CBC: Recent Labs 06/20/19 0440 06/19/19 0735 06/18/19 2320 WBC 14.33* 15.40* 19.38* HB 13.1* 13.2* 14.5 HCT 38.8* 40.1 43.8 PLT 123* 125* 143 MCV 92.4 93.7 93.2 COAG: Recent Labs 06/20/19 0440 06/19/19 1845 06/19/19 1330 06/19/19 0735 APTT 50.6* 49.8* 58.8* 29.6 INR -- -- -- 1.05 BMP: Recent Labs 06/20/19 0650 06/18/19 2320 GLUC 99 120* NA 139 142 K 3.7 4.0 CHLOR 109* 108* CO2 25 23 ANION 9 15 BUN 23* 26* CREAT 1.49* 1.39* CHEM: Recent Labs 06/20/19 0650 06/18/19 2320 ALB -- 3.4 TPROT -- 7.4 CA 8.4* 9.1 MG -- 1.8 HEPATIC: Recent Labs 06/18/19 2320 ALKPHOS 71 ALT 39 AST 68* TBILI 0.3 URINALYSIS: Recent Labs 06/19/19 0040 SPGR 1.018 UGLUC NEGATIVE UBILI NEGATIVE UKET NEGATIVE UPROT 100* UROBIL 0.2 UWBC 379.9* CARDIAC: No results for input(s): CKTEST, CKMB, CKMBP in the last 168 hours.TROPONIN@:8,No results found for: BNP:8)@ Intake/Output Summary (Last 24 hours) at 06/20/2019 1059 Last data filed at 06/20/2019 1000 Gross per 24 hour Intake 1288.2 ml Output 1025 ml Net 263.2 ml Serum creatinine: 1.39 mg/dL (H) 06/18/19 232 Estimated creatinine clearance: 41.6 mL/min (A) Assessment/Plan NSTEMI- -Troponin peaked at 12.4 and trended down. -Patient started on heparin, ASA, atorvastatin and metoprolo l. -Scheduled for cardiac catheterization. -Echocardiogram ordered. AICD dysfunction/ ventricular arrhythmias- -Patient on amiodarone gtt. -EP consulted and decided to interrogate the dev ice. They will decide further management based on interrogation. -Patient on cardiac telemetry. UTI- -Patient initiated on ceftriaxone. -Urine culture ordered. Signed: Ceci Navarro DO, PGY-1 Pager: [phone] Date: June 20, 2019 Time: 11:02 AM Recommendations are not finalized until co-signed by Staff catherine chin. Patient was seen and discussed with resident. I have stefano jones seen and examined the patient. I have reviewed labs, clinical data and pertinent images. I agree with the documentation above. Rich joseph findings were confirmed and updated. I'll summarize our mutual assessment and plan below. Critical Care Documentation: This is an 83-year-old gentleman with history of coronary ar alondra disease, chronic systolic heart failure and AICD in place. The patient presented to the [facility] with confusion. He developed ve ntricular fibrillation there, AICD did not fire and then he required external defibrillati on twice. For elevated troponins he was diagnosed with non-STEMI and was t reated with IV heparin. He is also on IV amiodarone currently. Non-STEMI, most likely type II Ventricular fibrillation Suspected AICD malfunction Chronic systolic heart failure from Ischemic cardiomyo raffy with LVEF of 20% History of coronary artery disease with previous PCIs Plan Plan is to left heart catheterization to rule out ischemia. We'll continue on IV amiodarone and IV heparin. For his coronary artery disease he is ap propriately on aspirin 81 mg daily and atorvastatin 40 mg daily which will continue. We'll touch base with EP. Patient will likely need an AICD generator change soon. This patient has a high probability of sudden, clinically si gnificant deterioration, which requires the highest level of phy sician preparedness to intervene urgently. I manage d/supervised life or organ supporting interventions that required frequent physi shalom assessment. I devoted my full attention to the direct care of this patient for the amount of time indicated below. Time I spent with family or surroga te(s) is included only if the patient was incapable of providing the necessary information or participating in medical decision making. Time devoted to teaching is not included. ?? Time spent providing critical care services: 38 minutes excluding procedures. Leilani Tran MD, [facility] Cardiovascular Medicine Pager: [phone] June 20, 2019 Previous Version James Smith MD 06/20/2019 11:28 AM Signed CARDIAC CATHETERIZATION REPORT PATIENT NAME: Leo Mc SERVICE DATE: 06/20/2019 SERVICE TIME: 11:24 AM [employer] Worker Composites: Attending: Leilani Tran RECOMMENDATIONS: Continued medical therapy and risk factor m odification Pre-Procedure Diagnosis: 83 y/o man with known CAD and ischemic cardiomyopathy presents with V-Fib arrest and NSTEMI Post- Procedure Diagnosis: Moderate in-stent res tenosis of the mid and distal LAD stents with mild distal left main coronary artery diseas e. Procedure: Left Heart Catheterization Access: Right Femoral Artery Under Local anesthesia the Right Femoral Artery was entered by Modified Seldinger's technique using a micro puncture needle. A 6F sheath was introduced into the Right Femoral Artery . Selectiv e injections were made in the left and right coronary arteries in v arious right and left anterior oblique views. An LV pressure was performed in 30 degree SEBASTIAN. The sheath was removed and hemostatsis was established using Angios eal closure device. There was no bleeding at the end of the procedure. The pt was returned to the recovery room i n a stable condition. FINDINGS: Hemodynamics: LVEDP: 24 mmHg LV - AORTA: No gradient. Coronary Angiography: Left Main: Large-caliber vessel with mild tapering distally estimated 30% luminal stenosis. Left Anterior Descending: Large caliber vessel. The mid ve ssel has a patent stent with moderate in-stent restenosis estimated 30-40% luminal narrowing. The distal LAD has a patent sten t with moderate in-stent restenosis estimated 30-40% luminal narrowing. Circumflex: Large-caliber vessel with mild diffuse disease Right Coronary Artery: Right coronary artery is large caliber dominant vessel with mild diffuse disease Collaterals: None LV Gram: LVEF: NA Wall Motion: NA Complications: None SIGNATURE: James Smith MD DATE: June 20, 2019 TIME: 11:24 AM Donald Chatterjee APRN.TAXATION AGENT, TAXATION AGENT 06/20/2019 4:15 PM Signed PROGRESS NOTE ELECTROPHYSIOLOGY SERVICE SERVICE DATE: 06/20/2019 SERVICE TIME: 2:29 PM Subjective INTERIM HISTORY: Chart reviewed. Patient seen AN D examined. Cardiac cath done today - no culprit lesion for V. Tach/V. Fib due to is chemia. Patient mildly disoriented. Denies any chest discomfort , SOB, palpitations, dizziness at this time. Review of Systems Constitutional: Negative for fever. HENT: Positive for hearing loss. Respiratory: Negative for cough and shortness of breath. Cardiovascular: Negative for chest pain, palpitations, orthopnea, leg swelling and PND. Gastrointestinal: Negative for nausea. Genitourinary: C/O urinating on himself Neurological: Negative for dizziness and headaches. - Limited ROS due to mild disorientation AND BURNS PAIUTE. Objective PHYSICAL EXAM: Body mass index is 25.69 kg/m?. O2 Therapy: Nasal Cannula 2L Patient Vitals for the past 24 hrs: BP Temp Temp src Pulse SpO2 Height Weight 06/20/19 1400 (!) 107/41 36.3 ?C (97.3 ?F) Temporal Art 70 9 7 % ? ? 06/20/19 1345 ? ? ? 65 97 % ? ? 06/20/19 1330 115/60 ? ? 63 97 % ? ? 06/20/19 1315 109/53 ? ? 67 97 % ? ? 06/20/19 1300 114/56 ? ? (!) 59 96 % ? ? 06/20/19 1245 112/59 ? ? (!) 59 96 % ? ? 06/20/19 1230 106/56 ? ? 60 96 % ? ? 06/20/19 1215 112/66 ? ? 60 96 % ? ? 06/20/19 1200 110/56 36.3 ?C (97.3 ?F) ? 65 95 % ? ? 06/20/19 1145 108/57 ? ? 63 95 % ? ? 06/20/19 1130 116/62 36.3 ?C (97.3 ?F) Temporal Art ? 06/20/19 1000 108/58 ? ? (!) 56 97 % ? ? 06/20/19 0900 ? ? ? 67 98 % ? ? 06/20/19 0800 117/58 36.3 ?C (97.3 ?F) Temporal Art 70 95 % 177.8 cm (5' 10) 81.2 kg (179 lb 0.2 oz) 06/20/19 0700 108/57 36.2 ?C (97.2 ?F) ? (!) 59 95 % ? 81.2 kg (179 lb 0.2 oz) 06/20/19 0600 98/55 ? ? (!) 56 95 % ? ? 06/20/19 0500 105/54 ? ? (!) 58 94 % ? ? 06/20/19 0400 102/51 36.4 ?C (97.5 ?F) ? (!) 59 96 % ? ? 06/20/19 0300 (!) 99/48 ? ? 62 95 % ? ? 06/20/19 0200 (!) 87/44 ? ? 61 94 % ? ? 06/20/19 0100 (!) 98/48 ? ? 60 95 % ? ? 06/20/19 0000 (!) 102/47 ? ? 60 93 % ? ? 06/19/19 2300 (!) 95/47 ? ? (!) 58 94 % ? ? 06/19/19 2100 (!) 88/40 ? ? 64 96 % ? ? 06/19/19 2000 95/53 ? ? 62 97 % ? ? 06/19/19 1900 ? 36.6 ?C (97.9 ?F) Temporal ? 06/19/19 1800 (!) 97/45 ? ? (!) 54 97 % ? ? 06/19/19 1700 95/56 ? ? (!) 54 97 % ? ? 06/19/19 1600 107/50 ? ? 64 98 % ? ? 06/19/19 1500 (!) 94/47 36.5 ?C (97.7 ?F) Temporal (!) 53 98 % ? ? Pleasant, comfortable, not in acute distress. SKIN: warm AND dry; pale color. HEENT: Normocephalic. NECK: Supple, no JVD, no carotid bruits auscultated. LUNGS: Clear to auscultation bilaterally. Respirations unlab ored at rest. CARDIAC: normal S1, soft S2, regular rate AND rhythm, no significant murmurs or gallops noted. ABDOMEN: Soft, nontender to superficial palpation, bow el sounds auscultated. EXTREMITIES: No edema lower extremities. NEURO: awake, alert, oriented to person, knows adam grewal's in a hospital but doesn't know the name of it, knows his birthdate but not sure how old he is, does not know the year, but knows the month AND that it's the last week of the month; moves all 4 extremities. PULSES: bilateral radial AND dorsalis pedis pulses palpable. MEDICATIONS: Current Facility-Administered Medications Medication Dose Route Frequency - potassium chloride 80-120 mEq oral liquid 80-120 mEq ORAL/FEEDING TUBE PRN - potassium chloride iv piggyback 20 mEq/100 mL 20 mEq INTRA VENOUS PRN - magnesium sulfate in water 2 g in sterile water 50 ml 2 g INTRAVENOUS PRN - sodium phosphate 45 mmol in NaCl 0.9% 250 mL 45 mmol INTRA VENOUS PRN - calcium gluconate 4 g in NaCl 0.9% 250 mL 4 g INTRAVENOUS PRN - amiodarone 360 mg in D5W 2 00 mL (NEXTERONE) 0.5 mg/min INTRAVENOUS CONTINUOUS - atorvastatin 40 mg tab(s) (LIPITOR) 40 mg ORAL AT BEDTIME - aspirin, enteric coated 81 mg tab(s) 81 mg ORAL DAILY - perflutren lipid microspheres 1.1 mg/mL 1.3 mL injec tion (DEFINITY) 1.3 mL INTRAVENOUS DIRECTED PRN - cefTRIAXone 1 g in D5W 100 mL MB+ (ROCEPHIN) 1 g INTRAVENO US q 24 H DATA: Diagnostic tests reviewed for today's visit: Most recent labs and imaging results. Most recent EKG - 06/19 4:28 AM - sinus bradycardia 52 bpm, I VCD. Most recent Echo (no Echoes in Epic) - Echo today pending. P er notes from [place], Echo February 2017 with EF 20%, moderate MR, moderate TR . TELEMETRY: Sinus rhythm 60s to sinus bradycardia 50s, RBBB, occasional multiformed PVcs, rare pairs, ? R on T, 4 beats NSVT at 0027, occasional PACs, yesterday intermittent sinus bradycardia in 40s. Past 72 Hour Labs: Recent Labs 06/20/19 0650 06/20/19 0440 06/19/19 1140 06/19/19 0735 06/18/19 2320 TROPI -- -- -- 8.900* 12.400* < > 8.110* WBC -- 14.33* -- -- 15.40* -- 19.38* RBC -- 4.20* -- -- 4.28* -- 4.70 HB -- 13.1* -- -- 13.2* -- 14.5 HCT -- 38.8* -- -- 40.1 -- 43.8 MCV -- 92.4 -- -- 93.7 -- 93.2 MCH -- 31.2 -- -- 30.8 -- 30.9 MCHC -- 33.8 -- -- 32.9 -- 33.1 PLT -- 123* -- -- 125* -- 143 MPV -- 11.1 -- -- 10.8 -- 11.2 GLUC 99 -- -- -- -- -- 120* BUN 23* -- -- -- -- -- 26* CREAT 1.49* -- -- -- -- -- 1.39* NA 139 -- -- -- -- -- 142 K 3.7 -- -- -- -- -- 4.0 CHLOR 109* -- -- -- -- -- 108* CO2 25 -- -- -- -- -- 23 TPROT -- -- -- -- -- -- 7.4 ALB -- -- -- -- -- -- 3.4 CA 8.4* -- -- -- -- -- 9.1 ALKPHOS -- -- -- -- -- -- 71 TBILI -- -- -- -- -- -- 0.3 AST -- -- -- -- -- -- 68* ALT -- -- -- -- -- -- 39 PTSEC -- -- -- -- 10.9 -- -- APTT -- 50.6* < > -- 29.6 -- -- INR -- -- -- -- 1.05 -- -- MG -- -- -- -- -- -- 1.8 < > = values in this interval not displayed. Last Lab Drawn: Triglyceride 131 06/18/2019 HDL Cholesterol 28 06/18/2019 LDL Calculated 110 06/18/2019 Cholesterol, Total 164 06/18/2019 Assessment/Plan Patient Active Hospital Problem List: S/P paroxysmal V. Tach AND V . Fib arrest - required multiple defibrillations per device AND paramedics. In the setting of hypokalemia. Rhyt hm stable now. No further VT or V. Fib since admission. 4 beats NSVT. On IV Am iodarone. ICD generator at end-of-life. ICD/BiVentricular pacemaker with generator at end-of-life - has refused generator replacement earlier this year. Last in terrogation ([facility]) 12/31/18 with 1.6 months battery life. Agrees to generato r replacement at this time so this will be arranged. Ischemic cardiomyopathy - Well compensated. No fluid overloa ded. On Coreg, Plavix, Lasix, HCTZ, Losartan at home. S /P Bi-Ventricular pacemaker/ICD placed 2012. Per chart at [place], Echo February 2017 with EF 20%, per cardiac cath March 2017 EF 25%. Echo done today - pending. Continue heart failure meds when able. NSTEMI - troponins elevated in the setting of multiple defibrillations AND chest pain. Cardiac cath today showed moderate in-stent restenos is of the mid and distal LAD stents (30-40%) with mild dis ish left main coronary artery disease; RCA with mild diffuse disease (per chart prior RCA stent); C irc with mild diffuse disease. Continue me dical therapy (aspirin, Plavix, statin, beta josé (after pacer/ICD generator changed). Hypokalemia: 2.8 on arrival to [place]; corrected to 4.7 t maikel. Continue to monitor. 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 {Readmit:191477::No} Advance Directive: Current Advance Directive: None Clerk Secretary Attempted to Assist with AD Completion: Yes Action: Education Provided {CM Health Literacy REQUIRED IF PATIENT ABLE:787526} FUNCTIONAL AND COGNITIVE/BEHAVIORAL {PRIOR TO ADMISSION STATUS/EQUIPMENT:895298} Has the Patient Been in a [facility] Facility in the Past 30 days? {30 DAYS:019823} SOCIAL: Living Arrangement: {LIVING ARRANGEMENT:90660::Home} Lives With: {lives:320828} Financial Resources: {occupation:097857} Primary Contact: Extended Emergency Contact Information Primary Emergency Contact: JesusitaLoida solizyn Address: [address] [place] [id number] [facility] Relation: Daughter Supportive: {YES/NO:250205::Yes} Other Important Patient Contacts: {Resources:15888} Caregiver Assessment: Caregiver is ready, willing and able to meet the patient's needs as recommended by the inter-professional team? {caregiver:964967} Patient's transition needs and plan for meeting these needs: Does the patient have an acu te stroke diagnosis, or has the patient had a stroke during this admission? {YES/NO:021686::Yes} {CM med adherence REQUIRED IF PATIENT ABLE:4589255} Are you interested in bedside delivery of your medications? {CM delivery yes/no:886816} Food Concerns: In the Last Month, Have You had Trouble Getting Food? {food:478429::No trouble getting food} During the Last Month, Have You Worried Whether Your Food Would Run Out Before You Had Enough Money to Buy More? {foodlist:087299::No} Is the Patient Psychosocially Complex? {CM yes:949484::No} ASSESSMENT AND PLAN: Medical Needs: {Medical Needs:106843} Psychosocial Needs: {psychosocial:477954::None} {REQUIRED ONLY FOR OB PATIENTS. SELECT BLANK IF N/A :787302: : } FREEDOM OF CHOICE EXPLAINED: { :018482} POTENTIAL TRANSITION PLANS {DC PLANS:61955::No Services Indicated} SIGNATURE: Orin Grady RN PATIENT NAME: Leo Mc DATE: June 20, 2019 TIME: 2:35 PM PAGER/CONTACT #: Evelia Sherman, Pharmacist 06/20/2019 3:53 PM Signed MEDICATION HISTORY AND MEDICATION RECONCILIATION Patient Name:Yarely Mc : 1935 Source of history:Patient: Reliability of source: paresh ent states he does not take care of this own medications; his daughter Tatianna helps him (she is not available at this time) Medication Nonadherence Identified: Unable to assess at this time The above information represents the best possible medicatio n history: Incomplete- see discrepancie s in chart below; also patient himself is unable to verify what he is taking. Reconciliation completed? Yes All ASSEMBLY MECHANIC medications addressed by LIP Additional comments: No medication changes at this time; still need to discuss wi th patient's daughter. Note: Potassium chloride 20 mEq is not on patient's me dication list, but was filled 03/29/19 for #90 for a 90 day supply Loratadine 10 mg is not on p atient's medication list, but was filled 04/21/19 for #90 for a 90 day supply Allergies: ALLERGIES No Known Allergies Preferred Pharmacy: [facility] pharmacy ([phone]) Current ASSEMBLY MECHANIC Medications: Prior to Admission medications as of 06/19/19 0041 Medication Sig Last filled Taking hydroCHLOROthiazide (HYDRODI URIL, ESIDRIX) 12.5 mg tablet Take 12.5 mg by mouth once daily. 04/21/19 for #90 for a 90 day supply losartan (COZAAR) 25 mg tablet Take 25 m g by mouth once daily. 01/20/19 for #90 for a 90 day supply aspirin, enteric coated (ASP IRIN, ENTERIC COATED) 81 mg EC tablet Take 81 mg by mouth once daily. atorvastatin (LIPITOR) 20 mg tablet Take 20 mg by mout h daily at bedtime. No fill at [facility] since 12/2017 for a 30 day supply carvedilol (COREG) 3.125 mg tablet Take 3.125 mg by mouth tw ice daily with meals. 05/16/19 for #180 for a 90 day supply clopidogrel (PLAVIX) 75 mg tablet Take 75 mg by mouth once daily. 05/16/19 for #90 for a 90 day supply furosemide (LASIX) 40 mg tablet Take 40 mg by mouth once kathy ly. No fill at [facility] since 2017 Evelia Sherman, Pharmacist June 20, 2019 3:45 PM Guanako Romero DO 06/20/2019 6:44 PM Signed Leo Mc had a medtroni c ICD implanted 02-27-2006 and then in 01-26-2103 it was upgraded to a [facility] CRTD by Dr. Esparza in [place] and more recently followed by the device clinic in [place] . In December Mr. Mc was noted to be near [place] and advised to have his generator replaced and he declined, he was also offered a downgrade to a CRTPPM and declined that, his sister was reportedly present for the conversation, he was adv ised to follow up with his PCP to have palliative care. The family indicates that they though his ICD was deactivated. He received an ICD shock and presented to the ED in [place] with sustained VT not treated by his ICD as his device was EOL. His damian ce was interrogated by [facility] in the ED and repor gloria due to severe battery depletion unable to access rhythm events. Mr. Mc was transferred here with an elevated troponin and NSTEMI. His troponin elevation exceeds what would be e xpected from ICD shock and defibrillation, he underwent a heart cath today with mod erate CAD appropriate for medical therapy. His echo shows an LVEF of 25% and moderate YUNI. Mr. Mc is awake and alert but with significant memory impairment. He indicates that he would not want to be shocked again b y his ICD. His family, including his sisters, his s on (who is hearing impaired) and his grandson, Leo (the family indicated that [place] is our sales person) confirm that he did not want his ICD generator replaced, that he had indicated that he had a good life and that he would not want to be shocked again. I discussed that we have some options: We could leave his device alone, it lik sobeida will not be able to shock him again, but if they wanted to be sure , I could remove the generator and cap the leads. We could change out his gener ator and he would have full pacing and shocking abilities. Or we could change out his d evice to a [employer] SALES BEAUTY ADVISOR PPM which will give pacing but no shocking. I reviewed all of these options and compared each with them. They are going to discuss with Leo and will traci n to make a decision in keeping with his preferences. He did ask his fam fany for their opinion. We discussed that his likelihood of rec urrent VT is about 30% within the next year and that most likely without changing the ICD would likely result in . I was very clear about this an d they indicated that they understand. We discussed that there is no way that I could predict the t rui could be 6 months or 6 weeks or 6 days or sooner. They are going to discuss as a family and will let me tomorrow. I am not able to do hi s surgery [facility] as will not be at [facility], I did check with Dr. Brown and he does not have better availability tomorrow either. I also discussed t hat he has a sprintfidelis and this has a higher risk of lead fracture, i f the lead is functioning we do not plan t o replace regardless of which procedure he ops for. I also emphasized that we do not need to do any procedure. I do not think with his battery depletion that we can reliably deactivate shocking but can check with [facility]. I also think that there is very low likelihoo d that his capaciters will reformat sufficiently to deliver recurrent shock. Please note that I spent 45 minutes with the patient and his famil y discussing the above information and answering their questions. DO Leilani Garcia MD 06/21/2019 11:09 AM Signed Cardiovascular Intensive Care Progress Note June 21, 2019 Patient Name: Leo Mc Patient Location: [place] [address] [address]* Admission Date: 06/18/2019 Length of Stay: 3 Primary Service: Cardiovascular Intensive Care Case Background: 83 year old White male PMHx: HTN, HLD, renal insuff iciency, HFrEF (last EF 25% (March 2017), CAD status post angioplasty and bare-me ish stenting to the distal left anterior descending artery in March 2017, and status post ICD implantation in 201 3 Presented on 06/18/2019 with the complaint of defibrill ator malfunction after pulseless VT where the device didn't shock him. Admitted for Post cardiac arrest (pulseless VT). Brought to the CVICU for post cardiac arrest monitoring in s etting of malfunctioning defibrillator. Hosp. Course: patient had coronary cath to rule out new isch emic events. Stenosis 30-40% was found in multiple vessels. ICD was interrogated by [facility] in the ED and reported due to severe bat alondra depletion unable to access rhythm events. The patient has some sort of dementia and not capable of making complex decisions. The patient previously mentio pili that he doesn't want to be shocked again by the device and he refused to replace the device bat alondra in December because he doesn't want to get a shock. [facility] and had a long discussion with Dr. Romero (EP) about replacing the g enerator. We are still waiting on family decision. No current facility-administered medications on file prior t o encounter. Current Outpatient Medications on File Prior to Encounter: hydroCHLOROthiazide (HYDRODI URIL, ESIDRIX) 25 mg tablet Take 25 mg by mouth once daily. losartan (COZAAR) 25 mg tablet Take 25 mg by mouth once carmen y. aspirin, enteric coated (ASP IRIN, ENTERIC COATED) 81 mg EC tablet Take 81 mg by mouth once daily. atorvastatin (LIPITOR) 20 mg tablet Take 20 mg by mouth carmen y at bedtime. carvedilol (COREG) 3.125 mg tablet Take 3.125 mg by mouth tw ice daily with meals. clopidogrel (PLAVIX) 75 mg tablet Take 75 mg by mouth once d aily. furosemide (LASIX) 40 mg tablet Take 40 mg by mouth once kathy ly. Interval History for 06/21/19: Patient seen and examined in the AM. No overnight events. The patient denies any concerns. Coronary cath done yesterday showed 30-40% stenosi s of multiple vessels. Dr. Romero had a d iscussion with the family about replacing the device generator. The family are thinking about it and will decide today. Further details are in Dr. Romero's note on 06/20/2019. Review of Systems: Review of Systems Constitutional: Negative for chills. HENT: Negative for nosebleeds. Eyes: Negative for blurred vision. Respiratory: Negative for cough and shortness of breath. Cardiovascular: Negative for chest pain and palpitations. Gastrointestinal: Negative for abdominal pain, nausea and vo miting. Genitourinary: Negative for dysuria, frequency and urgency. BP 108/61 Pulse 54 Temp (Src) 97.9 (Temporal) Resp 16 Ht 5' 10 (1.78m) Wt 183 lb 10.3 oz (83.3kg) SpO2 94% BMI 26.35 kg/(m2). O2 Therapy: Room Air Temp (24hrs), Av.4 ?C (97.5 ?F), Min:36.3 ?C (97.3 ?F), Max:36.6 ?C (97.9 ?F) Physical Exam Constitutional: He is well-developed, well-nourished, and in no distress. HENT: Head: Normocephalic and atraumatic. Eyes: Pupils are equal, roun d, and reactive to light. EOM are normal. No scleral icterus. Neck: Neck supple. No tracheal deviation present. No thyrome jaden present. Cardiovascular: Normal heart sounds. Exam reveals no gallop and no friction rub. No murmur heard. Pulmonary/Chest: Effort normal and breat h sounds normal. He has no wheezes. He has no rales. Abdominal: Soft. Bowel sounds are normal. He exhibits no mas s. There is no tenderness. There is no guarding. Lymphadenopathy: He has no cervical adenopathy. Neurological: He is alert. Knows he is in a hospital and knows that I am a doctor but couldn't tell what day it is Telemetry: few pvcs EKG: QTc 478 ms, Ventricular rate 52 bpm, PVCs, normal axis Most recent echo: EF 25%, LV grade II DD Intake/Output Summary (Last 24 hours) at 06/21/2019 0830 Last data filed at 06/21/2019 0600 Gross per 24 hour Intake 807.2 ml Output 1450 ml Net -642.8 ml Current active therapies: Current Facility-Administered Medications Medication Dose Route Frequency - potassium chloride 80-120 mEq oral liquid 80-120 mEq ORAL/FEEDING TUBE PRN - potassium chloride iv piggyback 20 mEq/100 mL 20 mEq INTRA VENOUS PRN - magnesium sulfate in water 2 g in sterile water 50 ml 2 g INTRAVENOUS PRN - sodium phosphate 45 mmol in NaCl 0.9% 250 mL 45 mmol INTRA VENOUS PRN - calcium gluconate 4 g in NaCl 0.9% 250 mL 4 g INTRAVENOUS PRN - amiodarone 360 mg in D5W 2 00 mL (NEXTERONE) 0.5 mg/min INTRAVENOUS CONTINUOUS - atorvastatin 40 mg tab(s) (LIPITOR) 40 mg ORAL AT BEDTIME - aspirin, enteric coated 81 mg tab(s) 81 mg ORAL DAILY - cefTRIAXone 1 g in D5W 100 mL MB+ (ROCEPHIN) 1 g INTRAVENO US q 24 H DATA: BLOOD GAS: No results for in put(s): VPH, VPC2, VPO2C, RESPHCO3, BASEX, E8HSNAIH, PH, PCO2, RESPHCO3, BASEX, C4BMVMGW in the last 168 hours. Invalid input(s): PO2C CBC: Recent Labs 06/21/19 0530 06/20/19 0440 06/19/19 0735 06/18/19 2320 WBC 9.15* 14.33* 15.40* 19.38* HB 13.3* 13.1* 13.2* 14.5 HCT 39.6* 38.8* 40.1 43.8 PLT 126* 123* 125* 143 MCV 92.5 92.4 93.7 93.2 COAG: Recent Labs 06/20/19 0440 06/19/19 1845 06/19/19 1330 06/19/19 0735 APTT 50.6* 49.8* 58.8* 29.6 INR -- -- -- 1.05 BMP: Recent Labs 06/21/19 0530 06/20/19 0650 06/18/19 2320 GLUC 99 99 120* NA 139 139 142 K 3.4* 3.7 4.0 CHLOR 108* 109* 108* CO2 28 25 23 ANION 6* 9 15 BUN 17 23* 26* CREAT 1.29* 1.49* 1.39* CHEM: Recent Labs 06/21/19 0530 06/20/19 0650 06/18/19 2320 ALB -- -- 3.4 TPROT -- -- 7.4 CA 8.3* 8.4* 9.1 MG -- -- 1.8 HEPATIC: Recent Labs 06/18/192319 ALKPHOS 71 ALT 39 AST 68* TBILI 0.3 URINALYSIS: Recent Labs 06/19/19 0040 SPGR 1.018 UGLUC NEGATIVE UBILI NEGATIVE UKET NEGATIVE UPROT 100* UROBIL 0.2 UWBC 379.9* CARDIAC: Recent Labs 06/18/19 2320 PBNP 3,857 Assessment/Plan Reviewed in its entirety and amended as appropriate on 06/21 ASSESSMENT ANDPLAN NSTEMI- likely type II -Troponin peaked at 12.4 and trended down. - Coronary cath on 06/20/2019 with 30-40% stenosi s of multiple vessels. Stents were patent. - Discontinue heparin - Continue ASA, atorvastatin and metoprolol. - Limited echocardiogram showed EF 25% and LV grade II DD. ? AICD dysfunction/ ventricular arrhythmias- -Patient on amiodarone gtt. -EP consulted and decided that the device genera tor will need to be replaced. The patient previously refus ed to replace the battery. He has some dementia and unable to make complex decisions. The family is involved in a discussion with Dr. Romero. They will decide today. -Patient on cardiac telemetry. ? UTI- -Patient initiated on ceftriaxone. -Urine culture ordered. Signed: Ceci Navarro DO PGY-1 Pager: [phone] Date: June 21, 2019 Time: 8:30 AM Recommendations are not finalized until co-signed by Staff catherine chin. Patient was seen and discussed with resident. I have stefano jones seen and examined the patient. I have reviewed labs, clinical data and pertinent images. I agree with the documentation above. Rich joseph findings were confirmed and updated. I'll summarize our mutual assessment and plan below. This is an 83-year-old gentleman with history of coronary ar alondra disease, chronic systolic heart failure and AICD in place. The patient presented to the [facility] with confusion. He developed ve ntricular fibrillation there, AICD did not fire and then he required external defibrillati on twice. For elevated troponins he was diagnosed with non-STEMI and was t reated with IV heparin. He is also on IV amiodarone currently. Critical Care Documentation: Non-STEMI type II Ventricular fibrillation AICD with suspected malfunction, end-of-life Chronic systolic heart failure from isch emic cardiac myopathy with LVEF of 20% History of coronary artery disease with previous percutaneou s coronary interventions. Plan: Left heart catheterization with no significant obstructive C AD and no intervention was performed. Will discuss with EP mainor pablo the plan for long-term amiodarone. If okay, will switch him to by mouth amiodarone loading dose from today. Patient and family are still not clear about AICD generator change. Patient had refused it back in December 2018. Dr. Romero had discussion wi th the patient yesterday and we are still waiting for patient's and family' s decision. Continue on aspirin 81 mg daily and atorvastatin 40 mg daily . This patient has a high probability of sudden, clinically si gnificant deterioration, which requires the highest level of phy sician preparedness to intervene urgently. I manage d/supervised life or organ supporting interventions that required frequent physi shalom assessment. I devoted my full attention to the direct care of this patient for the amount of time indicated below. Time I spent with family or surroga te(s) is included only if the patient was incapable of providing the necessary information or participating in medical decision making. Time devoted to teaching is not included. ?? Time spent providing critical care services: 40 minutes excluding procedures. Previous Version Lizz Venegas, RN, RN 06/21/2019 11:22 AM Signed Report to [id number]. Ayaka Chatterjee, EDUCATION PROGRAM MANAGER.TAXATION AGENT, TAXATION AGENT 06/21/2019 4:09 PM Addendum PROGRESS NOTE ELECTROPHYSIOLOGY SERVICE SERVICE DATE: 06/21/2019 SERVICE TIME: 3:31 PM Subjective INTERIM HISTORY: Transferred out of [facility] this afternoon. No family at bedside at time of visit. I spoke to patient's grandson Leo Mc who states family decided that patient wants pacemaker onl y (even it means replacing leads), but does not want a defibrillator. Patient denies any pain, SOB, palpitations, dizziness. States having trouble using urinal. H as condom catheter but it has fallen off. He is aware of need to void. Lung sounds with so me wheezes AND crackles. Respirations unlabored. Review of Systems Constitutional: Negative for chills and fever. HENT: Positive for hearing loss. Respiratory: Negative for co ugh, hemoptysis, sputum production and shortness of breath. Cardiovascular: Negative for chest pain, palpitations, orthopnea, leg swelling and PND. Gastrointestinal: Negative for constipation, diarrhea, bambi sea and vomiting. Musculoskeletal: Negative. Neurological: Negative for dizziness and headaches. ROS limited due to BURNS PAIUTE AND decreased memory. Objective PHYSICAL EXAM: Body mass index is 26.35 kg/m?. O2 Therapy: Room Air Patient Vitals for the past 24 hrs: BP Temp Temp src Pulse Resp SpO2 Weight 06/21/19 1454 120/59 36.8 ?C (98.2 ?F) Oral (!) 58 20 94 % ? 06/21/19 1200 115/59 37.3 ?C (99.1 ?F) Oral (!) 57 20 94 % ? 06/21/19 1100 104/51 ? ? (!) 54 ? 94 % ? 06/21/19 1000 110/60 ? ? (!) 59 ? 94 % ? 06/21/19 0900 112/58 ? ? 64 ? 95 % ? 06/21/19 0800 100/68 ? ? (!) 57 ? 93 % ? 06/21/19 0710 ? 36.6 ?C (97.9 ?F) Temporal ? 06/21/19 0600 108/61 ? ? (!) 54 ? 94 % ? 06/21/19 0500 114/60 ? ? 62 ? 94 % 83.3 kg (183 lb 10.3 oz) 06/21/19 0400 121/64 ? ? 64 ? 93 % ? 06/21/19 0300 107/54 ? ? (!) 59 ? 93 % ? 06/21/19 0200 105/51 ? ? (!) 58 ? 92 % ? 06/21/19 0100 (!) 109/40 ? ? (!) 58 ? 93 % ? 06/21/19 0000 (!) 96/44 ? ? (!) 58 ? 93 % ? 06/20/19 2300 121/60 ? ? 63 ? 94 % ? 06/20/19 2200 121/63 ? ? 63 ? 94 % ? 06/20/19 2100 124/66 ? ? 63 ? 94 % ? 06/20/19 2000 122/66 ? ? 62 ? 94 % ? 06/20/19 1946 139/70 ? ? 62 ? 95 % ? 06/20/19 1900 139/70 ? ? 66 ? 96 % ? 06/20/19 1800 117/66 36.5 ?C (97.7 ?F) Temporal Art (!) 55 ? 96 % ? 06/20/19 1700 114/59 ? ? (!) 58 ? 95 % ? 06/20/19 1600 119/56 ? ? (!) 58 ? 96 % ? Pleasant, comfortable, not in acute distress. SKIN: warm AND dry; normal color. HEENT: Normocephalic. NECK: Supple, no JVD, no carotid bruits auscultated. LUNGS: Scattered fine crackl es AND expiratory wheezes posteriorly. Respirations unlabored at rest. No cough noted. CARDIAC: normal S1, S2, regu lar rate AND rhythm, no significant murmurs or gallops noted. ABDOMEN: Soft, round, nontender to superficial palpation, be wel sounds auscultated. EXTREMITIES: No edema lower extremities. NEURO: awake, alert, oriented to person. [place] [facility], knows the correct year AND thought it was June. Moves all 4 extre mities. PULSES: bilateral radial AND dorsalis pedis pulses palpable. MEDICATIONS: Current Facility-Administered Medications Medication Dose Route Frequency - atorvastatin 40 mg tab(s) (LIPITOR) 40 mg ORAL AT BEDTIME - aspirin, enteric coated 81 mg tab(s) 81 mg ORAL DAILY - sulfamethoxazole-trimethoprim 800-160 mg 1 tablet (B ACTRIM DS,SEPTRA DS) 1 tablet ORAL q 12 H - amiodarone 400 mg tab(s) (PACERONE) 400 mg ORAL TID DATA: Diagnostic tests reviewed for today's visit: Most recent labs and imaging results. Most recent EKG Most recent Echo 06/20/19: CONCLUSIONS: - Technically difficult exam due to bandages/chest tubes/wou nd, suboptimal positioning and body habitus. - Exam indication: VT - The left ventricle is normal in size. There is moderate upper septal left ventricular hypertrophy. Left ventricular systolic function is severely decreased. ?EF = 25 ? 5% (visual est.) Definity contrast used for endoc ardial border detection. Grade II left ventricular diastolic dysfunction. - The right ventricle is nor mal in size. Right ventricular systolic function is normal. - The patient has not had a prior CC echocardiographic exa m for comparison. TELEMETRY: NSR with RBBB, occasional PVCs, pacin g spikes with non-sensing AND non-capture; no further NSVT since 4 beat run on 06/20 at 002 7. Past 72 Hour Labs: Recent Labs 06/21/19 0530 06/20/19 0440 06/19/19 1140 06/19/19 0735 06/18/19 2320 TROPI -- -- -- -- 8.900* 12.400* < > 8.110* WBC 9.15* -- 14.33* -- -- 15.40* -- 19.38* RBC 4.28* -- 4.20* -- -- 4.28* -- 4.70 HB 13.3* -- 13.1* -- -- 13.2* -- 14.5 HCT 39.6* -- 38.8* -- -- 40.1 -- 43.8 MCV 92.5 -- 92.4 -- -- 93.7 -- 93.2 MCH 31.1 -- 31.2 -- -- 30.8 -- 30.9 MCHC 33.6 -- 33.8 -- -- 32.9 -- 33.1 PLT 126* -- 123* -- -- 125* -- 143 MPV 11.2 -- 11.1 -- -- 10.8 -- 11.2 GLUC 99 < > -- -- -- -- -- 120* BUN 17 < > -- -- -- -- -- 26* CREAT 1.29* < > -- -- -- -- -- 1.39* NA 139 < > -- -- -- -- -- 142 K 3.4* < > -- -- -- -- -- 4.0 CHLOR 108* < > -- -- -- -- -- 108* CO2 28 < > -- -- -- -- -- 23 TPROT -- -- -- -- -- -- -- 7.4 ALB -- -- -- -- -- -- -- 3.4 CA 8.3* < > -- -- -- -- -- 9.1 ALKPHOS -- -- -- -- -- -- -- 71 TBILI -- -- -- -- -- -- -- 0.3 AST -- -- -- -- -- -- -- 68* ALT -- -- -- -- -- -- -- 39 PTSEC -- -- -- -- -- 10.9 -- -- APTT -- -- 50.6* < > -- 29.6 -- -- INR -- -- -- -- -- 1.05 -- -- MG -- -- -- -- -- -- -- 1.8 < > = values in this interval not displayed. Last Lab Drawn: Triglyceride 131 06/18/2019 HDL Cholesterol 28 06/18/2019 LDL Calculated 110 06/18/2019 Cholesterol, Total 164 06/18/2019 Assessment/Plan Patient Active Hospital Problem List: ? S/P paroxysmal V. Tach AND V . Fib arrest - required multiple defibrillations per device AND paramedics. In the setting of hypokalemia. Rhyt hm stable now. No further VT or V. Fib since admission. Was on IV Amiodarone for 72 hours which was changed to po today. Dis cussed with Dr. Romero AND will give Amiodarone 400 mg BID. ICD generator at end -of-life. Patient expressed desire not to be shocked anymore. ? ICD/BiVentricular pacemaker with generator at end-of-life - has refused generator replacement earlier this year. [facility] [address] Ree allred had long discussion with family last evening (see note) re: optio ns. I spoke with grandmiranda Mc at this time as he was chosen as family s pokesperson AND he states they decided that patient does not want defibrillator/ further shocks, but OK with having a pacemaker even it requires lead replacement. ? Ischemic cardiomyopathy - Not SOB but lung sound s with some fine crackles AND wheezes at this time. On Coreg, Plavix, Lasix, HCTZ, Losar peters at home which have not been started in the hospital. S /P Bi-Ventricular pacemaker/ICD placed 2012. Per chart at [facility], Echo February 2017 with EF 20%, per cardiac cath March 2017 EF 25%. Echo 06/20 with EF 25% AND d iastolic dysfunction stage 2. Continue heart failure meds when able. Will resume Lasix 20 mg daily at this time. ? NSTEMI - troponins elevated in the setting of multiple defibrillations AND chest pain. Cardiac cath 06/20 showed moderate in-stent restenosis of the mid and distal LAD stents (30-40%) with mild dis ish left main coronary artery disease; RCA with mild diffuse disease (per chart prior RCA stent); C irc with mild diffuse disease. Continue me dical therapy (aspirin, Plavix, statin, beta josé (after pacer/ICD generator changed). CKD - improved since admit. ? Hypokalemia: 2.8 on arrival to [facility]; corrected to 4.7 on 06/20 AND today below normal 3.4. Will given K-Dur 40 meq toda y. Continue to monitor. On bactrim for UTI- watch for hyperkalemia. Check BMP AND Mg+ level in AM. SIGNATURE: Donald Chatterjee APRN.TAXATION AGENT PATIENT NAME: Leo Mc DATE: June 21, 2019 TIME: 3:31 PM PAGER/CONTACT #: [phone] Previous Version Guanako Romero DO 06/22/2019 9:18 AM Signed As previously noted had a long discussion with Leo and his family about options for management of his CRTD that is EOL. Leo has significant memory impairment and did want his family to participat e in decision process. He and his family designated his grandson Leo as my c ontact person. They discussed and determined that they did not want and ICD and Jerr y Sr. Very clearly and repeatedly expressed that he does not want to ge t shocked by his device. They would like to pursue replacement of a CRTPPM. I spoke with New bridger Euceda. He confirmed that he dose not want an ICD but is agreeable to a pacmaker. Will plan to perform later today. Leo Euceda and his family were advised that a CRTPPM would not be life saving with recurrent VT or VF and i f he has recurrence of this arrhythmia he will likely . They had indicated max t they understood prior to making their decision. Guanako Romero DO progress notes on [facility] INTERFACE Note OR Normal 01-19-2018 [facility] [employer] ([id number] ) ed note on ED NOTE HNO ID: [id number] Normal 01-05-2018 [facility] Author: Jose M PrattRn) LUZ Bennett ([id number]) Service: Emergency Medicine Author Type: Registered Nurse Type: ED Notes Filed: 01/04/2018 10:51 PM Note Text: Patient leaves at this time for [facility] in stable c ondition. ED NOTE HNO ID: [id number] Normal 01-05-2018 [facility] Author: Jose M PrattRn) LUZ Bennett ([id number]) Service: Emergency Medicine Author Type: Registered Nurse Type: ED Notes Filed: 01/04/2018 10:45 PM Note Text: Samaritin care team here. Report to team. ed prov note on 201 05-28-12 ED PROV HNO ID: [id number]: Carla Normal 01-04-2018 [place] NOTE [employer], DOService: Emergency Clinic MedicineAuthor Type: PhysicianType: ED [place] Provider NotesFiled: 01/05/2018 7:52 AMNote ([id number]) Text:ED Provider NotePatient Name: Leo McMRN: [id number] DATE: 01/04/18HistoryPatient presents with:Altered Level Of ConsciousnessHPI Comments: Family lives next door. They last saw him normal last nightbefore bed. They went to check on him tonight and he was confused. He wasconfused how to open the door, he told family he was dizzy. They wanted totake him to the ED, but he kept saying he just needed to go home andsleep. 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 used: NoMental Status ChangesPresenting symptoms: confusionSeverity: ModerateMost recent episode: TodayEpisode history: Unable to specifyDuration: unknown.Timing: ConstantProgression: Unable to specifyChronicity: NewContext: alcohol use and recent change in medication (changed water pill)Context: not dementia, not drug use, not head injury, not homeless, notrecent illness and not recent infectionAssociated symptoms: no agitation, no difficulty breathing, no fever, noheadaches, no rash, no visual change and no vomitingNo past medical history on file.No past surgical history on file.No family history on file.Social HistorySocial History Main Topics- Smoking status: Current Every Day Smoker Types: Cigarettes- Smokeless tobacco: Never Used- Alcohol use Yes- Drug use: No- Sexual activity: Not AskedALLERGIESNo Known AllergiesReview of SystemsUnable to perform ROS: Mental status changeConstitutional: Negative for fever.Gastrointestinal: Negative for vomiting.Skin: Negative for rash.Neurological: Positive for dizziness. Negative for headaches.Psychiatric/Behavioral: Positive for confusion. Negative for agitation.Physical ExamBP 98/61 Pulse 63 Temp (Src) 98.3 (Temporal Artery) Resp 18 Ht 5'10 (1.78m) Wt 160 lb (72.6kg) SpO2 94% BMI 22.96 kg/(m2).Physical ExamConstitutional: He appears well-developed and well-nourished. No distress.HENT:Head: Normocephalic and atraumatic.Eyes: Conjunctivae and EOM are normal. Pupils are equal, round, andreactive to light. Right eye exhibits no discharge. Left eye exhibits nodischarge. No scleral icterus.Neck: Normal range of motion. No JVD present.Cardiovascular: Normal rate, regular rhythm and intact distal pulses.Pulmonary/Chest: Effort normal and breath sounds normal. No stridor. Norespiratory distress. He has no wheezes.Abdominal: Soft. Bowel sounds are normal. He exhibits no distension. Thereis no tenderness.Musculoskeletal: He exhibits no edema or tenderness.Neurological: He is alert. He is disoriented. No cranial nerve deficit. Heexhibits normal muscle tone. GCS eye subscore is 4. GCS verbal subscore is5. GCS motor subscore is 6.Skin: Skin is warm and dry. No rash noted.Psychiatric: He has a normal mood and affect. His behavior is normal.Nursing note and vitals reviewed.Diagnostic TestingED Labs Ordered and ReviewedCOMPREHENSIVE METABOLIC PANEL (AK,AV,EU,FV,HL,FRANCISCO,MM,SP) - Abnormal;Notable for the following: Result Value Ref Range Sodium 135 (*) 136 - 145 mEq/L Glucose 108 (*) 70 - 99 mg/dL BUN 32 (*) 7 - 25 mg/dL Creatinine 1.75 (*) 0.67 - 1.17 mg/dL Albumin 3.0 (*) 3.4 - 5.0 g/dL All other components within normal limitsCBC + AUTO DIFF (AK,AV,EU,FV,HL,FRANCISCO,MM,SP) - Abnormal; Notable for thefollowing: WBC 11.8 (*) 4.8 - 10.8 thou/cmm RBC 4.27 (*) 4.60 - 6.20 mil/cmm HGB 12.4 (*) 14.0 - 18.0 g/dL Hematocrit 38.4 (*) 42.0 - 52.0 % RDW 16.1 (*) 11.5 - 15.9 % Platelet Count 121 (*) 150 - 400 thou/cmm MPV 11.6 (*) 7.1 - 10.5 fl Seg. Neut. # 7.90 (*) 3.00 - 5.67 thou/cmm Monocyte # 1.89 (*) 0.20 - 1.00 thou/cmm All other components within normal limitsURINALYSIS WITH MICROSCOPIC (EU,FV,HL,FRANCISCO,MM,SP) - Abnormal; Notable forthe following: Hemoglobin, Urine 3+ (*) Negative Protein, Urine 2+ (*) Negative Nitrites Urine POSITIVE (*) Negative Leukocytes Esterase 1+ (*) Negative WBC, Urine >100 (*) 0 - 5 /hpf RBC, Urine 4-6 (*) 0 - 3 /hpf Bacteria Urine (Manual) MANY (*) None All other components within normal limitsTROPONIN I (AK)PROTHROMBIN TIME / PT (AK,AV,EU,FV,HL,FRANCISCO,MM,SP)MDRD GFRCBC + AUTO DIFF (EU,FV,HL,FRANCISCO,MM,SP)PROBNP N-TERMINAL (AK,AV,EU,FV,HL,FRANCISCO,MM,SP)LACTIC ACID / LACTATE (AK,AV,EU,FV,HL,FRANCISCO,MM,SP)URINE CULTURE (AK,AV,EU,FV,HL,FRANCISCO,MM,SP)BLOOD CULTURE DRAW (AV,EU,FV,HL,FRANCISCO,MM,SP)BLOOD CULTURE DRAW (AV,EU,FV,HL,FRANCISCO,MM,SP)ProceduresMedical Decision Making / ED CourseED CourseLabs and imaging ordered.Blood culture, urine culture ordered.Time: 9 pm I discussed results with family at bedside. They state [facility] he [facility] to.Time: 917 pm I spoke with Dr. Hernandez, hospitalist at [facility], who is accepting foradmission. Lactic acid will be added.Encounter Diagnosis ICD-10-CM1. Altered mental status, unspecified altered mental status type R41.822. Urinary tract infection with hematuria, site unspecified N39.0 R31.93. Congestive heart failure, unspecified chronicity, unspecified heartfailure type ([facility]) I50.94. STACY (acute kidney injury) ([facility]) N17.9PlanThe [facility]: stableSIGNATURE: KACEY Schmidt Interpretation:RHYTHM: Normal sinus rhythm at 74 beats per minute and Pacemaker function,rhythms and complexes. Ventricular paced rhythmBiventricular pacemakerCOMPARED WITH PRIOR: None availableMorenoanna Gerard, 01/05/18 0752 ed note on ED NOTE HNO ID: [id number]: Oly Normal 01-04-2018 [facility] (RnSANCHO Camejoervice: [place] ([id number]) Emergency MedicineAuthor Type: Registered NurseType: ED NotesFiled: 01/04/2018 10:04 PMNote Text: Bed received at [facility], [place] [address], report number [id number], face sheet faxedto [phone], [facility] eta 30 minutes ED NOTE HNO ID: [id number] Normal 01-04-2018 [facility] Author: Jose M Bennett RN [place] ([id number]) Service: Emergency Medicine Author Type: Registered Nurse Type: ED Notes Filed: 01/04/2018 9:43 PM Note Text: Lactic Acid level drawn from left arm IV site. ED NOTE HNO ID: [id number] Normal 01-04-2018 [facility] Author: Jose M Bennett RN [place] ([id number]) Service: Emergency Medicine Author Type: Registered Nurse Type: ED Notes Filed: 01/04/2018 9:31 PM Note Text: 2nd set of Blood cultures drawn and sent. ED NOTE HNO ID: [id number] Normal 01-04-2018 [facility] Author: Oly Ferrera RN [place] ([id number]) Service: Emergency Medicine Author Type: Registered Nurse Type: ED Notes Filed: 01/04/2018 9:26 PM Note Text: Dr. Hernandez from [facility] called back and accepted pt. ED NOTE HNO ID: [id number] Normal 01-04-2018 [facility] Author: Jose M Bennett RN [place] ([id number]) Service: Emergency Medicine Author Type: Registered Nurse Type: ED Notes Filed: 01/04/2018 9:30 PM Note Text: 1st set of Blood cultures drawn and sent. 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 ED NOTE HNO ID: [id number] Normal 01-04-2018 [facility] Author: Jose M Bennett RN [place] ([id number]) Service: Emergency Medicine Author Type: Registered Nurse Type: ED Notes Filed: 01/04/2018 8:26 PM Note Text: Patient returned to the Emergency Department. ED NOTE HNO ID: [id number] Normal 01-04-2018 [facility] Author: Jose M Bennett RN [place] ([id number]) Service: Emergency Medicine Author Type: Registered Nurse Type: ED Notes Filed: 01/04/2018 8:02 PM Note Text: To radiology at this time. ED NOTE HNO ID: [id number]: Jose M Normal 01-04-2018 [facility] (SANCHO Casianoervice: [place] ([id number]) Emergency MedicineAuthor Type: Registered NurseType: ED NotesFiled: 01/04/2018 7:43 PMNote Text: Encouraged for UA. Unable to void at this time. Family at bedside. Sheba speaking with family members x2 at this time. office visit on 201 05-04-17 Documentation of Done Invalid Interpretation 08-11-2017 - [facility] current medications Code 08-11-2017 Group ([id number]) (procedure) Fall risk assessment No Invalid Interpretat ion 08-11-2017 - [facility] Code 08-11-2017 Group ([id number]) office visit on 04-30-28 Documentation of Done Invalid Interpretation 04-22-2017 - [facility] current medications Code 04-22-2017 Group ([id number]) (procedure) Fall risk assessment No Invalid Interpretat ion 04-22-2017 - [facility] Code 04-22-2017 Group ([id number]) Protein mass conc Done 04-22-2017 - [facility] 04-22-2017 Group ([id number]) clinical lists update: preload on 2017-04-02 Tobacco smoking Former smoker 04-02-2017 - [facility] status NHIS 04-02-2017 Group ( [id number]) Tobacco use Former smoker Invalid 04-02-2017 - [facility]PHS Interpretation Code 04-02-2017 Group ([id number]) clinical lists update: preload on 2017-03-27 Anion gap 9 mmol/L Invalid Interpretation 017 - [facility] Code 03-27-2017 Group ([id number]) Anion gap molar 9 mmol/L 03-27-2017 - [facility] conc 03-27-2017 Group ([id number]) BUN/Creatinine 15.1 mg/mg Invalid Interpretation - [facility] Ratio Code 03-27-2017 Group ([id number]) Calcium 8.4 mg/dL Low 03-27-2017 - [facility] 03-27-2017 Group ([id number]) Chloride 102 mmol/L Invalid Interpretation 017 - [facility] Code 03-27-2017 Group ([id number]) CO2 30 mmol/L Invalid Interpretation 017 - [facility] Code 03-27-2017 Group ([id number]) CO2 ppres (BldV) 30 mmol/L 03-27-2017 - [facility] 03-27-2017 Group ([id number]) Creatinine 1.72 mg/dL High 03-27-2017 - [facility] 03-27-2017 Group ([id number]) Glucose 88 mg/dL Invalid Interpretation 017 - [facility] Code 03-27-2017 Group ([id number]) Glucose mass conc 88 mg/dL Invalid Interpretation 03-27-2017 - [facility] Code 03-27-2017 Group ([id number]) Potassium 3.3 mmol/L Low 03-27-2017 - [facility] 03-27-2017 Group ([id number]) Sodium 141 mmol/L Invalid Interpretation 017 - [facility] Code 03-27-2017 Group ([id number]) Urea nitrogen 26 mg/dL High 03-27-2017 - [facility] 03-27-2017 Group ([id number]) clinical lists update: preload on 2017-03-26 Hematocrit (HCT) 37.0 % Low 03-26-2017 - 03-26-2017 [facility] ([id number]) Hematocrit Volume 37.0 % Low 03-26-2016 - 03-26-2017 [facility] Fraction (Bld) ([id number]) Hemoglobin (HGB) 12.6 g/dL Low 03-26-2016 - 03-26-2017 [facility] ([id number]) Platelets 147 10*3/mm3 Low 03-26-2016 - 017 [facility] ([id number]) Platelets #/vol (Bld) 147 10*3/mm3 Low 03-26-2003-26-2017 [facility] ([id number]) clinical lists update: preload on 2017-03-25 Cholesterol 135 mg/dL Invalid Interpretation 03-25 - [facility] Code 03-25-2017 Group ([id number]) HDL Cholesterol 28 mg/dL Invalid Interpretation 0 03-25-2017 - [facility] Code 03-25-2017 Group ([id number]) LDL Cholesterol 92 mg/dL Invalid Interpretation 0 03-25-2017 - [facility] Code 03-25-2017 Group ([id number]) Left ventricular 20 % Invalid Interpretation 03-25-2017 - [facility] Ejection fraction Code 03-25-2017 [facility] ([id number]) Triglyceride 76 mg/dL Invalid Interpretation 02-25 - [facility] Code 03-25-2017 Group ([id number]) Vital Signs Vital Sign Description Value / Unit Date Location The following section is limited to 5 en tries per type and includes entries from the following time range: [id number] - [id number] 7. BMI (Body Mass Index) 25.54 kg/m2 08-11-2017 - 08-11-2017 [facility] ([id number]) BMI (Body Mass Index) 25.9 kg/m2 04-22-2017 - 04-22-2017 [facility] ([id number]) BP Diastolic 60 mm[Hg] 08-11-2017 - 08-11-2017 [facility] ([id number]) BP Diastolic 60 mm[Hg] 04-22-2017 - 04-22-2017 [facility] ([id number]) BP Systolic 120 mm[Hg] 08-11-2017 - 08-11-2017 [facility] ([id number]) BP Systolic 100 mm[Hg] 04-22-2017 - 04-22-2017 [facility] ([id number]) Height 177.8 cm 08-11-2017 - 08-11-2017 [facility] ([id number]) Height 177.8 cm 04-22-2017 - 04-22-2017 [facility] ([id number]) Pulse (Heart Rate) 70 /min 08-11-2017 - 08-11-2017 [facility] ([id number]) Pulse (Heart Rate) 72 /min 04-22-2017 - 04-22-2017 [facility] ([id number]) Respiratory Rate 20 /min 08-11-2017 - 08-11-2017 [facility] ([id number]) Respiratory Rate 20 /min 04-22-2017 - 04-22-2017 [facility] ([id number]) Weight 80.74 kg 08-11-2017 - 08-11-2017 [facility] ([id number]) Weight 81.87 kg 04-22-2017 - 04-22-2017 [facility] ([id number]) Procedures Procedure Name Date Provider Location Electrocardiogram 06-19-2019 [facility] ([id number]) Electrocardiogram 06-19-2019 [facility] ([id number]) Prgrmg eval implantable in 08-24-2017 - Toan Soto MD [facility] person multi lead dfb 08-25-2017 ([id number]) Device Interrogation 08-11-2017 - [facility] 08-11-2017 ([id number]) Follow Up Appt 3 months 08-11-2017 - [facility] 08-11-2017 ([id number]) JHR 08-11-2017 - MD [facility] 08-11-2017 ([id number]) Device Interrogation 04-22-2017 - [facility] 08-11-2017 ([id number]) Follow Up Appt 3 months 04-22-2017 - Toan Soto MD [facility] 04-22-2017 ([id number]) [facility] 04-22-2017 - Toan Soto MD [facility] 04-22-2017 ([id number]) Follow Up Appt 3 months 04-22-2017 - Toan Soto MD [facility] 04-22-2017 ([id number]) [facility] 04-22-2017 - Toan Soto MD [facility] 04-22-2017 ([id number]) Implantation of internal 04-02-2017 [facility] cardiac defibrillator ([id number]) Placement of stent in coronary 04-02-2017 [facility] artery ([id number]) Plan of Treatment Plan Description Date Location Appointment Appointment 11-27-2017 - [facility] 11-27-2017 ([id number]) Appointment Appointment 11-12-2017 - [facility] 11-12-2017 ([id number]) Appointment no information 08-24-2017 - [facility] 08-24-2017 ([id number]) Follow Up Appt 3 months Follow Up Appt 3 months 08-24-2017 - [facility] 08-25-2017 ([id number]) Pacer Clinic Pacer Clinic 08-24-2017 - [facility] 08-25-2017 ([id number]) Device Interrogation Device Interrogation 08-11-2017 - [facility] 08-11-2017 ([id number]) Follow Up Appt 3 months Follow Up Appt 3 months 08-11-2017 - [facility] 08-11-2017 ([id number]) JHR JHR 08-11-2017 - [facility] 08-11-2017 ([id number]) Appointment Appointment 07-28-2017 - [facility] 07-28-2017 ([id number]) Device Interrogation Device Interrogation 04-22-2017 - [facility] 08-11-2017 ([id number]) Follow Up Appt 3 months Follow Up Appt 3 months 04-22-2017 - [facility] 04-22-2017 ([id number]) MMM MMM 04-22-2017 - [facility] 04-22-2017 ([id number]) Device Interrogation Device Interrogation 04-22-2017 - [facility] 04-22-2017 ([id number]) Follow Up Appt 3 months Follow Up Appt 3 months 04-22-2017 - [facility] 04-22-2017 ([id number]) MMM MMM 04-22-2017 - [facility] 04-22-2017 ([id number]) Appointment Appointment 04-03-2017 - [facility] 04-03-2017 ([id number]) Summary Purpose Family History No Family History Records FoundNo Family History Records FoundNo Family History Records FoundNo Family History Records Found Advance Directives No Advanced Directives Records FoundNo Advanced Directives Records FoundNo Advanced Directives Records FoundNo Advanced Directives Records Found Additional Source Comments FOR RECORDS PERTAINING TO PATIENTS WHO ARE OR HAVE BEEN ENROLLED IN A CHEMICAL DEPENDENCY/SUBSTANCE ABUSE PROGRAM, SOME INFORMATION MAY BE OMITTED. This clinical summary was aggregated from multiple sources. Caution should be exercised in using it in the provision of clinical care. This summary normalizes information from multiple sources, and as a consequence, information in this document may materially changethe coding, format and clinical context of patient data. In addition, data may be omittedin some cases. CLINICAL DECISIONS SHOULD BE BASED ON THE PRIMARY CLINICAL RECORDS. [facility] provides no warranty or guarantee of the accuracy or completeness of information in this document. UNRECOGNIZED CONTENT PROVIDED BELOW FOR UNRECOGNIZED SECTION No Status Records FoundNo Status Records FoundNo Status Records FoundNo Status Records Found UNRECOGNIZED CONTENT PROVIDED BELOW FOR UNRECOGNIZED SECTION INFORMATION SOURCE DATE CREATED AUTHOR AUTHOR'S ORGANIZATIO N 04/16/2018 [facility] DATE CREATED AUTHOR AUTHOR'S ORGANIZATIO N [facility]/29[facility] DATE CREATED AUTHOR AUTHOR'S ORGANIZATIO N 06/26/2019 [facility] DATE CREATED AUTHOR AUTHOR'S ORGANIZATIO N 06/28/2019 [facility]
== END ==
PROVIDERS: PCP Family Medicine; Visit Provider Family Medicine
DX: I50.22 Chronic systolic (congestive) heart failure (principal); R51 Headache; R14.0 Abdominal distension (gaseous); Z51.81 Encounter for therapeutic drug level monitoring
CPT/HCPCS: 36415; 80053; 83880; 84443; 85025

== ENCOUNTER 2020-03-12 18:09 | Inpatient (IN) | payer MEDICARE, SELFPAY ==
[2017-03-26 13:31] VITALS: BMI 25.5
[2019-10-27 15:21] VITALS: BMI 24.2
[2020-03-12] VITALS (9 sets, daily range): BP systolic 114–135; BP diastolic 61–91; PULSE 61–69; RESP 16–19; TEMP 36.3–36.9; O2SAT 87–98; BMI 23.3
--- NOTE | 2020-03-12 18:16 | ED.RN ---
MANUEL BARBER PT DAUGHTER IN LAW PHONE NUMBER [phone].
--- NOTE | 2020-03-12 19:14 | EKG12_ITS ---
Test Reason : DYSRYTHMIA Blood Pressure : / mmHG Vent. Rate : 062 BPM Atrial Rate : 062 BPM P-R Int : 184 ms QRS Dur : 144 ms QT Int : 522 ms P-R-T Axes : 090 -27 093 degrees QTc Int : 529 ms Atrial-sensed ventricular-paced rhythm Abnormal ECG Confirmed by ISAI VELEZ, NICHOLAS ([id number]), acquisition editor RICHARD IRBY ([id number]) on 03/15/2020 3:59:37 PM Referred By: SHERI Confirmed By:NICHOLAS ALEX MD
--- NOTE | 2020-03-12 19:29 | RAD_ITS ---
STUDY: X-RAY CHEST REASON FOR EXAM: Male, 84 years old. PT SENT BY DR. ELY FOR SOB, COUGH. FAMILY REPORTS LOWER EXTREMITY EDEMA AND LOW PULSE OX AT HOME. TECHNIQUE: Single frontal view of the chest. COMPARISON: July 10, 2019 FINDINGS: 3-lead pacer on the left unchanged. Right upper lobe infiltrate. There is no demonstrated pleural abnormality. Right hemidiaphragm is elevated. Moderate cardiomegaly. Normal mediastinum and timothy. Normal visualized pulmonary arteries. Normal visualized aortic arch and descending thoracic aorta. Normal visualized thoracic spine. Normal visualized ribs, clavicles, and shoulders. There is no demonstrated abnormality of the visualized soft tissue structures of the upper abdomen. RAD/Chest 1 View (Portable) IMPRESSION: New right upper lobe infiltrate. Elevated right hemidiaphragm or new subpulmonic effusion. Electronically Signed: Giovanni Ken MD at 20:20 EDT , Service support ,
[2020-03-12 19:47] LABS: Absolute Lymphocyte Count 1.63 X10^3/uL (0.83-4.51); Absolute Neutrophil Count 6.7 X10^3/uL (2.0-7.7); Basophil# 0.04 X10^3/uL; Basophil% 0.4 % (0-1); Eosinophil# 0.08 X10^3/uL; Eosinophils% 0.8 % (0-5); Hematocrit 47.3 % (40-54); Hemoglobin 14.9 g/dL (13.0-16.5); Lymphocyte # 1.63 X10^3/ul (4.0); Lymphocyte % 16.9 % (19-41); Mean Corp Hgb Conc 31.5 g/dL (32-36); Mean Corpuscular Hgb 28.1 pg (27.0-32.0); Mean Corpuscular Volume 89.1 fL (80-94); Mean Platelet Vol. 11.6 fl (6.2-12.0); Monocyte# 1.12 X10^3/uL; Monocyte% 11.6 % (0-10); NRBC Flagged by Analyzer 0 % (0-5); Neutrophil # 6.72 X10^3/uL (2.7-7.7); Platelet Count 164 K/mm3 (150-450); RBC Distribution Width CV 15.4 % (11.6-14.6); Red Blood Count 5.31 M/mm3 (4.6-6.2); White Blood Count 9.6 K/mm3 (4.4-11.0)
[2020-03-12 19:57] LABS: Anion Gap 6 (5-15); BUN 25 mg/dL (7-18); BUN/Creat Ratio 13.3 RATIO (10-20); Calcium,Total 9.8 mg/dL (8.5-10.1); Chloride 96 mmol/L (98-107); Creatinine, Serum 1.88 mg/dL (0.70-1.30); EST Glomerular Filtration Rate 37 mL/min (>60); Est Glom Filt Rate - Afr Amer 44 mL/min (>60); Glucose 105 mg/dL (74-106); Potassium 3.6 mmol/L (3.5-5.1); Sodium Level 138 mmol/L (136-145)
--- NOTE | 2020-03-12 20:08 | ED.DCSUM_ITS ---
- ER Visit Summary Date of Service: 03/12/20 Chief Complaint: Shortness of breath History of Present Illness: The patient is a 84 M presenting with shortness of breath. Patient is unsure when this started. Per family he was taken to his primary care physician's office on . He was called today and advised to come to the emergency department. Family is unsure of the change since . Patient denies chest pain. Per family had low pulse ox at home. He has had increasing lower extremity swelling. He complains of mild cough. He denies fever or sick contacts. Physical Examination: Vitals are stable. Patient is afebrile. Alert no acute distress. HEENT exam is unremarkable. Neck is supple. Lungs are diminished bilaterally. Heart is regular rate and rhythm. Abdomen is soft nontender nondistended. Extremities symmetric edema Skin is warm and dry. No focal neurologic deficit. Remainder of exam is unremarkable. Emergency Department Course and Treatment: EKG is paced with rate of 62. Chest x-ray shows new right upper lobe infiltrate. Elevated right hemidiaphragm or new subpulmonic effusion. CBC, chemistries show CO2 36, BUN 25, creatinine 1.88. Troponin 0.026. BNP 1141.0. COVID is pending. Due to his upper lobe infiltrate he was given Unasyn. He was given Lasix IV. Discussed with the hospitalist for admission. Disposition: Admission Impression: CHF exacerbation, pneumonia This note was generated with [employer] dictation software. It may contain incorrect words, spelling, and punctuation that were not noted in review of the chart prior to signing ED Disposition - Plan for ED Patient: Referrals: Ellis Quijano DO [Primary Care Provider] -
--- NOTE | 2020-03-12 20:39 | HP.PCM_ITS ---
Problem List (1) Acute exacerbation of CHF (congestive heart failure) Status: Acute Qualifiers: Heart failure type: systolic Qualified Code(s): I50.23 - Acute on chronic systolic (congestive) heart failure (2) Pneumonia Status: Acute Qualifiers: Pneumonia type: due to unspecified organism Laterality: right Lung location: upper lobe of lung Qualified Code(s): J18.9 - Pneumonia, unspecified organism (3) History of non-ST elevation myocardial infarction (NSTEMI) Status: Resolved (4) Cardiac arrest with ventricular fibrillation Status: Resolved (5) Atherosclerotic heart disease of [place] coronary artery without angina pectoris Status: Chronic Qualifiers: [place] vs. transplanted heart: [place] heart Qualified Code(s): I25.10 - Atherosclerotic heart disease of [place] coronary artery without angina pectoris (6) History of coronary artery stent placement Status: Chronic Comment: PCI-Mid LAD and RCA ?; PCI/BMS to distal LAD w/ 2.5 x 14 mm Resolute 03/26/2017 Left Heart Cath Moderate ISR of the mid and distal LAD Stent 06/20/19 (7) Ischemic cardiomyopathy Status: Chronic (8) Chronic systolic (congestive) heart failure Status: Chronic (9) Essential (primary) hypertension Status: Chronic (10) Hyperlipidemia Status: Chronic Qualifiers: Hyperlipidemia type: unspecified Qualified Code(s): E78.5 - Hyperlipidemia, unspecified History of Present Illness Date of Admission: 03/12/20 Chief Complaint: Dyspnea, BL LE increased edema, cough The patient is an 84 y/o M w/ PMHx: CKD stage III, Chronic Systolic CHF/Ischemic Cardiomyopathy s/p AICD/pacemaker status, Hx VT, CAD s/p angioplasty and bare- metal stenting to distal LAD 03/2017 who presents to the [facility] ED on 03/12/20 with history of increased dyspnea, orthopnea, lower extremity edema with non- productive cough with hypoxia noted on home oxygenation assessment with PCP evaluation the prior and given ongoing symptoms PCP encouraged family to bring the patient to the ED for evaluation. He denies any recent fever, chills, nausea, emesis, myalgias, arthralgias, alteration to sense of taste or smell, abdominal pain or diarrhea. Work-up in the ED included T 97.4, heart rate 65, BP 135/73, respiratory rate 18, 87% on room air, CBC with WBC 9.6, hemoglobin 14.9, platelet 164 without market shift but noted mild lymphopenia but absolute normal, BMP with chloride 96, carbon oxide 36, BUN/creatinine 25/1.88, troponin 0 0.026, BNP 1141, EKG paced with no acute evidence of ischemia, CXR w/ RUL infiltrate with elevated right hemidiaphragm or a new subpulmonic effusion. In the ED patient administered lasix 40 mg IV x 1 and unasyn. Past Medical History Past Medical History (Chronic Problems): Chronic Problems (Last Updated 11/10/19 @ 12:39 by Marianne Manzanares) Atherosclerotic heart disease of [place] coronary artery without angina pectoris (Chronic) History of coronary artery stent placement (Chronic 03/26/17) PCI-Mid LAD and RCA ?; PCI/BMS to distal LAD w/ 2.5 x 14 mm Resolute 03/26/2017 Left Heart Cath Moderate ISR of the mid and distal LAD Stent 06/20/19 Biventricular cardiac pacemaker in situ (Chronic 06/21/19) Ischemic cardiomyopathy (Chronic) Other secondary pulmonary hypertension (Chronic) Nonrheumatic tricuspid (valve) insufficiency (Chronic) Nonrheumatic mitral (valve) insufficiency (Chronic) Chronic systolic (congestive) heart failure (Chronic) Essential (primary) hypertension (Chronic) Hyperlipidemia (Chronic) Medical History: Medical History (Last Updated 11/10/19 @ 12:39 by Marianne Manzanares) History of non-ST elevation myocardial infarction (NSTEMI) (Resolved) Onset Date: 06/20/19 I25.2 Atherosclerotic heart disease of [place] coronary artery without angina pectoris (Chronic) I25.10 Ischemic cardiomyopathy (Chronic) I25.5 Sudden cardiac arrest (Resolved) I46.9 Other secondary pulmonary hypertension (Chronic) I27.29 Nonrheumatic tricuspid (valve) insufficiency (Chronic) I36.1 Nonrheumatic mitral (valve) insufficiency (Chronic) I34.0 Chronic systolic (congestive) heart failure (Chronic) I50.22 Essential (primary) hypertension (Chronic) I10 Hyperlipidemia (Chronic) E78.5 Old myocardial infarction I25.2 Renal insufficiency N28.9 Presence of automatic implantable cardioverter-defibrillator Z95.810 Implant: 01/26/2013 UTI (urinary tract infection) N39.0 Allergies No Known Allergies Allergy (Verified 03/12/20 18:13) Home Medications: Ambulatory Orders Medication Instructions Recorded Aspirin E.C. [Ecotrin] 81 mg PO DAILY@0800 #90 tab 03/27/17 amiodarone 200 mg tablet 200 mg PO DAILY #90 tab 07/04/19 atorvastatin 20 mg tablet 20 mg PO QHS #90 tab 07/04/19 Furosemide [Lasix] 40 mg PO DAILY 03/12/20 Metolazone 2.5 mg PO DAILY 03/12/20 Potassium Chloride [K-Dur] 20 meq PO BID 03/12/20 Surgical History: Surgical History (Last Updated 11/10/19 @ 12:48 by Marianne Manzanares) History of coronary artery stent placement (Chronic) Onset Date: 03/26/17 Z95.5 PCI-Mid LAD and RCA ?; PCI/BMS to distal LAD w/ 2.5 x 14 mm Resolute 03/26/2017 Left Heart Cath Moderate ISR of the mid and distal LAD Stent 06/20/19 Biventricular cardiac pacemaker in situ (Chronic) Onset Date: 06/21/19 Z95.0 History of left heart catheterization Onset Date: 06/20/19 Z98.890 Moderate ISR of the mid and distal LAD Stent 06/20/19 History of transurethral resection of prostate Onset Date: 02/10/18 Z98.890, Z90.79 Surgical History: - - Is post TURP, AICD/Rojas placement, angioplasty history. Psychiatric History: No pertinent psych hx Lives: With Family - Patient lives with his family Smoking Status: Current every day smoker - Patient with ongoing 1 pack/day cigarette tobacco usage Tobacco Use: Cigarettes Alcohol: None Drugs: None - *Family History Maternal Family History: Family History (Last Reviewed 10/27/19 @ 15:[address] Toan Soto MD) Brother Myocardial infarction History Items: Hypertension Paternal Family History: Family History (Last Reviewed 10/27/19 @ 15:[address] Toan Soto MD) Brother Myocardial infarction History Items: Hypertension Sibling Family History: Family History (Last Reviewed 10/27/19 @ 15:[address] Toan Soto MD) Brother Myocardial infarction History Items: Heart Disease Review of Systems Constitutional: Reports: Malaise, Weakness, Fatigue. Denies: Anorexia, Chills, Fever, Weight Change HEENT: Denies: Head Aches, Sinus Congestion, Sinus Drainage Cardiovascular: Reports: Edema. Denies: Chest Pain, Palpitations Respiratory: Reports: Cough, Shortness of Breath, Shortness of breath at rest, Shortness of breath upon exertion. Denies: Sputum production, Wheezing Gastrointestinal: Reports: Constipation. Denies: Abdominal Pain, Nausea, Vomiting Genitourinary: Denies: Dysuria Musculoskeletal: Reports: Back Pain, Joint Pain. Denies: Joint Tenderness Skin: Denies: Rash, Wounds Neurological: Denies: Numbness, Tingling, Focal weakness Psychiatric: Denies: Anxiety, Depression, Homicidal Ideations, Suicidal Ideations Hematologic/ Lymphatic: Reports: Easy Bruising, Easy Bleeding VTE Information - Inpt Only VTE Present on Admission: No VTE Mechan Device Prophylaxis: SCD's VTE Pharm Prophylaxis ordered?: Yes Patient Problems: Active and Suspected Problems (Last Updated 11/10/19 @ 12:39 by Marianne Manzanares) Acute exacerbation of CHF (congestive heart failure) (Acute) Pneumonia (Acute) Subjective: Seated upright in the ED bed, very hard of hearing, no obvious distress or coughing during evaluation. Objective: Physical Examination: General: awake, alert, oriented to self and some recent events but suspect underlying dementia and complicated by hard of hearing, remains cooperative, seated upright in the ED bed in no apparent distress. Skin: normal color, turgor, no icterus, cyanosis bilateral lower extremity venous stasis skin changes. HEENT: AT/NC, EOMI, PERRLA, MMM, no carotid bruits, + JVD noted. Lungs: Breath sounds bilaterally, greater bases, minimal rales bilateral bases, appropriate effort, no obvious rhonchi or wheezing. Heart: Regular rate and rhythm (paced); no gallop, rub audible device present left upper chest. Abdomen: soft, thin habitus, NTTP, ND, normal BS, no HSM. Extremities: no cyanosis, clubbing, lateral lower extremity 2+ pitting edema pedal to mid quinonez. Neurological: patient awake, alert, oriented as noted; cognitive function suspect decreased baseline with likely dementia, suspect baseline intact; pupils equally reactive to light and accomodation; cranial nerves II-XII grossly normal, moving all 4 extremities, no focal deficits, strength moderately global decrease secondary to acute presentation. Psychiatric: affect appears normal, no acute evidence of depressive or anxiety feelings. - Physical Exam Vitals/I&O's: Vital Signs Temp Pulse Resp BP Pulse Ox 98.3 F 67 17 114/67 97 03/12/20 20:00 03/12/20 20:00 03/12/20 20:00 03/12/20 20:00 03/12/20 20:00 Oxygen Flow Rate (L/min) 3 Oxygen Delivery Method Nasal Cannula Weight: 162 lb 14.746 oz Body Mass Index (BMI) 23.3 Laboratory Results 03/12/20 18:45: WBC 9.6, RBC 5.31, Hgb 14.9, Hct 47.3, MCV 89.1, MCH 28.1, MCHC 31.5 L, RDW Std Deviation 50.0 H, RDW Coeff of Darrell 15.4 H, Plt Count 164, MPV 11.6, Immature Gran % (Auto) 0.300, Neut % (Auto) 70.0, Lymph % (Auto) 16.9 L, [place] % (Auto) 11.6 H, Eos % (Auto) 0.8, Baso % (Auto) 0.4, Absolute Neuts (auto) 6.7, Absolute Lymphs (auto) 1.63, Nucleated RBC % 0 03/12/20 18:45: Sodium 138, Potassium 3.6, Chloride 96 L, Carbon Dioxide 36.0 H, Anion Gap 6, BUN 25 H, Creatinine 1.88 H, Estim Creat Clear Calc 30.20, Est GFR (MDRD) Af Amer 44 L, Est GFR (MDRD) Non-Af 37 L, BUN/Creatinine Ratio 13.3, Glucose 105, Calcium 9.8, Troponin I 0.026 03/12/20 18:45: B-Natriuretic Peptide 1141.0 H Assessment/Plan All Active Problems (Last Updated 11/10/19 @ 12:39 by Marianne Manzanares) Acute exacerbation of CHF (congestive heart failure) (Acute) Pneumonia (Acute) History of non-ST elevation myocardial infarction (NSTEMI) (Resolved 06/20/19) Cardiac arrest with ventricular fibrillation (Resolved 06/20/19) Sudden cardiac arrest (Resolved) The patient is an 84 y/o M w/ PMHx: CKD stage III, Chronic Systolic CHF/Ischemic Cardiomyopathy s/p AICD/pacemaker status, Hx VT, CAD s/p angioplasty and bare- metal stenting to distal LAD 03/2017 who presents to the [facility] ED on 03/12/20 with history of increased dyspnea, orthopnea, lower extremity edema with non- productive cough with hypoxia noted on home oxygenation assessment with PCP evaluation the prior and given ongoing symptoms PCP encouraged family to bring the patient to the ED for evaluation. 1. Acute Decompensated Systolic CHF: Patient administered IV lasix in the ED, will admit to PCU, maintain on cardiac telemetry obtain cardiac enzyme series, obtain serial EKGs, continue IV lasix diuresis, monitor I/Os, maintain on intake restriction, continue medical therapy w/ asa, statin, not on BB likely secondary to amiodarone usage with VT history and not on ACEI/ARB likely secondary to CKD. Will obtain TSH/FT4 and magnesium level. Most recent ECHO 05/2019 with normal LV size, moderate upper septal left ventricular hypertrophy, LV systolic function severely decreased, EF 25%, grade II left ventricular diastolic dysfunction, RV systolic function normal. May consider cardiology consultation if not responsive to current interventions. PRN morphine to decrease afterload, continue oxygen supplementation, if necessary will position w/ upright position with legs off bed to decrease preload. 2. ? Possible Aspiration versus Community Acquired Pneumonia: CXR w/ RUL infiltrate with elevated right hemidiaphragm or a new subpulmonic effusion. Admission CBC w/ WBC 9.6 without severe shift. Will maintain on oxygen with wean as tolerated to room air, PRN albuterol, maintain on IV Unasyn and Azithromycin given possible aspiration, HOB, IS parameters w/ pending sputum cultures, respiratory viral panel and urine antigens. Pending COVID assessment. Bld Cx x 2 per ED. Speech consulted. 3. CAD: Patient s/p angioplasty and bare-metal stenting to distal LAD 03/2017, will continue aspirin, statin therapy, patient not on beta-josé but on amiodarone given VT history nor is patient on NICHOLAS inhibitor or ARB possibly secondary to underlying renal disease. 4. History of VT: Noted on monitor with history of prior AICD given reduced EF, transitioned to AICD/PPM [facility] 06/21/19, maintained on amiodarone. Will request interrogation. 5. Hypertension: Continue home regimen including metolazone, IV Lasix with oral hold given acute presentation, PRN hydralazine. 6. Hyperlipidemia: Continue home statin regimen. AM FLP. 7. Chronic Kidney Disease Stage III: Admission BUN/Cr 25/1.88, baseline renal function 1.5-1.8, repeat BMP in AM. 8. DVT prophylaxis: SCDs, Lovenox renally dosed. 9. Code status: Patient does not have HCPOA nor living will in place. Tatianna Mc is his decision maker as his two sons are both deaf. Discussed CODE status at length including difference between FULL code, DNR-CCA and DNR-CC status. Following discussions about the differences in these status, requested Full Code status. Advanced Care Planning Face to Face Time: 16 minutes. Inpatient E&M: 66839 Init Hosp L3 Procedures: 58854 Advncd Care Plan 30 Min
[2020-03-12] MEDS: Furosemide 40 MG/4 ML Vial IV (20:59)
[2020-03-13] VITALS (15 sets, daily range): BP systolic 103–119; BP diastolic 51–71; PULSE 60–79; RESP 16–20; TEMP 36.4–36.9; O2SAT 89–97; BMI 22.4; BMI 22.5
--- NOTE | 2020-03-13 00:05 | ED.RN ---
SPOKE TO MANUEL, UPDATED ON PT STATUS AND ADMISSION
--- NOTE | 2020-03-13 01:24 | ECHOD_ITS ---
Reason For Study: CHF Procedure This was a 2D Doppler, Color Flow transthoracic echocardiogram. The exam was of adequate technical quality. Exam performed portable in patient room. Left Ventricle Severely dilated left ventricle. Severe segmental systolic dysfunction (see wall motion). The estimated ejection fraction is 15 %. Unable to assess diastolic dysfunction. Anterio-Basal: Hypokinetic. Lateral-Basal: Hypokinetic. Posterior-Basal: Akinetic. Infero-Basal: Hypokinetic. Basal inferoseptal: Hypokinetic. Basal anteroseptal: Hypokinetic. Mid-Anterior : Hypokinetic. Mid- Lateral : Hypokinetic. Mid-Posterior: Akinetic. Mid-Inferior: Akinetic. Mid-inferoseptal : Akinetic. Mid-anteroseptal : Akinetic. Nunez : Akinetic. Right Ventricle Normal RV size. ICD or pacer leads identified within the right ventricle. Normal systolic function. Atria The left atrium is moderately enlarged. The right atrium is mildly enlarged. ICD or pacer leads identified within the right atrium. No doppler evidence for ASD. Mitral Valve There is no mitral annular calcification. Mild diffuse mitral valve thickening. Mild papillary muscle dysfunction of the mitral valve. Moderate (2+) eccentric mitral valve insufficiency. Tricuspid Valve Normal tricuspid valve. Moderate (2+) tricuspid valve insufficiency. Right ventricular systolic pressure estimated to be 53 mmHg. Aortic Valve Trisinus/trileaflet aortic valve. Moderate focal aortic valve calcification. Trivial aortic valve insufficiency. Pulmonic Valve The pulmonic valve is not well visualized. Trivial pulmonic valve insufficiency. Great Vessels Normal sized aortic root. Calcified aortic root. Pericardium/Pleural No pericardial effusion. MMode/2D Measurements & Calculations LVIDd: 6.6 cm IVSd: 0.84 cm Ao root diam: 3.7 cm LVIDs: 6.2 cm LVPWd: 0.76 cm RVDd: 4.4 cm FS: 5.6 % LAV(MOD-bp): 75.2 ml LVAd ap4: 49.9 cm2 SV(MOD-sp4): 53.1 ml LAV(MOD-bp) Indexed: 39.4 ml/m2 EDV(MOD-sp4): 210.0 ml LAV(MOD-sp2): 69.3 ml EDV(sp4-el): 214.8 ml LAV(MOD-sp4): 78.3 ml LVAs ap4: 42.8 cm2 ESV(MOD-sp4): 156.9 ml ESV(sp4-el): 166.7 ml EF(MOD-sp4): 25.3 % EF(sp4-el): 22.4 % SV(sp4-el): 48.1 ml LA A4 area: 24.4 cm2 LA dimension(2D): 4.9 cm RA A4 area: 19.3 cm2 Time Measurements MV dec time: 0.32 sec Doppler Measurements & Calculations MV E max julito: 51.2 cm/sec Ao V2 max: 96.9 cm/sec LV V1 max: 71.4 cm/sec MV A max julito: 50.1 cm/sec Ao max P.8 mmHg LV V1 max P.0 mmHg MV E/A: 1.0 PA V2 max: 83.6 cm/sec PI end-d julito: 147.1 cm/sec TR max julito: 351.8 cm/sec TR max P.5 mmHg Interpretation Summary Severely dilated left ventricle. Severe segmental systolic dysfunction (see wall motion). The estimated ejection fraction is 15 %. The left atrium is moderately enlarged. The right atrium is mildly enlarged. Mild diffuse mitral valve thickening. Mild papillary muscle dysfunction of the mitral valve. Moderate (2+) eccentric mitral valve insufficiency. Moderate (2+) tricuspid valve insufficiency. Moderate focal aortic valve calcification. Trivial aortic valve insufficiency. Trivial pulmonic valve insufficiency. Calcified aortic root. Right ventricular systolic pressure estimated to be 53 mmHg. Unable to assess diastolic dysfunction. ICD or pacer leads identified within the right atrium ICD or pacer leads identified within the right ventricle. Ordering Physician: Radha Giron Referring Physician: TRINI ELY Performed By: Lynne De Luna RDCS, RVT
[2020-03-13 02:46] LABS: Magnesium 2.2 mg/dL (1.6-2.6); T4 Free Direct 1.89 ng/dL (0.76-1.46); Thyroid Stim Hormone (TSH) 0.54 uIU/mL (0.358-3.74)
[2020-03-13] MEDS: Atorvastatin Calcium 20 MG Tablet PO ×2 (02:59→21:09)
[2020-03-13] MEDS: 0.9% Saline Lock 10 ML Syringe IV ×2 (03:00→17:09)
--- NOTE | 2020-03-13 05:20 | RAD_ITS ---
HISTORY: DYSPNEA, COUGH EXAM: XR Chest 1 View: COMPARISON: March 12, 2020 FINDINGS: # of images incl. paperwork: 2 Triple lead left chest wall, left subclavian access, cardiac pacer/defibrillator persists Diffuse airspace disease persists. There is more focal density superimposed over the right upper lobe laterally Heart is not enlarged. No acute osseous pathology perceived. Pulmonary vascularity is indistinct. Probable right pleural effusions. RAD/Chest 1 View (Portable) IMPRESSION: Probable mild CHF. at 0604 Reported and signed by: Samir Jeffery MD Electronically Signed: Samir Jeffery MD at 6:02 EDT Tel , Service support ,
[2020-03-13 05:25] LABS: Absolute Lymphocyte Count 1.39 X10^3/uL (0.83-4.51); Absolute Neutrophil Count 7.5 X10^3/uL (2.0-7.7); Basophil# 0.04 X10^3/uL; Basophil% 0.4 % (0-1); Eosinophil# 0.08 X10^3/uL; Eosinophils% 0.8 % (0-5); Hematocrit 45.3 % (40-54); Hemoglobin 14.1 g/dL (13.0-16.5); Lymphocyte # 1.39 X10^3/ul (4.0); Lymphocyte % 13.4 % (19-41); Mean Corp Hgb Conc 31.1 g/dL (32-36); Mean Corpuscular Hgb 27.5 pg (27.0-32.0); Mean Corpuscular Volume 88.3 fL (80-94); Mean Platelet Vol. 11.2 fl (6.2-12.0); Monocyte# 1.29 X10^3/uL; Monocyte% 12.5 % (0-10); NRBC Flagged by Analyzer 0 % (0-5); Neutrophil # 7.53 X10^3/uL (2.7-7.7); Neutrophil % 72.6 % (47-70); Platelet Count 152 K/mm3 (150-450); RBC Distribution Width CV 15.1 % (11.6-14.6); RBC Distribution Width SD 48.4 fl (35.1-43.9); Red Blood Count 5.13 M/mm3 (4.6-6.2); White Blood Count 10.4 K/mm3 (4.4-11.0)
[2020-03-13 05:46] LABS: ALB/GLOB Ratio 0.7 RATIO (0.9-2.4); AST(SGOT) 32 U/L (15-37); Alanine Aminotransfer ALT/SGPT 25 U/L (16-61); Albumin, Serum 3.1 g/dL (3.2-5.0); Alkaline Phosphatase 112 U/L (45-117); Anion Gap 6 (5-15); BUN 24 mg/dL (7-18); BUN/Creat Ratio 13.1 RATIO (10-20); Calcium,Total 9.3 mg/dL (8.5-10.1); Chloride 94 mmol/L (98-107); Cholesterol 92 mg/dL (200); Creatinine, Serum 1.83 mg/dL (0.70-1.30); EST Glomerular Filtration Rate 38 mL/min (>60); Est Glom Filt Rate - Afr Amer 46 mL/min (>60); Globulin 4.4 g/dL (2.2-4.2); Glucose 128 mg/dL (74-106); High Density Lipoprotein 36 mg/dL; Potassium 3.2 mmol/L (3.5-5.1); Protein, Total 7.5 g/dL (6.4-8.2); Sodium Level 136 mmol/L (136-145); Triglycerides 82 mg/dL; Very Low Density Lipoprotein 16 mg/dL (5-40)
--- NOTE | 2020-03-13 05:55 | EKG12_ITS ---
Test Reason : AM EKG Blood Pressure : / mmHG Vent. Rate : 060 BPM Atrial Rate : 060 BPM P-R Int : 200 ms QRS Dur : 162 ms QT Int : 516 ms P-R-T Axes : 118 -35 120 degrees QTc Int : 516 ms AV dual-paced rhythm Abnormal ECG Confirmed by ISAI VELEZ, NICHOLAS ([id number]), sports editor RICHARD IRBY ([id number]) on 03/15/2020 4:15:03 PM Referred By: DR FENTON Confirmed By:NICHOLAS ALEX MD
[2020-03-13] MEDS: Aspirin E.C. 81 MG Tablet PO (10:27)
[2020-03-13] MEDS: Metolazone 2.5 MG Tablet PO (10:29)
[2020-03-13] MEDS: Enoxaparin 30 MG/0.3 ML Syringe SC (10:29)
[2020-03-13] MEDS: Amiodarone 200 MG Tablet PO (10:30)
[2020-03-13] MEDS: Furosemide 40 MG/4 ML Vial IV ×2 (10:30→17:10)
--- NOTE | 2020-03-13 12:17 | PN_ITS ---
<Babar Nunez - Last Filed: 03/13/20 12:17> Patient Problems: Active and Suspected Problems (Last Updated 11/10/19 @ 12:39 by Marianne Manzanares) Acute exacerbation of CHF (congestive heart failure) (Acute) Pneumonia (Acute) Reason for Visit: LE edema Subjective: Pt has dementia and has great difficulty remembering why he is here and what he has had wrong the past week. He denies SOB. He denies CP / Palp. He has had pedal edema for at least a week. He smokes 1 ppd but denies hx asthma/copd. He has faint wheezing. He has a small amount of pedal edema today. He completely denies cough, has no fevers/chills, no rhinitis or sore throat. Vitals/I&O's: Vital Signs Temp Pulse Resp BP Pulse Ox 97.5 F L 60 18 110/67 94 03/13/20 11:26 03/13/20 11:26 03/13/20 11:26 03/13/20 11:26 03/13/20 11:26 Oxygen Flow Rate (L/min) 2 Oxygen Delivery Method Nasal Cannula Weight: 157 lb 3.033 oz Body Mass Index (BMI) 22.4 Intake and Output for Last 24 Hours 03/11/20 03/12/20 03/13/20 23:59 23:59 23:59 Intake Total 112 / 112 719 / 719 Output Total 1375 / 1375 Balance 112 / 112 -656 / -656 General: Alert, Cooperative, Confused HEENT: Atraumatic, PERRLA, EOMI, Normocephalic Neck: Supple, No JVD, Negative Carotid Bruits Lungs: Diminished, Wheezes - faint end expiratory wheeze Cardiovascular: Regular rate, No murmurs Abdomen: Bowel Sounds Present, Soft, Non Tender Extremities: Capillary Refill Less than 3 Seconds, Edema - 1+ pitting edema BL feet Skin: No rashes, No breakdown Musculoskeletal: No Tenderness to Palpation of Joints or Extremities Neurological: Cranial nerves II-XII grossly intact Psych/Mental Status: Normal Affect, Appropriate Microbiology Past 72 Hours 03/13/20 06:15 Mucosa - Nasopharyngeal Respiratory Panel (PCR) - Final 03/13/20 02:00 Urine, Random Streptococcus pneumoniae Antigen (M - Final 03/13/20 02:00 Urine, Random Legionella Antigen - Final 03/12/20 20:55 Mucosa - Nasopharyngeal Coronavirus COVID-19 PCR - Final Laboratory Results 03/12/20 18:45: WBC 9.6, RBC 5.31, Hgb 14.9, Hct 47.3, MCV 89.1, MCH 28.1, MCHC 31.5 L, RDW Std Deviation 50.0 H, RDW Coeff of Darrell 15.4 H, Plt Count 164, MPV 11.6, Immature Gran % (Auto) 0.300, Neut % (Auto) 70.0, Lymph % (Auto) 16.9 L, [place] % (Auto) 11.6 H, Eos % (Auto) 0.8, Baso % (Auto) 0.4, Absolute Neuts (auto) 6.7, Absolute Lymphs (auto) 1.63, Nucleated RBC % 0 03/12/20 18:45: Sodium 138, Potassium 3.6, Chloride 96 L, Carbon Dioxide 36.0 H, Anion Gap 6, BUN 25 H, Creatinine 1.88 H, Estim Creat Clear Calc 30.20, Est GFR (MDRD) Af Amer 44 L, Est GFR (MDRD) Non-Af 37 L, BUN/Creatinine Ratio 13.3, Glucose 105, Calcium 9.8, Troponin I 0.026 03/12/20 18:45: B-Natriuretic Peptide 1141.0 H 03/13/20 01:55: Magnesium 2.2, TSH 0.54, Free T4 1.89 H 03/13/20 01:55: Troponin I 0.041 03/13/20 05:12: WBC 10.4, RBC 5.13, Hgb 14.1, Hct 45.3, MCV 88.3, MCH 27.5, MCHC 31.1 L, RDW Std Deviation 48.4 H, RDW Coeff of Darrell 15.1 H, Plt Count 152, MPV 11.2, Immature Gran % (Auto) 0.300, Neut % (Auto) 72.6 H, Lymph % (Auto) 13.4 L, [place] % (Auto) 12.5 H, Eos % (Auto) 0.8, Baso % (Auto) 0.4, Absolute Neuts (auto) 7.5, Absolute Lymphs (auto) 1.39, Nucleated RBC % 0 03/13/20 05:12: Sodium 136, Potassium 3.2 L, Chloride 94 L, Carbon Dioxide 36.0 H, Anion Gap 6, BUN 24 H, Creatinine 1.83 H, Estim Creat Clear Calc 30.30, Est GFR (MDRD) Af Amer 46 L, Est GFR (MDRD) Non-Af 38 L, BUN/Creatinine Ratio 13.1, Glucose 128 H, Calcium 9.3, Total Bilirubin 1.20 H, AST 32, ALT 25, Alkaline Phosphatase 112, Total Protein 7.5, Albumin 3.1 L, Globulin 4.4 H, Albumin/Globulin Ratio 0.7 L, Triglycerides 82, Cholesterol 92, LDL Cholesterol 40, VLDL Cholesterol 16, HDL Cholesterol 36 L 03/13/20 05:12: Troponin I 0.030 Current Medications Acetaminophen (Tylenol) 650 mg PO Q6H PRN PRN PRN Reason: Pain Score 1-10/Temp > 100.7 F Al Hydroxide/Mg Hydroxide (Mylanta Ii) 30 ml PO Q6H PRN PRN PRN Reason: Gastric Burning Albuterol Sulfate (Ventolin Aerosols) 2.5 mg INHALATION Q2H PRN PRN PRN Reason: Dyspnea, wheezing Amiodarone HCl (Cordarone) 200 mg PO DAILY [facility] Last Admin: 03/13/20 10:30 Dose: 200 mg Documented by: Aspirin (Ecotrin) 81 mg PO DAILY@0800 [facility] Last Admin: 03/13/20 10:27 Dose: 81 mg Documented by: Atorvastatin Calcium (Lipitor) 20 mg PO QHS [facility] Last Admin: 03/13/20 02:59 Dose: 20 mg Documented by: Bisacodyl (Dulcolax) 5 mg PO DAILY PRN PRN PRN Reason: Constipation Dextrose (D50w Syringe) 0 gm IV X1 PRN; Protocol PRN Reason: Hypoglycemia Enoxaparin Sodium (Lovenox) 30 mg SC DAILY [facility] Last Admin: 03/13/20 10:29 Dose: 30 mg Documented by: Furosemide (Lasix) 40 mg IV BID@1000,1800 [facility] Last Admin: 03/13/20 10:30 Dose: 40 mg Documented by: Glucagon () 1 mg IM .X1 PRN PRN Reason: Hypoglycemia Guaifenesin (Robitussin) 20 ml PO Q4H PRN PRN PRN Reason: COUGH Hydralazine HCl (Apresoline Iv) 10 mg IV Q4H PRN PRN PRN Reason: SBP > 160 Ampicillin Sodium/Sulbactam (Sodium 3 gm/ Sodium Chloride) 112 mls @ 150 mls/hr IV Q6 [facility] Stop: 03/20/20 01:25 Last Admin: 03/13/20 11:27 Dose: 150 mls/hr Documented by: Azithromycin 500 mg/ Dextrose 255 mls @ 250 mls/hr IV Q24@2200 [facility] Last Infusion: 03/13/20 05:01 Dose: Infused Documented by: Magnesium Hydroxide (Milk Of Magnesia) 30 ml PO DAILY PRN PRN PRN Reason: Constipation Melatonin (Melatonin) 3 mg PO QHS PRN PRN PRN Reason: INSOMNIA Metolazone (Zaroxolyn) 2.5 mg PO DAILY [facility] Last Admin: 03/13/20 10:29 Dose: 2.5 mg Documented by: Morphine Sulfate () 2 mg IV Q3H PRN PRN PRN Reason: Pain Score 6-10/10 Nitroglycerin (Nitrostat) 0.4 mg SUBLINGUAL Q5M PRN PRN Reason: CARDIAC/CHEST PAIN Ondansetron HCl (Zofran) 4 mg IV Q8H PRN PRN PRN Reason: NAUSEA/VOMITING Oxycodone HCl (Oxyir) 5 mg PO Q4H PRN PRN PRN Reason: Pain Score 4-5/10 Potassium Chloride (K-Dur) 40 meq PO BIDCM [facility] Last Admin: 03/13/20 10:28 Dose: 40 meq Documented by: Prochlorperazine Edisylate (Compazine Iv) 5 mg IV Q4H PRN PRN PRN Reason: Breakthrough Nausea/Vomiting Psyllium Hydrophilic Mucilloid (Metamucil) 1 packet PO DAILY PRN PRN PRN Reason: Constipation Senna/Docusate Sodium (Senokot-S, Kathrin-Colace) 2 tablet PO BID PRN PRN PRN Reason: Constipation Sodium Chloride () 10 - 40 ml IV UD PRN PRN Reason: SALINE FLUSH Last Admin: 03/13/20 03:00 Dose: 10 ml Documented by: Throat Lozenges (Cepacol Sore Throat Lozenge) 1 lozenge MUCOUS MEM Q2H PRN PRN PRN Reason: SORE THROAT STROKE Vital Signs/Narrative: Vital Signs Temp Pulse Resp BP Pulse Ox 03/13/20 11:26 97.5 F L 60 18 110/67 94 03/13/20 10:21 98.4 F 62 18 104/62 92 03/13/20 09:10 96 Medical Necessity - Tobacco Use Smoking Status: Current every day smoker Tobacco Use: Cigarettes Assessment/Plan All Active Problems (Last Updated 11/10/19 @ 12:39 by Marianne Manzanares) Acute exacerbation of CHF (congestive heart failure) (Acute) Pneumonia (Acute) History of non-ST elevation myocardial infarction (NSTEMI) (Resolved 06/20/19) Cardiac arrest with ventricular fibrillation (Resolved 06/20/19) Sudden cardiac arrest (Resolved) 1. Acute on chronic systolic CHF - Continue lasix/metolazone. echo 05/2019 shows EF 25%, severely decresaed LV systolic function, severe segmental hypokinesis. RVSP 38mmHg (mild pulm htn). Defere repeat. Continue lasix. BNP 1131. Troponin neg. TSH normal. T4 slightly elevated. Mag 2.2. Wean o2. Edema improved. continue low salt restricted fluid diet with daily weights and I/O. Not on nicholas, defer with underlying renal dysfunction and increased diuretic therapy. Replete potassium. 2. Pneumonia ruled out - no fever/leukocytosis/cough. CXR c/w CHF. Resp panel negative, coronavirus negative, urine antigens negative. Received unasyn/azithromycin - stopped. 3. CAD with ischemic CM - prior stents. on asa/statin. no NICHOLAS/BB. would not add at this time given renal function and blood pressure. 4. Hx Vtach - on amiodarone. Has pacemaker. It is not an AICD and according to cardiology office note he did not want an ICD. 5. HTN - stable 6. CKDIII- stable. repeat BMP in AM. DVT ppx: lovenox DC planning: PTOT, frail, demented This patient was seen by Babar Nunez PA-C under the supervision of Dr. Holcomb. <Irineo Holcomb - Last Filed: 03/13/20 17:28> Reason for Visit: Lower extremity edema. Possible CHF exacerbation Objective: No fever since admission. Blood pressure is stable. Chest x-ray reviewed shows right upper lobe infiltrate although clinically patient does not have new cough, fever or tachypnea. Vitals/I&O's: Vital Signs Temp Pulse Resp BP Pulse Ox 97.5 F L 60 18 103/65 94 03/13/20 17:06 03/13/20 17:06 03/13/20 17:06 03/13/20 17:06 03/13/20 17:06 Oxygen Flow Rate (L/min) 2 Oxygen Delivery Method Nasal Cannula Weight: 157 lb 3.033 oz Body Mass Index (BMI) 22.4 Intake and Output for Last 24 Hours 03/11/20 03/12/20 03/13/20 23:59 23:59 23:59 Intake Total 112 / 112 831 / 831 Output Total 1875 / 1875 Balance 112 / 112 -1044 / -1044 General: Cooperative, Confused, Disoriented, - HEENT: Atraumatic, PERRLA, EOMI, Normocephalic, - - Bilateral hard of hearing Neck: Supple, No JVD, Negative Carotid Bruits Lungs: Diminished, Wheezes Cardiovascular: Regular rate, Regular Rhythm, Normal S1, Normal S2, No murmurs Abdomen: Bowel Sounds Present, Soft, Non Tender, Non-Distended Extremities: Capillary Refill Less than 3 Seconds, Edema Skin: No rashes, No breakdown Musculoskeletal: No Tenderness to Palpation of Joints or Extremities, Arthritic Changes Neurological: Cranial nerves II-XII grossly intact, Deep Tendon Reflexes 2+/4 and Symmetrical, Neuro grossly intact Psych/Mental Status: Normal Affect, Appropriate Microbiology Past 72 Hours 03/13/20 06:15 Mucosa - Nasopharyngeal Respiratory Panel (PCR) - Final 03/13/20 02:00 Urine, Random Streptococcus pneumoniae Antigen (M - Final 03/13/20 02:00 Urine, Random Legionella Antigen - Final 03/12/20 20:55 Mucosa - Nasopharyngeal Coronavirus COVID-19 PCR - Final Laboratory Results 03/12/20 18:45: WBC 9.6, RBC 5.31, Hgb 14.9, Hct 47.3, MCV 89.1, MCH 28.1, MCHC 31.5 L, RDW Std Deviation 50.0 H, RDW Coeff of Darrell 15.4 H, Plt Count 164, MPV 11.6, Immature Gran % (Auto) 0.300, Neut % (Auto) 70.0, Lymph % (Auto) 16.9 L, [place] % (Auto) 11.6 H, Eos % (Auto) 0.8, Baso % (Auto) 0.4, Absolute Neuts (auto) 6.7, Absolute Lymphs (auto) 1.63, Nucleated RBC % 0 03/12/20 18:45: Sodium 138, Potassium 3.6, Chloride 96 L, Carbon Dioxide 36.0 H, Anion Gap 6, BUN 25 H, Creatinine 1.88 H, Estim Creat Clear Calc 30.20, Est GFR (MDRD) Af Amer 44 L, Est GFR (MDRD) Non-Af 37 L, BUN/Creatinine Ratio 13.3, Glucose 105, Calcium 9.8, Troponin I 0.026 03/12/20 18:45: B-Natriuretic Peptide 1141.0 H 03/13/20 01:55: Magnesium 2.2, TSH 0.54, Free T4 1.89 H 03/13/20 01:55: Troponin I 0.041 03/13/20 05:12: WBC 10.4, RBC 5.13, Hgb 14.1, Hct 45.3, MCV 88.3, MCH 27.5, MCHC 31.1 L, RDW Std Deviation 48.4 H, RDW Coeff of Darrell 15.1 H, Plt Count 152, MPV 11.2, Immature Gran % (Auto) 0.300, Neut % (Auto) 72.6 H, Lymph % (Auto) 13.4 L, [place] % (Auto) 12.5 H, Eos % (Auto) 0.8, Baso % (Auto) 0.4, Absolute Neuts (auto) 7.5, Absolute Lymphs (auto) 1.39, Nucleated RBC % 0 03/13/20 05:12: Sodium 136, Potassium 3.2 L, Chloride 94 L, Carbon Dioxide 36.0 H, Anion Gap 6, BUN 24 H, Creatinine 1.83 H, Estim Creat Clear Calc 30.30, Est GFR (MDRD) Af Amer 46 L, Est GFR (MDRD) Non-Af 38 L, BUN/Creatinine Ratio 13.1, Glucose 128 H, Calcium 9.3, Total Bilirubin 1.20 H, AST 32, ALT 25, Alkaline Phosphatase 112, Total Protein 7.5, Albumin 3.1 L, Globulin 4.4 H, Albumin/Globulin Ratio 0.7 L, Triglycerides 82, Cholesterol 92, LDL Cholesterol 40, VLDL Cholesterol 16, HDL Cholesterol 36 L 03/13/20 05:12: Troponin I 0.030 Current Medications Acetaminophen (Tylenol) 650 mg PO Q6H PRN PRN PRN Reason: Pain Score 1-10/Temp > 100.7 F Al Hydroxide/Mg Hydroxide (Mylanta Ii) 30 ml PO Q6H PRN PRN PRN Reason: Gastric Burning Albuterol Sulfate (Ventolin Aerosols) 2.5 mg INHALATION Q2H PRN PRN PRN Reason: Dyspnea, wheezing Amiodarone HCl (Cordarone) 200 mg PO DAILY [facility] Last Admin: 03/13/20 10:30 Dose: 200 mg Documented by: Aspirin (Ecotrin) 81 mg PO DAILY@0800 [facility] Last Admin: 03/13/20 10:27 Dose: 81 mg Documented by: Atorvastatin Calcium (Lipitor) 20 mg PO QHS [facility] Last Admin: 03/13/20 02:59 Dose: 20 mg Documented by: Bisacodyl (Dulcolax) 5 mg PO DAILY PRN PRN PRN Reason: Constipation Dextrose (D50w Syringe) 0 gm IV X1 PRN; Protocol PRN Reason: Hypoglycemia Enoxaparin Sodium (Lovenox) 30 mg SC DAILY [facility] Last Admin: 03/13/20 10:29 Dose: 30 mg Documented by: Furosemide (Lasix) 40 mg IV BID@1000,1800 [facility] Last Admin: 03/13/20 17:10 Dose: 40 mg Documented by: Glucagon () 1 mg IM .X1 PRN PRN Reason: Hypoglycemia Guaifenesin (Robitussin) 20 ml PO Q4H PRN PRN PRN Reason: COUGH Hydralazine HCl (Apresoline Iv) 10 mg IV Q4H PRN PRN PRN Reason: SBP > 160 Magnesium Hydroxide (Milk Of Magnesia) 30 ml PO DAILY PRN PRN PRN Reason: Constipation Melatonin (Melatonin) 3 mg PO QHS PRN PRN PRN Reason: INSOMNIA Metolazone (Zaroxolyn) 2.5 mg PO DAILY [facility] Last Admin: 03/13/20 10:29 Dose: 2.5 mg Documented by: Morphine Sulfate () 2 mg IV Q3H PRN PRN PRN Reason: Pain Score 6-10/10 Nitroglycerin (Nitrostat) 0.4 mg SUBLINGUAL Q5M PRN PRN Reason: CARDIAC/CHEST PAIN Ondansetron HCl (Zofran) 4 mg IV Q8H PRN PRN PRN Reason: NAUSEA/VOMITING Oxycodone HCl (Oxyir) 5 mg PO Q4H PRN PRN PRN Reason: Pain Score 4-5/10 Potassium Chloride (K-Dur) 40 meq PO BIDCM [facility] Last Admin: 03/13/20 17:09 Dose: 40 meq Documented by: Prochlorperazine Edisylate (Compazine Iv) 5 mg IV Q4H PRN PRN PRN Reason: Breakthrough Nausea/Vomiting Psyllium Hydrophilic Mucilloid (Metamucil) 1 packet PO DAILY PRN PRN PRN Reason: Constipation Senna/Docusate Sodium (Senokot-S, Kathrin-Colace) 2 tablet PO BID PRN PRN PRN Reason: Constipation Sodium Chloride () 10 - 40 ml IV UD PRN PRN Reason: SALINE FLUSH Last Admin: 03/13/20 17:09 Dose: 10 ml Documented by: Throat Lozenges (Cepacol Sore Throat Lozenge) 1 lozenge MUCOUS MEM Q2H PRN PRN PRN Reason: SORE THROAT STROKE Vital Signs/Narrative: Vital Signs Temp Pulse Resp BP Pulse Ox 03/13/20 17:06 97.5 F L 60 18 103/65 94 03/13/20 15:08 93 03/13/20 15:04 76 03/13/20 15:00 89 03/13/20 14:28 90 Assessment/Plan This patient was seen in conjunction with Babar BRYAN. I have independently interviewed and examined the patient and reviewed pertinent history, examination findings, laboratory and plan of management. I have reviewed the note and agree with the documented findings with the few additional points. In brief, patient is 84-year-old patient woman admitted for acute on chronic systolic heart failure. BNP 1141. Serial troponin enzymes negative. 2D echo 06/14/2019 shows EF 25% with severely decreased LV systolic function, severe segmental hypokinesis, RVSP 38 mmHg mild pulmonary hypertension. Repeat 2D echo was done and shows worsening of LV systolic function along with moderate valvular heart disease, MR, TR and increase in pulmonary hypertension. On CHF core measures. Interpretation Summary Severely dilated left ventricle. Severe segmental systolic dysfunction (see wall motion). The estimated ejection fraction is 15 %. The left atrium is moderately enlarged. The right atrium is mildly enlarged. Mild diffuse mitral valve thickening. Mild papillary muscle dysfunction of the mitral valve. Moderate (2+) eccentric mitral valve insufficiency. Moderate (2+) tricuspid valve insufficiency. Moderate focal aortic valve calcification. Trivial aortic valve insufficiency. Trivial pulmonic valve insufficiency. Calcified aortic root. Right ventricular systolic pressure estimated to be 53 mmHg. Unable to assess diastolic dysfunction. ICD or pacer leads identified within the right atrium ICD or pacer leads identified within the right ventricle. Pneumonia was ruled out. Patient also has CKD stage III and creatinine clearance is about 30-40 mils per minute since February 2017. BUN/creatinine is stable. Daily monitor BMP. Other chronic comorbidities include coronary artery disease ischemic cardiomyopathy, valvular heart disease, history of V. tach and hypertension I have discussed my assessment with Babar BRYAN and orders have been reviewed. Inpatient E&M: [id number] [facility] L3
--- NOTE | 2020-03-13 12:56 | CASEMGMT ---
RN CM Assessment Note Presentation: Exacerbation CHF Intro role of CM and purpose of RN CM assessment to patient's daughter in law, Tatianna (pt is unable to participate @ this time and pt's son cannot speak on phone due to hearing difficulty). DIL states she is home with pt and is main caregiver. Demographics, PCP and Pharmacy verified. Pt lives with son and dil. Reportedly pt does not shower or bathe regularly- refuses. He sleeps in his clothes, and for past few weeks has not eaten well. DIL states he would only eat a whopper, refused other meals. Increasing weakness over past weeks and has been using a walking stick. - discussed past SNF stay. DIL states if needed, they would consider as pt has been having more difficulty @ home. RN CM let her know cm would continue to follow and assist with any dc needs. PCP: Dr. Ellis Quijano Specialists: Dr. Soto Preferred Pharmacy: [facility] Insurance: [employer] Pres[employer] Benefit: yes LNOK : Son and DIL. Tatianna Mc is contact Living Arrangements: Lives with family. Increasing difficulty with self care, eating and weakness. DIL has concerns re: patient's well being at home. Transportation: [employer] [address] drives DME: walking stick. DIL states there is a walker in the shed. RN CM recommended to bring this out as pt may benefit from more stability on dc. -no oxygen or Cpap. HHC: past, unsure of which agency SNF: [facility] past Palliative: not currently but DIL states PCP has recommended this in past [facility]: currently active with pt. Jona updated on admission and requests notification on dc and they will continue to follow. DC PLAN: undetermined. PT/OT evaluations pending. Anticipate SNF vs Home with HHC. Kelly COHEN RN ACM
[2020-03-14] VITALS (11 sets, daily range): BP systolic 108–114; BP diastolic 60–65; PULSE 60–68; RESP 16–18; TEMP 36.6–36.7; O2SAT 93–99
[2020-03-14 06:58] LABS: Absolute Lymphocyte Count 1.64 X10^3/uL (0.83-4.51); Absolute Neutrophil Count 6.2 X10^3/uL (2.0-7.7); Basophil# 0.05 X10^3/uL; Basophil% 0.5 % (0-1); Eosinophil# 0.19 X10^3/uL; Hematocrit 46.8 % (40-54); Hemoglobin 14.6 g/dL (13.0-16.5); Lymphocyte # 1.64 X10^3/ul (4.0); Lymphocyte % 17.5 % (19-41); Mean Corp Hgb Conc 31.2 g/dL (32-36); Mean Corpuscular Hgb 27.6 pg (27.0-32.0); Mean Corpuscular Volume 88.5 fL (80-94); Mean Platelet Vol. 11.4 fl (6.2-12.0); Monocyte# 1.26 X10^3/uL; Monocyte% 13.5 % (0-10); NRBC Flagged by Analyzer 0 % (0-5); Neutrophil # 6.18 X10^3/uL (2.7-7.7); Neutrophil % 66.2 % (47-70); Platelet Count 154 K/mm3 (150-450); RBC Distribution Width CV 15.6 % (11.6-14.6); RBC Distribution Width SD 49.1 fl (35.1-43.9); Red Blood Count 5.29 M/mm3 (4.6-6.2); White Blood Count 9.4 K/mm3 (4.4-11.0)
[2020-03-14 07:35] LABS: ALB/GLOB Ratio 0.7 RATIO (0.9-2.4); AST(SGOT) 28 U/L (15-37); Alanine Aminotransfer ALT/SGPT 26 U/L (16-61); Albumin, Serum 3.1 g/dL (3.2-5.0); Alkaline Phosphatase 112 U/L (45-117); Anion Gap 7 (5-15); BUN 31 mg/dL (7-18); BUN/Creat Ratio 13.8 RATIO (10-20); Calcium,Total 9.7 mg/dL (8.5-10.1); Chloride 94 mmol/L (98-107); Creatinine, Serum 2.24 mg/dL (0.70-1.30); EST Glomerular Filtration Rate 30 mL/min (>60); Est Glom Filt Rate - Afr Amer 36 mL/min (>60); Estimated Creatinine Clearance 24.27 ml/min; Globulin 4.7 g/dL (2.2-4.2); Glucose 100 mg/dL (74-106); Potassium 3.5 mmol/L (3.5-5.1); Protein, Total 7.8 g/dL (6.4-8.2); Sodium Level 137 mmol/L (136-145)
[2020-03-14] MEDS: Amiodarone 200 MG Tablet PO (09:28)
[2020-03-14] MEDS: 0.9% Saline Lock 10 ML Syringe IV (09:28)
[2020-03-14] MEDS: Aspirin E.C. 81 MG Tablet PO (09:28)
[2020-03-14] MEDS: Furosemide 40 MG/4 ML Vial IV (09:28)
[2020-03-14] MEDS: Enoxaparin 30 MG/0.3 ML Syringe SC (09:28)
[2020-03-14] MEDS: Metolazone 2.5 MG Tablet PO (10:20)
--- NOTE | 2020-03-14 10:58 | PCM.PN.HOSP ---
<Babar Nunez - Last Filed: 03/14/20 11:16> Patient Problems: Active and Suspected Problems (Last Updated 11/10/19 @ 12:39 by Marianne Manzanares) Acute exacerbation of CHF (congestive heart failure) (Acute) Pneumonia (Acute) Reason for Visit: CHF Subjective: Pt is pleasantly confused this AM. He has no complaints including no CP, pressure, palpitations, SOB, LH/Dizziness. I attempted to discuss code status with him given his EF of 15% however he responded I dont know and I dont know how to answer that question despite phrasing the explanations in different ways. I contacted his next of kin, son and daughter and law whom he lives with, and they are discussing his code status and plan to have a decision today and will call back. Vitals/I&O's: Vital Signs Temp Pulse Resp BP Pulse Ox 98.1 F 65 18 113/63 99 03/14/20 09:07 03/14/20 09:07 03/14/20 09:07 03/14/20 09:07 03/14/20 09:07 Oxygen Flow Rate (L/min) 3 Oxygen Delivery Method Nasal Cannula Weight: 154 lb 1.65 oz Body Mass Index (BMI) 22.4 Intake and Output for Last 24 Hours 03/12/20 03/13/20 03/14/20 23:59 23:59 23:59 Intake Total 112 / 112 1071 / 1071 Output Total 1974 700 / 700 Balance 112 / 112 -904 / -904 -700 / -700 General: Alert, Cooperative, Confused HEENT: Atraumatic, PERRLA, EOMI, Normocephalic Neck: Supple, No JVD, Negative Carotid Bruits Lungs: Clear to auscultation, Diminished Cardiovascular: Regular rate, No murmurs Abdomen: Bowel Sounds Present, Soft, Non Tender Extremities: No edema, Capillary Refill Less than 3 Seconds Skin: No rashes, No breakdown Musculoskeletal: No Tenderness to Palpation of Joints or Extremities Neurological: Cranial nerves II-XII grossly intact Psych/Mental Status: Normal Affect, Appropriate Microbiology Past 72 Hours 03/13/20 06:15 Mucosa - Nasopharyngeal Respiratory Panel (PCR) - Final 03/13/20 02:00 Urine, Random Streptococcus pneumoniae Antigen (M - Final 03/13/20 02:00 Urine, Random Legionella Antigen - Final 03/12/20 20:55 Mucosa - Nasopharyngeal Coronavirus COVID-19 PCR - Final Laboratory Results 03/14/20 06:18: WBC 9.4, RBC 5.29, Hgb 14.6, Hct 46.8, MCV 88.5, MCH 27.6, MCHC 31.2 L, RDW Std Deviation 49.1 H, RDW Coeff of Darrell 15.6 H, Plt Count 154, MPV 11.4, Immature Gran % (Auto) 0.300, Neut % (Auto) 66.2, Lymph % (Auto) 17.5 L, [place] % (Auto) 13.5 H, Eos % (Auto) 2.0, Baso % (Auto) 0.5, Absolute Neuts (auto) 6.2, Absolute Lymphs (auto) 1.64, Nucleated RBC % 0 03/14/20 06:18: Sodium 137, Potassium 3.5, Chloride 94 L, Carbon Dioxide 36.0 H, Anion Gap 7, BUN 31 H, Creatinine 2.24 H, Estim Creat Clear Calc 24.27, Est GFR (MDRD) Af Amer 36 L, Est GFR (MDRD) Non-Af 30 L, BUN/Creatinine Ratio 13.8, Glucose 100, Calcium 9.7, Total Bilirubin 1.30 H, AST 28, ALT 26, Alkaline Phosphatase 112, Total Protein 7.8, Albumin 3.1 L, Globulin 4.7 H, Albumin/Globulin Ratio 0.7 L Current Medications Acetaminophen (Tylenol) 650 mg PO Q6H PRN PRN PRN Reason: Pain Score 1-10/Temp > 100.7 F Al Hydroxide/Mg Hydroxide (Mylanta Ii) 30 ml PO Q6H PRN PRN PRN Reason: Gastric Burning Albuterol Sulfate (Ventolin Aerosols) 2.5 mg INHALATION Q2H PRN PRN PRN Reason: Dyspnea, wheezing Amiodarone HCl (Cordarone) 200 mg PO DAILY [facility] Last Admin: 03/14/20 09:28 Dose: 200 mg Documented by: Aspirin (Ecotrin) 81 mg PO DAILY@0800 [facility] Last Admin: 03/14/20 09:28 Dose: 81 mg Documented by: Atorvastatin Calcium (Lipitor) 20 mg PO QHS [facility] Last Admin: 03/13/20 21:09 Dose: 20 mg Documented by: Bisacodyl (Dulcolax) 5 mg PO DAILY PRN PRN PRN Reason: Constipation Dextrose (D50w Syringe) 0 gm IV X1 PRN; Protocol PRN Reason: Hypoglycemia Enoxaparin Sodium (Lovenox) 30 mg SC DAILY [facility] Last Admin: 03/14/20 09:28 Dose: 30 mg Documented by: Furosemide (Lasix) 40 mg IV BID@1000,1800 [facility] Last Admin: 03/14/20 09:28 Dose: 40 mg Documented by: Glucagon () 1 mg IM .X1 PRN PRN Reason: Hypoglycemia Guaifenesin (Robitussin) 20 ml PO Q4H PRN PRN PRN Reason: COUGH Hydralazine HCl (Apresoline Iv) 10 mg IV Q4H PRN PRN PRN Reason: SBP > 160 Magnesium Hydroxide (Milk Of Magnesia) 30 ml PO DAILY PRN PRN PRN Reason: Constipation Melatonin (Melatonin) 3 mg PO QHS PRN PRN PRN Reason: INSOMNIA Metolazone (Zaroxolyn) 2.5 mg PO DAILY [facility] Last Admin: 03/14/20 10:20 Dose: 2.5 mg Documented by: Morphine Sulfate () 2 mg IV Q3H PRN PRN PRN Reason: Pain Score 6-10/10 Nitroglycerin (Nitrostat) 0.4 mg SUBLINGUAL Q5M PRN PRN Reason: CARDIAC/CHEST PAIN Ondansetron HCl (Zofran) 4 mg IV Q8H PRN PRN PRN Reason: NAUSEA/VOMITING Oxycodone HCl (Oxyir) 5 mg PO Q4H PRN PRN PRN Reason: Pain Score 4-5/10 Potassium Chloride (K-Dur) 40 meq PO BIDCM [facility] Last Admin: 03/14/20 09:29 Dose: 40 meq Documented by: Prochlorperazine Edisylate (Compazine Iv) 5 mg IV Q4H PRN PRN PRN Reason: Breakthrough Nausea/Vomiting Psyllium Hydrophilic Mucilloid (Metamucil) 1 packet PO DAILY PRN PRN PRN Reason: Constipation Senna/Docusate Sodium (Senokot-S, Kathrin-Colace) 2 tablet PO BID PRN PRN PRN Reason: Constipation Sodium Chloride () 10 - 40 ml IV UD PRN PRN Reason: SALINE FLUSH Last Admin: 03/14/20 09:28 Dose: 10 ml Documented by: Throat Lozenges (Cepacol Sore Throat Lozenge) 1 lozenge MUCOUS MEM Q2H PRN PRN PRN Reason: SORE THROAT STROKE Vital Signs/Narrative: Vital Signs Temp Pulse Resp BP Pulse Ox 03/14/20 09:07 98.1 F 65 18 113/63 99 03/14/20 07:00 96 03/14/20 06:59 60 Medical Necessity - Tobacco Use Smoking Status: Current every day smoker Tobacco Use: Cigarettes Assessment/Plan All Active Problems (Last Updated 11/10/19 @ 12:39 by Marianne Manzanares) Acute exacerbation of CHF (congestive heart failure) (Acute) Pneumonia (Acute) History of non-ST elevation myocardial infarction (NSTEMI) (Resolved 06/20/19) Cardiac arrest with ventricular fibrillation (Resolved 06/20/19) Sudden cardiac arrest (Resolved) 1. Acute on chronic systolic CHF - Continue lasix/metolazone. Edema resolved. echo 05/2019 shows EF 25%, severely decresaed LV systolic function, severe segmental hypokinesis. RVSP 38mmHg (mild pulm htn). Repeat shows EF 15%. AICD in place. BUN/Cr increased, changed to PO lasix. Co2 is stable but mildly elevated. 2. Pneumonia ruled out - no fever/leukocytosis/cough. CXR c/w CHF. Resp panel negative, coronavirus negative, urine antigens negative. Received unasyn/azithromycin - stopped. 3. CAD with ischemic CM - prior stents. on asa/statin. no NICHOLAS/BB. would not add at this time given renal function and blood pressure. 4. Hx Vtach - on amiodarone. Has pacemaker. He has an AICD. 5. HTN - stable 6. CKDIII- bump, repeat AM BMP. DVT ppx: lovenox DC planning: PTOT, frail, demented CODE STATUS: Had discussion with patient regarding code status but he was unable to answer and with his dementia it is clear that he does not understand what I am asking him and that he is not capable of making this decision at this time. I therefore contacted his next of kin which is who he lives with his son and daughter in law. I explained his options and how it relates to his acute and chronic medical conditions. They are discussing the options and plan to call back later with an answer. This patient was seen by Babar Nunez PA-C under the supervision of Dr. Holcomb. <Irineo Holcomb - Last Filed: 03/14/20 16:40> Reason for Visit: Follow-up CHF exacerbation Subjective: Seen and examined. Patient is hard of hearing. Patient has cognitive deficit/dementia. Denies chest pain or shortness of breath and overall feeling better. His CODE STATUS is changed to DNR CCA with no intubation. On physical exam General: Cooperative, Confused, Disoriented to place and person HEENT: Atraumatic, PERRLA, EOMI, Normocephalic, Bilateral hard of hearing Neck: Supple, No JVD, Negative Carotid Bruits Lungs: Diminished, no crepitation/rhonchi. Cardiovascular: Regular rate, Regular Rhythm, Normal S1, Normal S2, No murmurs Abdomen: Bowel Sounds Present, Soft, Non Tender, Non-Distended Extremities: Capillary Refill Less than 3 Seconds, Edema Skin: No rashes, No breakdown Musculoskeletal: No Tenderness to Palpation of Joints or Extremities, Arthritic Changes Neurological: Cranial nerves II-XII grossly intact, Deep Tendon Reflexes 2+/4 and Symmetrical, Neuro grossly intact Psych/Mental Status: Normal Affect, Appropriate Vitals/I&O's: Vital Signs Temp Pulse Resp BP Pulse Ox 97.8 F 63 18 108/65 96 03/14/20 15:01 03/14/20 15:02 03/14/20 15:01 03/14/20 15:01 03/14/20 15:01 Oxygen Flow Rate (L/min) 2 Oxygen Delivery Method Nasal Cannula Weight: 154 lb 1.65 oz Body Mass Index (BMI) 22.4 Intake and Output for Last 24 Hours 03/12/20 03/13/20 03/14/20 23:59 23:59 23:59 Intake Total 112 / 112 1071 / 1071 240 / 240 Output Total 1974 / 1974 950 / 950 Balance 112 / 112 -904 / -904 -710 / -710 Microbiology Past 72 Hours 03/13/20 06:15 Mucosa - Nasopharyngeal Respiratory Panel (PCR) - Final 03/13/20 02:00 Urine, Random Streptococcus pneumoniae Antigen (M - Final 03/13/20 02:00 Urine, Random Legionella Antigen - Final 03/12/20 20:55 Mucosa - Nasopharyngeal Coronavirus COVID-19 PCR - Final Laboratory Results 03/14/20 06:18: WBC 9.4, RBC 5.29, Hgb 14.6, Hct 46.8, MCV 88.5, MCH 27.6, MCHC 31.2 L, RDW Std Deviation 49.1 H, RDW Coeff of Darrell 15.6 H, Plt Count 154, MPV 11.4, Immature Gran % (Auto) 0.300, Neut % (Auto) 66.2, Lymph % (Auto) 17.5 L, [place] % (Auto) 13.5 H, Eos % (Auto) 2.0, Baso % (Auto) 0.5, Absolute Neuts (auto) 6.2, Absolute Lymphs (auto) 1.64, Nucleated RBC % 0 03/14/20 06:18: Sodium 137, Potassium 3.5, Chloride 94 L, Carbon Dioxide 36.0 H, Anion Gap 7, BUN 31 H, Creatinine 2.24 H, Estim Creat Clear Calc 24.27, Est GFR (MDRD) Af Amer 36 L, Est GFR (MDRD) Non-Af 30 L, BUN/Creatinine Ratio 13.8, Glucose 100, Calcium 9.7, Total Bilirubin 1.30 H, AST 28, ALT 26, Alkaline Phosphatase 112, Total Protein 7.8, Albumin 3.1 L, Globulin 4.7 H, Albumin/Globulin Ratio 0.7 L Current Medications Acetaminophen (Tylenol) 650 mg PO Q6H PRN PRN PRN Reason: Pain Score 1-10/Temp > 100.7 F Al Hydroxide/Mg Hydroxide (Mylanta Ii) 30 ml PO Q6H PRN PRN PRN Reason: Gastric Burning Albuterol Sulfate (Ventolin Aerosols) 2.5 mg INHALATION Q2H PRN PRN PRN Reason: Dyspnea, wheezing Amiodarone HCl (Cordarone) 200 mg PO DAILY [facility] Last Admin: 03/14/20 09:28 Dose: 200 mg Documented by: Aspirin (Ecotrin) 81 mg PO DAILY@0800 [facility] Last Admin: 03/14/20 09:28 Dose: 81 mg Documented by: Atorvastatin Calcium (Lipitor) 20 mg PO QHS [facility] Last Admin: 03/13/20 21:09 Dose: 20 mg Documented by: Bisacodyl (Dulcolax) 5 mg PO DAILY PRN PRN PRN Reason: Constipation Dextrose (D50w Syringe) 0 gm IV X1 PRN; Protocol PRN Reason: Hypoglycemia Enoxaparin Sodium (Lovenox) 30 mg SC DAILY [facility] Last Admin: 03/14/20 09:28 Dose: 30 mg Documented by: Furosemide (Lasix) 40 mg IV BID@1000,1800 [facility] Last Admin: 03/14/20 09:28 Dose: 40 mg Documented by: Glucagon () 1 mg IM .X1 PRN PRN Reason: Hypoglycemia Guaifenesin (Robitussin) 20 ml PO Q4H PRN PRN PRN Reason: COUGH Hydralazine HCl (Apresoline Iv) 10 mg IV Q4H PRN PRN PRN Reason: SBP > 160 Magnesium Hydroxide (Milk Of Magnesia) 30 ml PO DAILY PRN PRN PRN Reason: Constipation Melatonin (Melatonin) 3 mg PO QHS PRN PRN PRN Reason: INSOMNIA Metolazone (Zaroxolyn) 2.5 mg PO DAILY [facility] Last Admin: 03/14/20 10:20 Dose: 2.5 mg Documented by: Morphine Sulfate () 2 mg IV Q3H PRN PRN PRN Reason: Pain Score 6-10/10 Nitroglycerin (Nitrostat) 0.4 mg SUBLINGUAL Q5M PRN PRN Reason: CARDIAC/CHEST PAIN Ondansetron HCl (Zofran) 4 mg IV Q8H PRN PRN PRN Reason: NAUSEA/VOMITING Oxycodone HCl (Oxyir) 5 mg PO Q4H PRN PRN PRN Reason: Pain Score 4-5/10 Potassium Chloride (K-Dur) 40 meq PO BIDCM [facility] Last Admin: 03/14/20 09:29 Dose: 40 meq Documented by: Prochlorperazine Edisylate (Compazine Iv) 5 mg IV Q4H PRN PRN PRN Reason: Breakthrough Nausea/Vomiting Psyllium Hydrophilic Mucilloid (Metamucil) 1 packet PO DAILY PRN PRN PRN Reason: Constipation Senna/Docusate Sodium (Senokot-S, Kathrin-Colace) 2 tablet PO BID PRN PRN PRN Reason: Constipation Sodium Chloride () 10 - 40 ml IV UD PRN PRN Reason: SALINE FLUSH Last Admin: 03/14/20 09:28 Dose: 10 ml Documented by: Throat Lozenges (Cepacol Sore Throat Lozenge) 1 lozenge MUCOUS MEM Q2H PRN PRN PRN Reason: SORE THROAT STROKE Vital Signs/Narrative: Vital Signs Temp Pulse Resp BP Pulse Ox 03/14/20 15:02 63 03/14/20 15:01 97.8 F 66 18 108/65 96 Assessment/Plan This patient was seen in conjunction with Babar BRYAN. I have independently interviewed and examined the patient and reviewed pertinent history, examination findings, laboratory and plan of management. I have reviewed the note and agree with the documented findings with the few additional points. In brief, patient is 84-year-old patient woman admitted for acute on chronic systolic heart failure. BNP 1141. Serial troponin enzymes negative. 2D echo 06/14/2019 shows EF 25% with severely decreased LV systolic function, severe segmental hypokinesis, RVSP 38 mmHg mild pulmonary hypertension. Repeat 2D echo was done and shows worsening of LV systolic function along with moderate valvular heart disease, MR, TR and increase in pulmonary hypertension. On CHF core measures. Interpretation Summary Severely dilated left ventricle. Severe segmental systolic dysfunction (see wall motion). The estimated ejection fraction is 15 %. The left atrium is moderately enlarged. The right atrium is mildly enlarged. Mild diffuse mitral valve thickening. Mild papillary muscle dysfunction of the mitral valve. Moderate (2+) eccentric mitral valve insufficiency. Moderate (2+) tricuspid valve insufficiency. Moderate focal aortic valve calcification. Trivial aortic valve insufficiency. Trivial pulmonic valve insufficiency. Calcified aortic root. Right ventricular systolic pressure estimated to be 53 mmHg. On Lasix 40 mg twice daily. BUN/creatinine went up to 31/2.24. Bicarb 36 last 3 days. I think patient achieved his dry weight. Lost 8 pounds since admission. Since patient is over diuresed therefore will hold diuretics. Repeat BMP tomorrow a.m. Pneumonia was ruled out. Patient also has CKD stage III and creatinine clearance is about 30-40 mils per minute since February 2017. BUN/creatinine is stable. Daily monitor BMP. Other chronic comorbidities include coronary artery disease ischemic cardiomyopathy, valvular heart disease, history of V. tach and hypertension Living will/advanced directive/end of life care: Patient does not have living will or advanced directive. The advanced directive was discussed with patient's [id number] who communicated with his son. After discussion of procedures involved with full code, DNR CC arrest and DNR CC, she opted for DNR-CC Arrest Patient does not want artificial life support including intubation, tube feed, ventilator and/chest compression, central venous catheter, vasopressor and DC shock if needed DNR CC arrest. Total time spent in [id number] encounter in discussion of advanced directive 16 minutes. I have discussed my assessment with Babar BRYAN and orders have been reviewed. Inpatient E&M: 37321 Subs Hosp L2 Procedures: 00029 Advncd Care Plan 30 Min
--- NOTE | 2020-03-14 13:00 | SP.MBSS_ITS ---
PRIMARY / SECONDARY DIAGNOSIS: dysphagia (R13.12) CURRENT DIET (SOLIDS): mechanical soft textures (IDDSI: 5) CURRENT DIET (LIQUIDS): nectar thickened liquids (IDDSI: 2) DENTITION: upper / lower dentures MENTAL STATUS: confused RESPIRATORY STATUS: O2 at 3/L min via nasal cannula REASON FOR REFERRAL: The Patient is an 84 year old male referred for a modified barium swallow (MBS) study to objectively assess the Patients oropharyngeal swallow function under fluoroscopy secondary to reported concerns for PO intake tolerance. MEDICAL HISTORY: Dementia, chronic systolic (congestive) heart failure, non-ST elevation myocardial infarction (NSTEMI), atherosclerotic heart disease of [place] coronary artery without angina pectoris, ischemic cardiomyopathy, sudden cardiac arrest, old myocardial infarction, essential (primary) hypertension, presence of automatic implantable cardioverter-defibrillator other secondary pulmonary hypertension, nonrheumatic tricuspid & mitral valve insufficiency, hyperlipidemia, renal insufficiency, urinary tract infection PREVIOUS MODIFIED BARIUM SWALLOW STUDY: None ADDITIONAL OBJECTIVE ASSESSMENT RESULTS: 03/12/2020 chest x-ray revealed new right upper lobe infiltrate; elevated right hemidiaphragm or new subpulmonic effusion. 03/13/2020 chest x-ray revealed probable mild congestive heart failure ASSESSMENT PARAMETERS: The Patient participated in a Modified Barium Swallow (MBS) study on . This study was recorded in the lateral view and images were sent to PACs for storage. Scoring was completed through each trial using the 8- point Penetration-Aspiration Scale (PAS) and the Videofluoroscopic Scale Score (VSS), and summarized via the Modified Barium Swallow Impairment Profile (MBSImP) and the Bolus Residue Scale (BRS), with severity scoring through the Dysphagia Severity Rating Scale (DSRS), the Swallowing Performance Scale (SPS), and the Dysphagia Classification Scale (DCS), and recommended diet textures through the International Dysphagia Diet Standardisation Initiative (IDDSI) RESULTS OF THE EVALUATION: The Patient presents with moderate oropharyngeal dysphagia (DSRS: 4; SPS: 5) with grade II overt aspiration of thin liquids OBJECTIVE ASSESSMENT OF SWALLOW FUNCTION (QUANTITATIVE ? PER TRIAL): PENETRATION / ASPIRATION SCALE (WASSERMAN): 1 = does not enter airway 2 = enters airway/above vocal folds/ejected 3 = enters airway/above vocal folds/not ejected 4 = enters airway/contacts vocal folds/ejected 5 = enters airway/contacts vocal folds/not ejected 6 = enters airway/below vocal folds/ejected 7 = enters airway/below vocal folds/not ejected despite effort 8 = enters airway/below vocal folds/no effort VIDEOFLOROSCOPIC SCALE SCORE (WASSERMAN): Grade I = aspiration of material that has penetrated into the laryngeal vestibule, intact cough reflex Grade II = aspiration < 10 % of the bolus, intact cough reflex Grade III = aspiration of < 10 % of the bolus, reduced cough reflex or aspiration of > 10 % of the bolus, intact cough reflex Grade IV = aspiration of > 10 % of the bolus, reduced cough reflex PENETRATION / ASPIRATION SCALE (SCORE) WITH VIDEOFLOROSCOPIC SCALE SCORE: Thin liquids via straw (single sip): 5 Thin liquids via straw (single sip): 3 Thin liquids via straw (single sip): 7 ? Grade II Thin liquids via straw (chin tuck): 3* Thin liquids via straw (chin tuck): 5 [place] thickened liquids via straw (habitual sequential): 3 [place] thickened liquids via straw (single sip): 1 [place] thickened liquids via straw (single sip): 1 [place] thickened liquids via straw (single sip): 1 Pudding via spoon: 1 Regular textured cookie: 1 [place] thickened liquids via straw (single sip): 1 * denotes excessive movement out of imaging range denotes inability to follow directions for strategy implementation minimal amounts of contrast remaining from prior trial OBJECTIVE ASSESSMENT OF SWALLOW FUNCTION (QUANTITATIVE ? AGGREGATE): MODIFIED BARIUM SWALLOW IMPAIRMENT PROFILE (MBSImP) LABIAL SEAL: 0 (of 4) no labial escape TONGUE CONTROL: 3 (of 3) posterior escape > 50% BOLUS PREPARATION / MASTICATION: 2 (of 3) disorganized chewing; pieces unchewed BOLUS TRANSPORT / LINGUAL MOTION: 0 (of 4) brisk tongue motion ORAL RESIDUE: 2 (of 4) residue collection on oral structures INITIATION OF PHARYNGEAL SWALLOW: 1 (of 4) valleculae SOFT PALATE ELEVATION: 0 (of 4) no bolus between soft palate & pharyngeal wall LARYNGEAL ELEVATION: 1 (of 3) partial superior movement / approximation ANTERIOR HYOID EXCURSION: 1 (of 2) partial movement EPIGLOTTIC MOVEMENT: 1 (of 2) partial inversion LARYNGEAL VESTIBULE CLOSURE: 1 (of 2) incomplete closure PHARYNGEAL STRIPPING WAVE: 0 (of 2) present / complete PE SEGMENT OPENIN (of 3) partial distension / duration / obstruction TONGUE BASE RETRACTION: 1 (of 4) trace column of contrast PHARYNGEAL RESIDUE: 2 (of 4) collection of residue ESOPHAGEAL BOLUS CLEARANCE: 1 (of 4) esophageal retention BOLUS RESIDUE SCALE (BRS): 4 (of 6) residue in valleculae and piriform sinus OBJECTIVE ASSESSMENT OF SWALLOW FUNCTION (SEVERITY GRADING): DYSPHAGIA SEVERITY RATING SCALE (DSRS): 4 (moderate) SWALLOWING PERFORMANCE SCALE (SPS): 5 (moderate) DYSPHAGIA CLASSIFICATION SCALE (DCS): D0 (normal) DCS CLASSIFICATION CHARACTERISTICS: without stasis or food consistency restrictions OBJECTIVE ASSESSMENT OF SWALLOW FUNCTION (QUALITATIVE): ORAL PREPARATORY PHASE: mastication inefficiency with prolonged mastication, with insufficient breakdown requiring additional liquid to fully break down bolus; sufficient anterior oral containment during oral manipulation; preserved management of breathing / bolus formation ORAL TRANSITIONAL PHASE: occasional fragmented swallowing (piecemeal deglutition); no discoordinated lingual movements (tremor / undulations); sufficient oral clearance; rather consistent premature posterior bolus loss directly attributing to pre-prandial penetration and subsequent aspiration event with thin liquids. PHARYNGEAL PHASE: mild pharyngeal phase dyssynchrony complicated by premature bolus loss during the oral transitional phase; reduced hyolaryngeal excursion and duration with insufficient laryngeal vestibule pressure generated to expel penetrated material; no signs of pharyngeal dysmotility; no signs of pharyngeal dysmotility; appropriate pharyngeal motility with semisolids and solid textures, with mild pharyngeal dysmotility noted during trials of thin and nectar thickened liquids influenced by dyssynchrony attributed to premature bolus loss and pharyngeal onset, with a mild reduction in pharyngoesophageal segment relaxation noted with less viscous textures (not necessarily abnormal); no signs of velopharyngeal impairments; elicited cough response with very minimal amounts of tracheal aspiration, though this does not clear completely. ESOPHAGEAL PHASE: noted mild post prandial esophageal stasis without retrograde flow; no evidence of tertiary contractions, structural abnormalities, or birds beak appearance; not overly concerning presentation, though if esophageal based symptoms are reported / continued he may benefit from further workup as an outpatient; it is important to note and consider that this assessment has a low sensitivity for esophageal based disorders, and findings may be entirely normal. CONTRIBUTING / COMPLICATING FACTORS AND NOTABLE FINDINGS: weak cough in response to tracheobronchial aspiration (dystussia); weak cued volitional cough intensity generated to expel penetrated material (dystussia); noted calcification along the entirety of the vocal folds, though this did not significantly impact image quality; RESPONSE TO STRATEGIES: all deficits managed successfully / ameliorated with reduction in bolus rate / volume adjustments combined with diet texture / viscosity adjustments; unable to follow direction for execution of the chin tuck posture, INTERVENTION RECOMMENDATIONS AND CONSIDERATIONS: The Patient requires continued skilled speech-language intervention targeting diet texture management and training / implementation of recommended compensatory strategies; Patient and caregiver training targeting meal preparation / thickened liquid preparation if unable to advance to baseline diet textures prior to discharge. POST ASSESSMENT EDUCATION: The results and recommendations were discussed with the Patient immediately following MBS completion, though stated an inability to comprehend information; may benefit from additional Patient and Patients family education DIET TEXTURE RECOMMENDATIONS: Will recommend a mechanical soft textured (IDDSI: 5), nectar thickened liquid (IDDSI: 2) diet RECOMMENDED COMPENSATORY STRATEGIES: Direct supervision with assistance as needed, reduced bolus volume / rate of ingestion, seated upright at 90 degrees during PO intake, remain upright for 30-60 minutes post meal (GERD precaution) IMAGE COUNT: [id number] Cresencio Gil M.A., [employer], CBIS MBSImP Certified, LSVT Certified [facility] Speech-Language Pathology Department Email: [email or web address]
--- NOTE | 2020-03-14 14:06 | CASEMGMT ---
Addendum entered by Elvie Ibrahim 03/14/20 15:14: Spoke w/Edilma @ [facility]. She states they are not able to accept pt d/t staffing. Original Note: LUZ DENNISON NOTE: Reviewed PT/OT evals/notes. Call placed to pt's Tatianna TURCIOS, and discussed discharge planning. Tatianna agreeable to HHC and states has no preference of HHC agency and is agreeable to [facility]. Call placed to Edilma @ [facility] and VM left with referral. Tatianna made aware pt may qualify for oxygen at d/c and denies preference of DME company and is agreeable to [employer]. Call placed to Jona @ [facility]. She was made aware plans are for pt to d/c home w/HHC. Order placed for HHC: SN, PT/OT, SW, and aides. Fabian COHEN RN, CM
--- NOTE | 2020-03-14 16:08 | CASEMGMT ---
LUZ DENNISON Note: Referral for Home Care faxed to [facility] Home care. They do service area and will review referral. [facility] Home Care: PH- ; FX- .
[2020-03-14] MEDS: Atorvastatin Calcium 20 MG Tablet PO (20:54)
[2020-03-15 03:00] VITALS: BP 130/67; PULSE 75; PULSE 76; RESP 12; TEMP 36.6; O2SAT 97
[2020-03-15 06:26] LABS: Anion Gap 6 (5-15); BUN 34 mg/dL (7-18); Calcium,Total 9.5 mg/dL (8.5-10.1); Chloride 94 mmol/L (98-107); Creatinine, Serum 2.13 mg/dL (0.70-1.30); EST Glomerular Filtration Rate 32 mL/min (>60); Est Glom Filt Rate - Afr Amer 38 mL/min (>60); Estimated Creatinine Clearance 25.34 ml/min; Glucose 96 mg/dL (74-106); Potassium 3.7 mmol/L (3.5-5.1); Sodium Level 135 mmol/L (136-145)
[2020-03-15 07:00] VITALS: PULSE 60
[2020-03-15 07:45] VITALS: O2SAT 89
--- NOTE | 2020-03-15 08:10 | CASEMGMT ---
RN CM Note. Call received from [facility]. They are not able to take referral. Kelly COHEN RN ACM
[2020-03-15 08:29] VITALS: BP 100/60; PULSE 60; RESP 16; TEMP 36.6; O2SAT 94
[2020-03-15] MEDS: Aspirin E.C. 81 MG Tablet PO (08:35)
[2020-03-15] MEDS: Enoxaparin 30 MG/0.3 ML Syringe SC (08:36)
[2020-03-15] MEDS: Amiodarone 200 MG Tablet PO (08:36)
--- NOTE | 2020-03-15 09:13 | CASEMGMT ---
Per [facility] website, [facility] is in-network and per rep, they do staff pt's area and referral faxed to them at this time. Awaiting call back. Yunier ESCOBAR CM
[2020-03-15 10:29] VITALS: BP 106/52; PULSE 61; RESP 14; TEMP 36.6; O2SAT 92
--- NOTE | 2020-03-15 10:37 | DCINST_ITS ---
- Discharge Diagnoses Current Active Problems: Current Active and Chronic Problems (Last Updated 11/10/19 @ 12:39 by Marianne Manzanares) Acute exacerbation of CHF (congestive heart failure) (Acute) You will use the following diet at home:: Cardiac Discharge Activity: Return to Normal Activity Call your doctor if you observe: Shortness of breath, Dizziness, Fainting spells, Chest pain Additional Instructions: HOLD Lasix and metolazone 03/15/2020. May resume 03/16/2020. You will need repeat BMP within 3 days to reassess kidney function, this can be completed by primary care provider. Allergies/Adverse Reactions: Allergies No Known Allergies Allergy (Verified 03/12/20 18:13) Medications to take at Discharge Aspirin E.C. [Ecotrin] 81 mg PO DAILY@0800 #90 tab 03/27/17 amiodarone 200 mg tablet 200 mg PO DAILY #90 tab 07/04/19 atorvastatin 20 mg tablet 20 mg PO QHS #90 tab 07/04/19 Furosemide [Lasix] 40 mg PO DAILY 03/12/20 Metolazone 2.5 mg PO DAILY 03/12/20 Potassium Chloride [K-Dur] 20 meq PO BID 03/12/20 Primary Care Physician: Ellis Quijano DO [Primary Care Provider] - Please follow up with your Primary Care Physician in: 3-5 Days Test Results: Test results from this visit will be discussed in further detail at your follow- up appointment, if applicable. Please Follow Up With: Edilma Russo PA When: 1 Week Proposed Discharge Date: 03/15/20
--- NOTE | 2020-03-15 11:00 | CASEMGMT ---
Addendum entered by Lorraine Agosto 03/15/20 15:21: D/C summ faxed to [facility] at this time. Yunier RN JUMA Addendum entered by Lorraine Agosto 03/15/20 14:12: Kelly aware of pt referral and discharge, voices understanding. Per Ketty, they will send ambulette driver over with tank. Ketty is aware to contact [email or web address], Tatianna, for any contact/questions/concerns. Yunier RN JUMA Addendum entered by Lorraine Agosto 03/15/20 13:05: Pt does qualify for home oxygen at this time and per previous note, family was ok with [employer]. Referral faxed to [facility] at this time. This RN CM attempted to call Torsten Mendoza to notify of referral without success at this time. Call to pt's [id number], Tatianna, to update on all at this time, voices understanding. Tatianna voices no further questions/concerns/needs at this time. Tatianna states she will await call from pt's RN, [place], as she will be picking pt up later. [place] RN updated on all, voices understanding. Yunier RN JUMA Addendum entered by Lorraine Agosto 03/15/20 12:01: Speech therapy also added to [facility] order at this time d/t MBS results from yesterday. Call to [facility] to notify, voices understanding. This RN CM still awaiting home oxygen testing for pt at this time. Yunier RN JUMA Original Note: This RN CM received a call back from Deisy at [facility] and she states that they can take pt at this time. Deisy is aware that pt to be discharged today, voices understanding. D/C summ/instructions to be faxed once obtained. Yunier ESCOBAR CM
[2020-03-15] MEDS: Acetaminophen 325 MG Tablet 650 MG PO (11:04)
--- NOTE | 2020-03-15 11:33 | PHA.DC.MR ---
Pharmacy Service has performed discharge medication reconciliation for this patient. The patient's discharge medication list was reviewed for discrepancies and discrepancies were resolved. Home Medications Aspirin E.C. [Ecotrin] 81 mg PO DAILY@0800 #90 tab 03/27/17 amiodarone 200 mg tablet 200 mg PO DAILY #90 tab 07/04/19 atorvastatin 20 mg tablet 20 mg PO QHS #90 tab 07/04/19 Furosemide [Lasix] 40 mg PO DAILY 03/12/20 Metolazone 2.5 mg PO DAILY 03/12/20 Potassium Chloride [K-Dur] 20 meq PO BID 03/12/20
[2020-03-15 12:10] VITALS: O2SAT 84; O2SAT 92; O2SAT 93
--- NOTE | 2020-03-15 14:49 | PCM.DC.SUM ---
<Carla Santos - Last Filed: 03/15/20 15:00> Discharge Date and Diagnosis Date of Admission: 03/12/20 Date of Discharge: 03/15/20 - Primary Discharge Diagnosis Acute Problems: Active Problems (Last Updated 11/10/19 @ 12:39 by Marianne Manzanares) 1. Acute on chronic systolic CHF with acute hypoxic respiratory insufficiency, pneumonia ruled out 2. Acute kidney injury on chronic kidney disease stage III 3. CAD with ischemic cardiomyopathy, history of stents 4. History of V. tach 5. Hypertension 6. Moderate oral pharyngeal dysphagia - Secondary Discharge Diagnosis Chronic Problems: Chronic Problems (Last Updated 11/10/19 @ 12:39 by Marianne Manzanares) Atherosclerotic heart disease of [place] coronary artery without angina pectoris (Chronic) History of coronary artery stent placement (Chronic 03/26/17) PCI-Mid LAD and RCA ?; PCI/BMS to distal LAD w/ 2.5 x 14 mm Resolute 03/26/2017 Left Heart Cath Moderate ISR of the mid and distal LAD Stent 06/20/19 Biventricular cardiac pacemaker in situ (Chronic 06/21/19) Ischemic cardiomyopathy (Chronic) Other secondary pulmonary hypertension (Chronic) Nonrheumatic tricuspid (valve) insufficiency (Chronic) Nonrheumatic mitral (valve) insufficiency (Chronic) Chronic systolic (congestive) heart failure (Chronic) Essential (primary) hypertension (Chronic) Hyperlipidemia (Chronic) Hospital Course and Treatment Imaging Results: Diagnostic Data Chest X-Ray 03/13/20 05:20 IMPRESSION: Probable mild CHF. at 0604 Reported and signed by: Samir Jeffery MD Electronically Signed: Samir Jeffery MD at 6:02 EDT Tel , Service support , Operations: None Procedures: 2-D Echocardiogram Summary of Care Provided: The patient is a 84 year old M admitted 03/12/2020 due to dyspnea with increased lower extremity edema and cough. 1. Acute on chronic systolic CHF with acute hypoxic respiratory insufficiency, pneumonia ruled out-BNP 1141. Chest x-ray demonstrated mild CHF. IV Lasix during admission. Discharge on home Lasix and metolazone regimen. Echocardiogram demonstrates an EF of 15%. Patient's oxygen 84% on room air. Patient will require 2 L nasal cannula at rest and with ambulation. He is ambulatory in the home. Continue supplement oxygen to maintain O2 sat above 90%. Follow-up with primary care physician in 3 to 5 days. Follow-up with cardiology as scheduled. COVID-19 negative, afebrile, no leukocytosis. Pneumonia ruled out as previously stated. 2. Acute kidney injury on chronic kidney disease stage III-secondary to diuretic regimen. Hold Lasix and metolazone 03/15/2020 with plans to resume 03/16/2020. Recommend repeat BMP in 3 days by primary care provider. 3. CAD with ischemic cardiomyopathy, history of stents-follows with Dr. Soto. Continue aspirin, statin. 4. History of V. tach-continue amiodarone. Status post AICD. 5. Hypertension-stable, continue current regimen. 6. Moderate oral pharyngeal dysphagia-continue dietary modifications per speech therapy recommendations. General: Alert, Cooperative, Confused HEENT: Atraumatic, PERRLA, EOMI, Normocephalic Neck: Supple, No JVD, Negative Carotid Bruits Lungs: Clear to auscultation, Diminished Cardiovascular: Regular rate, No murmurs Abdomen: Bowel Sounds Present, Soft, Non Tender Extremities: No edema, Capillary Refill Less than 3 Seconds Skin: No rashes, No breakdown Musculoskeletal: No Tenderness to Palpation of Joints or Extremities Neurological: Cranial nerves II-XII grossly intact Psych/Mental Status: Normal Affect, Appropriate Patient seen and examined prior to discharge. Physical assessment as noted above. Patient is stable for discharge with follow up recommendations as noted above. This patient was seen by KYRIE Johnson under the supervision of Dr. Holcomb. - Physical Exam Vitals/I&O's: Vital Signs Temp Pulse Resp BP Pulse Ox 97.8 F 61 14 106/52 L 92 03/15/20 10:29 03/15/20 10:29 03/15/20 10:03/15/20 10:03/15/20 12:10 Oxygen Flow Rate (L/min) [ 2 AMBULATION with Oxygen] Oxygen Flow Rate (L/min) [ 0 AMBULATING on Room Air] Oxygen Flow Rate (L/min) [At 0 REST on Room Air] Oxygen Flow Rate (L/min) 2 Oxygen Delivery Method Room Air Weight: 153 lb 0.013 oz Body Mass Index (BMI) 22.4 Intake and Output for Last 24 Hours 03/13/20 03/14/20 03/15/20 23:59 23:59 23:59 Intake Total 1071 / 1071 960 / 1080 120 / 120 Output Total 1974 1200 / 1475 525 / 525 Balance -904 / -904 -240 / -395 -405 / -405 Microbiology Past 72 Hours 03/12/20 18:45 Blood Culture (Wb) - Right Forearm Blood Culture - Preliminary No growth in 48 hours. 03/13/20 06:15 Mucosa - Nasopharyngeal Respiratory Panel (PCR) - Final 03/13/20 02:00 Urine, Random Streptococcus pneumoniae Antigen (M - Final 03/13/20 02:00 Urine, Random Legionella Antigen - Final 03/12/20 20:55 Mucosa - Nasopharyngeal Coronavirus COVID-19 PCR - Final Laboratory Results 03/15/20 05:10: Sodium 135 L, Potassium 3.7, Chloride 94 L, Carbon Dioxide 35.0 H, Anion Gap 6, BUN 34 H, Creatinine 2.13 H, Estim Creat Clear Calc 25.34, Est GFR (MDRD) Af Amer 38 L, Est GFR (MDRD) Non-Af 32 L, BUN/Creatinine Ratio 16.0, Glucose 96, Calcium 9.5 Current Medications Acetaminophen (Tylenol) 650 mg PO Q6H PRN PRN PRN Reason: Pain Score 1-10/Temp > 100.7 F Last Admin: 03/15/20 11:04 Dose: 650 mg Documented by: Al Hydroxide/Mg Hydroxide (Mylanta Ii) 30 ml PO Q6H PRN PRN PRN Reason: Gastric Burning Albuterol Sulfate (Ventolin Aerosols) 2.5 mg INHALATION Q2H PRN PRN PRN Reason: Dyspnea, wheezing Amiodarone HCl (Cordarone) 200 mg PO DAILY [facility] Last Admin: 03/15/20 08:36 Dose: 200 mg Documented by: Aspirin (Ecotrin) 81 mg PO DAILY@0800 [facility] Last Admin: 03/15/20 08:35 Dose: 81 mg Documented by: Atorvastatin Calcium (Lipitor) 20 mg PO QHS [facility] Last Admin: 03/14/20 20:54 Dose: 20 mg Documented by: Bisacodyl (Dulcolax) 5 mg PO DAILY PRN PRN PRN Reason: Constipation Dextrose (D50w Syringe) 0 gm IV X1 PRN; Protocol PRN Reason: Hypoglycemia Enoxaparin Sodium (Lovenox) 30 mg SC DAILY [facility] Last Admin: 03/15/20 08:36 Dose: 30 mg Documented by: Glucagon () 1 mg IM .X1 PRN PRN Reason: Hypoglycemia Guaifenesin (Robitussin) 20 ml PO Q4H PRN PRN PRN Reason: COUGH Hydralazine HCl (Apresoline Iv) 10 mg IV Q4H PRN PRN PRN Reason: SBP > 160 Magnesium Hydroxide (Milk Of Magnesia) 30 ml PO DAILY PRN PRN PRN Reason: Constipation Melatonin (Melatonin) 3 mg PO QHS PRN PRN PRN Reason: INSOMNIA Morphine Sulfate () 2 mg IV Q3H PRN PRN PRN Reason: Pain Score 6-10/10 Nitroglycerin (Nitrostat) 0.4 mg SUBLINGUAL Q5M PRN PRN Reason: CARDIAC/CHEST PAIN Ondansetron HCl (Zofran) 4 mg IV Q8H PRN PRN PRN Reason: NAUSEA/VOMITING Oxycodone HCl (Oxyir) 5 mg PO Q4H PRN PRN PRN Reason: Pain Score 4-5/10 Pot[facility] Last Admin: 03/15/20 08:36 Dose: 40 meq Documented by: Prochlorperazine Edisylate (Compazine Iv) 5 mg IV Q4H PRN PRN PRN Reason: Breakthrough Nausea/Vomiting Psyllium Hydrophilic Mucilloid (Metamucil) 1 packet PO DAILY PRN PRN PRN Reason: Constipation Senna/Docusate Sodium (Senokot-S, Kathrin-Colace) 2 tablet PO BID PRN PRN PRN Reason: Constipation Sodium Chloride () 10 - 40 ml IV UD PRN PRN Reason: SALINE FLUSH Last Admin: 03/14/20 09:28 Dose: 10 ml Documented by: Throat Lozenges (Cepacol Sore Throat Lozenge) 1 lozenge MUCOUS MEM Q2H PRN PRN PRN Reason: SORE THROAT Discharge Diet: - - Mechanical soft diet with nectar thick liquids Discharge Activity: Return to Normal Activity Call your doctor if you observe: Shortness of breath, Dizziness, Fainting spells, Chest pain Home Medications: Medications to take at Discharge Aspirin E.C. [Ecotrin] 81 mg PO DAILY@0800 #90 tab 03/27/17 amiodarone 200 mg tablet 200 mg PO DAILY #90 tab 07/04/19 atorvastatin 20 mg tablet 20 mg PO QHS #90 tab 07/04/19 Furosemide [Lasix] 40 mg PO DAILY 03/12/20 Metolazone 2.5 mg PO DAILY 03/12/20 Potassium Chloride [K-Dur] 20 meq PO BID 03/12/20 Primary Care Physician: Ellis Quijano DO [Primary Care Provider] - Please follow up with your Primary Care Physician in: 3-5 Days Please Follow Up With: Edilma Russo PA When: 1 Week Please Follow Up With: Ellis Quijano DO Disposition: Home with Home Health Minutes spent on discharge:: 35 Patient Condition:: Stable Medical Necessity - Tobacco Use Smoking Status: Current every day smoker Tobacco Use: Cigarettes Meaningful Use Info Meaningful Use Diagnoses (Choose all that apply): None applicable <Irineo Holcomb - Last Filed: 03/15/20 15:46> Discharge Date and Diagnosis - Secondary Discharge Diagnosis Chronic Problems: Chronic Problems (Last Updated 11/10/19 @ 12:39 by Marianne Manzanares) Atherosclerotic heart disease of [place] coronary artery without angina pectoris (Chronic) History of coronary artery stent placement (Chronic 03/26/17) PCI-Mid LAD and RCA ?; PCI/BMS to distal LAD w/ 2.5 x 14 mm Resolute 03/26/2017 Left Heart Cath Moderate ISR of the mid and distal LAD Stent 06/20/19 Biventricular cardiac pacemaker in situ (Chronic 06/21/19) Ischemic cardiomyopathy (Chronic) Other secondary pulmonary hypertension (Chronic) Nonrheumatic tricuspid (valve) insufficiency (Chronic) Nonrheumatic mitral (valve) insufficiency (Chronic) Chronic systolic (congestive) heart failure (Chronic) Essential (primary) hypertension (Chronic) Hyperlipidemia (Chronic) Hospital Course and Treatment Summary of Care Provided: This patient was seen in conjunction with COMPUTER NETWORK SPECIALISTCarla. I have independently interviewed and examined the patient and reviewed pertinent history, examination findings, laboratory and plan of management. I have reviewed the note and agree with the documented findings with the few additional points. In brief, patient is 84-year-old patient woman admitted for acute on chronic systolic heart failure. BNP 1141. Serial troponin enzymes negative. 2D echo 06/14/2019 shows EF 25% with severely decreased LV systolic function, severe segmental hypokinesis, RVSP 38 mmHg mild pulmonary hypertension. Repeat 2D echo was done and shows worsening of LV systolic function along with moderate valvular heart disease, MR, TR and increase in pulmonary hypertension. On CHF core measures. Interpretation Summary Severely dilated left ventricle. Severe segmental systolic dysfunction (see wall motion). The estimated ejection fraction is 15 %. The left atrium is moderately enlarged. The right atrium is mildly enlarged. Mild diffuse mitral valve thickening. Mild papillary muscle dysfunction of the mitral valve. Moderate (2+) eccentric mitral valve insufficiency. Moderate (2+) tricuspid valve insufficiency. Moderate focal aortic valve calcification. Trivial aortic valve insufficiency. Trivial pulmonic valve insufficiency. Calcified aortic root. Right ventricular systolic pressure estimated to be 53 mmHg. On Lasix 40 mg twice daily. BUN/creatinine went up to 31/2.24. Bicarb 36 last 3 days. I think patient achieved his dry weight. Lost 8 pounds since admission. Patient is discharged on Lasix 40 mg daily and metolazone 2.5 mg daily along with potassium supplement. Pneumonia was ruled out. Patient also has CKD stage III and creatinine clearance is about 30-40 mils per minute since February 2017. BUN/creatinine is stable. Monitor BMP in consultation with PCP to adjust the dose of diuretic and potassium. Other chronic comorbidities include coronary artery disease ischemic cardiomyopathy, valvular heart disease, history of V. tach and hypertension I have discussed my assessment with COMPUTER NETWORK SPECIALISTCarla and orders have been reviewed. Living will/advanced directive/end of life care: Patient does not have living will or advanced directive. DNR CC arrest. It was discussed with patient's [id number] and son Discharge medication reconciliation done. Discharge follow-up instructions completed. Discharge process discussed with the patient and all questions were answered to patient's satisfaction. Total time spent, exact 35 minutes on discharge meds reconciliation, examination, coordination of care with nurses and ancillary staff, review of imaging and blood test and discussion with the patient on follow-up instructions Objective: Seen and examined. Patient respiratory status has much improved. No shortness of breath. No chest pain or palpitation. 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 General: Cooperative, Confused, Disoriented to place and time HEENT: Atraumatic, PERRLA, EOMI, Normocephalic, Bilateral hard of hearing Neck: Supple, No JVD, Negative Carotid Bruits Lungs: Diminished, no crepitation/rhonchi. Cardiovascular: Regular rate, Regular Rhythm, Normal S1, Normal S2, No murmurs. PVCs on dish machine operator Abdomen: Bowel Sounds Present, Soft, Non Tender, Non-Distended Extremities: Capillary Refill Less than 3 Seconds, Edema has much improved Skin: No rashes, No breakdown Musculoskeletal: No Tenderness to Palpation of Joints or Extremities, Arthritic Changes Neurological: Cranial nerves II-XII grossly intact, Deep Tendon Reflexes 2+/4 and Symmetrical, Neuro grossly intact Psych/Mental Status: Normal Affect, Appropriate - Physical Exam Vitals/I&O's: Vital Signs Temp Pulse Resp BP Pulse Ox 97.8 F 61 14 106/52 L 92 03/15/20 10:29 03/15/20 10:29 03/15/20 10:29 03/15/20 10:03/15/20 12:10 Oxygen Flow Rate (L/min) [ 2 AMBULATION with Oxygen] Oxygen Flow Rate (L/min) [ 0 AMBULATING on Room Air] Oxygen Flow Rate (L/min) [At 0 REST on Room Air] Oxygen Flow Rate (L/min) 2 Oxygen Delivery Method Room Air Weight: 153 lb 0.013 oz Body Mass Index (BMI) 22.4 Intake and Output for Last 24 Hours 03/13/20 03/14/20 03/15/20 23:59 23:59 23:59 Intake Total 1071 / 1071 960 / 1080 120 / 120 Output Total 1974 / 1974 1200 / 1475 525 / 525 Balance -904 / -904 -240 / -395 -405 / -405 Microbiology Past 72 Hours 03/12/20 18:45 Blood Culture (Wb) - Right Forearm Blood Culture - Preliminary No growth in 48 hours. 03/13/20 06:15 Mucosa - Nasopharyngeal Respiratory Panel (PCR) - Final 03/13/20 02:00 Urine, Random Streptococcus pneumoniae Antigen (M - Final 03/13/20 02:00 Urine, Random Legionella Antigen - Final 03/12/20 20:55 Mucosa - Nasopharyngeal Coronavirus COVID-19 PCR - Final Laboratory Results 03/15/20 05:10: Sodium 135 L, Potassium 3.7, Chloride 94 L, Carbon Dioxide 35.0 H, Anion Gap 6, BUN 34 H, Creatinine 2.13 H, Estim Creat Clear Calc 25.34, Est GFR (MDRD) Af Amer 38 L, Est GFR (MDRD) Non-Af 32 L, BUN/Creatinine Ratio 16.0, Glucose 96, Calcium 9.5 Current Medications Acetaminophen (Tylenol) 650 mg PO Q6H PRN PRN PRN Reason: Pain Score 1-10/Temp > 100.7 F Last Admin: 03/15/20 11:04 Dose: 650 mg Documented by: Al Hydroxide/Mg Hydroxide (Mylanta Ii) 30 ml PO Q6H PRN PRN PRN Reason: Gastric Burning Albuterol Sulfate (Ventolin Aerosols) 2.5 mg INHALATION Q2H PRN PRN PRN Reason: Dyspnea, wheezing Amiodarone HCl (Cordarone) 200 mg PO DAILY [facility] Last Admin: 03/15/20 08:36 Dose: 200 mg Documented by: Aspirin (Ecotrin) 81 mg PO DAILY@0800 [facility] Last Admin: 03/15/20 08:35 Dose: 81 mg Documented by: Atorvastatin Calcium (Lipitor) 20 mg PO QHS [facility] Last Admin: 03/14/20 20:54 Dose: 20 mg Documented by: Bisacodyl (Dulcolax) 5 mg PO DAILY PRN PRN PRN Reason: Constipation Dextrose (D50w Syringe) 0 gm IV X1 PRN; Protocol PRN Reason: Hypoglycemia Enoxaparin Sodium (Lovenox) 30 mg SC DAILY [facility] Last Admin: 03/15/20 08:36 Dose: 30 mg Documented by: Glucagon () 1 mg IM .X1 PRN PRN Reason: Hypoglycemia Guaifenesin (Robitussin) 20 ml PO Q4H PRN PRN PRN Reason: COUGH Hydralazine HCl (Apresoline Iv) 10 mg IV Q4H PRN PRN PRN Reason: SBP > 160 Magnesium Hydroxide (Milk Of Magnesia) 30 ml PO DAILY PRN PRN PRN Reason: Constipation Melatonin (Melatonin) 3 mg PO QHS PRN PRN PRN Reason: INSOMNIA Morphine Sulfate () 2 mg IV Q3H PRN PRN PRN Reason: Pain Score 6-10/10 Nitroglycerin (Nitrostat) 0.4 mg SUBLINGUAL Q5M PRN PRN Reason: CARDIAC/CHEST PAIN Ondansetron HCl (Zofran) 4 mg IV Q8H PRN PRN PRN Reason: NAUSEA/VOMITING Oxycodone HCl (Oxyir) 5 mg PO Q4H PRN PRN PRN Reason: Pain Score 4-5/10 Potassium Chloride (K-Dur) 40 meq PO DAILYCM [facility] Last Admin: 03/15/20 08:36 Dose: 40 meq Documented by: Prochlorperazine Edisylate (Compazine Iv) 5 mg IV Q4H PRN PRN PRN Reason: Breakthrough Nausea/Vomiting Psyllium Hydrophilic Mucilloid (Metamucil) 1 packet PO DAILY PRN PRN PRN Reason: Constipation Senna/Docusate Sodium (Senokot-S, Kathrin-Colace) 2 tablet PO BID PRN PRN PRN Reason: Constipation Sodium Chloride () 10 - 40 ml IV UD PRN PRN Reason: SALINE FLUSH Last Admin: 03/14/20 09:28 Dose: 10 ml Documented by: Throat Lozenges (Cepacol Sore Throat Lozenge) 1 lozenge MUCOUS MEM Q2H PRN PRN PRN Reason: SORE THROAT Inpatient E&M: 47080 Disch Hosp
--- NOTE | 2020-03-16 16:49 | CASEMGMT ---
LUZ DENNISON Discharge F/U Phone Call LACAydee: 11 Strata: 3 Discharge date: 03/15/2020 Call date: 03/16/2020 Call time: [id number] Admission dx: CHF, Pna Pt's [id number], Tatianna, answered phone and stated that pt has been doing 'better' since discharge. She states that oxygen was delivered but pt has refused to wear it thus far. Tatianna states they keep trying to get him to wear it. This LUZ DENNISON advised her that pt's sats were ok at rest but he does need it with ambulation, voices understanding. Tatianna states HHC was out today and pt had f/u phone call with Dr. Quijano's office as well. Tatianna states no questions regarding discharge instructions/medications at this time. Tatianna states no suggestions for WC at this time. Tatianna voices no further questions/concerns/needs at this time. SStvaleriy ESCOBAR CM
--- OUTSIDE RECORDS SUMMARY | 2020-08-07 12:46 | XMS RPT_ITS | CCD ---
:1935 External Reference #:[id number] Author Organization [facility] Care Team Providers Name Role Phone Damien Wei Unavailable Damien Wei Unavailable LUZ Manzanares, M Unavailable Unavailable LZU Robledo, M Unavailable Unavailable LUZ Robledo, M Unavailable Unavailable LUZ Robledo, M Unavailable Unavailable LUZ Robledo, M Unavailable Unavailable Shereen, Y Unavailable Unavailable Damien Wei Unavailable Damien Wei Unavailable Medications Medication Name Sig Date Prescriber Location aspirin ASPIRIN EC 81 MG 04-02-2017 Torsten Crawford rt [facility] One tablet by Group (44 100) mouth daily ASPIRIN [id number] Mairanne Manzanares RN atorvastatin ATORVASTATIN CALCIUM 04-02-2017 [facility] 20 MG TABS One Group (21176) tablet by mouth every night ATORVASTATIN CALCIUM [id number] Toan Soto MD carvedilol COREG 3.125 MG TABS 04-02-2017 Alice Low RN [facility] One tablet by mouth Group (4 4675) twice daily CARVEDILOL [id number] Toan Soto MD clopidogrel CLOPIDOGREL 04-02-2017 [facility] BISULFATE 75 MG TABS Group ( 02650) One tablet by mouth daily CLOPIDOGREL BISULFATE [id number] Toan Soto MD furosemide FUROSEMIDE 40 MG 04-02-2017 Alice Sarmiento He art TABS One tablet by Group (44 691) mouth daily FUROSEMIDE [id number] Toan Soto MD lisinopril ZESTRIL 2.5 MG TABS 04-02-2017 - [facility] One tablet by mouth 04-22-2017 Group (4 4691) daily LISINOPRIL [id number] Toan Soto MD Losartan LOSARTAN POTASSIUM 04-22-[address] [facility] 25 MG TABS One Group (56981) tablet by mouth daily LOSARTAN POTASSIUM [id number] Toan Soto MD No information No information [place] [facility] available. available. Group (54282) Problems Category Problem Name Status Date Location Acute myocardial Myocardial infarction Active 10-26-1959 - [facility] infarction Group (60994) Conduction disorders Presence of automatic Active 04-22-2017 - [place] [facility] (implantable) cardiac Group (81996) defibrillator Congestive heart failure; Congestive heart Active 10-26-1959 - [facility] nonhypertensive failure Group (12060 ) Coronary atherosclerosis Generalized ischemic Active 04-02-20 17 - [facility] and other heart disease myocardial dysfunction Group (83191) Disorders of lipid Hyperlipidemia Active [facility] metabolism Group (26126) Essential hypertension Hypertensive disorder Active [place] [facility] Group (14258) Heart valve disorders Nonrheumatic tricuspid Active - [place] [facility] (valve) insufficiency Group (12414) Pulmonary heart disease Other secondary Active 04-02-2017 - [facility] pulmonary hypertension Group (39685) Unclassified Implantation of Active 04-02-2017 - [facility] internal cardiac Group (4469 1) defibrillator Unclassified Placement of stent in Active 04-02-2017 - [facility] coronary artery Group (12779 ) Unclassified No current problems or Active [facility] disability Group (31518) Results Result Name Value Range Unit Interpretation Flag Date Location therapy nt on 06-23 THERAPY NT HNO ID: [id number] Normal 06-23-2019 [facility] Author: Katarzyna Posada General Service: Physical Therapy Medical Author Type: Physical Therapist Center Type: Therapy (PT/OT/Speech/Resp) (41799) Filed: 06/23/2019 12:07 PM Note Text: Physical Therapy Evaluation SERVICE DATE: 06/23/2019 SERVICE TIME: 919 to 944 ROOM: [place] [address] Recommended Discharge Disposition: Home PT Anticipated Discharge [...] gait and mobility-other Interventions Provided: Evaluation;Gait Training (74419) $ Evaluation-Moderate (18629) Billed Units: 1 unit History and examination of body systems see assessment secti on above. This patient?s clinical presentation is evolving. The patient required a moderate complexity evaluation. Gait Training (50728) Treatment Minutes: 10 1 unit Skilled Intervention(s): [...] Dynamic Standing Dynamic Standing Balance: Minimal Assistance [facility]: 7: Walk 25 feet or more Please see discipline specific clinical documentation [facility] for complete details for this therapy evaluation/treatment. SIGNATURE: Katarzyna Posada PT PATIENT NAME: Leo Mc DATE: June 23, 2019 TIME: 11:54 AM THERAPY NT HNO ID: [id number] Normal 06-23-2019 [place] Author: Saba Parada/Hemal Corona OT General Service: Occupational Therapy Medical Author Type: Occupational Therapist Center Type: Therapy (PT/OT/Speech/Resp) (02447) Filed: 06/23/2019 9:15 AM Note Text: Occupational Therapy Evaluation SERVICE DATE: 06/23/2019 SERVICE TIME: 0835 to 0900 ROOM: [id number] Recommended Discharge Disposition: Home OT Recommended Discharge [...] Cognitive Functions and Awareness Interventions Provided: Evaluation;Self Longterm Management (26967) $ Evaluation-Moderate (77472) Billed Units: 1 unit OT Evaluation Moderate [...] performance: Vfib, HTN, nicotine depe ndence Self Longterm Management (71352) Treatment Minutes: 9 1 unit Skilled Intervention(s): [...] ambulanc e 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 SIGNATURE: DEBRA Terry/Leticia PATIENT NAME: Leo soliz DATE: June 23, 2019 TIME: 9:08 AM glucose meter on 13-06-29 Glucose [Mass/Vol] 106 70-99 mg/dL High 06-23-2019 [facility] (39760) Comment: Result Comment: RN NOTIFIED Performed By: #### TSH3 #### [facility] [address] [place] [id number] consult prog on 201 07-03-29 CONSULT PROG HNO ID: [id number] Normal 06-23-20 [facility] Author: Donald (Dishcloth Folder.[facility]) Sen [facility] Service: Electrophysiology ([id number]) Author Type: Nurse Specialist Type: Consult Progress Note Filed: 06/23/2019 3:53 PM Note Text: PROGRESS NOTE ELECTROPHYSIOLOGY SERVICE SERVICE DATE: 06/23/2019 SERVICE TIME: 3:29 PM Subjective INTERIM HISTORY: S/P CHIEF OF SERVICE-D generator change yesterday. Cuello ed to dual chamber pacemaker only (patient no longer wants defibrillato r). RV lead is non-functional so pacing ventricle per LV lead only AND RA l ead is pacing. Patient resting in bed. C/O soreness left upper chest incisi on area. Denies SOB, dizziness, palpitations. ROS limited due to OHKAY OWINGEH AND poor memory. Denies SOB, di zziness, [...] placed 2012. Per chart at [facility], Echo February 2017 with EF 20%, [...] stable. ? Hypokalemia: 2.8 on arrival to [place]; corrected to 4.7 o n 06/20 AND normal today at 3.6.Continue to monitor K+ as outpatient. ?On bactr im for UTI- watch for hyperkalemia. Discussed with Dr. Romero this AM. OK to discharge from the EP standpoint. Patient will follow up in [place] for his wound check AND device checks. ? SIGNATURE: Donald Chatterjee APRN.CNS PATIENT NAME: Leo Mc DATE: June 23, 2019 TIME: 3:29 PM PAGER/CONTACT #: [phone] case mgt init judies on 2019-06-23 CASE MGT INIT HNO ID: [id number] Normal 06-23- 019 [facility] Author: Carlos (Rn) LU[facility] Service: Care Management ([id number]) Author Type: Registered Nurse Type: Care Mgt Initial Assessment Filed: 06/23/2019 2:59 PM Note Text: CARE MANAGEMENT: ASSESSMENT AND DISCHARGE PLAN SERVICE DATE: 06/23/2019 SERVICE TIME: 1115 PRIMARY CARE PHYSICIAN: Ellis Quijano DO ADMISSION STATUS: Inpatient Needs Prior to Discharge: Home Care Order;To Be Determined 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 Health Issues Impacting Discharge Plan: V-Tach Last Discharge Date: 01/04/18 Is this Within the Past 30 days? No Advance Directive: Current Advance Directive: None In Chart: No Magnetizer Attempted to Assist with AD Completion: Yes [...] Patient Currently Receive Any Community Services or [facility] Care? None Equipment Prior to Admission: Tub bench/chair Walker Has the Patient Been in a Snf Facility in the [facility] 30 days? No SOCIAL: Living Arrangement: Home Lives With: Son and Nkkvpzns-Ue-Vsj, and Grandson Financial Resources: Retired Primary Contact: Extended Emergency Contact Information Primary Emergency Contact: Tatianna Mc Address: [address] [place] [address] Relation: Daughter Supportive: Yes Other Important Patient [...] 0 I feel financially burdened by my pla-ie-mrtixr expenses for my prescription medication: Disagree mostly [...] bedside prior to D/C. Patient is from [facility] with Son, Xzpjtcpy-Yc-Qcg, and Grandson. 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 +Rx, +PCP, +DME, Family able to provide transport at D/C. [facility] will be following at D/C. SIGNATURE: Carlos Hart RN PATIENT NAME: Leo Mc DATE: June 23, 2019 TIME: 2:41 PM PAGER/CONTACT #: [phone] xr chest 1v frontal on 2019-06-22 XR CHEST 1V * * *Final Report* * * Normal 06-22 [facility] FRONTAL DATE OF EXAM: Jun 22 2019 5:50[facility] 5290 - XR CHEST 1V FRONTAL / (01319) PROCEDURE REASON: Post-operative / post-procedure assessment , [...] at time of dictation as requ ested. Supportive Employment Case Manager: [employer] Transcribe Date/Time: Jun 22 2019 5:59P Dictated by : JESSICA ELIAS MD This examination was interpreted and the report reviewed and electronically signed by: JESSICA ELIAS MD on Jun 22 2019 6:01PM EST renal panel on 2018 Phosphate [Mass/Vol] 1.5 2.5-4.9 mg/dL Critically low 08- [facility] (00 000) Comment: Result Comment: RESULT RECHE CKED Performed By: #### HA1C #### [facility] [address] [place], [place] [address] Creatinine [Mass/Vol] 1.29 0.67-1.17 mg/dL High 06-22-20 [facility] (00 000) Comment: Performed By: #### HA1C #### [facility] [address] [place], [place] [address] Albumin [Mass/Vol] 2.9 3.4-5.0 g/dL Low 06-22-2019 [facility] (27716) Comment: Performed By: #### HA1C #### [facility] [address] [place], [place] [address] Anion gap [Moles/Vol] 9 8-16 mmol/L Normal 06-22-20 [facility] (32413) Comment: Performed By: #### HA1C #### [facility] [address] [place], [place] [address] Calcium [Mass/Vol] 7.5 8.5-10.1 mg/dL Low 06-22-2019 [facility] (23879) Comment: Performed By: #### HA1C #### [facility] [address] [place], [place] [address] CO2 [Moles/Vol] 26 21-32 mEq/L Normal 06-22-2019 [facility] (54639) Comment: Performed By: #### HA1C #### [facility] [address] [place], [place] [address] Glucose [Mass/Vol] 93 70-99 mg/dL Normal 06-22-2019 [facility] (35042) Comment: Performed By: #### HA1C #### [facility] [address] [place], [place] [address] Urea nitrogen [Mass/Vol] 15 7-18 mg/dL Normal 06-22 [facility] (51893) Comment: Performed By: #### HA1C #### [facility] [address] [place], [place] [address] Chloride [Moles/Vol] 110 98-107 mEq/L High 9 [facility] (84393) Comment: Performed By: #### HA1C #### [facility] [address] [place], [place] [address] Potassium [Moles/Vol] 3.6 3.5-5.1 mEq/L Normal 06-22-20 19 [facility] (41724) Comment: Performed By: #### HA1C #### [facility] [address] [place], [place] [address] Sodium [Moles/Vol] 141 136-145 mEq/L Normal 06-22-2019 [facility] (59106) Comment: Performed By: #### HA1C #### [facility] [address] [place] [id number] progress on 2019-05 PROGRESS HNO ID: [id number] Normal 06-22-2019 [facility] Author: Guanako Burch [facility] ([id number]) Service: Electrophysiology Author Type: Physician Type: Progress [...] follow up with Dr. Soto and the [facility] device clinic. His jail prognosis is poor. If no new issues or complications, I would anticipate he can be discharged in am . Guanako Romero, DO PROGRESS HNO ID: [id number] Normal 06-22-2019 [facility] Author: James Kaye [place] ([id number]) Service: Hospital Medicine Author Type: Physician Type: Progress Notes Filed: 06/22/2019 2:41 PM Note Text: DEPARTMENT OF HOSPITAL MEDICINE PROGRESS NOTE SERVICE DATE: 06/22/2019 SERVICE TIME: 2:36 PM Hospital Medicine/Primary Attending: James Kaye MD NIGHT AND WEEKEND COVERAGE: After 7pm please page [phone] CHIEF COMPLAINT: VT SUBJECTIVE: Patient is feeling okay. He is scheduled for con version of his ICD to a regular pacemaker. He refused replacement of wy s ICD generator. He does realize that if he develops recurrent gurjit tained V. tach or V. fib he will likely . He is currently not havin g any chest pain. No shortness of breath. OBJECTIVE: PHYSICAL EXAM: BP 116/53 Pulse 56 Temp (Src) 98.1 (Oral) Resp 20 Ht 5' 10 (1.78m) Wt 182 lb 8.7 oz (82.8kg) SpO2 94% B TN 26.19 kg/(m2). O2 Therapy: Room Air General [...] systolic function of 25%. 3. Non-ST elevation TN. Tolerated procedures well and is rec overing well so far. 4. Hypophosphatemia. He will be getting intravenous K-Phos. VTE Prophylaxis: Pneumatic Compression Device Disposition: Home Plan of care discussed with: Patient SIGNATURE: James Kaye MD PATIENT NAME: Leo Mc DATE: June 22, 2019 TIME: 2:36 PM PAGER/CONTACT #: [phone] plan of care on 201 07-03-28 PLAN OF CARE HNO ID: [id number] Normal 06-22-20 19 [facility] Author: Guanako Burch [facility] Service: Electrophysiology ([id number]) Author Type: Physician Type: Plan of Care Filed: 06/22/2019 9:18 AM Note Text: As previously noted had a long discussion with Leo and his family about options for management of his CRTD that is EOL. Leo has si gnificant memory impairment and did want his family to participate in decision process. He and his family designated his grandson Leo as my ground crew lines person. They discussed and determined that they [...] Heal th (S/P/Bld) [Vol Syste m rate/Area] (55979) Comment: Result Comment: If the patie nt is , multiply the result by 1.210. Performed By: #### GFR #### [place] [address] magnesium blood on 2019-06-22 Magnesium [Mass/Vol] 1.8 1.6-2.6 mg/dL Normal 9 [facility] (41908) Comment: Performed By: #### HA1C #### [place] [address] anes preop on 06-22 ANES PREOP HNO ID: [id number] Normal 06-22-2019 [facility] Author: Herson [facility] Service: Anesthesiology ([id number]) Author Type: Physician Type: Anesthesia PreOp Filed: 06/22/2019 3:19 PM Note Text: ANESTHESIOLOGY DAY OF SURGERY NOTE SERVICE DATE: 06/22/2019 SERVICE TIME: 3:18 PM : 1935 Procedure(s) (LRB): (GENERATOR CHANGE MULTI CHAMBER CHIEF OF SERVICE-PPM) REMOVAL OF PERMANEN T PACEMAKER PULSE GENERATOR [...] PROBLEM LIST Nstemi (Non-St Elevated Myocardial Infarction) ([facility]) Ischemic Cardiomyopathy Ventricular Fibrillation, Paroxysmal ([facility]) Nicotine use disorder, F17.2 PAST MEDICAL HISTORY Diagnosis Date - CAD (coronary artery disease), [place] coronary artery Stents LAD AND RCA - Cardiac arrest with ventricular fibrillation ([facility]) 019 - HTN (hypertension) - Hyperlipidemia - Ischemic cardiomyopathy - Nonrheumatic mitral (valve) insufficiency - Nonrheumatic tricuspid (valve) insufficiency - NSTEMI (non-ST elevated myocardial infarction) ([facility]) 06/18 - Old TN (myocardial infarction) - Other secondary pulmonary hypertension ([facility]) - Paroxysmal atrial fibrillation ([facility]) 06/18/2019 - Renal insufficiency - S/P ICD (internal cardiac defibrillator) procedure - Systolic heart failure, chronic ([facility]) PAST SURGICAL HISTORY Procedure Laterality Date - [...] tab(s) (LASIX) 20 mg ORAL DAILY Donald (Dishcloth Folder.Cert Pharmacy Tech) Sen, JUNCTION MAKER 20 mg at 06/22/19915 - [MAR Hold due to Transfer] amiodarone 400 mg tab(s) (PACER ONE) 400 mg ORAL BID Donald (Dishcloth Folder.Cert Pharmacy Tech) Sen, JUNCTION MAKER 400 mg at 06/22/19915 - [MAR Hold [...] June 22, 2019 TIME: 3:18 PM CSN: [id number] anes post on 06-22 ANES POST HNO ID: [id number] Normal 06-22-2019 [facility] Author: Herson Shields [place] ([id number]) Service: Anesthesiology Author Type: Physician Type: Anesthesia [...] 22, 2019 TIME: 3:48 PM PAGER/CONTACT #: [phone] progress on 2019-05 PROGRESS HNO ID: [id number] Normal 06-21-2019 [facility] Author: Leilani Suarez [facility] Service: Cardiovascular Medicine ([id number]) Author Type: Physician Type: Progress Notes Filed: 06/21/2019 11:09 AM Note Text: Cardiovascular Intensive Care Progress Note June 21, 2019 Patient Name: Leo Mc Patient Location: [id number]/A [facility]* Admission Date: 06/18/2019 Length of Stay: 3 [...] input(s): VPH, VPC2, VPO2C, RESPHC O3, BASEX, W7GDXYVT, PH, PCO2, RESPHCO3, BASEX, C4FSSGIL in the last 16 8 hours. Invalid [...] and unable to make complex decisions. The [facility] is involved in a discussion with Dr. Romero. They will decide today. -Patient on cardiac telemetry. ? UTI- -Patient initiated on ceftriaxone. -Urine culture ordered. Signed: Ceci Navarro DO PGY-1 Pager: [phone] Date: June 21, 2019 Time: 8:30 AM [...] place. The patien t presented to the [facility] with confusion. He developed ventricula r [...] on 201 07-03-27 NURSING PROG HNO ID: [id number] Normal 06-21-20 [facility] Author: Lizz PrattRn) LUZ Venegas [place] ([id number]) Service: Nursing Author Type: Registered Nurse Type: Nursing Progress Note Filed: 06/21/2019 11:22 AM Note Text: Report to 4100. Ayaka Armstrong hemogram on 2019-05 Erythrocyte distribution 13.2 11.6-14.4 % Normal 06-21 [facility] width (RBC) [Ratio] System (25479) Comment: Performed By: #### HA1C #### [facility] [address] [place], [place] [address] Hematocrit (Bld) [Volume 39.6 40.1-51.0 % Low 06-21 [facility]] System (00 000) Comment: Performed By: #### HA1C #### [facility] [address] [place], [place] [address] Hemoglobin (Bld) [Mass/Vol] 13.3 13.7-17.5 g/dL Low [facility] (00 000) Comment: Performed By: #### HA1C #### [facility] [address] [place], [place] [address] MCH (RBC) [Entitic mass] 31.1 25.7-32.2 pg Normal 06-21 [facility] (00 000) Comment: Performed By: #### HA1C #### [facility] [address] [place], [place] [address] MCHC (RBC) [Mass/Vol] 33.6 32.3-36.5 % Normal 06-21-20 19 [facility] (82472) Comment: Performed By: #### HA1C #### [facility] [address] [place], [place] [address] MCV (RBC) [Entitic vol] 92.5 83.2-95.6 fl Normal 2018 [facility] (00 000) Comment: Performed By: #### HA1C #### [facility] [address] [place] [id number] Platelet mean volume (Bld) 11.2 8.7-12.0 fl Normal [place] [facility] [Entitic vol] System (64143) Comment: Performed By: #### HA1C #### [facility] [address] [place], [place] [address] Platelets (Bld) [#/Vol] 126 141-365 thou/cmm Low 2018 [facility] (00 000) Comment: Performed By: #### HA1C #### [facility] [address] [place] [id number] RBC (Bld) [#/Vol] 4.28 4.63-6.08 mil/cmm Low 06-21-2019 [employer] [facility] [employer] [facility] (28420) Comment: Performed By: #### HA1C #### [facility] [address] [place] [id number] RDW SD 45.1 36.1-45.8 fl Normal 06-21-2019 [place] [facility] (95990) Comment: Performed By: #### HA1C #### [facility] [address] [place], [place] [address] WBC (Bld) [#/Vol] 9.15 4.23-9.07 thou/cmm High 06-21-2019 [employer] [facility] [employer] [facility] (20581) Comment: Performed By: #### HA1C #### [facility] [address] [place] [id number] consult prog on 201 07-03-27 CONSULT PROG HNO ID: [id number] Normal 06-21-20 19 [facility] Author: Donald Moellern.Cert Pharmacy Tech) Sen [facility] Service: Electrophysiology ([id number]) Author Type: Nurse Specialist Type: Consult Progress [...] dizziness and headaches. ROS limited due to OHKAY OWINGEH AND decreased memory. 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 Respirations unlabored at rest. No cough [...] lar pacemaker/ICD placed 2012. Per chart at [place], Echo March 14 with EF 20%, per [...] admit. ? Hypokalemia: 2.8 on arrival to [place]; corrected to 4.7 on 06/20 AND today below normal 3.4. Will given K-Dur 40 meq today. Continue to monitor. On bactrim for UTI- watch for hyperkalemia. Check BMP AND Mg+ level in AM. SIGNATURE: Donald Chatterjee APRN.JUNCTION MAKER PATIENT NAME: Leo Mc DATE: June 21, 2019 TIME: 3:31 PM PAGER/CONTACT #: [phone] basic panel on 2018 Creatinine [Mass/Vol] 1.29 0.67-1.17 mg/dL High 06-21-20 19 [employer] [facility] [employer] (00 000) Comment: Performed By: #### HA1C #### [facility] [address] [place], [place] [address] Anion gap [Moles/Vol] 6 8-16 mmol/L Low 06-21-20 19 [facility] (08445) Comment: Performed By: #### HA1C #### [facility] [address] [place], [place] [address] Calcium [Mass/Vol] 8.3 8.5-10.1 mg/dL Low 06-21-2019 [facility] (74494) Comment: Performed By: #### HA1C #### [facility] [address] [place], [place] [address] CO2 [Moles/Vol] 28 21-32 mEq/L Normal 06-21-2019 [facility] (29574) Comment: Performed By: #### HA1C #### [facility] [address] [place], [place] [address] Glucose [Mass/Vol] 99 70-99 mg/dL Normal 06-21-2019 [facility] (12120) Comment: Performed By: #### HA1C #### [facility] [address] [place], [place] [address] Urea nitrogen [Mass/Vol] 17 7-18 mg/dL Normal 06-21 [facility] (89159) Comment: Performed By: #### HA1C #### [facility] [address] [place], [place] [address] Chloride [Moles/Vol] 108 98-107 mEq/L High 9 [facility] (77315) Comment: Performed By: #### HA1C #### [facility] [address] [place], [place] [address] Potassium [Moles/Vol] 3.4 3.5-5.1 mEq/L Low 06-21-20 19 [facility] (20119) Comment: Performed By: #### HA1C #### [facility] [address] [place], [place] [address] Sodium [Moles/Vol] 139 136-145 mEq/L Normal 06-21-2019 [facility] (08414) Comment: Performed By: #### HA1C #### [facility] [address] [place] [address] progress on 2019-05 PROGRESS HNO ID: [id number] Normal 06-20-2019 [facility] Author: Leilani Suarez [facility] Service: Cardiovascular Medicine ([id number]) Author Type: Physician Type: Progress Notes Filed: 06/20/2019 5:40 PM Note Text: Cardiovascular Intensive Care Progress Note June 20, 2019 Patient Name : Leo Mc Patient Location: PY-[id number]/NM-CV-323* Admission Date: 06/18/2019 Length of Stay: 2 [...] results 1,000-4,000 Units INTRAVENOU S PRN Linda Gmóez MD - [MAR Hold due to Transfer] [...] ordered. Signed: Ceci Navarro DO, PGY-1 Pager: [phone] Date: June 20, 2019 Time: 11:02 AM [...] place. The patien t presented to the [facility] with confusion. He developed ventricula r [...] minutes excl uding procedures. Leilani Tran MD, [facility] Cardiovascular Medicine Pager: [phone] June 20, 2019 plan of care on 201 07-03-26 PLAN OF CARE HNO ID: [id number] Normal 06-20-20 19 [facility] Author: Guanako [facility] Service: Electrophysiology ([id number]) Author Type: Physician Type: Plan of Care Filed: 06/20/2019 6:44 PM Note Text: Leo Mc had a medtronic ICD implanted 02-27-2006 and the n in 01-26-2103 it was upgraded to a St. Ed CRTD by Dr. Esparza in [facility] and more recently followed by the device clinic in [place]. In December Mr. 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 ([id number]) Author Type: Pharmacist Type: Plan of Care [...] he is taking. Reconciliation completed? Yes All HEAVY EQUIPMENT RENTAL ASSOCIATE medications addressed by LIP Additional comments: No [...] Allergies: ALLERGIES No Known Allergies Preferred Pharmacy: [facility] ([phone]) Current [employer] Medications: Prior to Admission medications as of [...] carmen y at bedtime. No fill at [facility] since 12/2017 for a 30 day supply [...] mouth once kathy ly. No fill at [facility] since 2017 Evelia Sherman, Pharmacist June 20, 2019 3:45 PM hemogram/diff on 13-06-26 Abs Immature Grans 0.06 0.00-0.05 thou/cmm High 06-20-2019 [facility] (00 000) Comment: Performed By: #### HA1C #### [facility] [address] [place] [address] Abs Neut (ANC) 10.13 1.78-5.38 thou/cmm High 06-20-2019 [facility] (21962) Comment: Performed By: #### HA1C #### [facility] [address] [place], [place] [address] Abs. Baso 0.04 0.01-0.08 thou/cmm Normal 06-20-2019 [facility] (88959) Comment: Performed By: #### HA1C #### [facility] [address] [place], [place] [address] Abs. Dixon 1.35 0.30-0.82 thou/cmm High 06-20-2019 [facility] (26411) Comment: Performed By: #### HA1C #### [facility] [address] [place], [place] [address] Basophils/100 WBC (Bld) 0.3 % Normal 2018 [facility] (59697) Comment: Performed By: #### HA1C #### [facility] [address] [place], [place] [address] Eosinophils (Bld) 0.24 0.04-0.54 thou/cmm Normal 06-20-2019 [facility] [#/Vol] [facility] (26893) Comment: Performed By: #### HA1C #### [facility] [address] [place], [place] [address] Eosinophils/100 WBC (Bld) 1.7 % Normal 05-27 [facility] (94972) Comment: Performed By: #### HA1C #### [facility] [address] [place], [place] [address] Immature Grans 0.40 % Normal 06-20-2019 [facility] (59671) Comment: Performed By: #### HA1C #### [facility] [address] [place], [place] [address] Lymphocytes (Bld) 2.51 0.84-2.85 thou/cmm Normal 06-20-2019 [facility] [#/Vol] [facility] (27352) Comment: Performed By: #### HA1C #### [facility] [address] [place], [place] [address] Lymphocytes/100 WBC (Bld) 17.5 % Normal 05-27 [facility] (56326) Comment: Performed By: #### HA1C #### [facility] [address] [place], [place] [address] Monocytes/100 WBC (Bld) 9.4 % Normal 2018 [facility] (49409) Comment: Performed By: #### HA1C #### [facility] [address] [place], [place] [address] Seg Neutrophil 70.7 % Normal 06-20-2019 [facility] (28565) Comment: Performed By: #### HA1C #### [facility] [address] [place], [place] [address] Erythrocyte distribution 13.2 11.6-14.4 % Normal 06-20 [facility] (RBC) [Ratio] System (04715) Comment: Performed By: #### HA1C #### [facility] [address] [place], [place] [address] Hematocrit (Bld) [Volume 38.8 40.1-51.0 % Low 06-20 [facility]] System (00 000) Comment: Performed By: #### HA1C #### [facility] [address] [place], [place] [address] Hemoglobin (Bld) [Mass/Vol] 13.1 13.7-17.5 g/dL Low [facility] (00 000) Comment: Performed By: #### HA1C #### [facility] [address] [place], [place] [address] MCH (RBC) [Entitic mass] 31.2 25.7-32.2 pg Normal 06-20 [facility] (00 000) Comment: Performed By: #### HA1C #### [facility] [address] [place], [place] [address] MCHC (RBC) [Mass/Vol] 33.8 32.3-36.5 % Normal 06-20-20 19 [facility] (58754) Comment: Performed By: #### HA1C #### [facility] [address] [place], [place] [address] MCV (RBC) [Entitic vol] 92.4 83.2-95.6 fl Normal 2018 [facility] (00 000) Comment: Performed By: #### HA1C #### [facility] [address] [place] [id number] Platelet mean volume (Bld) 11.1 8.7-12.0 fl Normal [facility] [Entitic vol] System (13919) Comment: Performed By: #### HA1C #### [facility] [address] [place] [id number] Platelets (Bld) [#/Vol] 123 141-365 thou/cmm Low 2018 [facility] (00 000) Comment: Performed By: #### HA1C #### [facility] [address] [place] [address] RBC (Bld) [#/Vol] 4.20 4.63-6.08 mil/cmm Low 06-20-2019 [facility] (16073) Comment: Performed By: #### HA1C #### [facility] [address] [place] [address] RDW SD 45.0 36.1-45.8 fl Normal 06-20-2019 [facility] (63001) Comment: Performed By: #### HA1C #### [facility] [address] [place] [id number] WBC (Bld) [#/Vol] 14.33 4.23-9.07 thou/cmm High 06-20-2019 [facility] (00 000) Comment: Performed By: #### HA1C #### [facility] [address] [place] [address] consult prog on 201 07-03-26 CONSULT PROG HNO ID: [id number] Normal 06-20-20 19 [facility] Author: Donald PrattDishcloth Folder.[facility]) [facility] Service: Electrophysiology ([id number]) Author Type: Nurse Specialist Type: Consult Progress [...] Limited ROS due to mild disorientation AND [place] OWING[place]. Objective PHYSICAL EXAM: Body mass index is [...] pa cemaker/ICD placed 2012. Per chart at [place], Echo February 2017 with EF 20% , [...] generator changed). Hypokalemia: 2.8 on arrival to [place]; corrected to 4.7 tod ay. Continue to monitor. SIGNATURE: Donald Chatterjee APRN.CNS PATIENT NAME: Leo Mc DATE: June 20, 2019 TIME: 2:29 PM PAGER/CONTACT #: [phone] brief op not on 201 07-03-26 BRIEF OP NOT HNO ID: [id number] Normal 06-20-20 19 [facility] Author: James Burch [facility] Service: Interventional Cardiology ([id number]) Author Type: Physician Type: Brief Op Note Filed: 06/20/2019 11:28 AM Note Text: CARDIAC CATHETERIZATION REPORT PATIENT NAME: Leo Mc SERVICE DATE: 06/20/2019 SERVICE TIME: 11:24 AM Pathology Laboratory Director: Attending: Leilani Tran RECOMMENDATIONS: Continued medical therapy [...] [Mass/Vol] 1.49 0.67-1.17 mg/dL High 06-20-20 19 [facility] (00 000) Comment: Performed By: #### HA1C #### [address] [address] Glucose [Mass/Vol] 99 70-99 mg/dL Normal 06-20-2019 [facility] (69323) Comment: Performed By: #### HA1C #### [facility] [address] [place], [place] [address] Urea nitrogen [Mass/Vol] 23 7-18 mg/dL High 06-20 [facility] (73536) Comment: Performed By: #### HA1C #### [address] [address] Anion gap [Moles/Vol] 9 8-16 mmol/L Normal 06-20-20 19 [facility] (65168) Comment: Performed By: #### HA1C #### [facility] [address] [place], [place] [address] Calcium [Mass/Vol] 8.4 8.5-10.1 mg/dL Low 06-20-2019 [facility] (47470) Comment: Performed By: #### HA1C #### [facility] [address] [place], [place] [address] CO2 [Moles/Vol] 25 21-32 mEq/L Normal 06-20-2019 [facility] (44571) Comment: Performed By: #### HA1C #### [facility] [address] [place], [place] [address] Chloride [Moles/Vol] 109 98-107 mEq/L High 9 [facility] (18965) Comment: Performed By: #### HA1C #### [facility] [address] [place], [place] [address] Potassium [Moles/Vol] 3.7 3.5-5.1 mEq/L Normal 06-20-20 19 [facility] (48199) Comment: Performed By: #### HA1C #### [facility] [address] [place], [place] [address] Sodium [Moles/Vol] 139 136-145 mEq/L Normal 06-20-2019 [facility] (41120) Comment: Performed By: #### HA1C #### [facility] [address] [place], [place] [address] activated ptt on 13-06-26 aPTT Coag (Bld) [Time] 50.6 23.0-32.4 sec High 019 [facility] (74320) Comment: Result Comment: Unfractionat ed Heparin Therapeutic [...] AP TT reagent in use throughout the [facility]. Performed By: #### HA1C #### [facility] [address] [place], [place] [address] xr chest 1v frontal on 2019-06-19 XR CHEST 1V * * *Final Report* * * Normal 06-19 [facility] DATE OF EXAM: Jun 19 2019 11:25AM [facility] AKX [id number] - XR CHEST 1V FRONTAL / (78136) PROCEDURE REASON: Evaluate tube, line or lead [...] normal versus minimally enlarge d, but unchanged. Supportive Employment Case Manager: [facility] HOSPITALSteven Transcribe Date/Time: Jun 19 2019 11:38A Dictated by : DANIA BRUNSON MD This examination was interpreted and the report reviewed and electronically signed by: DANIA BRUNSON MD on Jun 19 2019 11:41AM EST urinalysis routine on 2019-06-19 Bacteria LM.HPF (Urine sed) 4+ None Abnormal [facility] [#/Area] (36971) Comment: Performed By: #### URIN2 ### # [facility] [address] [place] [address] Ep Cells Urine 0.6 0.0-5.0 /hpf Normal 06-19-2019 [facility] (13906) Comment: Performed By: #### URIN2 ### # [facility] [address] [place], [place] [address] Hyaline Cast 1.4 0.0-1.0 /lpf High 06-19-2019 [facility] (00115) Comment: Performed By: #### URIN2 ### # [facility] [address] [place], [place] [address] RBC LM.HPF (Urine sed) 5.6 0.0-5.0 /hpf High 019 [place] [#/Area] System (00 000) Comment: Performed By: #### URIN2 ### # [facility] [address] [place], [place] [address] WBC LM.HPF (Urine sed) 379.9 0.0-5.0 /hpf High 019 [place] [facility] [#/Area] System (00 000) Comment: Performed By: #### URIN2 ### # [facility] [address] [place], [place] [address] Appearance (U) CLOUDY Normal 06-19-2019 [facility] (86582) Comment: Performed By: #### URIN2 ### # [facility] [address] [place], [place] [address] Bilirubin (U) NEGATIVE Negative mg/dL Normal 06-19-2019 [facility] [Mass/Vol] System (0 0000) Comment: Performed By: #### URIN2 ### # [facility] [address] [place], [place] [address] Color (U) YELLOW Normal 06-19-2019 [facility] (69878) Comment: Performed By: #### URIN2 ### # [facility] [address] [place], [place] [address] Glucose Ql (U) NEGATIVE Negative Normal 06-19-2019 [facility] (81802) Comment: Performed By: #### URIN2 ### # [facility] [address] [place], [place] [address] Hemoglobin,Urine MODERATE Negative Abnormal 06-19-2019 [facility] (14314) Comment: Performed By: #### URIN2 ### # [facility] [address] [place], [place] [address] Ketone Urine NEGATIVE Negative Normal 06-19-2019 [facility] (20558) Comment: Performed By: #### URIN2 ### # [facility] [address] [place], [place] [address] Leukocytes Esterase LARGE Negative Abnormal 06-19-2019 [facility] (43979) Comment: Performed By: #### URIN2 ### # [facility] [address] [place], [place] [address] Nitrites Urine NEGATIVE Negative Normal 06-19-2019 [facility] (17536) Comment: Performed By: #### URIN2 ### # [facility] [address] [place], [place] [address] pH (U) 5.5 5.0-8.0 [pH] Normal 06-19-2019 [facility] (07775) Comment: Performed By: #### URIN2 ### # [facility] [address] [place], [place] [address] Protein (U) [Mass/Vol] 100 Negative mg/dL Abnormal 019 [facility] (00 000) Comment: Performed By: #### URIN2 ### # [facility] [address] [place], [place] [address] Specific Rice, Ur 1.018 1.005-1.030 Normal 019 [facility] (00 000) Comment: Performed By: #### URIN2 ### # [facility] [address] [place], [place] [address] Urobilinogen,Ur 0.2 0.2-1.0 EU/dL Normal 06-19-2019 [facility] (13345) Comment: Performed By: #### URIN2 ### # [facility] [address] [place], [place] [address] tsh, 3rd generation on 2019-06-19 TSH, 3rd generation 0.497 0.358-3.740 uIU/mL Normal 06-19-20 19 [facility] (00 000) Comment: Performed By: #### TSH3 #### [facility] [address] [place], [place] [address] troponin i on 06-19 Troponin I.cardiac 8.900 0.015-0.045 ng/ml Critically high [facility] [Mass/Vol] Health [facility] (75294) Comment: Performed By: #### TSH3 #### [address] [address] Troponin I.cardiac 12.400 0.015-0.045 ng/ml Critically high [facility] [Mass/Vol] Health [facility] (21659) Comment: Performed By: #### TSH3 #### [place] [address] Troponin I.cardiac 12.000 0.015-0.045 ng/ml Critically high [facility] [Mass/Vol] Health Sy [facility] (11879) Comment: Performed By: #### TSH3 #### [place] [address] Troponin I.cardiac 8.110 0.015-0.045 ng/ml Critically high [facility] [Mass/Vol] [facility] (54791) Comment: Performed By: #### TROP #### [place] [address] protime on INR Coag (PPP) [Relative 1.05 0.90-1.30 {INR} Normal 06-19 [facility] time] System (00 000) Comment: Result Comment: Vitamin K An tagonist (VKA) Therapeutic Range: INR 2 to 3 (Target INR of 2.5) Note: For patients treated w ith VKA drugs, such as warfarin, the [employer] 2012 Guideline [...] INR o f 3) Note: Patients with mechanical design engineer al aortic valve replacement and additional risk factors for thromboembolic events (atrial fibrillation, previous throm boembolism, LV dysfunction, hypercoagulable conditions) or an older generation mechanical AVR (i.e., ball in-Cage) or any mechanical MVR should have a INR therapeutic range of 2 .5 to 3.5 target INR of 3). Rox GH, et al. Chest 2012 ; 141:7S-47S Ellis RA, et al. [facility] 20 ; 70: 252-289 Performed By: #### TSH3 #### [facility] [address] [place], [place] [address] PT Coag (PPP) [Time] 10.9 9.7-13.0 sec Normal 9 [facility] (58357) Comment: Performed By: #### TSH3 #### [facility] [address] [place], [place] [address] progress on 2019-05 PROGRESS HNO ID: [id number] Normal 06-19-2019 [facility] Author: Linda Gómez MD General Service: Cardiovascular Medicine Medical Author Type: Resident Center Type: Progress Notes ([id number]) Filed: 06/19/2019 3:17 PM Note Text: Attestation signed by Porfirio Sanchez at 06/21/2019 [...] ICD1 0: I50.22 4. Ventricular fibrillation, paroxysmal ([facility]) - ICD9: 427. 41, ICD10: I49.01 5. VT (ventricular tachycardia) ([facility]) - ICD9: 427.1, ICD10: I47.2 6. Implantable cardioverter-defibrillator (ICD) generator end of life - ICD9: V53.32, ICD10: Z45.02 7. Encounter for management of biventricular implantable cardioverter-defibrillator (ICD) - ICD9: V53.32, ICD10: Z45. 02 8. Ischemic cardiomyopathy - ICD9: 414.8, ICD10: I25.5 Porfirio Sanchez MD, [facility]. Pager # [phone] Cardiovascular Intensive Care Progress Note June 19, 2019 Patient Name: Leo Mc Patient Location: [id number] [facility]* Admission Date: 06/18/2019 Length of Stay: 1 [...] ml 2 g INTRAVENOUS PRN Herson (Res) Taniaza, DO - sodium phosphate 45 mmol in [...] 81 mg tab(s) 81 mg ORAL DAILY [facility] joe (ResFranchesca Smithabbaza, DO 81 mg at [...] ordered. Signed: Linda Gómez MD, PGY-1 Pager: [phone] [facility] Date: June 19, 2019 Time: 12:01 PM Recommendations are not finalized until co-signed by Staff catherine chin. n-terminal pro-bnp on 2019-06-19 Natriuretic peptide B (Bld) 3857 pg/ml Normal [facility] [Mass/Vol] System (0 0000) Comment: Result Comment: Note new ref erence range: Normal Reference Range: Patients <75 yrs old <125pg/ ml Patients >=75 yrs old <450 p g/ml Performed By: #### PBNP #### [facility] [address] [place], [place] [address] magnesium blood on 2019-06-19 Magnesium [Mass/Vol] 1.8 1.6-2.6 mg/dL Normal 9 [facility] (20143) Comment: Performed By: #### MAG #### [facility] [address] [place], [place] [address] lipid profile on 13-06-25 Cholesterol in HDL [Mass/Vol] 28 >40 mg/dL Normal 06-19-2019 [facility] (00 000) Comment: Performed By: #### LIPD2 ### # [facility] [address] [place], [place] [address] Cholesterol in LDL [Mass/Vol] 110 mg/dL Normal 06-19-2019 [facility] (00 000) Comment: Result Comment: No CAD and w ith fewer than 2 CAD risk factors <160 mg/dL No CAD but with 2 or more CA D risk factors <130 mg/dL Definite CAD or other athero sclerotic disease <100 mg/dL Performed By: #### LIPD2 ### # [facility] [address] [place], [place] [address] Cholesterol in LDL/Cholesterol 3.9 1.1-4.8 Normal 06-19-2019 [facility] in HDL [Mass ratio] System (11095) Comment: Result Comment: LDL,VLDL,LDL /HDL, Invalid if Triglyceride >400 Performed By: #### LIPD2 ### # [facility] [address] [place], [place] [address] Cholesterol.total/Cholesterol in HDL 5.9 2.1-7.3 Nor mal 06-19-2019 [facility] [Mass ratio] [facility] (97675) Comment: Performed By: #### LIPD2 ### # [facility] [address] [place], [place] [address] Cholesterol in VLDL 26 <50 Desired mg/dL Normal 06-19-20 [facility] [Mass/Vol] System (0 0000) Comment: Performed By: #### LIPD2 ### # [facility] [address] [place], [place] [address] Triglyceride [Mass/Vol] 131 0-149 mg/dL Normal 2018 [facility] (95182) Comment: Result Comment: < 200 Desira ble Result invalid if not a fast ing specimen. Performed By: #### LIPD2 ### # [facility] [address] [place], [place] [address] Cholesterol [Mass/Vol] 164 0-199 mg/dL Normal 019 [facility] (17821) Comment: Result Comment: <200 Desirab le 200-240 Borderline >240 High Performed By: #### LIPD2 ### # [facility] [address] [place], [place] [address] history physical on 2019-06-19 HISTORY PHYSICAL HNO ID: [id number] Normal 05-27 [facility] Author: Porfirio Grossman [facility] Service: Cardiovascular Medicine ([id number]) Author Type: Physician Type: HANDP Filed: 06/19/2019 12:59 PM Note Text: CVICU HISTORY AND PHYSICAL SERVICE DATE: 06/18/2019 HPI: Per notes from [facility] as patient is an extremely p oor historian and reports he does not know what happened to him. Leo Mc is a 83 year old male, transfer from [facility] with PMH of HTN, HLD, renal [...] He is a currently 1ppd smoker. At [place] WBC 24.4, Hgb 15.8, Plt 188. INR 1.1. Na 140, K 2.8, Cl 103, CO2 26 Cr 1.84, eGFR 38, Glucose 143, Mg 2.0 Troponin 0.611. Cxr showe d no acute abnormality. He was started on an amiodarone bolus and gtt at [place]. He also received lovenox due to elevated [...] 19, 2019 TIME: 12:09 AM PAGER/CONTACT #: [phone] This patient was seen in conjunction with the resident staff . I have personally seen and examined the patient. I have reviewed la bs, clinical data and pertinent images. I have discussed the case with [facility] care team. I agree with the documentation, excepts as annotated. Critical Care Documentation: As delineated above, the patient has the following organ/sys tem impairment(s): ASSESSMENT/PLAN: 1. NSTEMI (non-ST elevated myocardial infarction) (HCC) - IC D9: 410.70, ICD10: I21.4 -Elevated troponins up to 12. The patient presented to [facility] after of [place] arrest. He was resuscitated by EMS. Patient has a history of ICD which is at end of life. Has not gotten the defibrillato r changed. Patient was defibrillated by external means by the EMS at [facility]. Patient is currently pain-free. The because of EKG changes i t is suspected that progression of coronary disease is at hand. Patient has a history of LAD and RCA stents. I spoke with Dr. Soto from [facility] about the condition of the patient upon transfer. Care will be yard coordinator rdinated accordingly I have also discussed [...] procedures. Porfirio Sanchez MD, FACC. Pager # [phone] hgb a1c on HbA1c (Bld) [Mass fraction] 5.8 4.2-6.3 % Normal [facility] (00 000) Comment: Result Comment: Method is Na tional Glycohemoglobin Standardization Program (NGSP) compliant. Performed By: #### HA1C #### [address], [place] [address] HbA1c (Bld) [Mass fraction] 120 mg/dl Normal [facility] (76265) Comment: Performed By: #### HA1C #### [facility] [address] [place] [address] hemogram/diff on 13-06-25 Abs Immature Grans 0.12 0.00-0.05 thou/cmm High 06-19-2019 [facility] (00 000) Comment: Performed By: #### CBCD1 ### # [facility] [address] [place] [address] Abs Neut (ANC) 15.60 1.78-5.38 thou/cmm High 06-19-2019 [facility] (51732) Comment: Performed By: #### CBCD1 ### # [place] [address] Abs. Baso 0.04 0.01-0.08 thou/cmm Normal 06-19-2019 [facility] (33716) Comment: Performed By: #### CBCD1 ### # [facility] [address] [place] [address] Abs. Dixon 1.14 0.30-0.82 thou/cmm High 06-19-2019 [facility] (96385) Comment: Performed By: #### CBCD1 ### # [place] [address] Basophils/100 WBC (Bld) 0.2 % Normal 2018 [facility] (35092) Comment: Performed By: #### CBCD1 ### # [place] [address] Eosinophils (Bld) [#/Vol] 0.02 0.04-0.54 thou/cmm Low 05-27 [facility] (00 000) Comment: Performed By: #### CBCD1 ### # [place] [address] Eosinophils/100 WBC (Bld) 0.1 % Normal 05-27 [facility] (16964) Comment: Performed By: #### CBCD1 ### # [facility] [address] [place], [place] [address] Immature Grans 0.60 % Normal 06-19-2019 [facility] (97245) Comment: Performed By: #### CBCD1 ### # [facility] [address] [place], [place] [address] Lymphocytes (Bld) 2.46 0.84-2.85 thou/cmm Normal 06-19-2019 [facility] [#/Vol] Health Sys tem (10838) Comment: Performed By: #### CBCD1 ### # [facility] [address] [place], [place] [address] Lymphocytes/100 WBC (Bld) 12.7 % Normal 05-27 [facility] (02440) Comment: Performed By: #### CBCD1 ### # [facility] [address] [place], [place] [address] Monocytes/100 WBC (Bld) 5.9 % Normal 2018 [facility] (82874) Comment: Performed By: #### CBCD1 ### # [facility] [address] [place], [place] [address] Seg Neutrophil 80.5 % Normal 06-19-2019 [facility] (73864) Comment: Performed By: #### CBCD1 ### # [facility] [address] [place], [place] [address] Erythrocyte distribution 13.2 11.6-14.4 % Normal 06-19 [facility] width (RBC) [Ratio] System (60948) Comment: Performed By: #### CBCD1 ### # [facility] [address] [place], [place] [address] Hematocrit (Bld) [Volume 43.8 40.1-51.0 % Normal 06-19 [facility] fraction] System (00 000) Comment: Performed By: #### CBCD1 ### # [facility] [address] [place], [place] [address] Hemoglobin (Bld) 14.5 13.7-17.5 g/dL Normal 06-19-2019 [facility] [Mass/Vol] System (0 0000) Comment: Performed By: #### CBCD1 ### # [facility] [address] [place], [place] [address] MCH (RBC) [Entitic mass] 30.9 25.7-32.2 pg Normal 06-19 [facility] (00 000) Comment: Performed By: #### CBCD1 ### # [facility] [address] [place], [place] [address] MCHC (RBC) [Mass/Vol] 33.1 32.3-36.5 % Normal 06-19-20 19 [facility] (99635) Comment: Performed By: #### CBCD1 ### # [facility] [address] [place], [place] [address] MCV (RBC) [Entitic vol] 93.2 83.2-95.6 fl Normal 2018 [facility] (00 000) Comment: Performed By: #### CBCD1 ### # [facility] [address] [place], [place] [address] Platelet mean volume (Bld) 11.2 8.7-12.0 fl Normal [facility] [Entitic vol] System (92018) Comment: Performed By: #### CBCD1 ### # [facility] [address] [place], [place] [address] Platelets (Bld) [#/Vol] 143 141-365 thou/cmm Normal 2018 [facility] (00 000) Comment: Performed By: #### CBCD1 ### # [facility] [address] [place], [place] [address] RBC (Bld) [#/Vol] 4.70 4.63-6.08 mil/cmm Normal 06-19-2019 [facility] (00 000) Comment: Performed By: #### CBCD1 ### # [facility] [address] [place], [place] [address] RDW SD 45.2 36.1-45.8 fl Normal 06-19-2019 [facility] (69955) Comment: Performed By: #### CBCD1 ### # [facility] [address] [place], [place] [address] WBC (Bld) [#/Vol] 19.38 4.23-9.07 thou/cmm High 06-19-2019 [facility] () Comment: Performed By: #### CBCD1 ### # [facility] [address] [place], [place] [address] hemogram on 2019-05 Erythrocyte distribution 13.3 11.6-14.4 % Normal 06-19 [facility] width (RBC) [Ratio] System (25573) Comment: Performed By: #### TSH3 #### [facility] [address] [place] [address] Hematocrit (Bld) [Volume 40.1 40.1-51.0 % Normal 06-19 [facility]] System ( 000) Comment: Performed By: #### TSH3 #### [place] [address] Hemoglobin (Bld) [Mass/Vol] 13.2 13.7-17.5 g/dL Low [facility] ( 000) Comment: Performed By: #### TSH3 #### [facility] [place] [place] [address] MCH (RBC) [Entitic mass] 30.8 25.7-32.2 pg Normal 06-19 [facility] ( 000) Comment: Performed By: #### TSH3 #### [place] [address] MCHC (RBC) [Mass/Vol] 32.9 32.3-36.5 % Normal 06-19-20 19 [facility] (25805) Comment: Performed By: #### TSH3 #### [facility] [address] [place], [place] [address] MCV (RBC) [Entitic vol] 93.7 83.2-95.6 fl Normal 2018 [facility] ( 000) Comment: Performed By: #### TSH3 #### [place] [address] Platelet mean volume (Bld) 10.8 8.7-12.0 fl Normal [facility] [Entitic vol] System ([address]884) Comment: Performed By: #### TSH3 #### [facility] 1 [place] [id number] Platelets (Bld) [#/Vol] 125 141-365 thou/cmm Low 2018 [facility] (00 000) Comment: Performed By: #### TSH3 #### [facility] 1 [place] [id number] RBC (Bld) [#/Vol] 4.28 4.63-6.08 mil/cmm Low 06-19-2019 [facility] (30425) Comment: Performed By: #### TSH3 #### [facility] 1 [place] [id number] RDW SD 46.0 36.1-45.8 fl High 06-19-2019 [facility] ([address]109) Comment: Performed By: #### TSH3 #### [facility] [address] [place] [id number] WBC (Bld) [#/Vol] 15.40 4.23-9.07 thou/cmm High 06-19-2019 A [facility] (00 000) Comment: Performed By: #### TSH3 #### [facility] 1 [place] [id number] cult urine on 06-19 Cult Urine Test performed at [facility] Normal 06-19-2019 [facility] ORGANISM: *Escherichia coli (ID: 1) Health System 1,000-<5,000 CFU/ml For sensitivity repo rt see Date/ (32244) ORGANISM: *Klebsiella oxytoca (ID: 2) 50,000-99,000 CFU/ml For sensitivity report see Date/ ORGANISM: Normal Urogenital Valentina (ID: 3) 1,000-<5,000 CFU/ml Comment: Performed By: #### HA1C #### [facility] [address] [place] [address] Cult Urine Test performed at [facility] Normal 06-19-2019 [facility] ORGANISM: *Escherichia coli (ID: 1) System (27127) >100,000 CFU/ml CLSI breakpoints for therapy of [...] CFU/ml Comment: Performed By: #### HA1C #### [place] [address] consult on CONSULT HNO ID: [id number] Normal 06-19-2019 [facility] Author: Facundo [facility] Service: Electrophysiology ([id number]) Author Type: Physician Type: Consults Filed: 06/19/2019 11:58 AM Note Text: CONSULT NOTE SERVICE DATE: 06/19/2019 SERVICE TIME: 11:49 AM PHYSICIAN CONSULT (AK,AV,EU,FV,HL,FRANCISCO,MM,SP) Consult performed by: [facility]undo [facility] Consult ordered by: Rickie Busch Reason for consult: Ventricular fibrillation. PRIMARY CARE PHYSICIAN: DO Majo Hillman 83-year-old male with history of essential hypertension, cor onary disease, status post PCI to LAD in 2017, ischemic cardiomyopathy with severe LV systolic dysfunction, RBBB, status post CHIEF OF SERVICE-D system implant ation at an outside institution in 2012 who presented to [facility] with confusion, developed ventricular fibrillation that required external defibrillation twice, was diagnosed with NSTEMI, treated wit h low molecular weight and then unfractionated heparin, as well as amiodarone, and transferred to [facility]. According to the records the patien t [...] available. Chest x-ray reveals presence of a CHIEF OF SERVICE-D system, likely [facility]. [...] June 19, 2019 TIME: 11:49 AM PAGER: [phone] comprehensive panel on 2019-06-19 ALP [Catalytic activity/Vol] 71 45-117 U/L Normal 0 06-19-2019 [facility] (00 000) Comment: Performed By: #### P14 #### [facility] [address] [place], [place] [address] Bilirubin [Mass/Vol] 0.3 0.2-1.0 mg/dL Normal 9 [facility] (28655) Comment: Performed By: #### P14 #### [facility] [address] [place], [place] [address] Protein [Mass/Vol] 7.4 6.4-8.2 g/dL Normal 06-19-2019 [facility] (43173) Comment: Performed By: #### P14 #### [facility] [address] [place], [place] [address] ALT [Catalytic activity/Vol] 39 12-78 U/L Normal 0 06-19-2019 [facility] (00 000) Comment: Performed By: #### P14 #### [facility] [address] [place], [place] [address] AST [Catalytic activity/Vol] 68 15-37 U/L High 0 06-19-2019 [facility] (56626) Comment: Performed By: #### P14 #### [facility] [address] [place], [place] [address] Creatinine [Mass/Vol] 1.39 0.67-1.17 mg/dL High 06-19-20 19 [facility] (00 000) Comment: Performed By: #### P14 #### [facility] [address] [place], [place] [address] Albumin [Mass/Vol] 3.4 3.4-5.0 g/dL Normal 06-19-2019 [facility] (11765) Comment: Performed By: #### P14 #### [facility] [address] [place], [place] [address] Anion gap [Moles/Vol] 15 8-16 mmol/L Normal 06-19-20 19 [facility] (66371) Comment: Performed By: #### P14 #### [facility] [address] [place], [place] [address] CO2 [Moles/Vol] 23 21-32 mEq/L Normal 06-19-2019 [facility] (09076) Comment: Performed By: #### P14 #### [facility] [address] [place], [place] [address] Urea nitrogen [Mass/Vol] 26 7-18 mg/dL High 06-19 [facility] (80433) Comment: Performed By: #### P14 #### [facility] [address] [place], [place] [address] Calcium [Mass/Vol] 9.1 8.5-10.1 mg/dL Normal 06-19-2019 [facility] (45439) Comment: Performed By: #### P14 #### [facility] [address] [place], [place] [address] Glucose [Mass/Vol] 120 70-99 mg/dL High 06-19-2019 [facility] (01644) Comment: Performed By: #### P14 #### [facility] [address] [place], [place] [address] Chloride [Moles/Vol] 108 98-107 mEq/L High 9 [facility] (33273) Comment: Performed By: #### P14 #### [facility] [address] [place], [place] [address] Potassium [Moles/Vol] 4.0 3.5-5.1 mEq/L Normal 06-19-20 19 [facility] (11710) Comment: Performed By: #### P14 #### [facility] [address] [place], [place] [address] Sodium [Moles/Vol] 142 136-145 mEq/L Normal 06-19-2019 [facility] (13257) Comment: Performed By: #### P14 #### [facility] [address] [place], [place] [address] activated ptt on 13-06-25 aPTT Coag (Bld) [Time] 49.8 23.0-32.4 sec High [facility] (25956) Comment: Result Comment: Unfractionat ed Heparin Therapeutic [...] AP TT reagent in use throughout the [facility]. Performed By: #### TSH3 #### [address] [address] aPTT Coag (Bld) [Time] 58.8 23.0-32.4 sec High [facility] (03951) Comment: Result Comment: Unfractionat ed Heparin Therapeutic [...] AP TT reagent in use throughout the [facility]. Performed By: #### TSH3 #### [address] [address] aPTT Coag (Bld) [Time] 29.6 23.0-32.4 sec Normal [address] [place] [address] (00 000) Comment: Result Comment: Unfractionat ed [...] AP TT reagent in use throughout the [facility]. Performed By: #### TSH3 #### [facility] [address] [place] [address] hosp on 2019-06-18 HOSP Patient:Leo Mc Normal 06-18-20 [place] MRN: General Height:5' 10(1.778 m) Medical Weight:182 lb 8.7 oz (82.8 kg) Center Outpatient Medications as of 06/22/19: (20889) hydroCHLOROthiazide (HYDRODIURIL, ESIDRIX) 25 mg tablet losartan [...] Problem List: NSTEMI (non-ST elevated myocardial infarction) ([facility]) [I21.4] Ischemic cardiomyopathy [I25.5] Ventricular fibrillation, paroxysmal ([facility]) [I49.01] Nicotine use disorder, F17.2 [F17.200] Allergies: No Known Allergies Date Verified:06/22/19 Lab Values Lab Value Units Date High Low POTA* 3.6 mEq/L 06/22/2019 5.1 3.5 JACOB* 39.6 % 06/21/2019 51.0 40.1 Progress Notes (): Porfirio Sanchez MD 06/19/2019 12:59 PM Signed CVICU HISTORY AND PHYSICAL SERVICE DATE: 06/18/2019 HPI: Per notes from [facility] as patient is an extremely poor historian and reports he does not know what happened to him. Leo Mc is a 83 year old male, t rebekah from [facility] with PMH of HTN, HLD, renal [...] He is a currently 1ppd smoker. At [place] WBC 24.4, Hgb 15.8, Plt 188. INR 1.1. Na 140, K 2.8, C l 103, CO2 26 Cr 1.84, eGFR 38, Glucose 143, Mg 2.0 Troponin 0.611. Cxr showed no acute abnormality. He was started on an amiodarone bolus and gtt at [place]. He also received lovenox due to elevated [...] received 80 mg subq x 1 at [facility] -monitor hemodynamics SIGNATURE: Herson Ibanez DO PATIENT NAME: Leo Mc DATE: June 19, 2019 TIME: 12:09 AM PAGER/CONTACT #: [phone] This patient was seen in [facility] emergency department with the resident staff. I have personally [...] to 12 . The patient presented to [facility] after of VT arrest. He was resuscitat ed by EMS. Patient has a history of ICD which is at end of life. Has not gotten the defibrillator changed. Patient was defibrillated by external means by the EMS at [place]. Patient is currently pain-fr ee. The because of EKG changes it is suspected that progression of coronary dise ase is at hand. Patient has a history of LAD and RCA stents. I spoke with Dr. Soto from [place] card iology about the condition of the [...] 35 minutes excluding procedures. Porfirio Sanchez MD, [facility]. Pager # [phone] Previous Version Facundo Cottrell MD 06/19/2019 11:58 [...] severe LV systolic dysfunction, RBBB, status post CHIEF OF SERVICE-D system implantation at an outside institution in 2012 who pres ented to [facility] with confusion, developed ventricular fibrillation that required external defibrillati on twice, was diagnosed with NSTEMI, treat ed with low molecular weight and then unfractionated heparin, as well as amiodarone, and transferred to [facility]. Acc ording to the records the patient [...] available. Chest x-ray reveals presence of a CHIEF OF SERVICE-D system, likely [facility]. One [...] June 19, 2019 TIME: 11:49 AM PAGER: [phone] Linda Gómez MD, 06/19/2019 3:17 PM Attested Attestation signed by Porfirio Sanchez at 06/21/2019 8:0 3 AM This patient was seen in [facility] with the resident staff, Nursing staff and Clinical Pharmacy. I have personally seen and examined the p atient. I have reviewed labs, clinical data and pertinent images. Arvin lynn discussed the case with the care team. I agree with the documentation, excepts as annotated. Clinical issues addressed on this visit: 1. NSTEMI (non-ST elevated myocardial in farction) ([facility]) - ICD9: 410.70, ICD10: I21.4 2. Cardiomyopathy, ischemic - ICD9: 414.8, ICD10: I25.5 3. Chronic systolic heart failure ([facility]) - ICD9: 428.22, ICD1 0: I50.22 4. Ventricular fibrillation, paroxysmal ([facility]) - ICD9: 427. 41, ICD10: I49.01 5. VT (ventricular tachycardia) ([facility]) - ICD9: 427.1, ICD10: I47.2 6. Implantable cardioverter-defibrillator (ICD) generator end of life - ICD9: V53.32, ICD10: Z45.02 7. Encounter for management of biventricular implantable cardioverter-defibrillator (ICD) - ICD9: V53.32, ICD10: Z45. 02 8. Ischemic cardiomyopathy - ICD9: 414.8, ICD10: I25.5 Porfirio Sanchez MD, [facility]. Pager # [phone] Cardiovascular Intensive Care Progress Note June 19, 2019 Patient Name: Leo Mc Patient Location: RE-[id number]/A [facility]* Admission Date: 06/18/2019 Length of Stay: 1 [...] mEq /100 mL 20 mEq INTRAVENOUS PRN Hreson (Fabian) Taniaza, DO - magnesium sulfate in [...] ordered. Signed: Linda Gómez MD, PGY-1 Pager: [phone] [facility] Date: June 19, 2019 Time: 12:01 PM Recommendations are not finalized until co-signed by Staff catherine chin. Leilani Tran MD 06/20/2019 5:40 PM Addendum Cardiovascular Intensive Care Progress Note June 20, 2019 Patient Name: Leo Mc Patient Location: [id number]-[id number]-1787/A [facility]-323* Admission Date: 06/18/2019 Length of Stay: [...] ordered. Signed: Ceci Navarro DO, PGY-1 Pager: [phone] Date: June 20, 2019 Time: 11:02 AM [...] in place. The patient presented to the [facility] with confusion. He developed ve ntricular [...] 38 minutes excluding procedures. Leilani Tran MD, [facility] Cardiovascular Medicine Pager: [phone] June 20, 2019 Previous Version James Smith MD 06/20/2019 11:28 AM Signed CARDIAC CATHETERIZATION REPORT PATIENT NAME: Leo Mc SERVICE DATE: 06/20/2019 SERVICE TIME: 11:24 AM Pathology Laboratory Director: Attending: Leilani Tran RECOMMENDATIONS: Continued medical therapy [...] 20, 2019 TIME: 11:24 AM Donald Chatterjee APRN.JUNCTION MAKER, JUNCTION MAKER 06/20/2019 4:15 PM Signed PROGRESS NOTE ELECTROPHYSIOLOGY [...] Limited ROS due to mild disorientation AND OHKAY OWINGEH. Objective PHYSICAL EXAM: Body mass index is [...] Bi-Ventricular pacemaker/ICD placed 2012. Per chart at [place], Echo February 2017 with EF 20%, per [...] generator changed). Hypokalemia: 2.8 on arrival to [place]; corrected to 4.7 t maikel. Continue to monitor. 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 {Readmit:444915::No} Advance Directive: Current Advance Directive: None Magnetizer Attempted to Assist with AD Completion: Yes Action: Education Provided {CM Health Literacy REQUIRED IF PATIENT ABLE:484220} FUNCTIONAL AND COGNITIVE/BEHAVIORAL {PRIOR TO ADMISSION STATUS/EQUIPMENT:040349} Has the Patient Been in a Snf Facility in the Past 30 days? {30 DAYS:986269} SOCIAL: Living Arrangement: {LIVING ARRANGEMENT:77357::Home} Lives With: {lives:649028} Financial Resources: {occupation:621770} Primary Contact: Extended Emergency Contact Information Primary Emergency Contact: JesusitaLoida solizyn Address: [address] [place] [address] [facility] Relation: Daughter Supportive: {YES/NO:603350::Yes} Other Important Patient Contacts: {Resources:29164} Caregiver Assessment: Caregiver is ready, willing and able to meet the patient's needs as recommended by the inter-professional team? {caregiver:149655} Patient's transition needs and plan for meeting these needs: Does the patient have an acu te stroke diagnosis, or has the patient had a stroke during this admission? {YES/NO:803950::Yes} {CM med adherence REQUIRED IF PATIENT ABLE:9217519} Are you interested in bedside delivery of your medications? {CM delivery yes/no:569737} Food Concerns: In the Last Month, Have You had Trouble Getting Food? {food:077596::No trouble getting food} During the Last Month, Have You Worried Whether Your Food Would Run Out Before You Had Enough Money to Buy More? {foodlist:310116::No} Is the Patient Psychosocially Complex? {CM yes:212376::No} ASSESSMENT AND PLAN: Medical Needs: {Medical Needs:225371} Psychosocial Needs: {psychosocial:174791::None} {REQUIRED ONLY FOR OB PATIENTS. SELECT BLANK IF N/A :125377: : } FREEDOM OF CHOICE EXPLAINED: { :745253} POTENTIAL TRANSITION PLANS {DC PLANS:80176::No Services Indicated} SIGNATURE: Orin Grady RN PATIENT [...] he is taking. Reconciliation completed? Yes All HEAVY EQUIPMENT RENTAL ASSOCIATE medications addressed by LIP Additional comments: No [...] Allergies: ALLERGIES No Known Allergies Preferred Pharmacy: [facility] ([phone]) Current HEAVY EQUIPMENT RENTAL ASSOCIATE Medications: Prior to Admission medications as of [...] h daily at bedtime. No fill at [facility] since 12/2017 for a 30 day supply [...] mouth once kathy ly. No fill at [facility] since 2017 Evelia Sherman, Pharmacist June 20, 2019 3:45 PM Guanako Romero DO 06/20/2019 6:44 PM Signed Leo Mc had a medtroni c ICD implanted 02-27-2006 and then in 01-26-2103 it was upgraded to a [facility] CRTD by Dr. Esparza in [place] and more recently followed by the device clinic in [place] . In December Mr. Mc was noted [...] shock and presented to the ED in [place] with sustained VT not treated by his [...] family indicated that [place] is our ground crew lines person) confirm that he did not want [...] change out his d evice to a CHIEF OF SERVICE PPM which will give pacing but no [...] not able to do hi s surgery [facility] as will not be at the [facility]3], I did check with Dr. Brown and [...] 2019 Patient Name: Leo Mc Patient Location: [place] [address] [address]* Admission Date: 06/18/2019 Length of Stay: 3 [...] doesn't want to get a shock. [facility] and [facility] [...] in put(s): VPH, VPC2, VPO2C, RESPHCO3, BASEX, X4AJHRKJ, PH, PCO2, RESPHCO3, BASEX, M7YSNSRU in the last 168 hours. Invalid input(s): [...] ordered. Signed: Ceci Navarro DO PGY-1 Pager: [phone] Date: June 21, 2019 Time: 8:30 AM [...] in place. The patient presented to the [facility] with confusion. He developed ve ntricular [...] AM Signed Report to 4100. Ayaka Chatterjee, ION EXCHANGE OPERATOR.JUNCTION MAKER, JUNCTION MAKER 06/21/2019 4:09 PM Addendum PROGRESS NOTE ELECTROPHYSIOLOGY SERVICE SERVICE DATE: 06/21/2019 SERVICE TIME: 3:31 PM Subjective INTERIM HISTORY: Transferred out of [facility] this afternoon. No family at bedside at time of visit. I spoke to patient's grandson Leo cM who states family decided that patient wants [...] dizziness and headaches. ROS limited due to OHKAY OWINGEH AND decreased memory. Objective PHYSICAL EXAM: Body [...] generator [facility] year. [facility] with 1.6 months battery [...] Bi-Ventricular pacemaker/ICD placed 2012. Per chart at [place], Echo February 2017 with EF 20%, per [...] admit. ? Hypokalemia: 2.8 on arrival to [place]; corrected to 4.7 on 06/20 AND today below normal 3.4. Will given K-Dur 40 meq toda y. Continue to monitor. On bactrim for UTI- watch for hyperkalemia. Check BMP AND Mg+ level in AM. SIGNATURE: Donald Chatterjee APRN.JUNCTION MAKER PATIENT NAME: Leo Mc DATE: June 21, [...] decision. Guanako Romero DO progress notes on [facility] INTERFACE Note OR Normal 01-19-2018 [facility] Assistant Superintendent ([id number] ) ed note on ED NOTE HNO ID: [id number] Normal 01-05-2018 [facility] Author: Jose M PrattRn) LUZ Bennett ([id number]) Service: Emergency Medicine Author Type: Registered Nurse Type: ED Notes Filed: 01/04/2018 10:51 PM Note Text: Patient leaves at this time for [facility] in stable c ondition. ED NOTE HNO ID: [id number] Normal 01-05-2018 [facility] Author: Jose M PrattRn) LUZ Bennett ([id number]) Service: Emergency Medicine Author Type: Registered Nurse Type: ED Notes Filed: 01/04/2018 10:45 PM Note Text: Samaritin care team here. Report to team. ed prov note on 201 05-28-12 ED PROV HNO ID: [id number]: Carla Normal 01-04-2018 [place] NOTE [place], DOService: Emergency Clinic MedicineAuthor Type: PhysicianType: ED [place] Provider NotesFiled: 01/05/2018 7:52 AMNote ([id number]) Text:ED Provider NotePatient Name: Leo McMRN: [id number] DATE: 01/04/18HistoryPatient presents with:Altered Level Of ConsciousnessHPI [...] mental status.History provided by: Patient and relativeLanguage member service representative used: NoMental Status ChangesPresenting symptoms: confusionSeverity: ModerateMost [...] results with family at bedside. They state [place] is thehospital he typically goes to.Time: [address] with Dr[address] Hernandez, hospitalist at [place], who is accepting foradmission. Lactic acid will be added.Encounter Diagnosis ICD-10-CM1. Altered mental status, unspecified altered mental status type R41.822. Urinary tract infection with hematuria, site unspecified N39.0 R31.93. Congestive heart failure, unspecified chronicity, unspecified heartfailure type ([facility]) I50.94. STACY (acute kidney injury) ([facility]) N17.9PlanThe [facility] stableSIGNATURE: KACEY Schmidt Interpretation:RHYTHM: Normal sinus rhythm at 74 beats per minute and Pacemaker function,rhythms and complexes. Ventricular paced rhythmBiventricular pacemakerCOMPARED WITH PRIOR: None availableMorenoanna Gerard, 01/05/18 0752 ed note on ED NOTE HNO ID: [id number]: Oly Normal 01-04-2018 [facility] (RnSANCHO Camejoervice: [place] ([id number]) Emergency MedicineAuthor Type: Registered NurseType: ED NotesFiled: 01/04/2018 10:04 PMNote Text: Bed received at [facility], [place] [address], report number [id number], face sheet faxedto [phone], [facility] for transport eta 30 minutes ED NOTE HNO ID: [id number] Normal 01-04-2018 [facility] Author: Jose M Bennett RN [place] ([id number]) Service: Emergency Medicine Author Type: Registered Nurse Type: ED Notes Filed: 01/04/2018 9:43 PM Note Text: Lactic Acid level drawn from left arm IV site. ED NOTE HNO ID: [id number] Normal 01-04-2018 [facility] Author: Jose M Bennett RN [place] ([id number]) Service: Emergency Medicine Author Type: Registered Nurse Type: ED Notes Filed: 01/04/2018 9:31 PM Note Text: 2nd set of Blood cultures drawn and sent. ED NOTE HNO ID: [id number] Normal 01-04-2018 [facility] Author: Oly Ferrera RN [place] ([id number]) Service: Emergency Medicine Author Type: Registered Nurse Type: ED Notes Filed: 01/04/2018 9:26 PM Note Text: Dr. Hernandez from [facility] called back and accepted pt. ED NOTE HNO ID: [id number] Normal 01-04-2018 [facility] Author: Jose M Bennett RN [place] ([id number]) Service: Emergency Medicine Author Type: Registered Nurse Type: ED Notes Filed: 01/04/2018 9:30 PM Note Text: 1st set of Blood cultures drawn and sent. ED NOTE HNO ID: [id number] Normal 01-04-2018 [facility] Author: Oly Ferrera RN [place] ([id number]) Service: Emergency Medicine Author Type: Registered Nurse Type: ED Notes Filed: 01/04/2018 9:08 PM Note Text: Spoke with Apolonia ESCOBAR automobile mechanic supervisor from [facility] about possible transf er ED NOTE HNO ID: [id number] Normal 01-04-2018 [facility] Author: Jose M Bennett RN [place] ([id number]) Service: Emergency Medicine Author Type: Registered Nurse Type: ED Notes Filed: 01/04/2018 8:31 PM Note Text: CC Urine specimen obtained and sent. ED NOTE HNO ID: [id number] Normal 01-04-2018 [facility] Author: Jose M Bennett RN [place] ([id number]) Service: Emergency Medicine Author Type: Registered Nurse Type: ED Notes Filed: 01/04/2018 8:26 PM Note Text: Patient returned to the Emergency Department. ED NOTE HNO ID: [id number] Normal 01-04-2018 [facility] Author: Jose M Bennett RN [place] ([id number]) Service: Emergency Medicine Author Type: Registered Nurse Type: ED Notes Filed: 01/04/2018 8:02 PM Note Text: To radiology at this time. ED NOTE HNO ID: [id number]: Jose M Normal 01-04-2018 [facility] (SANCHO Casianoervice: Ander ([id number]) Emergency MedicineAuthor Type: Registered NurseType: ED NotesFiled: 01/04/2018 7:43 PMNote Text: Encouraged for UA. Unable to void at this time. Family at bedside. Sheba speaking with family members x2 at this time. office visit on 201 05-04-17 Documentation of Done Invalid Interpretation 08-11-2017 - [facility] current medications Code 08-11-2017 Group ([id number]) (procedure) Fall risk assessment No Invalid Interpretat ion 08-11-2017 - [facility] Code 08-11-2017 Group ([id number]) office visit on 04-30-28 Documentation of Done Invalid Interpretation 04-22-2017 - [facility] current medications Code 04-22-2017 Group ([id number]) (procedure) Fall risk assessment No Invalid Interpretat ion 04-22-2017 - [facility] Code 04-22-2017 Group ([id number]) Protein mass conc Done 04-22-2017 - [facility] 04-22-2017 Group ([id number]) clinical lists update: preload on 2017-04-02 Tobacco smoking Former smoker 04-02-2017 - [facility] status NHIS 04-02-2017 Group ( [id number]) Tobacco use Former smoker Invalid 04-02-2017 - [facility]PHS Interpretation Code 04-02-2017 Group ([id number]) clinical lists update: preload on 2017-03-27 Anion gap 9 mmol/L Invalid Interpretation 017 - [facility] Code 03-27-2017 Group ([id number]) Anion gap molar 9 mmol/L 03-27-2017 - [facility] conc 03-27-2017 Group ([id number]) BUN/Creatinine 15.1 mg/mg Invalid Interpretation - [facility] Ratio Code 03-27-2017 Group ([id number]) Calcium 8.4 mg/dL Low 03-27-2017 - [facility] 03-27-2017 Group ([id number]) Chloride 102 mmol/L Invalid Interpretation 017 - [facility] Code 03-27-2017 Group ([id number]) CO2 30 mmol/L Invalid Interpretation 017 - [facility] Code 03-27-2017 Group ([id number]) CO2 ppres (BldV) 30 mmol/L 03-27-2017 - [facility] 03-27-2017 Group ([id number]) Creatinine 1.72 mg/dL High 03-27-2017 - [facility] 03-27-2017 Group ([id number]) Glucose 88 mg/dL Invalid Interpretation 017 - [facility] Code 03-27-2017 Group ([id number]) Glucose mass conc 88 mg/dL Invalid Interpretation 03-27-2017 - [facility] Code 03-27-2017 Group ([id number]) Potassium 3.3 mmol/L Low 03-27-2017 - [facility] 03-27-2017 Group ([id number]) Sodium 141 mmol/L Invalid Interpretation 017 - [facility] Code 03-27-2017 Group ([id number]) Urea nitrogen 26 mg/dL High 03-27-2017 - [facility] 03-27-2017 Group ([id number]) clinical lists update: preload on 2017-03-26 Hematocrit (HCT) 37.0 % Low 03-26-2017 - 03-26-2017 [facility] ([id number]) Hematocrit Volume 37.0 % Low 03-26-2016 - 03-26-2017 [facility] Fraction (Bld) ([id number]) Hemoglobin (HGB) 12.6 g/dL Low 03-26-2016 - 03-26-2017 [facility] ([id number]) Platelets 147 10*3/mm3 Low 03-26-2016 - 017 [facility] ([id number]) Platelets #/vol (Bld) 147 10*3/mm3 Low 03-26-2003-26-2017 [facility] ([id number]) clinical lists update: preload on 2017-03-25 Cholesterol 135 mg/dL Invalid Interpretation 03-25 - [facility] Code 03-25-2017 Group ([id number]) HDL Cholesterol 28 mg/dL Invalid Interpretation 0 03-25-2017 - [facility] Code 03-25-2017 Group ([id number]) LDL Cholesterol 92 mg/dL Invalid Interpretation 0 03-25-2017 - [facility] Code 03-25-2017 Group ([id number]) Left ventricular 20 % Invalid Interpretation 03-25-2017 - [facility] Ejection fraction Code 03-25-2017 [facility] ([id number]) Triglyceride 76 mg/dL Invalid Interpretation 02-25 - [facility] Code 03-25-2017 Group ([id number]) Vital Signs Vital Sign Description Value / Unit Date Location The following section is limited to 5 en tries per type and includes entries from the following time range: [id number] - [id number] 7. BMI (Body Mass Index) 25.54 kg/m2 08-11-2017 - 08-11-2017 [facility] ([id number]) BMI (Body Mass Index) 25.9 kg/m2 04-22-2017 - 04-22-2017 [facility] ([id number]) BP Diastolic 60 mm[Hg] 08-11-2017 - 08-11-2017 [facility] ([id number]) BP Diastolic 60 mm[Hg] 04-22-2017 - 04-22-2017 [facility] ([id number]) BP Systolic 120 mm[Hg] 08-11-2017 - 08-11-2017 [facility] ([id number]) BP Systolic 100 mm[Hg] 04-22-2017 - 04-22-2017 [facility] ([id number]) Height 177.8 cm 08-11-2017 - 08-11-2017 [facility] ([id number]) Height 177.8 cm 04-22-2017 - 04-22-2017 [facility] ([id number]) Pulse (Heart Rate) 70 /min 08-11-2017 - 08-11-2017 [facility] ([id number]) Pulse (Heart Rate) 72 /min 04-22-2017 - 04-22-2017 [facility] ([id number]) Respiratory Rate 20 /min 08-11-2017 - 08-11-2017 [facility] ([id number]) Respiratory Rate 20 /min 04-22-2017 - 04-22-2017 [facility] ([id number]) Weight 80.74 kg 08-11-2017 - 08-11-2017 [facility] ([id number]) Weight 81.87 kg 04-22-2017 - 04-22-2017 [facility] ([id number]) Procedures Procedure Name Date Provider Location Electrocardiogram 06-19-2019 [facility] ([id number]) Electrocardiogram 06-19-2019 [facility] ([id number]) Prgrmg eval implantable in 08-24-2017 - Toan Soto MD [facility] person multi lead dfb 08-25-2017 ([id number]) Device Interrogation 08-11-2017 - [facility] 08-11-2017 ([id number]) Follow Up Appt 3 months 08-11-2017 - [facility] 08-11-2017 ([id number]) JHR 08-11-2017 - MD [facility] 08-11-2017 ([id number]) Device Interrogation 04-22-2017 - [facility] 08-11-2017 ([id number]) Follow Up Appt 3 months 04-22-2017 - Toan Soto MD [facility] 04-22-2017 ([id number]) [facility] 04-22-2017 - Toan Soto MD [facility] 04-22-2017 ([id number]) Follow Up Appt 3 months 04-22-2017 - Toan Soto MD [facility] 04-22-2017 ([id number]) [facility] 04-22-2017 - Toan Soto MD [facility] 04-22-2017 ([id number]) Implantation of internal 04-02-2017 [facility] cardiac defibrillator ([id number]) Placement of stent in coronary 04-02-2017 [facility] artery ([id number]) Plan of Treatment Plan Description Date Location Appointment Appointment 11-27-2017 - [facility] 11-27-2017 ([id number]) Appointment Appointment 11-12-2017 - [facility] 11-12-2017 ([id number]) Appointment no information 08-24-2017 - [facility] 08-24-2017 ([id number]) Follow Up Appt 3 months Follow Up Appt 3 months 08-24-2017 - [facility] 08-25-2017 ([id number]) Pacer Clinic Pacer Clinic 08-24-2017 - [facility] 08-25-2017 ([id number]) Device Interrogation Device Interrogation 08-11-2017 - [facility] 08-11-2017 ([id number]) Follow Up Appt 3 months Follow Up Appt 3 months 08-11-2017 - [facility] 08-11-2017 ([id number]) JHR JHR 08-11-2017 - [facility] 08-11-2017 ([id number]) Appointment Appointment 07-28-2017 - [facility] 07-28-2017 ([id number]) Device Interrogation Device Interrogation 04-22-2017 - [facility] 08-11-2017 ([id number]) Follow Up Appt 3 months Follow Up Appt 3 months 04-22-2017 - [facility] 04-22-2017 ([id number]) MMM MMM 04-22-2017 - [facility] 04-22-2017 ([id number]) Device Interrogation Device Interrogation 04-22-2017 - [facility] 04-22-2017 ([id number]) Follow Up Appt 3 months Follow Up Appt 3 months 04-22-2017 - [facility] 04-22-2017 ([id number]) MMM MMM 04-22-2017 - [facility] 04-22-2017 ([id number]) Appointment Appointment 04-03-2017 - [facility] 04-03-2017 ([id number]) Summary Purpose Family History No Family History [...] BE BASED ON THE PRIMARY CLINICAL RECORDS. [employer] provides no warranty or guarantee of the accuracy or completeness of information in this document. UNRECOGNIZED CONTENT PROVIDED BELOW FOR UNRECOGNIZED SECTION No Status Records FoundNo Status Records FoundNo Status Records FoundNo Status Records Found UNRECOGNIZED CONTENT PROVIDED BELOW FOR UNRECOGNIZED SECTION INFORMATION SOURCE DATE CREATED AUTHOR AUTHOR'S ORGANIZATIO N 04/16/2018 [facility] DATE CREATED AUTHOR AUTHOR'S ORGANIZATIO N 04/29/2018 [facility] DATE CREATED AUTHOR AUTHOR'S ORGANIZATIO N 06/26/2019 [facility] DATE CREATED AUTHOR AUTHOR'S ORGANIZATIO N 06/28/2019 [facility]
--- OUTSIDE RECORDS SUMMARY | 2020-08-07 12:47 | XMS RPT_ITS | CCD ---
:1935 External Reference #:[id number] Author Organization [facility] Care Team Providers Name Role Phone Damien [...] rt TBEC One tablet by Group (44 484) mouth daily ASPIRIN [id number] Marianne Manzanares RN atorvastatin ATORVASTATIN CALCIUM 04-02-2017 [facility] 20 MG TABS One Group (04857) tablet by mouth every night ATORVASTATIN CALCIUM [id number] Toan Soto MD carvedilol COREG 3.125 MG TABS 04-02-2017 Alice Low RN [facility] One tablet by mouth Group (4 4666) twice daily CARVEDILOL [id number] Toan Soto MD clopidogrel CLOPIDOGREL 04-02-2017 [facility] BISULFATE 75 MG TABS Group ( 97659) One tablet by mouth daily CLOPIDOGREL BISULFATE [id number] Toan Soto MD furosemide FUROSEMIDE 40 MG 04-02-2017 Alice Sarmiento He art TABS One tablet by Group (44 691) mouth daily FUROSEMIDE [id number] Toan Soto MD lisinopril ZESTRIL 2.5 MG TABS 04-02-2017 - [facility] One tablet by mouth 04-22-2017 Group (4 4691) daily LISINOPRIL [id number] Toan Soto MD Losartan LOSARTAN POTASSIUM 04-22-[address] [facility] 25 MG TABS One Group (27253) tablet by mouth daily LOSARTAN POTASSIUM [id number] Toan Soto MD No information No information [facility] [facility] available. available. Group (26685) Problems Category Problem Name Status Date Location Acute myocardial Myocardial infarction Active 10-26-1959 - [facility] [facility] infarction Group (52352) Conduction disorders Presence of automatic Active 04-22-2017 - [facility] (implantable) cardiac Group (71227) defibrillator Congestive heart failure; Congestive heart Active 10-26-1959 - [facility] nonhypertensive failure Group (02926 ) Coronary atherosclerosis Generalized ischemic Active 04-02-20 17 - [facility] and other heart disease myocardial dysfunction Group (84821) Disorders of lipid Hyperlipidemia Active [facility] metabolism Group (15992) Essential hypertension Hypertensive disorder Active [facility] Group (96856) Heart valve disorders Nonrheumatic tricuspid Active - [facility] (valve) insufficiency Group (10607) Pulmonary heart disease Other secondary Active 04-02-2017 - [place] [facility] pulmonary hypertension Group (33179) Unclassified Implantation of Active 04-02-2017 - [facility] internal cardiac Group (4469 1) defibrillator Unclassified Placement of stent in Active 04-02-2017 - [facility] coronary artery Group (27876 ) Unclassified No current problems or Active [facility] disability Group (70129) Results Result Name Value Range Unit Interpretation Flag Date Location therapy nt on 06-23 THERAPY NT HNO ID: [id number] Normal 06-23-2019 [place] Author: Katarzyna Posada General Service: Physical Therapy Medical Author Type: Physical Therapist Center Type: Therapy (PT/OT/Speech/Resp) (98873) Filed: 06/23/2019 12:07 PM Note Text: Physical Therapy Evaluation SERVICE DATE: 06/23/2019 SERVICE TIME: 919 to 944 ROOM: [place] [address] Recommended Discharge Disposition: Home PT Anticipated Discharge [...] gait and mobility-other Interventions Provided: Evaluation;Gait Training (53706) $ Evaluation-Moderate (79085) Billed Units: 1 unit History and examination of body systems see assessment secti on above. This patient?s clinical presentation is evolving. The patient required a moderate complexity evaluation. Gait Training (96137) Treatment Minutes: 10 1 unit Skilled Intervention(s): [...] Dynamic Standing Dynamic Standing Balance: Minimal Assistance [facility] 7: Walk 25 feet or more Please see discipline specific clinical documentation [facility] for complete details for this therapy evaluation/treatment. SIGNATURE: Katarzyna Posada PT PATIENT NAME: Leo Mc DATE: June 23, 2019 TIME: 11:54 AM THERAPY NT HNO ID: [id number] Normal 06-23-2019 [place] Author: Saba Parada/Hemal Corona OT General Service: Occupational Therapy Medical Author Type: Occupational Therapist Center Type: Therapy (PT/OT/Speech/Resp) (43607) Filed: 06/23/2019 9:15 AM Note Text: Occupational Therapy Evaluation SERVICE DATE: 06/23/2019 SERVICE TIME: 0835 to 0900 ROOM: [id number] Recommended Discharge Disposition: Home OT Recommended Discharge [...] Cognitive Functions and Awareness Interventions Provided: Evaluation;Self Nursing Home Management (00754) $ Evaluation-Moderate (63989) Billed Units: 1 unit OT Evaluation Moderate [...] performance: Vfib, HTN, nicotine depe ndence Self Nursing Home Management (88780) Treatment Minutes: 9 1 unit Skilled Intervention(s): [...] ambulanc e Reason for Occupational Therapy Consult: MERCHANDISE HANDLER Relevant Past Medical History: Vfib Patient Report: [...] 9 Please see discipline specific clinical documentation [facility] for complete details for this therapy evaluation/treatment. SIGNATURE: DEBRA Terry/Leticia PATIENT NAME: Leo soliz DATE: June 23, 2019 TIME: 9:08 AM glucose meter on 13-06-29 Glucose [Mass/Vol] 106 70-99 mg/dL High 06-23-2019 [facility] (28825) Comment: Result Comment: RN NOTIFIED Performed By: #### TSH3 #### [facility] [address] [place] [id number] consult prog on 201 07-03-29 CONSULT PROG HNO ID: [id number] Normal 06-23-20 [facility] Author: Donald (Stone Layer.[facility]) Sen [facility] Service: Electrophysiology (23769) Author Type: Nurse Specialist Type: Consult Progress Note Filed: 06/23/2019 3:53 PM Note Text: PROGRESS NOTE ELECTROPHYSIOLOGY SERVICE SERVICE DATE: 06/23/2019 SERVICE TIME: 3:29 PM Subjective INTERIM HISTORY: S/P SOLAR SALES SPECIALIST-D generator change yesterday. Cuello ed to dual chamber pacemaker only (patient no longer wants defibrillato r). RV lead is non-functional so pacing ventricle per LV lead only AND RA l ead is pacing. Patient resting in bed. C/O soreness left upper chest incisi on area. Denies SOB, dizziness, palpitations. ROS limited due to [place] AND poor memory. Denies SOB, di zziness, [...] pacemaker/ICD placed 2012. Per [facility], Echo February 2017 with EF 20%, [...] stable. ? Hypokalemia: 2.8 on arrival to [place]; corrected to 4.7 o n 06/20 AND normal today at 3.6.Continue to monitor K+ as outpatient. ?On bactr im for UTI- watch for hyperkalemia. Discussed with Dr. Romero this AM. OK to discharge from the EP standpoint. Patient will follow up in [place] for his wound check AND device checks. ? SIGNATURE: Donald Chatterjee APRN.CNS PATIENT NAME: Leo Mc DATE: June 23, 2019 TIME: 3:29 PM PAGER/CONTACT #: [phone] case mgt init judies on 2019-06-23 CASE MGT INIT HNO ID: [id number] Normal 06-23- 019 [place] Author: Carlos (Rn) [facility] Service: Care Management ([id number]) Author Type: Registered Nurse Type: Care Mgt Initial Assessment Filed: 06/23/2019 2:59 PM Note Text: CARE MANAGEMENT: ASSESSMENT AND DISCHARGE PLAN SERVICE DATE: 06/23/2019 SERVICE TIME: 1115 PRIMARY CARE PHYSICIAN: Ellis Quijano DO ADMISSION STATUS: Inpatient Needs Prior to Discharge: Home Care Order;To Be Determined 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 Health Issues Impacting Discharge Plan: V-Tach Last Discharge Date: 01/04/18 Is this Within the Past 30 days? No Advance Directive: Current Advance Directive: None In Chart: No Alligator Shear Operator Attempted to Assist with AD Completion: Yes [...] Patient Currently Receive Any Community Services or formerly [facility] Care? None Equipment Prior to Admission: Tub bench/chair Walker Has the Patient Been in a Group Home Facility in the [facility] 30 days? No SOCIAL: Living Arrangement: Home Lives With: Son and Qpwalyag-Ne-Yzc, and Grandson Financial Resources: Retired Primary Contact: Extended Emergency Contact Information Primary Emergency Contact: Tatianna Mc Address: [address] [place] [address] Relation: Daughter Supportive: Yes Other Important Patient [...] 0 I feel financially burdened by my [id number] expenses for my prescription medication: Disagree mostly [...] bedside prior to D/C. Patient is from [facility] with Son, Udmuljao[place]r, and Grandson. 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 +Rx, +PCP, +DME, Family able to provide transport at D/C. [facility] will be following at D/C. SIGNATURE: Carlos Hart RN PATIENT NAME: Leo Mc DATE: June 23, 2019 TIME: 2:41 PM PAGER/CONTACT #: [phone] xr chest 1v frontal on 2019-06-22 XR CHEST 1V * * *Final Report* * * Normal 06-22 [place] [facility] FRONTAL DATE OF EXAM: Jun 22 2019 5:50[facility] 5290 - XR CHEST 1V FRONTAL / (51877) PROCEDURE REASON: Post-operative / post-procedure assessment , [...] at time of dictation as requ ested. Burlap Roll Coverer: PSCB Transcribe Date/Time: Jun 22 2019 5:59P Dictated by : JESSICA ELIAS MD This examination was interpreted and the report reviewed and electronically signed by: JESSICA ELIAS MD on Jun 22 2019 6:01PM EST renal panel on 2018 Phosphate [Mass/Vol] 1.5 2.5-4.9 mg/dL Critically low 08- [facility] (00 000) Comment: Result Comment: RESULT RECHE CKED Performed By: #### HA1C #### [facility] [address] [place], [place] [address] Creatinine [Mass/Vol] 1.29 0.67-1.17 mg/dL High 06-22-20 [facility] (00 000) Comment: Performed By: #### HA1C #### [facility] [address] [place], [place] [address] Albumin [Mass/Vol] 2.9 3.4-5.0 g/dL Low 06-22-2019 [facility] (17557) Comment: Performed By: #### HA1C #### [facility] [address] [place], [place] [address] Anion gap [Moles/Vol] 9 8-16 mmol/L Normal 06-22-20 [facility] (81456) Comment: Performed By: #### HA1C #### [facility] [address] [place], [place] [address] Calcium [Mass/Vol] 7.5 8.5-10.1 mg/dL Low 06-22-2019 [facility] (87411) Comment: Performed By: #### HA1C #### [facility] [address] [place], [place] [address] CO2 [Moles/Vol] 26 21-32 mEq/L Normal 06-22-2019 [facility] (05834) Comment: Performed By: #### HA1C #### [facility] [address] [place], [place] [address] Glucose [Mass/Vol] 93 70-99 mg/dL Normal 06-22-2019 [facility] (06606) Comment: Performed By: #### HA1C #### [facility] [address] [place], [place] [address] Urea nitrogen [Mass/Vol] 15 7-18 mg/dL Normal 06-22 [facility] (33240) Comment: Performed By: #### HA1C #### [facility] [address] [place], [place] [address] Chloride [Moles/Vol] 110 98-107 mEq/L High 9 [facility] (08783) Comment: Performed By: #### HA1C #### [facility] [address] [place], [place] [address] Potassium [Moles/Vol] 3.6 3.5-5.1 mEq/L Normal 06-22-20 19 [facility] (24540) Comment: Performed By: #### HA1C #### [facility] [address] [place], [place] [address] Sodium [Moles/Vol] 141 136-145 mEq/L Normal 06-22-2019 [facility] (23577) Comment: Performed By: #### HA1C #### [facility] [address] [place] [phone] progress on 2019-05 PROGRESS HNO ID: [id number] Normal 06-22-2019 [facility] Author: Guanako Burch [facility] ([id number]) Service: Electrophysiology Author Type: Physician Type: Progress [...] follow up with Dr. Soto and the [facility] device clinic. His nursing home prognosis is poor. If no new issues or complications, I would anticipate he can be discharged in am . Guanako Romero, DO PROGRESS HNO ID: [id number] Normal 06-22-2019 [facility] Author: James Kaye Nelson ([id number]) Service: Hospital Medicine Author Type: Physician Type: Progress Notes Filed: 06/22/2019 2:41 PM Note Text: DEPARTMENT OF HOSPITAL MEDICINE PROGRESS NOTE SERVICE DATE: 06/22/2019 SERVICE TIME: 2:36 PM Hospital Medicine/Primary Attending: James Kaye MD NIGHT AND WEEKEND COVERAGE: After 7pm please page [phone] CHIEF COMPLAINT: [place] SUBJECTIVE: Patient is feeling okay. He is scheduled for con version of his ICD to a regular pacemaker. He refused replacement of nj s ICD generator. He does realize that if he develops recurrent gurjit tained V. tach or V. fib he will likely . He is currently not havin g any chest pain. No shortness of breath. OBJECTIVE: PHYSICAL EXAM: BP 116/53 Pulse 56 Temp (Src) 98.1 (Oral) Resp 20 Ht 5' 10 (1.78m) Wt 182 lb 8.7 oz (82.8kg) SpO2 94% B [place] 26.19 kg/(m2). O2 Therapy: Room Air General [...] systolic function of 25%. 3. Non-ST elevation [place]. Tolerated procedures well and is rec overing well so far. 4. Hypophosphatemia. He will be getting intravenous K-Phos. VTE Prophylaxis: Pneumatic Compression Device Disposition: Home Plan of care discussed with: Patient SIGNATURE: James Kaye MD PATIENT NAME: Leo Mc DATE: June 22, 2019 TIME: 2:36 PM PAGER/CONTACT #: [phone] plan of care on 201 07-03-28 PLAN OF CARE HNO ID: [id number] Normal 06-22-20 19 [facility] Author: Guanako Burch [facility] Service: Electrophysiology ([id number]) Author Type: Physician Type: Plan of Care Filed: 06/22/2019 9:18 AM Note Text: As previously noted had a long discussion with Leo and his family about options for management of his CRTD that is EOL. Leo has si gnificant memory impairment and did want his family to participate in decision process. 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 They discussed and determined that they did [...] Heal th (S/P/Bld) [Vol Syste m rate/Area] (02599) Comment: Result Comment: If the patie nt is , multiply the result by 1.210. Performed By: #### GFR #### [place] [address] magnesium blood on 2019-06-22 Magnesium [Mass/Vol] 1.8 1.6-2.6 mg/dL Normal 9 [facility] (46610) Comment: Performed By: #### HA1C #### [place] [address] anes preop on 06-22 ANES PREOP HNO ID: [id number] Normal 06-22-2019 [facility] Author: Herson [facility] Service: Anesthesiology ([id number]) Author Type: Physician Type: Anesthesia PreOp Filed: 06/22/2019 3:19 PM Note Text: ANESTHESIOLOGY DAY OF SURGERY NOTE SERVICE DATE: 06/22/2019 SERVICE TIME: 3:18 PM : 1935 Procedure(s) (LRB): (GENERATOR CHANGE MULTI CHAMBER SOLAR SALES SPECIALIST-PPM) REMOVAL OF PERMANEN T PACEMAKER PULSE GENERATOR [...] PROBLEM LIST Nstemi (Non-St Elevated Myocardial Infarction) ([facility]) Ischemic Cardiomyopathy Ventricular Fibrillation, Paroxysmal ([facility]) Nicotine use disorder, F17.2 PAST MEDICAL HISTORY Diagnosis Date - CAD (coronary artery disease), douglas coronary artery Stents LAD AND RCA - Cardiac arrest with ventricular fibrillation ([facility] 019 - HTN (hypertension) - Hyperlipidemia - Ischemic cardiomyopathy - Nonrheumatic mitral (valve) insufficiency - Nonrheumatic tricuspid (valve) insufficiency - NSTEMI (non-ST elevated myocardial infarction) ([facility]) 06/18 - [place] (myocardial infarction) - Other secondary pulmonary hypertension ([facility]) - Paroxysmal atrial fibrillation ([facility]) 06/18/2019 - Renal insufficiency - S/P ICD (internal cardiac defibrillator) procedure - Systolic heart failure, chronic ([facility]) PAST SURGICAL HISTORY Procedure Laterality Date - [...] tab(s) (LASIX) 20 mg ORAL DAILY Donald (Stone Layer.Automotive Teacher) Sen, ACTING MANAGER 20 mg at 06/22/19915 - [MAR Hold due to Transfer] amiodarone 400 mg tab(s) (PACER ONE) 400 mg ORAL BID Donald (Stone Layer.Automotive Teacher) Sen, ACTING MANAGER 400 mg at 06/22/19915 - [MAR Hold [...] June 22, 2019 TIME: 3:18 PM CSN: [id number] anes post on 06-22 ANES POST HNO ID: [id number] Normal 06-22-2019 [facility] Author: Herson Shields Nelson ([id number]) Service: Anesthesiology Author Type: Physician Type: Anesthesia [...] 22, 2019 TIME: 3:48 PM PAGER/CONTACT #: [phone] progress on 2019-05 PROGRESS HNO ID: [id number] Normal 06-21-2019 [facility] Author: Leilani Suarez [facility] Service: Cardiovascular Medicine ([id number]) Author Type: Physician Type: Progress Notes Filed: 06/21/2019 11:09 AM Note Text: Cardiovascular Intensive Care Progress Note June 21, 2019 Patient Name: Leo Mc Patient Location: [id number] [facility]-323* Admission Date: 06/18/2019 Length of Stay: [...] input(s): VPH, VPC2, VPO2C, RESPHC O3, BASEX, O2UVKJXN, PH, PCO2, RESPHCO3, BASEX, V9LCOEND in the last 16 8 hours. Invalid [...] and unable to make complex decisions. [facility] is involved in a discussion with Dr. Romero. They will decide today. -Patient on cardiac telemetry. ? UTI- -Patient initiated on ceftriaxone. -Urine culture ordered. Signed: Ceci Navarro DO PGY-1 Pager: [phone] Date: June 21, 2019 Time: 8:30 AM [...] on 201 07-03-27 NURSING PROG HNO ID: [id number] Normal 06-21-20 [facility] Author: Lizz PrattRn) LUZ Venegas Nelson ([id number]) Service: Nursing Author Type: Registered Nurse Type: Nursing Progress Note Filed: 06/21/2019 11:22 AM Note Text: Report to 4100. Ayaka Armstrong hemogram on 2019-05 Erythrocyte distribution 13.2 11.6-14.4 % Normal 06-21 [facility] width (RBC) [Ratio] System (44097) Comment: Performed By: #### HA1C #### [facility] [address] [place], [place] [address] Hematocrit (Bld) [Volume 39.6 40.1-51.0 % Low 06-21 [facility]] System (00 000) Comment: Performed By: #### HA1C #### [facility] [address] [place], [place] [address] Hemoglobin (Bld) [Mass/Vol] 13.3 13.7-17.5 g/dL Low [facility] (00 000) Comment: Performed By: #### HA1C #### [facility] [address] [place], [place] [address] MCH (RBC) [Entitic mass] 31.1 25.7-32.2 pg Normal 06-21 [facility] (00 000) Comment: Performed By: #### HA1C #### [facility] [address] [place], [place] [address] MCHC (RBC) [Mass/Vol] 33.6 32.3-36.5 % Normal 06-21-20 19 [facility] (00298) Comment: Performed By: #### HA1C #### [facility] [address] [place], [place] [address] MCV (RBC) [Entitic vol] 92.5 83.2-95.6 fl Normal 2018 [facility] (00 000) Comment: Performed By: #### HA1C #### [facility] [address] [place] [phone] Platelet mean volume (Bld) 11.2 8.7-12.0 fl Normal [place] [facility] [Entitic vol] System (82298) Comment: Performed By: #### HA1C #### [facility] [address] [place], [place] [address] Platelets (Bld) [#/Vol] 126 141-365 thou/cmm Low 2018 [facility] (00 000) Comment: Performed By: #### HA1C #### [facility] [address] [place] [phone] RBC (Bld) [#/Vol] 4.28 4.63-6.08 mil/cmm Low 06-21-2019 [employer] [facility] [employer] [facility] (67219) Comment: Performed By: #### HA1C #### [facility] [address] [place] [phone] RDW SD 45.1 36.1-45.8 fl Normal 06-21-2019 [place] [facility] (88977) Comment: Performed By: #### HA1C #### [facility] [address] [place], [place] [address] WBC (Bld) [#/Vol] 9.15 4.23-9.07 thou/cmm High 06-21-2019 [employer] [facility] [employer] [facility] (24952) Comment: Performed By: #### HA1C #### [facility] [address] [place] [phone] consult prog on 201 07-03-27 CONSULT PROG HNO ID: [id number] Normal 06-21-20 19 [facility] Author: Donald Moellern.Automotive Teacher) Sen ACTING MANAGER [facility] Service: Electrophysiology (88014) Author Type: Nurse Specialist Type: Consult Progress [...] dizziness and headaches. ROS limited due to [place] AND decreased memory. 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 Respirations unlabored at rest. No cough [...] lar pacemaker/ICD placed 2012. Per chart at [place], Echo March 14 with EF 20%, per [...] admit. ? Hypokalemia: 2.8 on arrival to [place]; corrected to 4.7 on 06/20 AND today below normal 3.4. Will given K-Dur 40 meq today. Continue to monitor. On bactrim for UTI- watch for hyperkalemia. Check BMP AND Mg+ level in AM. SIGNATURE: Donald Chatterjee APRN.ACTING MANAGER PATIENT NAME: Leo Mc DATE: June 21, 2019 TIME: 3:31 PM PAGER/CONTACT #: [phone] basic panel on 2018 Creatinine [Mass/Vol] 1.29 0.67-1.17 mg/dL High 06-21-[address] [facility] [email or web address] (00 000) Comment: Performed By: #### HA1C #### [facility] [address] [place], [place] [address] Anion gap [Moles/Vol] 6 8-16 mmol/L Low 06-21-20 19 [facility] (19776) Comment: Performed By: #### HA1C #### [facility] [address] [place], [place] [address] Calcium [Mass/Vol] 8.3 8.5-10.1 mg/dL Low 06-21-2019 [facility] (37941) Comment: Performed By: #### HA1C #### [facility] [address] [place], [place] [address] CO2 [Moles/Vol] 28 21-32 mEq/L Normal 06-21-2019 [facility] (10424) Comment: Performed By: #### HA1C #### [facility] [address] [place], [place] [address] Glucose [Mass/Vol] 99 70-99 mg/dL Normal 06-21-2019 [facility] (90239) Comment: Performed By: #### HA1C #### [facility] [address] [place], [place] [address] Urea nitrogen [Mass/Vol] 17 7-18 mg/dL Normal 06-21 [facility] (83984) Comment: Performed By: #### HA1C #### [facility] [address] [place], [place] [address] Chloride [Moles/Vol] 108 98-107 mEq/L High 9 [facility] (87444) Comment: Performed By: #### HA1C #### [facility] [address] [place], [place] [address] Potassium [Moles/Vol] 3.4 3.5-5.1 mEq/L Low 06-21-20 19 [facility] (01710) Comment: Performed By: #### HA1C #### [facility] [address] [place], [place] [address] Sodium [Moles/Vol] 139 136-145 mEq/L Normal 06-21-2019 [facility] (78533) Comment: Performed By: #### HA1C #### [facility] [address] [place] [address] progress on 2019-05 PROGRESS HNO ID: [id number] Normal 06-20-2019 [facility] Author: Leilani Suarez [facility] Service: Cardiovascular Medicine ([id number]) Author Type: Physician Type: Progress Notes Filed: 06/20/2019 5:40 PM Note Text: Cardiovascular Intensive Care Progress Note June 20, 2019 Patient Name : Leo Mc Patient Location: [id number]* Admission Date: 06/18/2019 Length of Stay: 2 [...] ordered. Signed: Ceci Navarro DO, PGY-1 Pager: [phone] Date: June 20, 2019 Time: 11:02 AM [...] minutes excl uding procedures. Leilani Tran MD, [facility] Cardiovascular Medicine Pager: [phone] June 20, 2019 plan of care on 201 07-03-26 PLAN OF CARE HNO ID: [id number] Normal 06-20-20 19 [facility] Author: Guan[facility] Service: Electrophysiology ([id number]) Author Type: Physician Type: Plan of Care Filed: 06/20/2019 6:44 PM Note Text: Leo Mc had a medtronic ICD implanted 02-27-2006 and the n in 01-26-2103 it was upgraded to a St. Ed CRTD by Dr. Esparza in [facility] and more recently followed by the device clinic in [place]. In December Mr. 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 ([id number]) Author Type: Pharmacist Type: Plan of Care [...] he is taking. Reconciliation completed? Yes All ENGINE MECHANIC medications addressed by LIP Additional comments: [...] Allergies: ALLERGIES No Known Allergies Preferred Pharmacy: [facility] ([phone]) Current ENGINE MECHANIC Medications: Prior to Admission medications as [...] carmen y at bedtime. No fill at [facility] since 12/2017 for a 30 day supply [...] mouth once kathy ly. No fill at [facility] since 2017 Evelia Sherman, Pharmacist June 20, 2019 3:45 PM hemogram/diff on 13-06-26 Abs Immature Grans 0.06 0.00-0.05 thou/cmm High 06-20-2019 [facility] (00 000) Comment: Performed By: #### HA1C #### [facility] [address] [place] [address] Abs Neut (ANC) 10.13 1.78-5.38 thou/cmm High 06-20-2019 [facility] (70438) Comment: Performed By: #### HA1C #### [facility] [address] [place], [place] [address] Abs. Baso 0.04 0.01-0.08 thou/cmm Normal 06-20-2019 [facility] (11115) Comment: Performed By: #### HA1C #### [facility] [address] [place], [place] [address] Abs. [place] 1.35 0.30-0.82 thou/cmm High 06-20-2019 [facility] (15867) Comment: Performed By: #### HA1C #### [facility] [address] [place], [place] [address] Basophils/100 WBC (Bld) 0.3 % Normal 2018 [facility] (32258) Comment: Performed By: #### HA1C #### [facility] [address] [place], [place] [address] Eosinophils (Bld) 0.24 0.04-0.54 thou/cmm Normal 06-20-2019 [facility] [#/Vol] [facility] (55082) Comment: Performed By: #### HA1C #### [facility] [address] [place], [place] [address] Eosinophils/100 WBC (Bld) 1.7 % Normal 05-27 [facility] (81459) Comment: Performed By: #### HA1C #### [facility] [address] [place], [place] [address] Immature Grans 0.40 % Normal 06-20-2019 [facility] (01548) Comment: Performed By: #### HA1C #### [facility] [address] [place], [place] [address] Lymphocytes (Bld) 2.51 0.84-2.85 thou/cmm Normal 06-20-2019 [facility] [#/Vol] [facility] (07290) Comment: Performed By: #### HA1C #### [facility] [address] [place], [place] [address] Lymphocytes/100 WBC (Bld) 17.5 % Normal 05-27 [facility] (41589) Comment: Performed By: #### HA1C #### [facility] [address] [place], [place] [address] Monocytes/100 WBC (Bld) 9.4 % Normal 2018 [facility] (60846) Comment: Performed By: #### HA1C #### [facility] [address] [place], [place] [address] Seg Neutrophil 70.7 % Normal 06-20-2019 [facility] (76966) Comment: Performed By: #### HA1C #### [facility] [address] [place], [place] [address] Erythrocyte distribution 13.2 11.6-14.4 % Normal 06-20 [facility] (RBC) [Ratio] System (86565) Comment: Performed By: #### HA1C #### [facility] [address] [place], [place] [address] Hematocrit (Bld) [Volume 38.8 40.1-51.0 % Low 06-20 [facility]] System (00 000) Comment: Performed By: #### HA1C #### [facility] [address] [place], [place] [address] Hemoglobin (Bld) [Mass/Vol] 13.1 13.7-17.5 g/dL Low [facility] (00 000) Comment: Performed By: #### HA1C #### [facility] [address] [place], [place] [address] MCH (RBC) [Entitic mass] 31.2 25.7-32.2 pg Normal 06-20 [facility] (00 000) Comment: Performed By: #### HA1C #### [facility] [address] [place], [place] [address] MCHC (RBC) [Mass/Vol] 33.8 32.3-36.5 % Normal 06-20-20 19 [facility] (90974) Comment: Performed By: #### HA1C #### [facility] [address] [place], [place] [address] MCV (RBC) [Entitic vol] 92.4 83.2-95.6 fl Normal 2018 [facility] (00 000) Comment: Performed By: #### HA1C #### [facility] [address] [place] [id number] Platelet mean volume (Bld) 11.1 8.7-12.0 fl Normal [facility] [Entitic vol] System (76657) Comment: Performed By: #### HA1C #### [facility] [address] [place] [id number] Platelets (Bld) [#/Vol] 123 141-365 thou/cmm Low 2018 [facility] (00 000) Comment: Performed By: #### HA1C #### [facility] [address] [place] [address] RBC (Bld) [#/Vol] 4.20 4.63-6.08 mil/cmm Low 06-20-2019 [facility] [employer] [facility] (87230) Comment: Performed By: #### HA1C #### [facility] [address] [place] [address] RDW SD 45.0 36.1-45.8 fl Normal 06-20-2019 [facility] (55816) Comment: Performed By: #### HA1C #### [facility] [address] [place] [id number] WBC (Bld) [#/Vol] 14.33 4.23-9.07 thou/cmm High 06-20-2019 [facility] [employer] [facility] (00 000) Comment: Performed By: #### HA1C #### [facility] [address] [place] [address] consult prog on 201 07-03-26 CONSULT PROG HNO ID: [id number] Normal 06-20-20 19 [facility] Author: Donald PrattStone Layer.[facility]) [facility] Service: Electrophysiology ([id number]) Author Type: Nurse Specialist Type: Consult Progress [...] Limited ROS due to mild disorientation AND [place]. Objective PHYSICAL EXAM: Body mass index is [...] pa cemaker/ICD placed 2012. Per chart at [place], Echo February 2017 with EF 20% , [...] generator changed). Hypokalemia: 2.8 on arrival to [place]; corrected to 4.7 tod ay. Continue to monitor. SIGNATURE: Donald Chatterjee APRN.CNS PATIENT NAME: Leo Mc DATE: June 20, 2019 TIME: 2:29 PM PAGER/CONTACT #: [phone] brief op not on 201 07-03-26 BRIEF OP NOT HNO ID: [id number] Normal 06-20-20 19 [facility] Author: [facility] Service: Interventional Cardiology ([id number]) Author Type: Physician Type: Brief Op Note Filed: 06/20/2019 11:28 AM Note Text: CARDIAC CATHETERIZATION REPORT PATIENT NAME: Leo Mc SERVICE DATE: 06/20/2019 SERVICE TIME: 11:24 AM Bargeman: Attending: Leilani Tran RECOMMENDATIONS: Continued medical therapy [...] [Mass/Vol] 1.49 0.67-1.17 mg/dL High 06-20-20 19 [facility] (00 000) Comment: Performed By: #### HA1C #### [address] [address] Glucose [Mass/Vol] 99 70-99 mg/dL Normal 06-20-2019 [facility] (52823) Comment: Performed By: #### HA1C #### [facility] [address] [place], [place] [address] Urea nitrogen [Mass/Vol] 23 7-18 mg/dL High 06-20 [facility] (47256) Comment: Performed By: #### HA1C #### [address] [address] Anion gap [Moles/Vol] 9 8-16 mmol/L Normal 06-20-20 19 [facility] (20468) Comment: Performed By: #### HA1C #### [facility] [address] [place], [place] [address] Calcium [Mass/Vol] 8.4 8.5-10.1 mg/dL Low 06-20-2019 [facility] (68153) Comment: Performed By: #### HA1C #### [facility] [address] [place], [place] [address] CO2 [Moles/Vol] 25 21-32 mEq/L Normal 06-20-2019 [facility] (14196) Comment: Performed By: #### HA1C #### [facility] [address] [place], [place] [address] Chloride [Moles/Vol] 109 98-107 mEq/L High 9 [facility] (93972) Comment: Performed By: #### HA1C #### [facility] [address] [place], [place] [address] Potassium [Moles/Vol] 3.7 3.5-5.1 mEq/L Normal 06-20-20 19 [facility] (15676) Comment: Performed By: #### HA1C #### [facility] [address] [place], [place] [address] Sodium [Moles/Vol] 139 136-145 mEq/L Normal 06-20-2019 [facility] (20883) Comment: Performed By: #### HA1C #### [facility] [address] [place], [place] [address] activated ptt on 13-06-26 aPTT Coag (Bld) [Time] 50.6 23.0-32.4 sec High 019 [facility] (06918) Comment: Result Comment: Unfractionat ed Heparin Therapeutic [...] AP TT reagent in use throughout the [facility]. Performed By: #### HA1C #### [facility] [address] [place], [place] [address] xr chest 1v frontal on 2019-06-19 XR CHEST 1V * * *Final Report* * * Normal 06-19 [facility] DATE OF EXAM: Jun 19 2019 11:25AM [facility] AKX [id number] - XR CHEST 1V FRONTAL / (42057) PROCEDURE REASON: Evaluate tube, line or lead [...] normal versus minimally enlarge d, but unchanged. Burlap Roll Coverer: [facility] Transcribe Date/Time: Jun 19 2019 11:38A Dictated by : DANIA BRUNSON MD This examination was interpreted and the report reviewed and electronically signed by: DANIA BRUNSON MD on Jun 19 2019 11:41AM EST urinalysis routine on 2019-06-19 Bacteria LM.HPF (Urine sed) 4+ None Abnormal [facility] [#/Area] (27593) Comment: Performed By: #### URIN2 ### # [facility] [address] [place] [address] Ep Cells Urine 0.6 0.0-5.0 /hpf Normal 06-19-2019 [facility] (78135) Comment: Performed By: #### URIN2 ### # [facility] [address] [place], [place] [address] Hyaline Cast 1.4 0.0-1.0 /lpf High 06-19-2019 [facility] [employer] System (61272) Comment: Performed By: #### URIN2 ### # [facility] [address] [place], [place] [address] RBC LM.HPF (Urine sed) 5.6 0.0-5.0 /hpf High 019 [facility] [#/Area] System (00 000) Comment: Performed By: #### URIN2 ### # [facility] [address] [place], [place] [address] WBC LM.HPF (Urine sed) 379.9 0.0-5.0 /hpf High 019 [facility] [#/Area] System (00 000) Comment: Performed By: #### URIN2 ### # [facility] [address] [place], [place] [address] Appearance (U) CLOUDY Normal 06-19-2019 [facility] (58192) Comment: Performed By: #### URIN2 ### # [facility] [address] [place], [place] [address] Bilirubin (U) NEGATIVE Negative mg/dL Normal 06-19-2019 [facility] [facility] [Mass/Vol] System (0 0000) Comment: Performed By: #### URIN2 ### # [facility] [address] [place], [place] [address] Color (U) YELLOW Normal 06-19-[address] [facility] [employer] System (07133) Comment: Performed By: #### URIN2 ### # [facility] [address] [place], [place] [address] Glucose Ql (U) NEGATIVE Negative Normal 06-19-2019 [facility] [employer] [facility] [employer] System (34332) Comment: Performed By: #### URIN2 ### # [facility] [address] [place], [place] [address] Hemoglobin,Urine MODERATE Negative Abnormal 06-19-2019 [facility] [employer] [facility] (37347) Comment: Performed By: #### URIN2 ### # [facility] [address] [place], [place] [address] Ketone Urine NEGATIVE Negative Normal 06-19-2019 [facility] (12176) Comment: Performed By: #### URIN2 ### # [facility] [address] [place], [place] [address] Leukocytes Esterase LARGE Negative Abnormal 06-19-2019 [facility] (21820) Comment: Performed By: #### URIN2 ### # [facility] [address] [place], [place] [address] Nitrites Urine NEGATIVE Negative Normal 06-19-2019 [facility] (32174) Comment: Performed By: #### URIN2 ### # [facility] [address] [place], [place] [address] pH (U) 5.5 5.0-8.0 [pH] Normal 06-19-2019 [facility] (99629) Comment: Performed By: #### URIN2 ### # [facility] [address] [place], [place] [address] Protein (U) [Mass/Vol] 100 Negative mg/dL Abnormal 019 [facility] (00 000) Comment: Performed By: #### URIN2 ### # [facility] [address] [place], [place] [address] Specific [place], Ur 1.018 1.005-1.030 Normal 019 [facility] (00 000) Comment: Performed By: #### URIN2 ### # [facility] [address] [place], [place] [address] Urobilinogen,Ur 0.2 0.2-1.0 EU/dL Normal 06-19-2019 [facility] (96635) Comment: Performed By: #### URIN2 ### # [facility] [address] [place], [place] [address] tsh, 3rd generation on 2019-06-19 TSH, 3rd generation 0.497 0.358-3.740 uIU/mL Normal 06-19-20 19 [facility] (00 000) Comment: Performed By: #### TSH3 #### [facility] [address] [place], [place] [address] troponin i on 06-19 Troponin I.cardiac 8.900 0.015-0.045 ng/ml Critically high [facility] [Mass/Vol] Health Sy stem (40727) Comment: Performed By: #### TSH3 #### [address] [address] Troponin I.cardiac 12.400 0.015-0.045 ng/ml Critically high [facility] [Mass/Vol] [facility] (95719) Comment: Performed By: #### TSH3 #### [place] [address] Troponin I.cardiac 12.000 0.015-0.045 ng/ml Critically high [place] [facility] [Mass/Vol] Health Sy [facility] (72414) Comment: Performed By: #### TSH3 #### [place] [address] Troponin I.cardiac 8.110 0.015-0.045 ng/ml Critically high [facility] [Mass/Vol] [employer] Sy stem (21478) Comment: Performed By: #### TROP #### [place] [address] protime on INR Coag (PPP) [Relative 1.05 0.90-1.30 {INR} Normal 06-19 [facility] [employer] time] System (00 000) Comment: Result Comment: Vitamin K An tagonist (VKA) Therapeutic Range: INR 2 to 3 (Target INR of 2.5) Note: For patients treated w ith VKA drugs, such as warfarin, the [employer] 2012 Guideline [...] INR o f 3) Note: Patients with dragline mechanic al aortic valve replacement and additional risk factors for thromboembolic events (atrial fibrillation, previous throm boembolism, LV dysfunction, hypercoagulable conditions) or an older generation mechanical AVR (i.e., ball in-Cage) or any mechanical MVR should have a INR therapeutic range of 2 .5 to 3.5 target INR of 3). Rox GH, et al. Chest 2012 ; 141:7S-47S Ellis RA, et al. [facility] 20 ; 70: 252-289 Performed By: #### TSH3 #### [facility] [address] [place], [place] [address] PT Coag (PPP) [Time] 10.9 9.7-13.0 sec Normal 9 [facility] (86919) Comment: Performed By: #### TSH3 #### [facility] [address] [place], [place] [address] progress on 2019-05 PROGRESS HNO ID: [id number] Normal 06-19-2019 [place] Author: Linda Gómez MD General Service: Cardiovascular Medicine Medical Author Type: Resident Center Type: Progress Notes ([id number]) Filed: 06/19/2019 3:17 PM Note Text: Attestation [...] ICD1 0: I50.22 4. Ventricular fibrillation, paroxysmal ([facility]) - ICD9: 427. 41, ICD10: I49.01 5. VT (ventricular tachycardia) ([facility]) - ICD9: 427.1, ICD10: I47.2 6. Implantable cardioverter-defibrillator (ICD) generator end of life - ICD9: V53.32, ICD10: Z45.02 7. Encounter for management of biventricular implantable cardioverter-defibrillator (ICD) - ICD9: V53.32, ICD10: Z45. 02 8. Ischemic cardiomyopathy - ICD9: 414.8, ICD10: I25.5 Porfirio Sanchez MD, [facility]. Pager # [phone] Cardiovascular Intensive Care Progress Note June 19, 2019 Patient Name: Leo Mc Patient Location: [id number] [id number]* Admission Date: 06/18/2019 Length of Stay: [...] 81 mg tab(s) 81 mg ORAL DAILY [facility] joe (ResFranchesca Smithabbaza, DO 81 mg [...] ordered. Signed: Linda Gómez MD, PGY-1 Pager: [phone] [facility] Date: June 19, 2019 Time: 12:01 PM Recommendations are not finalized until co-signed by Staff catherine chin. n-terminal pro-bnp on 2019-06-19 Natriuretic peptide B (Bld) 3857 pg/ml Normal [facility] [Mass/Vol] System (0 0000) Comment: Result Comment: Note new ref erence range: Normal Reference Range: Patients <75 yrs old <125pg/ ml Patients >=75 yrs old <450 p g/ml Performed By: #### PBNP #### [facility] [address] [place], [place] [address] magnesium blood on 2019-06-19 Magnesium [Mass/Vol] 1.8 1.6-2.6 mg/dL Normal 9 [facility] (75198) Comment: Performed By: #### MAG #### [facility] [address] [place], [place] [address] lipid profile on 13-06-25 Cholesterol in HDL [Mass/Vol] 28 >40 mg/dL Normal 06-19-2019 [facility] (00 000) Comment: Performed By: #### LIPD2 ### # [facility] [address] [place], [place] [address] Cholesterol in LDL [Mass/Vol] 110 mg/dL Normal 06-19-2019 [facility] (00 000) Comment: Result Comment: No CAD and w ith fewer than 2 CAD risk factors <160 mg/dL No CAD but with 2 or more CA D risk factors <130 mg/dL Definite CAD or other athero sclerotic disease <100 mg/dL Performed By: #### LIPD2 ### # [facility] [address] [place], [place] [address] Cholesterol in LDL/Cholesterol 3.9 1.1-4.8 Normal 06-19-2019 [facility] in HDL [Mass ratio] System (02430) Comment: Result Comment: LDL,VLDL,LDL /HDL, Invalid if Triglyceride >400 Performed By: #### LIPD2 ### # [facility] [address] [place], [place] [address] Cholesterol.total/Cholesterol in HDL 5.9 2.1-7.3 Nor mal 06-19-2019 [facility] [Mass ratio] [facility] (80742) Comment: Performed By: #### LIPD2 ### # [facility] [address] [place], [place] [address] Cholesterol in VLDL 26 <50 Desired mg/dL Normal 06-19-20 [facility] [Mass/Vol] System (0 0000) Comment: Performed By: #### LIPD2 ### # [facility] [address] [place], [place] [address] Triglyceride [Mass/Vol] 131 0-149 mg/dL Normal 2018 [facility] (55452) Comment: Result Comment: < 200 Desira ble Result invalid if not a fast ing specimen. Performed By: #### LIPD2 ### # [facility] [address] [place], [place] [address] Cholesterol [Mass/Vol] 164 0-199 mg/dL Normal 019 [facility] (47070) Comment: Result Comment: <200 Desirab le 200-240 Borderline >240 High Performed By: #### LIPD2 ### # [facility] [address] [place], [place] [address] history physical on 2019-06-19 HISTORY PHYSICAL HNO ID: [id number] Normal 05-27 [facility] Author: Porfirio Grossman [facility] Service: Cardiovascular Medicine ([id number]) Author Type: Physician Type: HANDP Filed: 06/19/2019 12:59 PM Note Text: CVICU HISTORY AND PHYSICAL SERVICE DATE: 06/18/2019 HPI: Per notes from [facility] as patient is an extremely p oor historian and reports he does not know what happened to him. Leo Mc is a 83 year old male, transfer from [facility] with PMH of HTN, HLD, renal [...] He is a currently 1ppd smoker. At [place] WBC 24.4, Hgb 15.8, Plt 188. INR 1.1. Na 140, K 2.8, Cl 103, CO2 26 Cr 1.84, eGFR 38, Glucose 143, Mg 2.0 Troponin 0.611. Cxr showe d no acute abnormality. He was started on an amiodarone bolus and gtt at [place]. He also received lovenox due to elevated [...] 19, 2019 TIME: 12:09 AM PAGER/CONTACT #: [phone] This patient was seen in conjunction with the resident staff . I have personally seen and examined the patient. I have reviewed la bs, clinical data and pertinent images. I have discussed the case with [facility]. I agree with the documentation, excepts as annotated. Critical Care Documentation: As delineated above, the patient has the following organ/sys tem impairment(s): ASSESSMENT/PLAN: 1. NSTEMI (non-ST elevated myocardial infarction) (HCC) - IC D9: 410.70, ICD10: I21.4 -Elevated troponins up to 12. The patient presented to [facility] after of VT arrest. He was resuscitated by EMS. Patient has a history of ICD which is at end of life. Has not gotten the defibrillato r changed. Patient was defibrillated by external means by the EMS at [facility]. Patient is currently pain-free. The because of EKG changes i t is suspected that progression of coronary disease is at hand. Patient has a history of LAD and RCA stents. I spoke with Dr. Soto from [facility] about the condition of the patient upon transfer. Care will be second cook and baker rdinated accordingly I have also discussed the [...] procedures. Porfirio Sanchez MD, FACC. Pager # [phone] hgb a1c on HbA1c (Bld) [Mass fraction] 5.8 4.2-6.3 % Normal [facility] (00 000) Comment: Result Comment: Method is Na tional Glycohemoglobin Standardization Program (NGSP) compliant. Performed By: #### HA1C #### [address], [place] [address] HbA1c (Bld) [Mass fraction] 120 mg/dl Normal [facility] (25968) Comment: Performed By: #### HA1C #### [facility] [address] [place] [address] hemogram/diff on 13-06-25 Abs Immature Grans 0.12 0.00-0.05 thou/cmm High 06-19-2019 [facility] (00 000) Comment: Performed By: #### CBCD1 ### # [facility] [address] [place] [address] Abs Neut (ANC) 15.60 1.78-5.38 thou/cmm High 06-19-2019 [facility] (35921) Comment: Performed By: #### CBCD1 ### # [place] [address] Abs. Baso 0.04 0.01-0.08 thou/cmm Normal 06-19-2019 [facility] (40390) Comment: Performed By: #### CBCD1 ### # [facility] [address] [place] [address] Abs. [place] 1.14 0.30-0.82 thou/cmm High 06-19-2019 [facility] (06031) Comment: Performed By: #### CBCD1 ### # [place] [address] Basophils/100 WBC (Bld) 0.2 % Normal 2018 [facility] (29829) Comment: Performed By: #### CBCD1 ### # [place] [address] Eosinophils (Bld) [#/Vol] 0.02 0.04-0.54 thou/cmm Low 05-27 [facility] (00 000) Comment: Performed By: #### CBCD1 ### # [place] [address] Eosinophils/100 WBC (Bld) 0.1 % Normal 05-27 [facility] (33749) Comment: Performed By: #### CBCD1 ### # [facility] [address] [place], [place] [address] Immature Grans 0.60 % Normal 06-19-2019 [facility] (62394) Comment: Performed By: #### CBCD1 ### # [facility] [address] [place], [place] [address] Lymphocytes (Bld) 2.46 0.84-2.85 thou/cmm Normal 06-19-2019 [facility] [#/Vol] Health Sys tem (26653) Comment: Performed By: #### CBCD1 ### # [facility] [address] [place], [place] [address] Lymphocytes/100 WBC (Bld) 12.7 % Normal 05-27 [facility] (54784) Comment: Performed By: #### CBCD1 ### # [facility] [address] [place], [place] [address] Monocytes/100 WBC (Bld) 5.9 % Normal 2018 [facility] (39459) Comment: Performed By: #### CBCD1 ### # [facility] [address] [place], [place] [address] Seg Neutrophil 80.5 % Normal 06-19-2019 [facility] (83739) Comment: Performed By: #### CBCD1 ### # [facility] [address] [place], [place] [address] Erythrocyte distribution 13.2 11.6-14.4 % Normal 06-19 [facility] width (RBC) [Ratio] System (77805) Comment: Performed By: #### CBCD1 ### # [facility] [address] [place], [place] [address] Hematocrit (Bld) [Volume 43.8 40.1-51.0 % Normal 06-19 [facility] fraction] System (00 000) Comment: Performed By: #### CBCD1 ### # [facility] [address] [place], [place] [address] Hemoglobin (Bld) 14.5 13.7-17.5 g/dL Normal 06-19-2019 [facility] [Mass/Vol] System (0 0000) Comment: Performed By: #### CBCD1 ### # [facility] [address] [place], [place] [address] MCH (RBC) [Entitic mass] 30.9 25.7-32.2 pg Normal 06-19 [facility] (00 000) Comment: Performed By: #### CBCD1 ### # [facility] [address] [place], [place] [address] MCHC (RBC) [Mass/Vol] 33.1 32.3-36.5 % Normal 06-19-20 19 [facility] (81893) Comment: Performed By: #### CBCD1 ### # [facility] [address] [place], [place] [address] MCV (RBC) [Entitic vol] 93.2 83.2-95.6 fl Normal 2018 [facility] (00 000) Comment: Performed By: #### CBCD1 ### # [facility] [address] [place], [place] [address] Platelet mean volume (Bld) 11.2 8.7-12.0 fl Normal [facility] [Entitic vol] System (44916) Comment: Performed By: #### CBCD1 ### # [facility] [address] [place], [place] [address] Platelets (Bld) [#/Vol] 143 141-365 thou/cmm Normal 2018 [facility] (00 000) Comment: Performed By: #### CBCD1 ### # [facility] [address] [place], [place] [address] RBC (Bld) [#/Vol] 4.70 4.63-6.08 mil/cmm Normal 06-19-2019 [facility] (00 000) Comment: Performed By: #### CBCD1 ### # [facility] [address] [place], [place] [address] RDW SD 45.2 36.1-45.8 fl Normal 06-19-2019 [facility] (34667) Comment: Performed By: #### CBCD1 ### # [facility] [address] [place], [place] [address] WBC (Bld) [#/Vol] 19.38 4.23-9.07 thou/cmm High 06-19-2019 [facility] () Comment: Performed By: #### CBCD1 ### # [facility] [address] [place], [place] [address] hemogram on 2019-05 Erythrocyte distribution 13.3 11.6-14.4 % Normal 06-19 [facility] Center width (RBC) [Ratio] System (89016) Comment: Performed By: #### TSH3 #### [facility] [address] [place] [address] Hematocrit (Bld) [Volume 40.1 40.1-51.0 % Normal 06-19 [facility]] System ( 000) Comment: Performed By: #### TSH3 #### [place] [address] Hemoglobin (Bld) [Mass/Vol] 13.2 13.7-17.5 g/dL Low [facility] ( 000) Comment: Performed By: #### TSH3 #### [facility] [address] [place] [address] MCH (RBC) [Entitic mass] 30.8 25.7-32.2 pg Normal 06-19 [facility] ( 000) Comment: Performed By: #### TSH3 #### [place] [address] MCHC (RBC) [Mass/Vol] 32.9 32.3-36.5 % Normal 06-19-20 19 [facility] ([address]79) Comment: Performed By: #### TSH3 #### [facility] [address] [place], [place] [address] MCV (RBC) [Entitic vol] 93.7 83.2-95.6 fl Normal 2018 [facility] ( 000) Comment: Performed By: #### TSH3 #### [place] [address] Platelet mean volume (Bld) 10.8 8.7-12.0 fl Normal [facility] [Entitic vol] System (66097) Comment: Performed By: #### TSH3 #### [facility] [address] [place] [id number] Platelets (Bld) [#/Vol] 125 141-365 thou/cmm Low 2018 [facility] System (00 000) Comment: Performed By: #### TSH3 #### [facility] [address] [place] [id number] RBC (Bld) [#/Vol] 4.28 4.63-6.08 mil/cmm Low 06-19-2019 [facility] ([address]60) Comment: Performed By: #### TSH3 #### [facility] [address] [place] [id number] RDW SD 46.0 36.1-45.8 fl High 06-19-2019 [facility] (16349) Comment: Performed By: #### TSH3 #### [facility] [address] [place] [id number] WBC (Bld) [#/Vol] 15.40 4.23-9.07 thou/cmm High 06-19-2019 A [facility] [employer] System (00 000) Comment: Performed By: #### TSH3 #### [facility] [address] [place] [id number] cult urine on 06-19 Cult Urine Test performed at [facility] Normal 06-19-2019 [facility] ORGANISM: *Escherichia coli (ID: 1) Health System 1,000-<5,000 CFU/ml For sensitivity repo rt see Date/ (94877) ORGANISM: *Klebsiella oxytoca (ID: 2) 50,000-99,000 CFU/ml For sensitivity report see Date/ ORGANISM: Normal Urogenital Valentina (ID: 3) 1,000-<5,000 CFU/ml Comment: Performed By: #### HA1C #### [facility] [address] [place] [address] Cult Urine Test performed at [facility] Normal 06-19-2019 [facility] ORGANISM: *Escherichia coli (ID: 1) System (96931) >100,000 CFU/ml CLSI breakpoints for therapy of [...] CFU/ml Comment: Performed By: #### HA1C #### [place] [address] consult on CONSULT HNO ID: [id number] Normal 06-19-2019 [facility] Author: Facundo [facility] Service: Electrophysiology (24018) Author Type: Physician Type: Consults Filed: 06/19/2019 11:58 AM Note Text: CONSULT NOTE SERVICE DATE: 06/19/2019 SERVICE TIME: 11:49 AM PHYSICIAN CONSULT (AK,AV,EU,FV,HL,FRANCISCO,MM,SP) Consult performed by: [facility]undo [facility] Consult ordered by: Rickie Busch Reason for consult: Ventricular fibrillation. PRIMARY CARE PHYSICIAN: DO Majo Hillman 83-year-old male with history of essential hypertension, cor onary disease, status post PCI to LAD in 2017, ischemic cardiomyopathy with severe LV systolic dysfunction, RBBB, status post SOLAR SALES SPECIALIST-D system implant ation at an outside institution in 2012 who presented to [facility] with confusion, developed ventricular fibrillation that required external defibrillation twice, was diagnosed with NSTEMI, treated wit h low molecular weight and then unfractionated heparin, as well as amiodarone, and transferred to [facility]. According to the records the patien t [...] available. Chest x-ray reveals presence of a SOLAR SALES SPECIALIST-D system, likely [facility]. [...] June 19, 2019 TIME: 11:49 AM PAGER: [phone] comprehensive panel on 2019-06-19 ALP [Catalytic activity/Vol] 71 45-117 U/L Normal 0 06-19-2019 [facility] (00 000) Comment: Performed By: #### P14 #### [facility] [address] [place], [place] [address] Bilirubin [Mass/Vol] 0.3 0.2-1.0 mg/dL Normal 9 [facility] (76344) Comment: Performed By: #### P14 #### [facility] [address] [place], [place] [address] Protein [Mass/Vol] 7.4 6.4-8.2 g/dL Normal 06-19-2019 [facility] (53686) Comment: Performed By: #### P14 #### [facility] [address] [place], [place] [address] ALT [Catalytic activity/Vol] 39 12-78 U/L Normal 0 06-19-2019 [facility] (00 000) Comment: Performed By: #### P14 #### [facility] [address] [place], [place] [address] AST [Catalytic activity/Vol] 68 15-37 U/L High 0 06-19-2019 [facility] (39952) Comment: Performed By: #### P14 #### [facility] [address] [place], [place] [address] Creatinine [Mass/Vol] 1.39 0.67-1.17 mg/dL High 06-19-20 19 [facility] (00 000) Comment: Performed By: #### P14 #### [facility] [address] [place], [place] [address] Albumin [Mass/Vol] 3.4 3.4-5.0 g/dL Normal 06-19-2019 [facility] (85249) Comment: Performed By: #### P14 #### [facility] [address] [place], [place] [address] Anion gap [Moles/Vol] 15 8-16 mmol/L Normal 06-19-20 19 [facility] (53112) Comment: Performed By: #### P14 #### [facility] [address] [place], [place] [address] CO2 [Moles/Vol] 23 21-32 mEq/L Normal 06-19-2019 [facility] (72870) Comment: Performed By: #### P14 #### [facility] [address] [place], [place] [address] Urea nitrogen [Mass/Vol] 26 7-18 mg/dL High 06-19 [facility] (17149) Comment: Performed By: #### P14 #### [facility] [address] [place], [place] [address] Calcium [Mass/Vol] 9.1 8.5-10.1 mg/dL Normal 06-19-2019 [facility] (67818) Comment: Performed By: #### P14 #### [facility] [address] [place], [place] [address] Glucose [Mass/Vol] 120 70-99 mg/dL High 06-19-2019 [facility] (97686) Comment: Performed By: #### P14 #### [facility] [address] [place], [place] [address] Chloride [Moles/Vol] 108 98-107 mEq/L High 9 [facility] (27539) Comment: Performed By: #### P14 #### [facility] [address] [place], [place] [address] Potassium [Moles/Vol] 4.0 3.5-5.1 mEq/L Normal 06-19-20 19 [facility] (85639) Comment: Performed By: #### P14 #### [facility] [address] [place], [place] [address] Sodium [Moles/Vol] 142 136-145 mEq/L Normal 06-19-2019 [facility] [employer] [facility] (58814) Comment: Performed By: #### P14 #### [facility] [address] [place], [place] [address] activated ptt on 13-06-25 aPTT Coag (Bld) [Time] 49.8 23.0-32.4 sec High [facility] (67265) Comment: Result Comment: Unfractionat ed Heparin Therapeutic [...] AP TT reagent in use throughout the [facility]. Performed By: #### TSH3 #### [address] [address] aPTT Coag (Bld) [Time] 58.8 23.0-32.4 sec High [facility] (97827) Comment: Result Comment: Unfractionat ed Heparin Therapeutic Ranges: Standard Heparin Nomogram: 53 to 78 seconds (anti-Xa le jluito of 0.3 to 0.7 U/mL) Low Dose/ACS Nomogram: 49 to 67 seconds (anti-Xa le julito of 0.2 to 0.5 U/mL) Stroke Treatment Nomogram: 49 to 67 seconds (anti-Xa le julito of 0.2 to 0.5 U/mL) Note: The APTT therapeutic r eugene has been determined for the current lot of laboratory AP TT reagent in use throughout the [facility]. Performed By: #### TSH3 #### [address] [address] aPTT Coag (Bld) [Time] 29.6 23.0-32.4 sec Normal [address] [place] [address] (00 000) Comment: Result Comment: Unfractionat ed [...] AP TT reagent in use throughout the [facility]. Performed By: #### TSH3 #### [facility] [address] [place] [address] hosp on 2019-06-18 HOSP Patient:Leo Mc Normal 06-18-20 [place] MRN: General Height:5' 10(1.778 m) Medical Weight:182 lb 8.7 oz (82.8 kg) Center Outpatient Medications as of 06/22/19: (96628) hydroCHLOROthiazide (HYDRODIURIL, ESIDRIX) 25 mg tablet losartan [...] Problem List: NSTEMI (non-ST elevated myocardial infarction) ([facility]) [I21.4] Ischemic cardiomyopathy [I25.5] Ventricular fibrillation, paroxysmal ([facility]) [I49.01] Nicotine use disorder, F17.2 [F17.200] Allergies: [...] 83 year old male, t rebekah from [facility] with PMH of HTN, HLD, renal [...] He is a currently 1ppd smoker. At [place] WBC 24.4, Hgb 15.8, Plt 188. INR 1.1. Na 140, K 2.8, C l 103, CO2 26 Cr 1.84, eGFR 38, Glucose 143, Mg 2.0 Troponin 0.611. Cxr showed no acute abnormality. He was started on an amiodarone bolus and gtt at [place]. He also received lovenox due to elevated [...] received 80 mg subq x 1 at [facility] -monitor hemodynamics SIGNATURE: Herson Ibanez DO PATIENT NAME: Leo Mc DATE: June 19, 2019 TIME: 12:09 AM PAGER/CONTACT #: [phone] This patient was seen in [facility], [...] by external means by the EMS at [place]. Patient is currently pain-fr ee. The because of EKG changes it is suspected that progression of coronary dise ase is at hand. Patient has a history of LAD and RCA stents. I spoke with Dr. Soto from [place] card iology about the condition of the [...] 35 minutes excluding procedures. Porfirio Sanchez MD, [facility]. Pager # [phone] Previous Version Facundo Cottrell MD 06/19/2019 11:58 [...] severe LV systolic dysfunction, RBBB, status post SOLAR SALES SPECIALIST-D system implantation at an outside institution in 2012 who pres ented to [facility] with confusion, developed ventricular fibrillation that required external defibrillati on twice, was diagnosed with NSTEMI, treat ed with low molecular weight and then unfractionated heparin, as well as amiodarone, and transferred to [facility]. Acc ording to the records the patient [...] available. Chest x-ray reveals presence of a SOLAR SALES SPECIALIST-D system, likely [facility]. One [...] June 19, 2019 TIME: 11:49 AM PAGER: [phone] Linda Gómez MD, 06/19/2019 3:17 PM Attested Attestation signed by Porfirio Sanchez at 06/21/2019 8:0 3 AM This patient was seen in [facility] with the resident staff, Nursing staff and Clinical Pharmacy. I have personally seen and examined the p atient. I have reviewed labs, clinical data and pertinent images. Arvin lynn discussed the case with the care team. I agree with the documentation, excepts as annotated. Clinical issues addressed on this visit: 1. NSTEMI (non-ST elevated myocardial in farction) ([facility]) - ICD9: 410.70, ICD10: I21.4 2. Cardiomyopathy, ischemic - ICD9: 414.8, ICD10: I25.5 3. Chronic systolic heart failure ([facility]) - ICD9: 428.22, ICD1 0: I50.22 4. Ventricular fibrillation, paroxysmal ([facility]) - ICD9: 427. 41, ICD10: I49.01 5. VT (ventricular tachycardia) ([facility]) - ICD9: 427.1, ICD10: I47.2 6. Implantable cardioverter-defibrillator (ICD) generator end of life - ICD9: V53.32, ICD10: Z45.02 7. Encounter for management of biventricular implantable cardioverter-defibrillator (ICD) - ICD9: V53.32, ICD10: Z45. 02 8. Ischemic cardiomyopathy - ICD9: 414.8, ICD10: I25.5 Porfirio Sanchez MD, [facility]. Pager # [phone] Cardiovascular Intensive Care Progress Note June 19, 2019 Patient Name: Leo Mc Patient Location: [id number]/A [facility]-323* Admission Date: 06/18/2019 Length of Stay: [...] subtherapeutic aptt results 1,000-4,000 Units INTRAVENOUS PRN Eirck Monzon Res D - potassium chloride 80-120 [...] ordered. Signed: Linda Gómez MD, PGY-1 Pager: [phone] [facility] Date: June 19, 2019 Time: 12:01 PM Recommendations are not finalized until co-signed by Staff catherine chin. Leilani Tran MD 06/20/2019 5:40 PM Addendum Cardiovascular Intensive Care Progress Note June 20, 2019 Patient Name: Leo Mc Patient Location: OF-[id number]/A [facility]-323* Admission Date: 06/18/2019 Length of Stay: [...] ordered. Signed: Ceci Navarro DO, PGY-1 Pager: [phone] Date: June 20, 2019 Time: 11:02 AM [...] 38 minutes excluding procedures. Leilani Tran MD, [facility] Cardiovascular Medicine Pager: [phone] June 20, 2019 Previous Version James Smith MD 06/20/2019 11:28 AM Signed CARDIAC CATHETERIZATION REPORT PATIENT NAME: Leo Mc SERVICE DATE: 06/20/2019 SERVICE TIME: 11:24 AM Bargeman: Attending: Leilani Tran RECOMMENDATIONS: Continued medical therapy [...] 20, 2019 TIME: 11:24 AM Donald Chatterjee APRN.ACTING MANAGER, ACTING MANAGER 06/20/2019 4:15 PM Signed PROGRESS NOTE ELECTROPHYSIOLOGY [...] Limited ROS due to mild disorientation AND [place]. Objective PHYSICAL EXAM: Body mass index is [...] Bi-Ventricular pacemaker/ICD placed 2012. Per chart at [place], Echo February 2017 with EF 20%, per [...] generator changed). Hypokalemia: 2.8 on arrival to [place]; corrected to 4.7 t maikel. Continue to monitor. 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 {Readmit:588891::No} Advance Directive: Current Advance Directive: None Alligator Shear Operator Attempted to Assist with AD Completion: Yes Action: Education Provided {CM Health Literacy REQUIRED IF PATIENT ABLE:543618} FUNCTIONAL AND COGNITIVE/BEHAVIORAL {PRIOR TO ADMISSION STATUS/EQUIPMENT:693771} Has the Patient Been in a Group Home Facility in the Past 30 days? {30 DAYS:308658} SOCIAL: Living Arrangement: {LIVING ARRANGEMENT:98275::Home} Lives With: {lives:164196} Financial Resources: {occupation:834441} Primary Contact: Extended Emergency Contact Information Primary Emergency Contact: JesusitaLoida solizyn Address: [address] [place] [address] [facility] Relation: Daughter Supportive: {YES/NO:479343::Yes} Other Important Patient Contacts: {Resources:97285} Caregiver Assessment: Caregiver is ready, willing and able to meet the patient's needs as recommended by the inter-professional team? {caregiver:589878} Patient's transition needs and plan for meeting these needs: Does the patient have an acu te stroke diagnosis, or has the patient had a stroke during this admission? {YES/NO:009148::Yes} {CM med adherence REQUIRED IF PATIENT ABLE:0171593} Are you interested in bedside delivery of your medications? {CM delivery yes/no:651333} Food Concerns: In the Last Month, Have You had Trouble Getting Food? {food:243944::No trouble getting food} During the Last Month, Have You Worried Whether Your Food Would Run Out Before You Had Enough Money to Buy More? {foodlist:755823::No} Is the Patient Psychosocially Complex? {CM yes:532460::No} ASSESSMENT AND PLAN: Medical Needs: {Medical Needs:073810} Psychosocial Needs: {psychosocial:772817::None} {REQUIRED ONLY FOR OB PATIENTS. SELECT BLANK IF N/A :110258: : } FREEDOM OF CHOICE EXPLAINED: { :911127} POTENTIAL TRANSITION PLANS {DC PLANS:52648::No Services Indicated} SIGNATURE: Orin Grady RN PATIENT NAME: Leo Mc DATE: June 20, 2019 TIME: 2:35 PM PAGER/CONTACT #: Evelia Sherman, Pharmacist 06/20/2019 3:53 PM Signed MEDICATION HISTORY AND MEDICATION RECONCILIATION Patient Name:Yarely Mc : 1935 Source of history:Patient: Reliability of source: apresh ent states he does not take care [...] he is taking. Reconciliation completed? Yes All ENGINE MECHANIC medications addressed by LIP Additional comments: [...] Allergies: ALLERGIES No Known Allergies Preferred Pharmacy: [facility] ([phone]) Current ENGINE MECHANIC Medications: Prior to Admission medications as [...] h daily at bedtime. No fill at [facility] since 12/2017 for a 30 day supply [...] mouth once kathy ly. No fill at [facility] since 2017 Evelia Sherman, Pharmacist June 20, 2019 3:45 PM Guanako Romero DO 06/20/2019 6:44 PM Signed Leo Mc had a medtroni c ICD implanted 02-27-2006 and then in 01-26-2103 it was upgraded to a [facility] [facility] CRTD by Dr. Esparza in [place] and more recently followed by the device clinic in [place] . In December Mr. 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 Brown and [...] 2019 Patient Name: Leo Mc Patient Location: [place] [address] [address]* Admission Date: 06/18/2019 Length of Stay: 3 [...] doesn't want to get a shock. [facility] and had a long discussion with Dr. Rmoero (EP) about replacing the g enerator. We [...] in put(s): VPH, VPC2, VPO2C, RESPHCO3, BASEX, A2VBSJWF, PH, PCO2, RESPHCO3, BASEX, U6NSNXWA in the last 168 hours. Invalid input(s): [...] ordered. Signed: Ceci Navarro DO PGY-1 Pager: [phone] Date: June 21, 2019 Time: 8:30 AM [...] AM Signed Report to 4100. Ayaka Chatterjee, TECHNICIAN'S HELPER.ACTING MANAGER, ACTING MANAGER 06/21/2019 4:09 PM Addendum PROGRESS NOTE ELECTROPHYSIOLOGY SERVICE SERVICE DATE: 06/21/2019 SERVICE TIME: 3:31 PM Subjective INTERIM HISTORY: Transferred out of [facility] this afternoon. No family at [...] dizziness and headaches. ROS limited due to [place] AND decreased memory. Objective PHYSICAL EXAM: Body [...] generator [facility] with 1.6 months battery [...] Bi-Ventricular pacemaker/ICD placed 2012. Per chart at [place], Echo February 2017 with EF 20%, per [...] admit. ? Hypokalemia: 2.8 on arrival to [place]; corrected to 4.7 on 06/20 AND today below normal 3.4. Will given K-Dur 40 meq toda y. Continue to monitor. On bactrim for UTI- watch for hyperkalemia. Check BMP AND Mg+ level in AM. SIGNATURE: Donald Chatterjee APRN.ACTING MANAGER PATIENT NAME: Leo Mc DATE: June 21, [...] decision. Guanako Romero DO progress notes on [facility] INTER[facility] Note OR Normal 01-19-[address] [facility] [employer] Architect ([id number] ) ed note on ED NOTE HNO ID: [id number] Normal 01-05-2018 [facility] Author: Jose M PrattRn) LUZ Bennett ([id number]) Service: Emergency Medicine Author Type: Registered Nurse Type: ED Notes Filed: 01/04/2018 10:51 PM Note Text: Patient leaves at this time for [facility] in stable c ondition. ED NOTE HNO ID: [id number] Normal 01-05-2018 [facility] Author: Jose M PrattRn) LUZ Bennett ([id number]) Service: Emergency Medicine Author Type: Registered Nurse Type: ED Notes Filed: 01/04/2018 10:45 PM Note Text: Samaritin care team here. Report to team. ed prov note on 201 05-28-12 ED PROV HNO ID: [id number]: Carla Normal 01-04-2018 [place] NOTE [place], DOService: Emergency Clinic MedicineAuthor Type: PhysicianType: ED [place] Provider NotesFiled: 01/05/2018 7:52 AMNote ([id number]) Text:ED Provider NotePatient Name: Leo McMRN: [id number] DATE: 01/04/18HistoryPatient presents with:Altered Level Of ConsciousnessHPI [...] mental status.History provided by: Patient and relativeLanguage spray painter helper used: NoMental Status ChangesPresenting symptoms: confusionSeverity: ModerateMost [...] results with family at bedside. They state [place] is [facility] he typically [facility] to.Time: 9[address] with Dr. Hernandez, hospitalist at [place], who is accepting foradmission. Lactic acid will be added.Encounter Diagnosis ICD-10-CM1. Altered mental status, unspecified altered mental status type R41.822. Urinary tract infection with hematuria, site unspecified N39.0 R31.93. Congestive heart failure, unspecified chronicity, unspecified heartfailure type ([facility]) I50.94. STACY (acute kidney injury) ([facility]) N17.9PlanThe [facility]: stableSIGNATURE: KACEY Schmidt Interpretation:RHYTHM: Normal sinus rhythm at 74 beats per minute and Pacemaker function,rhythms and complexes. Ventricular paced rhythmBiventricular pacemakerCOMPARED WITH PRIOR: None availableMorenoanna Gerard, 01/05/18 0752 ed note on ED NOTE HNO ID: [id number]: Oly Normal 01-04-2018 [facility] (RnSANCHO Camejoervice: [place] ([id number]) Emergency MedicineAuthor Type: Registered NurseType: ED NotesFiled: 01/04/2018 10:04 PMNote Text: Bed received at [facility], [place] [address], report number [id number], face sheet faxedto [phone], [facility] eta 30 minutes ED NOTE HNO ID: [id number] Normal 01-04-2018 [facility] Author: Jose M Bennett RN [place] ([id number]) Service: Emergency Medicine Author Type: Registered Nurse Type: ED Notes Filed: 01/04/2018 9:43 PM Note Text: Lactic Acid level drawn from left arm IV site. ED NOTE HNO ID: [id number] Normal 01-04-2018 [facility] Author: Jose M Bennett RN [place] ([id number]) Service: Emergency Medicine Author Type: Registered Nurse Type: ED Notes Filed: 01/04/2018 9:31 PM Note Text: 2nd set of Blood cultures drawn and sent. ED NOTE HNO ID: [id number] Normal 01-04-2018 [facility] Author: Oly Ferrera RN [place] ([id number]) Service: Emergency Medicine Author Type: Registered Nurse Type: ED Notes Filed: 01/04/2018 9:26 PM Note Text: Dr. Hernandez from [facility] called back and accepted pt. ED NOTE HNO ID: [id number] Normal 01-04-2018 [facility] Author: Jose M Bennett RN [place] ([id number]) Service: Emergency Medicine Author Type: Registered Nurse Type: ED Notes Filed: 01/04/2018 9:30 PM Note Text: 1st set of Blood cultures drawn and sent. ED NOTE HNO ID: [id number] Normal 01-04-2018 [facility] Author: Oly Ferrera RN [place] ([id number]) Service: Emergency Medicine Author Type: Registered Nurse Type: ED Notes Filed: 01/04/2018 9:08 PM Note Text: Spoke with Apolonia ESCOBAR truck shop supervisor from [facility] about possible transf er ED NOTE HNO ID: [id number] Normal 01-04-2018 [facility] Author: Jose M Bennett RN [place] ([id number]) Service: Emergency Medicine Author Type: Registered Nurse Type: ED Notes Filed: 01/04/2018 8:31 PM Note Text: CC Urine specimen obtained and sent. ED NOTE HNO ID: [id number] Normal 01-04-2018 [facility] Author: Jose M Bennett RN [place] ([id number]) Service: Emergency Medicine Author Type: Registered Nurse Type: ED Notes Filed: 01/04/2018 8:26 PM Note Text: Patient returned to the Emergency Department. ED NOTE HNO ID: [id number] Normal 01-04-2018 [facility] Author: Jose M Bennett RN [place] ([id number]) Service: Emergency Medicine Author Type: Registered Nurse Type: ED Notes Filed: 01/04/2018 8:02 PM Note Text: To radiology at this time. ED NOTE HNO ID: [id number]: Jose M Normal 01-04-2018 [facility] (SANCHO Casianoervice: Ander ([id number]) Emergency MedicineAuthor Type: Registered NurseType: ED NotesFiled: 01/04/2018 7:43 PMNote Text: Encouraged for UA. Unable to void at this time. Family at bedside. [place] speaking with family members x2 at this time. office visit on 201 05-04-17 Documentation of Done Invalid Interpretation 08-11-2017 - [facility] current medications Code 08-11-2017 Group ([id number]) (procedure) Fall risk assessment No Invalid Interpretat ion 08-11-2017 - [facility] Code 08-11-2017 Group ([id number]) office visit on 04-30-28 Documentation of Done Invalid Interpretation 04-22-2017 - [facility] current medications Code 04-22-2017 Group ([id number]) (procedure) Fall risk assessment No Invalid Interpretat ion 04-22-2017 - [facility] Code 04-22-2017 Group ([id number]) Protein mass conc Done 04-22-2017 - [facility] 04-22-2017 Group ([id number]) clinical lists update: preload on 2017-04-02 Tobacco smoking Former smoker 04-02-2017 - [facility] status NHIS 04-02-2017 Group ( [id number]) Tobacco use Former smoker Invalid 04-02-2017 - [facility] Interpretation Code 04-02-2017 Group ([id number]) clinical lists update: preload on 2017-03-27 Anion gap 9 mmol/L Invalid Interpretation 017 - [facility] Code 03-27-2017 Group ([id number]) Anion gap molar 9 mmol/L 03-27-2017 - [facility] conc 03-27-2017 Group ([id number]) BUN/Creatinine 15.1 mg/mg Invalid Interpretation - [facility] Ratio Code 03-27-2017 Group ([id number]) Calcium 8.4 mg/dL Low 03-27-2017 - [facility] 03-27-2017 Group ([id number]) Chloride 102 mmol/L Invalid Interpretation 017 - [facility] Code 03-27-2017 Group ([id number]) CO2 30 mmol/L Invalid Interpretation 017 - [facility] Code 03-27-2017 Group ([id number]) CO2 ppres (BldV) 30 mmol/L 03-27-2017 - [facility] 03-27-2017 Group ([id number]) Creatinine 1.72 mg/dL High 03-27-2017 - [facility] 03-27-2017 Group ([id number]) Glucose 88 mg/dL Invalid Interpretation 017 - [facility] Code 03-27-2017 Group ([id number]) Glucose mass conc 88 mg/dL Invalid Interpretation 03-27-2017 - [facility] Code 03-27-2017 Group ([id number]) Potassium 3.3 mmol/L Low 03-27-2017 - [facility] 03-27-2017 Group ([id number]) Sodium 141 mmol/L Invalid Interpretation 017 - [facility] Code 03-27-2017 Group ([id number]) Urea nitrogen 26 mg/dL High 03-27-2017 - [facility] 03-27-2017 Group ([id number]) clinical lists update: preload on 2017-03-26 Hematocrit (HCT) 37.0 % Low 03-26-2017 - 03-26-2017 [facility] ([id number]) Hematocrit Volume 37.0 % Low 03-26-2016 - 03-26-2017 [facility] Fraction (Bld) ([id number]) Hemoglobin (HGB) 12.6 g/dL Low 03-26-2016 - 03-26-2017 [facility] ([id number]) Platelets 147 10*3/mm3 Low 03-26-2016 - 017 [facility] ([id number]) Platelets #/vol (Bld) 147 10*3/mm3 Low 03-26-2003-26-2017 [facility] ([id number]) clinical lists update: preload on 2017-03-25 Cholesterol 135 mg/dL Invalid Interpretation 03-25 - [facility] Code 03-25-2017 Group ([id number]) HDL Cholesterol 28 mg/dL Invalid Interpretation 0 03-25-2017 - [facility] Code 03-25-2017 Group ([id number]) LDL Cholesterol 92 mg/dL Invalid Interpretation 0 03-25-2017 - [facility] Code 03-25-2017 Group ([id number]) Left ventricular 20 % Invalid Interpretation 03-25-2017 - [facility] Ejection fraction Code 03-25-2017 [facility] ([id number]) Triglyceride 76 mg/dL Invalid Interpretation 02-25 - [facility] Code 03-25-2017 Group ([id number]) Vital Signs Vital Sign Description Value / Unit Date Location The following section is limited to 5 en tries per type and includes entries from the following time range: [id number] - [id number] 7. BMI (Body Mass Index) 25.54 kg/m2 08-11-2017 - 08-11-2017 [facility] ([id number]) BMI (Body Mass Index) 25.9 kg/m2 04-22-2017 - 04-22-2017 [facility] ([id number]) BP Diastolic 60 mm[Hg] 08-11-2017 - 08-11-2017 [facility] ([id number]) BP Diastolic 60 mm[Hg] 04-22-2017 - 04-22-2017 [facility] ([id number]) BP Systolic 120 mm[Hg] 08-11-2017 - 08-11-2017 [facility] ([id number]) BP Systolic 100 mm[Hg] 04-22-2017 - 04-22-2017 [facility] ([id number]) Height 177.8 cm 08-11-2017 - 08-11-2017 [facility] ([id number]) Height 177.8 cm 04-22-2017 - 04-22-2017 [facility] ([id number]) Pulse (Heart Rate) 70 /min 08-11-2017 - 08-11-2017 [facility] ([id number]) Pulse (Heart Rate) 72 /min 04-22-2017 - 04-22-2017 [facility] ([id number]) Respiratory Rate 20 /min 08-11-2017 - 08-11-2017 [facility] ([id number]) Respiratory Rate 20 /min 04-22-2017 - 04-22-2017 [facility] ([id number]) Weight 80.74 kg 08-11-2017 - 08-11-2017 [facility] ([id number]) Weight 81.87 kg 04-22-2017 - 04-22-2017 [facility] ([id number]) Procedures Procedure Name Date Provider Location Electrocardiogram 06-19-2019 [facility] ([id number]) Electrocardiogram 06-19-2019 [facility] ([id number]) Prgrmg eval implantable in 08-24-2017 - Toan Soto MD [facility] person multi lead dfb 08-25-2017 ([id number]) Device Interrogation 08-11-2017 - [facility] 08-11-2017 ([id number]) Follow Up Appt 3 months 08-11-2017 - [facility] 08-11-2017 ([id number]) JHR 08-11-2017 - MD [facility] 08-11-2017 ([id number]) Device Interrogation 04-22-2017 - [facility] 08-11-2017 ([id number]) Follow Up Appt 3 months 04-22-2017 - Toan Soto MD [facility] 04-22-2017 ([id number]) [facility] 04-22-2017 - Toan Soto MD [facility] 04-22-2017 ([id number]) Follow Up Appt 3 months 04-22-2017 - Toan Soto MD [facility] 04-22-2017 ([id number]) [facility] 04-22-2017 - Toan Soto MD [facility] 04-22-2017 ([id number]) Implantation of internal 04-02-2017 [facility] cardiac defibrillator ([id number]) Placement of stent in coronary 04-02-2017 [facility] artery ([id number]) Plan of Treatment Plan Description Date Location Appointment Appointment 11-27-2017 - [facility] 11-27-2017 ([id number]) Appointment Appointment 11-12-2017 - [facility] 11-12-2017 ([id number]) Appointment no information 08-24-2017 - [facility] 08-24-2017 ([id number]) Follow Up Appt 3 months Follow Up Appt 3 months 08-24-2017 - [facility] 08-25-2017 ([id number]) Pacer Clinic Pacer Clinic 08-24-2017 - [facility] 08-25-2017 ([id number]) Device Interrogation Device Interrogation 08-11-2017 - [facility] 08-11-2017 ([id number]) Follow Up Appt 3 months Follow Up Appt 3 months 08-11-2017 - [facility] 08-11-2017 ([id number]) JHR JHR 08-11-2017 - [facility] 08-11-2017 ([id number]) Appointment Appointment 07-28-2017 - [facility] 07-28-2017 ([id number]) Device Interrogation Device Interrogation 04-22-2017 - [facility] 08-11-2017 ([id number]) Follow Up Appt 3 months Follow Up Appt 3 months 04-22-2017 - [facility] 04-22-2017 ([id number]) MMM MMM 04-22-2017 - [facility] 04-22-2017 ([id number]) Device Interrogation Device Interrogation 04-22-2017 - [facility] 04-22-2017 ([id number]) Follow Up Appt 3 months Follow Up Appt 3 months 04-22-2017 - [facility] 04-22-2017 ([id number]) MMM MMM 04-22-2017 - [facility] 04-22-2017 ([id number]) Appointment Appointment 04-03-2017 - [facility] 04-03-2017 ([id number]) Summary Purpose Family History No Family History [...] BE BASED ON THE PRIMARY CLINICAL RECORDS. [facility] provides no warranty or guarantee of the accuracy or completeness of information in this document. UNRECOGNIZED CONTENT PROVIDED BELOW FOR UNRECOGNIZED SECTION No Status Records FoundNo Status Records FoundNo Status Records FoundNo Status Records Found UNRECOGNIZED CONTENT PROVIDED BELOW FOR UNRECOGNIZED SECTION INFORMATION SOURCE DATE CREATED AUTHOR AUTHOR'S ORGANIZATIO N 04/16/2018 [facility] DATE CREATED AUTHOR AUTHOR'S ORGANIZATIO N 04/29/2018 [facility] DATE CREATED AUTHOR AUTHOR'S ORGANIZATIO N 06/26/2019 [facility] DATE CREATED AUTHOR AUTHOR'S ORGANIZATIO N 06/28/2019 [facility]
--- OUTSIDE RECORDS SUMMARY | 2020-08-07 12:53 | XMS RPT_ITS | CCD ---
:1935 External Reference #:[id number] Author Organization [facility] Care Team Providers Name Role Phone [...] rt TBEC One tablet by Group (44 039) mouth daily ASPIRIN [id number] Marianne Manzanares RN atorvastatin ATORVASTATIN CALCIUM 04-02-2017 [facility] 20 MG TABS One Group (08307) tablet by mouth every night ATORVASTATIN CALCIUM [id number] Toan Soto MD carvedilol COREG 3.125 MG TABS 04-02-2017 Alice Low RN [facility] One tablet by mouth Group (4 4688) twice daily CARVEDILOL [id number] Toan Soto MD clopidogrel CLOPIDOGREL 04-02-2017 [facility] BISULFATE 75 MG TABS Group ( 18563) One tablet by mouth daily CLOPIDOGREL BISULFATE [id number] Toan Soto MD furosemide FUROSEMIDE 40 MG 04-02-2017 Alice Sarmiento He art TABS One tablet by Group (44 691) mouth daily FUROSEMIDE [id number] Toan Soto MD lisinopril ZESTRIL 2.5 MG TABS 04-02-2017 - [facility] One tablet by mouth 04-22-2017 Group (4 4691) daily LISINOPRIL [id number] Toan Soto MD Losartan LOSARTAN POTASSIUM 04-22-[address] [facility] 25 MG TABS One Group (25651) tablet by mouth daily LOSARTAN POTASSIUM [id number] Toan Soto MD No information No information [place] [facility] available. available. Group (85167) Problems Category Problem Name Status Date Location Acute myocardial Myocardial infarction Active 10-26-1959 - [place] [facility] infarction Group (62706) Conduction disorders Presence of automatic Active 04-22-2017 - [place] [facility] (implantable) cardiac Group (81084) defibrillator Congestive heart failure; Congestive heart Active 10-26-1959 - [place] [facility] nonhypertensive failure Group (95118 ) Coronary atherosclerosis Generalized ischemic Active 04-02-20 17 - [place] [facility] and other heart disease myocardial dysfunction Group (95241) Disorders of lipid Hyperlipidemia Active [facility] metabolism Group (80221) Essential hypertension Hypertensive disorder Active [facility] [facility] Group (23884) Heart valve disorders Nonrheumatic tricuspid Active - [place] [facility] (valve) insufficiency Group (88970) Pulmonary heart disease Other secondary Active 04-02-2017 - [place] [facility] pulmonary hypertension Group (62488) Unclassified Implantation of Active 04-02-2017 - [place] [facility] internal cardiac Group (4469 1) defibrillator Unclassified Placement of stent in Active 04-02-2017 - [place] [facility] coronary artery Group (29257 ) Unclassified No current problems or Active [place] [facility] disability Group (71591) Results Result Name Value Range Unit Interpretation Flag Date Location therapy nt on 06-23 THERAPY NT HNO ID: [id number] Normal 06-23-2019 [facility] Author: Katarzyna Posada General Service: Physical Therapy Medical Author Type: Physical Therapist Center Type: Therapy (PT/OT/Speech/Resp) ([id number]) Filed: 06/23/2019 12:07 PM Note Text: Physical Therapy Evaluation SERVICE DATE: 06/23/2019 SERVICE TIME: 919 to 944 ROOM: [place] [address] Recommended Discharge Disposition: Home PT Anticipated Discharge [...] gait and mobility-other Interventions Provided: Evaluation;Gait Training (79679) $ Evaluation-Moderate (48730) Billed Units: 1 unit History and examination of body systems see assessment secti on above. This patient?s clinical presentation is evolving. The patient required a moderate complexity evaluation. Gait Training (43161) Treatment Minutes: 10 1 unit Skilled Intervention(s): [...] Dynamic Standing Dynamic Standing Balance: Minimal [facility]: Walk 25 feet or more Please see discipline specific clinical documentation [facility] for complete details for this therapy evaluation/treatment. SIGNATURE: Katarzyna Posada PT PATIENT NAME: Leo Mc DATE: June 23, 2019 TIME: 11:54 AM THERAPY NT HNO ID: [id number] Normal 06-23-2019 [place] Author: Saba Parada/Hemal Corona OT General Service: Occupational Therapy Medical Author Type: Occupational Therapist Center Type: Therapy (PT/OT/Speech/Resp) ([id number]) Filed: 06/23/2019 9:15 AM Note Text: Occupational Therapy Evaluation SERVICE DATE: 06/23/2019 SERVICE TIME: 0835 to 0900 ROOM: [id number] Recommended Discharge Disposition: Home OT Recommended Discharge [...] Cognitive Functions and Awareness Interventions Provided: Evaluation;Self Mcc Management (02387) $ Evaluation-Moderate (13593) Billed Units: 1 unit OT Evaluation Moderate [...] performance: Vfib, HTN, nicotine depe ndence Self Mcc Management (08284) Treatment Minutes: 9 1 unit Skilled Intervention(s): [...] ambulanc e Reason for Occupational Therapy Consult: ACQUISITION ADVISOR Relevant Past Medical History: Vfib Patient Report: [...] 9 Please see discipline specific clinical documentation [facility] for complete details for this therapy evaluation/treatment. SIGNATURE: DEBRA Terry/Leticia PATIENT NAME: Leo soliz DATE: June 23, 2019 TIME: 9:08 AM glucose meter on 13-06-29 Glucose [Mass/Vol] 106 70-99 mg/dL High 06-23-2019 [facility] (80002) Comment: Result Comment: RN NOTIFIED Performed By: #### TSH3 #### [facility] [address] [place] [id number] consult prog on 201 07-03-29 CONSULT PROG HNO ID: [id number] Normal 06-23-20 [facility] [place] Author: Donald (Esl Professor.[facility]) Sen [facility] Service: Electrophysiology ([id number]) Author Type: Nurse Specialist Type: Consult Progress Note Filed: 06/23/2019 3:53 PM Note Text: PROGRESS NOTE ELECTROPHYSIOLOGY SERVICE SERVICE DATE: 06/23/2019 SERVICE TIME: 3:29 PM Subjective INTERIM HISTORY: S/P ABALONE SHELLER-D generator change yesterday. Cuello ed to dual chamber pacemaker only (patient no longer wants defibrillato r). RV lead is non-functional so pacing ventricle per LV lead only AND RA l ead is pacing. Patient resting in bed. C/O soreness left upper chest incisi on area. Denies SOB, dizziness, palpitations. ROS limited due to RINCON AND poor memory. Denies SOB, di zziness, [...] pacemaker/ICD placed 2012. Per chart at [facility], Echo February 2017 with EF 20%, [...] stable. ? Hypokalemia: 2.8 on arrival to [place]; corrected to 4.7 o n 06/20 AND normal today at 3.6.Continue to monitor K+ as outpatient. ?On bactr im for UTI- watch for hyperkalemia. Discussed with Dr. Romero this AM. OK to discharge from the EP standpoint. Patient will follow up in [place] for his wound check AND device checks. ? SIGNATURE: Donald Chatterjee APRN.CNS PATIENT NAME: Leo Mc DATE: June 23, 2019 TIME: 3:29 PM PAGER/CONTACT #: [phone] case mgt init judies on 2019-06-23 CASE MGT INIT HNO ID: [id number] Normal 06-23- 019 [facility] Author: Carlos (Rn) [facility] Service: Care Management ([id number]) Author Type: Registered Nurse Type: Care Mgt Initial Assessment Filed: 06/23/2019 2:59 PM Note Text: CARE MANAGEMENT: ASSESSMENT AND DISCHARGE PLAN SERVICE DATE: 06/23/2019 SERVICE TIME: 1115 PRIMARY CARE PHYSICIAN: Ellis Quijano DO ADMISSION STATUS: Inpatient Needs Prior to Discharge: Home Care Order;To Be Determined 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 Health Issues Impacting Discharge Plan: V-Tach Last Discharge Date: 01/04/18 Is this Within the Past 30 days? No Advance Directive: Current Advance Directive: None In Chart: No Monitor Tech Attempted to Assist with AD Completion: Yes [...] Patient Currently Receive Any Community Services or Psychiatric hospital Care? None Equipment Prior to Admission: Tub bench/chair Walker Has the Patient Been in a [facility]itent[facility] 30 days? No SOCIAL: Living Arrangement: Home Lives With: Son and Yxgjrsyf-Hf-Pnl, and Grandson Financial Resources: Retired Primary Contact: Extended Emergency Contact Information Primary Emergency Contact: Tatianna Mc Address: [address] [place] [address] Relation: Daughter Supportive: Yes Other Important Patient [...] 0 I feel financially burdened by my vvr-mq-spefoz expenses for my prescription medication: Disagree mostly [...] bedside prior to D/C. Patient is from [facility] with Son, Jteqjkly-Rk-Ajk, and Grandson. Patient needs minimal assista nce BANKRUPTCY ATTORNEY. +Rx, +PCP, +DME, Family able to provide transport at D/C. [facility] will be following at D/C. SIGNATURE: Carlos Hart RN PATIENT NAME: Leo Mc DATE: June 23, 2019 TIME: 2:41 PM PAGER/CONTACT #: [phone] xr chest 1v frontal on 2019-06-22 XR CHEST 1V * * *Final Report* * * Normal 06-22 [facility] [place] [facility] FRONTAL DATE OF EXAM: Jun 22 2019 5:50[facility] 5290 - XR CHEST 1V FRONTAL / (99080) PROCEDURE REASON: Post-operative / post-procedure assessment , [...] at time of dictation as requ ested. Business Enterprise Officer: PSCB Transcribe Date/Time: Jun 22 2019 5:59P Dictated by : JESSICA ELIAS MD This examination was interpreted and the report reviewed and electronically signed by: JESSICA ELIAS MD on Jun 22 2019 6:01PM EST renal panel on 2018 Phosphate [Mass/Vol] 1.5 2.5-4.9 mg/dL Critically low 08- [facility] (00 000) Comment: Result Comment: RESULT RECHE CKED Performed By: #### HA1C #### [facility] [address] [place], [place] [address] Creatinine [Mass/Vol] 1.29 0.67-1.17 mg/dL High 06-22-20 [facility] (00 000) Comment: Performed By: #### HA1C #### [facility] [address] [place], [place] [address] Albumin [Mass/Vol] 2.9 3.4-5.0 g/dL Low 06-22-2019 [facility] (05113) Comment: Performed By: #### HA1C #### [facility] [address] [place], [place] [address] Anion gap [Moles/Vol] 9 8-16 mmol/L Normal 06-22-20 [facility] (41897) Comment: Performed By: #### HA1C #### [facility] [address] [place], [place] [address] Calcium [Mass/Vol] 7.5 8.5-10.1 mg/dL Low 06-22-2019 [facility] (27146) Comment: Performed By: #### HA1C #### [facility] [address] [place], [place] [address] CO2 [Moles/Vol] 26 21-32 mEq/L Normal 06-22-2019 [facility] (22566) Comment: Performed By: #### HA1C #### [facility] [address] [place], [place] [address] Glucose [Mass/Vol] 93 70-99 mg/dL Normal 06-22-2019 [facility] (72567) Comment: Performed By: #### HA1C #### [facility] [address] [place], [place] [address] Urea nitrogen [Mass/Vol] 15 7-18 mg/dL Normal 06-22 [facility] (13675) Comment: Performed By: #### HA1C #### [facility] [address] [place], [place] [address] Chloride [Moles/Vol] 110 98-107 mEq/L High 9 [facility] (33048) Comment: Performed By: #### HA1C #### [facility] [address] [place], [place] [address] Potassium [Moles/Vol] 3.6 3.5-5.1 mEq/L Normal 06-22-20 19 [facility] (05544) Comment: Performed By: #### HA1C #### [facility] [address] [place], [place] [address] Sodium [Moles/Vol] 141 136-145 mEq/L Normal 06-22-2019 [facility] (40067) Comment: Performed By: #### HA1C #### [facility] [address] [place] [id number] progress on 2019-05 PROGRESS HNO ID: [id number] Normal 06-22-2019 [facility] Author: Guanako Burch [facility] ([id number]) Service: Electrophysiology Author Type: Physician Type: Progress [...] follow up with Dr. Soto and the [facility] device clinic. His senior care prognosis is poor. If no new issues or complications, I would anticipate he can be discharged in am . Guanako Romero, DO PROGRESS HNO ID: [id number] Normal 06-22-2019 [facility] Author: James Kaye [facility] ([id number]) Service: Hospital Medicine Author Type: Physician Type: Progress Notes Filed: 06/22/2019 2:41 PM Note Text: DEPARTMENT OF HOSPITAL MEDICINE PROGRESS NOTE SERVICE DATE: 06/22/2019 SERVICE TIME: 2:36 PM Hospital Medicine/Primary Attending: James Kaye MD NIGHT AND WEEKEND COVERAGE: After 7pm please page [phone] CHIEF COMPLAINT: VT SUBJECTIVE: Patient is feeling [...] lb 8.7 oz (82.8kg) SpO2 94% B CT 26.19 kg/(m2). O2 Therapy: Room Air General [...] systolic function of 25%. 3. Non-ST elevation CT. Tolerated procedures well and is rec overing well so far. 4. Hypophosphatemia. He will be getting intravenous K-Phos. VTE Prophylaxis: Pneumatic Compression Device Disposition: Home Plan of care discussed with: Patient SIGNATURE: James Kaye MD PATIENT NAME: Leo Mc DATE: June 22, 2019 TIME: 2:36 PM PAGER/CONTACT #: [phone] plan of care on 201 07-03-28 PLAN OF CARE HNO ID: [id number] Normal 06-22-20 19 [facility] [place] Author: Guanako Burch [facility] Service: Electrophysiology ([id number]) Author Type: Physician Type: Plan of Care Filed: 06/22/2019 9:18 AM Note Text: As previously noted had a long discussion with Leo and his family about options for management of his CRTD that is EOL. Leo has si gnificant memory impairment and did want his family to participate in decision process. He and his family designated his grandson Leo as my veterans contact representative. They discussed and determined that they did [...] Heal th (S/P/Bld) [Vol Syste m rate/Area] (95881) Comment: Result Comment: If the patie nt is , multiply the result by 1.210. Performed By: #### GFR #### [place] [address] magnesium blood on 2019-06-22 Magnesium [Mass/Vol] 1.8 1.6-2.6 mg/dL Normal 9 [facility] (68219) Comment: Performed By: #### HA1C #### [place] [address] anes preop on 06-22 ANES PREOP HNO ID: [id number] Normal 06-22-2019 [facility] [place] Author: Herson [facility] Service: Anesthesiology ([id number]) Author Type: Physician Type: Anesthesia PreOp Filed: 06/22/2019 3:19 PM Note Text: ANESTHESIOLOGY DAY OF SURGERY NOTE SERVICE DATE: 06/22/2019 SERVICE TIME: 3:18 PM : 1935 Procedure(s) (LRB): (GENERATOR CHANGE MULTI CHAMBER ABALONE SHELLER-PPM) REMOVAL OF PERMANEN T PACEMAKER PULSE GENERATOR [...] PROBLEM LIST Nstemi (Non-St Elevated Myocardial Infarction) ([facility]) Ischemic Cardiomyopathy Ventricular Fibrillation, Paroxysmal ([facility]) Nicotine use disorder, F17.2 PAST MEDICAL HISTORY Diagnosis Date - CAD (coronary artery disease), crow coronary artery Stents LAD AND RCA - Cardiac arrest with ventricular fibrillation ([facility]) 019 - HTN (hypertension) - Hyperlipidemia - Ischemic cardiomyopathy - Nonrheumatic mitral (valve) insufficiency - Nonrheumatic tricuspid (valve) insufficiency - NSTEMI (non-ST elevated myocardial infarction) ([facility]) 06/18 - Old CT (myocardial infarction) - Other secondary pulmonary hypertension ([facility]) - Paroxysmal atrial fibrillation ([facility]) 06/18/2019 - Renal insufficiency - S/P ICD (internal cardiac defibrillator) procedure - Systolic heart failure, chronic ([facility]) PAST SURGICAL HISTORY Procedure Laterality Date - [...] tab(s) (LASIX) 20 mg ORAL DAILY Donald (Esl Professor.Pipe Covering Molder) Sen, LASER PRINTING OPERATOR 20 mg at 06/22/19915 - [MAR Hold due to Transfer] amiodarone 400 mg tab(s) (PACER ONE) 400 mg ORAL BID Donald (Esl Professor.Pipe Covering Molder) Sen, LASER PRINTING OPERATOR 400 mg at 06/22/19915 - [MAR Hold [...] June 22, 2019 TIME: 3:18 PM CSN: [id number] anes post on 06-22 ANES POST HNO ID: [id number] Normal 06-22-2019 [facility] Author: Herson Shields [facility] ([id number]) Service: Anesthesiology Author Type: Physician Type: Anesthesia [...] 22, 2019 TIME: 3:48 PM PAGER/CONTACT #: [phone] progress on 2019-05 PROGRESS HNO ID: [id number] Normal 06-21-2019 [facility] Author: Leilani Suarez [facility] Service: Cardiovascular Medicine ([id number]) Author Type: Physician Type: Progress Notes Filed: 06/21/2019 11:09 AM Note Text: Cardiovascular Intensive Care Progress Note June 21, 2019 Patient Name: Leo Mc Patient Location: [id number] [id number]* Admission Date: 06/18/2019 Length of Stay: 3 [...] input(s): VPH, VPC2, VPO2C, RESPHC O3, BASEX, Q4OOVHYK, PH, PCO2, RESPHCO3, BASEX, S8VXISDJ in the last 16 8 hours. Invalid [...] and unable to make complex decisions. The [facility] is involved in a discussion with Dr. Romero. They will decide today. -Patient on cardiac telemetry. ? UTI- -Patient initiated on ceftriaxone. -Urine culture ordered. Signed: Ceci Navarro DO PGY-1 Pager: [phone] Date: June 21, 2019 Time: 8:30 AM [...] place. The patien t presented to the [facility] with confusion. He developed ventricula r [...] on 201 07-03-27 NURSING PROG HNO ID: [id number] Normal 06-21-20 [facility] Author: Lizz PrattRn) LUZ Venegas [facility] ([id number]) Service: Nursing Author Type: Registered Nurse Type: Nursing Progress Note Filed: 06/21/2019 11:22 AM Note Text: Report to 4100. Ayaka Armstrong hemogram on 2019-05 Erythrocyte distribution 13.2 11.6-14.4 % Normal 06-21 [facility] width (RBC) [Ratio] System (86643) Comment: Performed By: #### HA1C #### [facility] [address] [place], [place] [address] Hematocrit (Bld) [Volume 39.6 40.1-51.0 % Low 06-21 [facility]] System (00 000) Comment: Performed By: #### HA1C #### [facility] [address] [place], [place] [address] Hemoglobin (Bld) [Mass/Vol] 13.3 13.7-17.5 g/dL Low [facility] System (00 000) Comment: Performed By: #### HA1C #### [facility] [address] [place], [place] [address] MCH (RBC) [Entitic mass] 31.1 25.7-32.2 pg Normal 06-21 [facility] (00 000) Comment: Performed By: #### HA1C #### [facility] [address] [place], [place] [address] MCHC (RBC) [Mass/Vol] 33.6 32.3-36.5 % Normal 06-21-20 19 [facility] (65070) Comment: Performed By: #### HA1C #### [facility] [address] [place], [place] [address] MCV (RBC) [Entitic vol] 92.5 83.2-95.6 fl Normal 2018 [facility] (00 000) Comment: Performed By: #### HA1C #### [facility] [address] [place] [id number] Platelet mean volume (Bld) 11.2 8.7-12.0 fl Normal [place] [facility] [Entitic vol] System (14033) Comment: Performed By: #### HA1C #### [facility] [address] [place], [place] [address] Platelets (Bld) [#/Vol] 126 141-365 thou/cmm Low 2018 [facility] (00 000) Comment: Performed By: #### HA1C #### [facility] [address] [place] [id number] RBC (Bld) [#/Vol] 4.28 4.63-6.08 mil/cmm Low 06-21-2019 [employer] [facility] [employer] [facility] (28192) Comment: Performed By: #### HA1C #### [facility] [address] [place] [id number] RDW SD 45.1 36.1-45.8 fl Normal 06-21-2019 [place] [facility] (61129) Comment: Performed By: #### HA1C #### [facility] [address] [place], [place] [address] WBC (Bld) [#/Vol] 9.15 4.23-9.07 thou/cmm High 06-21-2019 [employer] [facility] [employer] [facility] (73959) Comment: Performed By: #### HA1C #### [facility] [address] [place] [id number] consult prog on 201 07-03-27 CONSULT PROG HNO ID: [id number] Normal 06-21-20 19 [facility] [place] Author: Donald Moellern.Pipe Covering Molder) Sen LASER PRINTING OPERATOR [facility] Service: Electrophysiology ([id number]) Author Type: Nurse Specialist Type: Consult Progress [...] dizziness and headaches. ROS limited due to RINCON AND decreased memory. Objective PHYSICAL EXAM: Body [...] LUNGS: Scattered fine crackles AND expiratory wheezes knowledge architect iorly. Respirations unlabored at rest. No cough [...] lar pacemaker/ICD placed 2012. Per chart at [place], Echo March 14 with EF 20%, per [...] admit. ? Hypokalemia: 2.8 on arrival to [place]; corrected to 4.7 on 06/20 AND today below normal 3.4. Will given K-Dur 40 meq today. Continue to monitor. On bactrim for UTI- watch for hyperkalemia. Check BMP AND Mg+ level in AM. SIGNATURE: Donald Chatterjee APRN.LASER PRINTING OPERATOR PATIENT NAME: Leo Mc DATE: June 21, 2019 TIME: 3:31 PM PAGER/CONTACT #: [phone] basic panel on 2018 Creatinine [Mass/Vol] 1.29 0.67-1.17 mg/dL High 06-21-20 19 [facility] [facility] [email or web address] (00 000) Comment: Performed By: #### HA1C #### [facility] [address] [place], [place] [address] Anion gap [Moles/Vol] 6 8-16 mmol/L Low 06-21-20 19 [facility] (82320) Comment: Performed By: #### HA1C #### [facility] [address] [place], [place] [address] Calcium [Mass/Vol] 8.3 8.5-10.1 mg/dL Low 06-21-2019 [facility] (27244) Comment: Performed By: #### HA1C #### [facility] [address] [place], [place] [address] CO2 [Moles/Vol] 28 21-32 mEq/L Normal 06-21-2019 [facility] (32814) Comment: Performed By: #### HA1C #### [facility] [address] [place], [place] [address] Glucose [Mass/Vol] 99 70-99 mg/dL Normal 06-21-2019 [facility] (76680) Comment: Performed By: #### HA1C #### [facility] [address] [place], [place] [address] Urea nitrogen [Mass/Vol] 17 7-18 mg/dL Normal 06-21 [facility] (98749) Comment: Performed By: #### HA1C #### [facility] [address] [place], [place] [address] Chloride [Moles/Vol] 108 98-107 mEq/L High 9 [facility] (09953) Comment: Performed By: #### HA1C #### [facility] [address] [place], [place] [address] Potassium [Moles/Vol] 3.4 3.5-5.1 mEq/L Low 06-21-20 19 [facility] (09367) Comment: Performed By: #### HA1C #### [facility] [address] [place], [place] [address] Sodium [Moles/Vol] 139 136-145 mEq/L Normal 06-21-2019 [facility] (92236) Comment: Performed By: #### HA1C #### [facility] [address] [place] [address] progress on 2019-05 PROGRESS HNO ID: [id number] Normal 06-20-2019 [facility] [place] Author: Leilani Suarez [facility] Service: Cardiovascular Medicine ([id number]) Author Type: Physician Type: Progress Notes Filed: 06/20/2019 5:40 PM Note Text: Cardiovascular Intensive Care Progress Note June 20, 2019 Patient Name : Leo Mc Patient Location: [id number]* Admission Date: 06/18/2019 Length of Stay: 2 [...] ordered. Signed: Ceci Navarro DO, PGY-1 Pager: [phone] Date: June 20, 2019 Time: 11:02 AM [...] place. The patien t presented to the [facility] with confusion. He developed ventricula r [...] minutes excl uding procedures. Leilani Tran MD, [facility] Cardiovascular Medicine Pager: [phone] June 20, 2019 plan of care on 201 07-03-26 PLAN OF CARE HNO ID: [id number] Normal 06-20-20 19 [facility] Author: Guan[facility] Service: Electrophysiology ([id number]) Author Type: Physician Type: Plan of Care Filed: 06/20/2019 6:44 PM Note Text: Leo Mc had a medtronic ICD implanted 02-27-2006 and the n in 01-26-2103 it was upgraded to a [facility]. Ed CRTD by Dr. Esparza in [facility] and more recently followed by the device clinic in [place]. In December Mr. Mc was noted to [...] k and presented to the ED in [place] with sustained VT not treated by his [...] (the family indicated that Leo is our veterans contact representative) confirm that he did not want his [...] Romero, DO PLAN OF CARE HNO ID: [id number] Normal 06-20-20 [facility] Author: Evelia Sherman (Pharmacist) [facility] Service: ? ([id number]) Author Type: Pharmacist Type: Plan of Care [...] he is taking. Reconciliation completed? Yes All BANKRUPTCY ATTORNEY medications addressed by LIP Additional comments: No [...] Allergies: ALLERGIES No Known Allergies Preferred Pharmacy: [facility] pharmacy ([phone]) Current BANKRUPTCY ATTORNEY Medications: Prior to Admission medications as of [...] carmen y at bedtime. No fill at [facility] since 12/2017 for a 30 day supply [...] mouth once kathy ly. No fill at [facility] since 2017 Evelia Sherman, Pharmacist June 20, 2019 3:45 PM hemogram/diff on 13-06-26 Abs Immature Grans 0.06 0.00-0.05 thou/cmm High 06-20-2019 [facility] (00 000) Comment: Performed By: #### HA1C #### [facility] [address] [place] [address] Abs Neut (ANC) 10.13 1.78-5.38 thou/cmm High 06-20-2019 [facility] (44062) Comment: Performed By: #### HA1C #### [facility] [address] [place], [place] [address] Abs. Baso 0.04 0.01-0.08 thou/cmm Normal 06-20-2019 [facility] (25958) Comment: Performed By: #### HA1C #### [facility] [address] [place], [place] [address] Abs. Concordia 1.35 0.30-0.82 thou/cmm High 06-20-2019 [facility] (82783) Comment: Performed By: #### HA1C #### [facility] [address] [place], [place] [address] Basophils/100 WBC (Bld) 0.3 % Normal 2018 [facility] (24885) Comment: Performed By: #### HA1C #### [facility] [address] [place], [place] [address] Eosinophils (Bld) 0.24 0.04-0.54 thou/cmm Normal 06-20-2019 [facility] [#/Vol] Health Sys tem (65245) Comment: Performed By: #### HA1C #### [facility] [address] [place], [place] [address] Eosinophils/100 WBC (Bld) 1.7 % Normal 05-27 [facility] (92493) Comment: Performed By: #### HA1C #### [facility] [address] [place], [place] [address] Immature Grans 0.40 % Normal 06-20-2019 [facility] (36363) Comment: Performed By: #### HA1C #### [facility] [address] [place], [place] [address] Lymphocytes (Bld) 2.51 0.84-2.85 thou/cmm Normal 06-20-2019 [facility] [#/Vol] [facility] (52879) Comment: Performed By: #### HA1C #### [facility] [address] [place], [place] [address] Lymphocytes/100 WBC (Bld) 17.5 % Normal 05-27 [facility] (19941) Comment: Performed By: #### HA1C #### [facility] [address] [place], [place] [address] Monocytes/100 WBC (Bld) 9.4 % Normal 2018 [facility] (61315) Comment: Performed By: #### HA1C #### [facility] [address] [place], [place] [address] Seg Neutrophil 70.7 % Normal 06-20-2019 [facility] (83473) Comment: Performed By: #### HA1C #### [facility] [address] [place], [place] [address] Erythrocyte distribution 13.2 11.6-14.4 % Normal 06-20 [facility] (RBC) [Ratio] System (10572) Comment: Performed By: #### HA1C #### [facility] [address] [place], [place] [address] Hematocrit (Bld) [Volume 38.8 40.1-51.0 % Low 06-20 [facility]] System (00 000) Comment: Performed By: #### HA1C #### [facility] [address] [place], [place] [address] Hemoglobin (Bld) [Mass/Vol] 13.1 13.7-17.5 g/dL Low [facility] (00 000) Comment: Performed By: #### HA1C #### [facility] [address] [place], [place] [address] MCH (RBC) [Entitic mass] 31.2 25.7-32.2 pg Normal 06-20 [facility] (00 000) Comment: Performed By: #### HA1C #### [facility] [address] [place], [place] [address] MCHC (RBC) [Mass/Vol] 33.8 32.3-36.5 % Normal 06-20-20 19 [facility] (54101) Comment: Performed By: #### HA1C #### [facility] [address] [place], [place] [address] MCV (RBC) [Entitic vol] 92.4 83.2-95.6 fl Normal 2018 [facility] (00 000) Comment: Performed By: #### HA1C #### [facility] [address] [place] [id number] Platelet mean volume (Bld) 11.1 8.7-12.0 fl Normal [facility] [Entitic vol] System (41941) Comment: Performed By: #### HA1C #### [facility] [address] [place] [id number] Platelets (Bld) [#/Vol] 123 141-365 thou/cmm Low 2018 [facility] (00 000) Comment: Performed By: #### HA1C #### [facility] [address] [place] [address] RBC (Bld) [#/Vol] 4.20 4.63-6.08 mil/cmm Low 06-20-2019 [facility] [employer] [facility] (76388) Comment: Performed By: #### HA1C #### [facility] [address] [place] [address] RDW SD 45.0 36.1-45.8 fl Normal 06-20-2019 [facility] (59526) Comment: Performed By: #### HA1C #### [facility] [address] [place] [id number] WBC (Bld) [#/Vol] 14.33 4.23-9.07 thou/cmm High 06-20-2019 [facility] [employer] [facility] (00 000) Comment: Performed By: #### HA1C #### [facility] [address] [place] [address] consult prog on 201 07-03-26 CONSULT PROG HNO ID: [id number] Normal 06-20-20 19 [facility] [place] Author: Donald PrattEsl Professor.[facility]) [facility] Service: Electrophysiology ([id number]) Author Type: Nurse Specialist Type: Consult Progress [...] Limited ROS due to mild disorientation AND RINCON. Objective PHYSICAL EXAM: Body mass index is [...] pa cemaker/ICD placed 2012. Per chart at [place], Echo February 2017 with EF 20% , [...] generator changed). Hypokalemia: 2.8 on arrival to [place]; corrected to 4.7 tod ay. Continue to monitor. SIGNATURE: Donald Chatterjee APRN.CNS PATIENT NAME: Leo Mc DATE: June 20, 2019 TIME: 2:29 PM PAGER/CONTACT #: [phone] brief op not on 201 07-03-26 BRIEF OP NOT HNO ID: [id number] Normal 06-20-20 19 [facility] Author: James Burch [facility] Service: Interventional Cardiology ([id number]) Author Type: Physician Type: Brief Op Note Filed: 06/20/2019 11:28 AM Note Text: CARDIAC CATHETERIZATION REPORT PATIENT NAME: Leo Mc SERVICE DATE: 06/20/2019 SERVICE TIME: 11:24 AM Engineering Faculty Member: Attending: Leilani Tran RECOMMENDATIONS: Continued medical therapy [...] [Mass/Vol] 1.49 0.67-1.17 mg/dL High 06-20-20 19 [facility] (00 000) Comment: Performed By: #### HA1C #### [address] [address] Glucose [Mass/Vol] 99 70-99 mg/dL Normal 06-20-2019 [facility] (01986) Comment: Performed By: #### HA1C #### [facility] [address] [place], [place] [address] Urea nitrogen [Mass/Vol] 23 7-18 mg/dL High 06-20 [facility] (06110) Comment: Performed By: #### HA1C #### [address] [address] Anion gap [Moles/Vol] 9 8-16 mmol/L Normal 06-20-20 19 [facility] (21643) Comment: Performed By: #### HA1C #### [facility] [address] [place], [place] [address] Calcium [Mass/Vol] 8.4 8.5-10.1 mg/dL Low 06-20-2019 [facility] (82165) Comment: Performed By: #### HA1C #### [facility] [address] [place], [place] [address] CO2 [Moles/Vol] 25 21-32 mEq/L Normal 06-20-2019 [facility] (07916) Comment: Performed By: #### HA1C #### [facility] [address] [place], [place] [address] Chloride [Moles/Vol] 109 98-107 mEq/L High 9 [facility] (83731) Comment: Performed By: #### HA1C #### [facility] [address] [place], [place] [address] Potassium [Moles/Vol] 3.7 3.5-5.1 mEq/L Normal 06-20-20 19 [facility] (08398) Comment: Performed By: #### HA1C #### [facility] [address] [place], [place] [address] Sodium [Moles/Vol] 139 136-145 mEq/L Normal 06-20-2019 [facility] (97929) Comment: Performed By: #### HA1C #### [facility] [address] [place], [place] [address] activated ptt on 13-06-26 aPTT Coag (Bld) [Time] 50.6 23.0-32.4 sec High 019 [facility] (31102) Comment: Result Comment: Unfractionat ed Heparin Therapeutic [...] AP TT reagent in use throughout the [facility]. Performed By: #### HA1C #### [facility] [address] [place], [place] [address] xr chest 1v frontal on 2019-06-19 XR CHEST 1V * * *Final Report* * * Normal 06-19 [facility] DATE OF EXAM: Jun 19 2019 11:25AM Health System AKX [id number] - XR CHEST 1V FRONTAL / (66058) PROCEDURE REASON: Evaluate tube, line or lead [...] normal versus minimally enlarge d, but unchanged. Business Enterprise Officer: [facility]ITALSteven Transcribe Date/Time: Jun 19 2019 11:38A Dictated by : DANIA BRUNSON MD This examination was interpreted and the report reviewed and electronically signed by: DANIA BRUNSON MD on Jun 19 2019 11:41AM EST urinalysis routine on 2019-06-19 Bacteria LM.HPF (Urine sed) 4+ None Abnormal [facility] [#/Area] (87312) Comment: Performed By: #### URIN2 ### # [facility] [address] [place] [address] Ep Cells Urine 0.6 0.0-5.0 /hpf Normal 06-19-2019 [facility] (63092) Comment: Performed By: #### URIN2 ### # [facility] [address] [place], [place] [address] Hyaline Cast 1.4 0.0-1.0 /lpf High 06-19-2019 [facility] [place] [employer] System (75351) Comment: Performed By: #### URIN2 ### # [facility] [address] [place], [place] [address] RBC LM.HPF (Urine sed) 5.6 0.0-5.0 /hpf High 019 [facility] [#/Area] System (00 000) Comment: Performed By: #### URIN2 ### # [facility] [address] [place], [place] [address] WBC LM.HPF (Urine sed) 379.9 0.0-5.0 /hpf High 019 [place] [facility] [#/Area] System (00 000) Comment: Performed By: #### URIN2 ### # [facility] [address] [place], [place] [address] Appearance (U) CLOUDY Normal 06-19-2019 [facility] (00148) Comment: Performed By: #### URIN2 ### # [facility] [address] [place], [place] [address] Bilirubin (U) NEGATIVE Negative mg/dL Normal 06-19-2019 [place] [facility] [Mass/Vol] System (0 0000) Comment: Performed By: #### URIN2 ### # [facility] [address] [place], [place] [address] Color (U) YELLOW Normal 06-19-2019 [facility] [employer] System (29200) Comment: Performed By: #### URIN2 ### # [facility] [address] [place], [place] [address] Glucose Ql (U) NEGATIVE Negative Normal 06-19-2019 [facility] [employer] [facility] [employer] [facility] [employer] System (93441) Comment: Performed By: #### URIN2 ### # [facility] [address] [place], [place] [address] Hemoglobin,Urine MODERATE Negative Abnormal 06-19-2019 [facility] [employer] [facility] (90600) Comment: Performed By: #### URIN2 ### # [facility] [address] [place], [place] [address] Ketone Urine NEGATIVE Negative Normal 06-19-2019 [facility] (38078) Comment: Performed By: #### URIN2 ### # [facility] [address] [place], [place] [address] Leukocytes Esterase LARGE Negative Abnormal 06-19-2019 [facility] (75404) Comment: Performed By: #### URIN2 ### # [facility] [address] [place], [place] [address] Nitrites Urine NEGATIVE Negative Normal 06-19-2019 [facility] (38798) Comment: Performed By: #### URIN2 ### # [facility] [address] [place], [place] [address] pH (U) 5.5 5.0-8.0 [pH] Normal 06-19-2019 [facility] (63882) Comment: Performed By: #### URIN2 ### # [facility] [address] [place], [place] [address] Protein (U) [Mass/Vol] 100 Negative mg/dL Abnormal 019 [facility] (00 000) Comment: Performed By: #### URIN2 ### # [facility] [address] [place], [place] [address] Specific [place], Ur 1.018 1.005-1.030 Normal 019 [facility] (00 000) Comment: Performed By: #### URIN2 ### # [facility] [address] [place], [place] [address] Urobilinogen,Ur 0.2 0.2-1.0 EU/dL Normal 06-19-2019 [facility] (49839) Comment: Performed By: #### URIN2 ### # [facility] [address] [place], [place] [address] tsh, 3rd generation on 2019-06-19 TSH, 3rd generation 0.497 0.358-3.740 uIU/mL Normal 06-19-20 19 [facility] (00 000) Comment: Performed By: #### TSH3 #### [facility] [address] [place], [place] [address] troponin i on 06-19 Troponin I.cardiac 8.900 0.015-0.045 ng/ml Critically high [facility] [Mass/Vol] [facility] (37968) Comment: Performed By: #### TSH3 #### [address] [address] Troponin I.cardiac 12.400 0.015-0.045 ng/ml Critically high [facility] [place] [Mass/Vol] [facility] (64843) Comment: Performed By: #### TSH3 #### [place] [address] Troponin I.cardiac 12.000 0.015-0.045 ng/ml Critically high [place] [facility] [Mass/Vol] Health [facility] (20715) Comment: Performed By: #### TSH3 #### [place] [address] Troponin I.cardiac 8.110 0.015-0.045 ng/ml Critically high [facility] [place] [Mass/Vol] [employer] Sy [facility] (63183) Comment: Performed By: #### TROP #### [place] [address] protime on INR Coag (PPP) [Relative 1.05 0.90-1.30 {INR} Normal 06-19 [facility] [place] [employer] time] System (00 000) Comment: Result Comment: Vitamin K An tagonist (VKA) Therapeutic Range: INR 2 to 3 (Target INR of 2.5) Note: For patients treated w ith VKA drugs, such as warfarin, the [employer] 2012 Guideline [...] INR o f 3) Note: Patients with aerospace mechanic al aortic valve replacement and additional risk factors for thromboembolic events (atrial fibrillation, previous throm boembolism, LV dysfunction, hypercoagulable conditions) or an older generation mechanical AVR (i.e., ball in-Cage) or any mechanical MVR should have a INR therapeutic range of 2 .5 to 3.5 target INR of 3). Rox GH, et al. Chest 2012 ; 141:7S-47S Ellis RA, et al. [facility] 20 ; 70: 252-289 Performed By: #### TSH3 #### [facility] [address] [place], [place] [address] PT Coag (PPP) [Time] 10.9 9.7-13.0 sec Normal 9 [facility] (93003) Comment: Performed By: #### TSH3 #### [facility] [address] [place], [place] [address] progress on 2019-05 PROGRESS HNO ID: [id number] Normal 06-19-2019 [place] Author: Linda Gómez MD General Service: Cardiovascular Medicine Medical Author Type: Resident Center Type: Progress Notes ([id number]) Filed: 06/19/2019 3:17 PM Note Text: Attestation [...] ICD1 0: I50.22 4. Ventricular fibrillation, paroxysmal ([facility]) - ICD9: 427. 41, ICD10: I49.01 5. VT (ventricular tachycardia) ([facility]) - ICD9: 427.1, ICD10: I47.2 6. Implantable cardioverter-defibrillator (ICD) generator end of life - ICD9: V53.32, ICD10: Z45.02 7. Encounter for management of biventricular implantable cardioverter-defibrillator (ICD) - ICD9: V53.32, ICD10: Z45. 02 8. Ischemic cardiomyopathy - ICD9: 414.8, ICD10: I25.5 Porfirio Sanchez MD, [facility]. Pager # [phone] Cardiovascular Intensive Care Progress Note June 19, 2019 Patient Name: Leo Mc Patient Location: [id number] [id number]* Admission Date: 06/18/2019 Length of Stay: 1 [...] 81 mg tab(s) 81 mg ORAL DAILY [facility] joe (ResFranchesca Smithabbaza, DO 81 mg [...] ordered. Signed: Linda Gómez MD, PGY-1 Pager: [phone] [facility] Date: June 19, 2019 Time: 12:01 PM Recommendations are not finalized until co-signed by Staff catherine chin. n-terminal pro-bnp on 2019-06-19 Natriuretic peptide B (Bld) 3857 pg/ml Normal [place] [Mass/Vol] System (0 0000) Comment: Result Comment: Note new ref erence range: Normal Reference Range: Patients <75 yrs old <125pg/ ml Patients >=75 yrs old <450 p g/ml Performed By: #### PBNP #### [facility] [address] [place], [place] [address] magnesium blood on 2019-06-19 Magnesium [Mass/Vol] 1.8 1.6-2.6 mg/dL Normal 9 [facility] (23515) Comment: Performed By: #### MAG #### [facility] [address] [place], [place] [address] lipid profile on 13-06-25 Cholesterol in HDL [Mass/Vol] 28 >40 mg/dL Normal 06-19-2019 [facility] (00 000) Comment: Performed By: #### LIPD2 ### # [facility] [address] [place], [place] [address] Cholesterol in LDL [Mass/Vol] 110 mg/dL Normal 06-19-2019 [facility] (00 000) Comment: Result Comment: No CAD and w ith fewer than 2 CAD risk factors <160 mg/dL No CAD but with 2 or more CA D risk factors <130 mg/dL Definite CAD or other athero sclerotic disease <100 mg/dL Performed By: #### LIPD2 ### # [facility] [address] [place], [place] [address] Cholesterol in LDL/Cholesterol 3.9 1.1-4.8 Normal 06-19-2019 [facility] in HDL [Mass ratio] System (69472) Comment: Result Comment: LDL,VLDL,LDL /HDL, Invalid if Triglyceride >400 Performed By: #### LIPD2 ### # [facility] [address] [place], [place] [address] Cholesterol.total/Cholesterol in HDL 5.9 2.1-7.3 Nor mal 06-19-2019 [facility] [place] [Mass ratio] [facility] System (98323) Comment: Performed By: #### LIPD2 ### # [facility] [address] [place], [place] [address] Cholesterol in VLDL 26 <50 Desired mg/dL Normal 06-19-20 [facility] [Mass/Vol] System (0 0000) Comment: Performed By: #### LIPD2 ### # [facility] [address] [place], [place] [address] Triglyceride [Mass/Vol] 131 0-149 mg/dL Normal 2018 [facility] (59385) Comment: Result Comment: < 200 Desira ble Result invalid if not a fast ing specimen. Performed By: #### LIPD2 ### # [facility] [address] [place], [place] [address] Cholesterol [Mass/Vol] 164 0-199 mg/dL Normal 019 [facility] (27354) Comment: Result Comment: <200 Desirab le 200-240 Borderline >240 High Performed By: #### LIPD2 ### # [facility] [address] [place], [place] [address] history physical on 2019-06-19 HISTORY PHYSICAL HNO ID: [id number] Normal 05-27 [facility] [place] Author: Porfirio Grossman [facility] Service: Cardiovascular Medicine ([id number]) Author Type: Physician Type: HANDP Filed: 06/19/2019 12:59 PM Note Text: CVICU HISTORY AND PHYSICAL SERVICE DATE: 06/18/2019 HPI: Per notes from [facility] as patient is an extremely p oor historian and reports he does not know what happened to him. Leo Mc is a 83 year old male, transfer from [facility] with PMH of HTN, HLD, renal [...] He is a currently 1ppd smoker. At [place] WBC 24.4, Hgb 15.8, Plt 188. INR 1.1. Na 140, K 2.8, Cl 103, CO2 26 Cr 1.84, eGFR 38, Glucose 143, Mg 2.0 Troponin 0.611. Cxr showe d no acute abnormality. He was started on an amiodarone bolus and gtt at [place]. He also received lovenox due to elevated [...] 19, 2019 TIME: 12:09 AM PAGER/CONTACT #: [phone] This patient was seen in conjunction with the resident staff . I have personally seen and examined the patient. I have reviewed la bs, clinical data and pertinent images. I have discussed the case with [facility] care team. I agree with the documentation, excepts as annotated. Critical Care Documentation: As delineated above, the patient has the following organ/sys tem impairment(s): ASSESSMENT/PLAN: 1. NSTEMI (non-ST elevated myocardial infarction) (HCC) - IC D9: 410.70, ICD10: I21.4 -Elevated troponins up to 12. The patient presented to [facility] after of VT arrest. He was resuscitated by EMS. Patient has a history of ICD which is at end of life. Has not gotten the defibrillato r changed. Patient was defibrillated by external means by the EMS at [facility]. Patient is currently pain-free. The because of EKG changes i t is suspected that progression of coronary disease is at hand. Patient has a history of LAD and RCA stents. I spoke with Dr. Soto from [facility] about the condition of the patient upon transfer. Care will be business support coordinator rdinated accordingly I have also discussed [...] procedures. Porfirio Sanchez MD, FACC. Pager # [phone] hgb a1c on HbA1c (Bld) [Mass fraction] 5.8 4.2-6.3 % Normal [facility] (00 000) Comment: Result Comment: Method is Na tional Glycohemoglobin Standardization Program (NGSP) compliant. Performed By: #### HA1C #### [address], [place] [address] HbA1c (Bld) [Mass fraction] 120 mg/dl Normal [facility] (80526) Comment: Performed By: #### HA1C #### [facility] [address] [place] [address] hemogram/diff on 13-06-25 Abs Immature Grans 0.12 0.00-0.05 thou/cmm High 06-19-2019 [facility] (00 000) Comment: Performed By: #### CBCD1 ### # [facility] [address] [place] [address] Abs Neut (ANC) 15.60 1.78-5.38 thou/cmm High 06-19-2019 [facility] (60333) Comment: Performed By: #### CBCD1 ### # [place] [address] Abs. Baso 0.04 0.01-0.08 thou/cmm Normal 06-19-2019 [facility] (77540) Comment: Performed By: #### CBCD1 ### # [facility] [address] [place] [address] Abs. Concordia 1.14 0.30-0.82 thou/cmm High 06-19-2019 [facility] (53641) Comment: Performed By: #### CBCD1 ### # [place] [address] Basophils/100 WBC (Bld) 0.2 % Normal 2018 [facility] (57466) Comment: Performed By: #### CBCD1 ### # [place] [address] Eosinophils (Bld) [#/Vol] 0.02 0.04-0.54 thou/cmm Low 05-27 [facility] (00 000) Comment: Performed By: #### CBCD1 ### # [place] [address] Eosinophils/100 WBC (Bld) 0.1 % Normal 05-27 [facility] (58301) Comment: Performed By: #### CBCD1 ### # [facility] [address] [place], [place] [address] Immature Grans 0.60 % Normal 06-19-2019 [facility] (24630) Comment: Performed By: #### CBCD1 ### # [facility] [address] [place], [place] [address] Lymphocytes (Bld) 2.46 0.84-2.85 thou/cmm Normal 06-19-2019 [facility] [#/Vol] Health Sys tem (25795) Comment: Performed By: #### CBCD1 ### # [facility] [address] [place], [place] [address] Lymphocytes/100 WBC (Bld) 12.7 % Normal 05-27 [facility] System (55760) Comment: Performed By: #### CBCD1 ### # [facility] [address] [place], [place] [address] Monocytes/100 WBC (Bld) 5.9 % Normal 2018 [facility] System (49717) Comment: Performed By: #### CBCD1 ### # [facility] [address] [place], [place] [address] Seg Neutrophil 80.5 % Normal 06-19-2019 [facility] (68912) Comment: Performed By: #### CBCD1 ### # [facility] [address] [place], [place] [address] Erythrocyte distribution 13.2 11.6-14.4 % Normal 06-19 [facility] width (RBC) [Ratio] System (26418) Comment: Performed By: #### CBCD1 ### # [facility] [address] [place], [place] [address] Hematocrit (Bld) [Volume 43.8 40.1-51.0 % Normal 06-19 [facility] fraction] System (00 000) Comment: Performed By: #### CBCD1 ### # [facility] [address] [place], [place] [address] Hemoglobin (Bld) 14.5 13.7-17.5 g/dL Normal 06-19-2019 [facility] [Mass/Vol] System (0 0000) Comment: Performed By: #### CBCD1 ### # [facility] [address] [place], [place] [address] MCH (RBC) [Entitic mass] 30.9 25.7-32.2 pg Normal 06-19 [facility] (00 000) Comment: Performed By: #### CBCD1 ### # [facility] [address] [place], [place] [address] MCHC (RBC) [Mass/Vol] 33.1 32.3-36.5 % Normal 06-19-20 19 [facility] ([address]18) Comment: Performed By: #### CBCD1 ### # [facility] [address] [place], [place] [address] MCV (RBC) [Entitic vol] 93.2 83.2-95.6 fl Normal 2018 [facility] (00 000) Comment: Performed By: #### CBCD1 ### # [facility] [address] [place], [place] [address] Platelet mean volume (Bld) 11.2 8.7-12.0 fl Normal [facility] [Entitic vol] System ([address]957) Comment: Performed By: #### CBCD1 ### # [facility] [address] [place], [place] [address] Platelets (Bld) [#/Vol] 143 141-365 thou/cmm Normal 2018 [facility] (00 000) Comment: Performed By: #### CBCD1 ### # [facility] [address] [place], [place] [address] RBC (Bld) [#/Vol] 4.70 4.63-6.08 mil/cmm Normal 06-19-2019 [facility] (00 000) Comment: Performed By: #### CBCD1 ### # [facility] [address] [place], [place] [address] RDW SD 45.2 36.1-45.8 fl Normal 06-19-2019 [facility] (85300) Comment: Performed By: #### CBCD1 ### # [facility] [address] [place], [place] [address] WBC (Bld) [#/Vol] 19.38 4.23-9.07 thou/cmm High 06-19-2019 [facility] () Comment: Performed By: #### CBCD1 ### # [facility] [address] [place], [place] [address] hemogram on 2019-05 Erythrocyte distribution 13.3 11.6-14.4 % Normal 06-19 [facility] width (RBC) [Ratio] System (90280) Comment: Performed By: #### TSH3 #### [facility] [address] [place] [address] Hematocrit (Bld) [Volume 40.1 40.1-51.0 % Normal 06-19 [facility]] System ( 000) Comment: Performed By: #### TSH3 #### [place] [address] Hemoglobin (Bld) [Mass/Vol] 13.2 13.7-17.5 g/dL Low [facility] ( 000) Comment: Performed By: #### TSH3 #### [facility] [address] [place] [address] MCH (RBC) [Entitic mass] 30.8 25.7-32.2 pg Normal 06-19 [facility] ( 000) Comment: Performed By: #### TSH3 #### [place] [address] MCHC (RBC) [Mass/Vol] 32.9 32.3-36.5 % Normal 06-19-20 19 [facility] (81416) Comment: Performed By: #### TSH3 #### [facility] [address] [place], [place] [address] MCV (RBC) [Entitic vol] 93.7 83.2-95.6 fl Normal 2018 [facility] ( 000) Comment: Performed By: #### TSH3 #### [place] [address] Platelet mean volume (Bld) 10.8 8.7-12.0 fl Normal [facility] [Entitic vol] System (15938) Comment: Performed By: #### TSH3 #### [facility] [address] [place] [id number] Platelets (Bld) [#/Vol] 125 141-365 thou/cmm Low 2018 [facility] (00 000) Comment: Performed By: #### TSH3 #### [facility] [address] [place] [id number] RBC (Bld) [#/Vol] 4.28 4.63-6.08 mil/cmm Low 06-19-2019 [facility] ([address]004) Comment: Performed By: #### TSH3 #### [facility] [address] [place] [id number] RDW SD 46.0 36.1-45.8 fl High 06-19-2019 [facility] (62169) Comment: Performed By: #### TSH3 #### [facility] [address] [place] [id number] WBC (Bld) [#/Vol] 15.40 4.23-9.07 thou/cmm High 06-19-2019 A [facility] [employer] System (00 000) Comment: Performed By: #### TSH3 #### [facility] [address] [place] [id number] cult urine on 06-19 Cult Urine Test performed at [facility] Normal 06-19-2019 [facility] [place] ORGANISM: *Escherichia coli (ID: 1) Health System 1,000-<5,000 CFU/ml For sensitivity repo rt see Date/ (75088) ORGANISM: *Klebsiella oxytoca (ID: 2) 50,000-99,000 CFU/ml For sensitivity report see Date/ ORGANISM: Normal Urogenital Valentina (ID: 3) 1,000-<5,000 CFU/ml Comment: Performed By: #### HA1C #### [facility] [address] [place] [address] Cult Urine Test performed at [facility] Normal 06-19-2019 [facility] ORGANISM: *Escherichia coli (ID: 1) System (76819) >100,000 CFU/ml CLSI breakpoints for therapy of [...] CFU/ml Comment: Performed By: #### HA1C #### [place] [address] consult on CONSULT HNO ID: [id number] Normal 06-19-2019 [facility] [place] Author: Facundo [facility] Service: Electrophysiology ([id number]) Author Type: Physician Type: Consults Filed: 06/19/2019 11:58 AM Note Text: CONSULT NOTE SERVICE DATE: 06/19/2019 SERVICE TIME: 11:49 AM PHYSICIAN CONSULT (AK,AV,EU,FV,HL,FRANCISCO,MM,SP) Consult performed [facility]: [facility] Consult ordered by: Rickie Busch Reason for consult: Ventricular fibrillation. PRIMARY CARE PHYSICIAN: DO Majo Hillman 83-year-old male with history of essential hypertension, cor onary disease, status post PCI to LAD in 2017, ischemic cardiomyopathy with severe LV systolic dysfunction, RBBB, status post ABALONE SHELLER-D system implant ation at an outside institution in 2012 who presented to [facility] with confusion, developed ventricular fibrillation that required external defibrillation twice, was diagnosed with NSTEMI, treated wit h low molecular weight and then unfractionated heparin, as well as amiodarone, and transferred to [facility]. According to the records the patien t [...] available. Chest x-ray reveals presence of a ABALONE SHELLER-D system, likely [facility]. [...] June 19, 2019 TIME: 11:49 AM PAGER: [phone] comprehensive panel on 2019-06-19 ALP [Catalytic activity/Vol] 71 45-117 U/L Normal 0 06-19-2019 [facility] (00 000) Comment: Performed By: #### P14 #### [facility] [address] [place], [place] [address] Bilirubin [Mass/Vol] 0.3 0.2-1.0 mg/dL Normal 9 [facility] (75517) Comment: Performed By: #### P14 #### [facility] [address] [place], [place] [address] Protein [Mass/Vol] 7.4 6.4-8.2 g/dL Normal 06-19-2019 [facility] (88565) Comment: Performed By: #### P14 #### [facility] [address] [place], [place] [address] ALT [Catalytic activity/Vol] 39 12-78 U/L Normal 0 06-19-2019 [facility] (00 000) Comment: Performed By: #### P14 #### [facility] [address] [place], [place] [address] AST [Catalytic activity/Vol] 68 15-37 U/L High 0 06-19-2019 [facility] (69459) Comment: Performed By: #### P14 #### [facility] [address] [place], [place] [address] Creatinine [Mass/Vol] 1.39 0.67-1.17 mg/dL High 06-19-20 19 [facility] (00 000) Comment: Performed By: #### P14 #### [facility] [address] [place], [place] [address] Albumin [Mass/Vol] 3.4 3.4-5.0 g/dL Normal 06-19-2019 [facility] (20299) Comment: Performed By: #### P14 #### [facility] [address] [place], [place] [address] Anion gap [Moles/Vol] 15 8-16 mmol/L Normal 06-19-20 19 [facility] (70593) Comment: Performed By: #### P14 #### [facility] [address] [place], [place] [address] CO2 [Moles/Vol] 23 21-32 mEq/L Normal 06-19-2019 [facility] (93632) Comment: Performed By: #### P14 #### [facility] [address] [place], [place] [address] Urea nitrogen [Mass/Vol] 26 7-18 mg/dL High 06-19 [facility] (49729) Comment: Performed By: #### P14 #### [facility] [address] [place], [place] [address] Calcium [Mass/Vol] 9.1 8.5-10.1 mg/dL Normal 06-19-2019 [facility] (00951) Comment: Performed By: #### P14 #### [facility] [address] [place], [place] [address] Glucose [Mass/Vol] 120 70-99 mg/dL High 06-19-2019 [facility] (72237) Comment: Performed By: #### P14 #### [facility] [address] [place], [place] [address] Chloride [Moles/Vol] 108 98-107 mEq/L High 9 [facility] (46443) Comment: Performed By: #### P14 #### [facility] [address] [place], [place] [address] Potassium [Moles/Vol] 4.0 3.5-5.1 mEq/L Normal 06-19-20 19 [facility] (08043) Comment: Performed By: #### P14 #### [facility] [address] [place], [place] [address] Sodium [Moles/Vol] 142 136-145 mEq/L Normal 06-19-2019 [facility] [place] [employer] [facility] (78051) Comment: Performed By: #### P14 #### [facility] [address] [place], [place] [address] activated ptt on 13-06-25 aPTT Coag (Bld) [Time] 49.8 23.0-32.4 sec High [facility] (85078) Comment: Result Comment: Unfractionat ed Heparin Therapeutic [...] AP TT reagent in use throughout the [facility]. Performed By: #### TSH3 #### [address] [address] aPTT Coag (Bld) [Time] 58.8 23.0-32.4 sec High [facility] (21659) Comment: Result Comment: Unfractionat ed Heparin Therapeutic [...] AP TT reagent in use throughout the [facility]. Performed By: #### TSH3 #### [address] [address] aPTT Coag (Bld) [Time] 29.6 23.0-32.4 sec Normal [address] [place] [address] (00 000) Comment: Result Comment: Unfractionat ed [...] AP TT reagent in use throughout the [facility]. Performed By: #### TSH3 #### [facility] [address] [place] [address] hosp on 2019-06-18 HOSP Patient:Leo Mc Normal 06-18-20 [place] MRN: General Height:5' 10(1.778 m) Medical Weight:182 lb 8.7 oz (82.8 kg) Center Outpatient Medications as of 06/22/19: (46462) hydroCHLOROthiazide (HYDRODIURIL, ESIDRIX) 25 mg tablet losartan [...] Problem List: NSTEMI (non-ST elevated myocardial infarction) ([facility]) [I21.4] Ischemic cardiomyopathy [I25.5] Ventricular fibrillation, paroxysmal ([facility]) [I49.01] Nicotine use disorder, F17.2 [F17.200] Allergies: No Known Allergies Date Verified:06/22/19 Lab Values Lab Value Units Date High Low POTA* 3.6 mEq/L 06/22/2019 5.1 3.5 JACOB* 39.6 % 06/21/2019 51.0 40.1 Progress Notes (): Porfirio Sanchez MD 06/19/2019 12:59 PM Signed CVICU HISTORY AND PHYSICAL SERVICE DATE: 06/18/2019 HPI: Per notes from [facility] as patient is an extremely poor historian and reports he does not know what happened to him. Leo Mc is a 83 year old male, t rebekah from [facility] with PMH of HTN, HLD, renal [...] He is a currently 1ppd smoker. At [place] WBC 24.4, Hgb 15.8, Plt 188. INR 1.1. Na 140, K 2.8, C l 103, CO2 26 Cr 1.84, eGFR 38, Glucose 143, Mg 2.0 Troponin 0.611. Cxr showed no acute abnormality. He was started on an amiodarone bolus and gtt at [place]. He also received lovenox due to elevated [...] received 80 mg subq x [address] [facility] -monitor hemodynamics SIGNATURE: Herson Ibanez DO PATIENT NAME: Leo Mc DATE: June 19, 2019 TIME: 12:09 AM PAGER/CONTACT #: [phone] This patient was seen in [facility] with the resident staff. I have personally [...] to 12 . The patient presented to [facility] after of VT arrest. He was resuscitat ed by EMS. Patient has a history of ICD which is at end of life. Has not gotten the defibrillator changed. Patient was defibrillated by external means by the EMS at [place]. Patient is currently pain-fr ee. The because of EKG changes it is suspected that progression of coronary dise ase is at hand. Patient has a history of LAD and RCA stents. I spoke with Dr. Soto from [facility] card iology about the condition of the [...] 35 minutes excluding procedures. Porfirio Sanchez MD, [facility]. Pager # [phone] Previous Version Facundo Cottrell MD 06/19/2019 11:58 [...] severe LV systolic dysfunction, RBBB, status post ABALONE SHELLER-D system implantation at an outside institution in 2012 who pres ented to [facility] with confusion, developed ventricular fibrillation that required external defibrillati on twice, was diagnosed with NSTEMI, treat ed with low molecular weight and then unfractionated heparin, as well as amiodarone, and transferred to [facility]. Acc ording to the records the patient [...] available. Chest x-ray reveals presence of a ABALONE SHELLER-D system, likely [facility]. One [...] June 19, 2019 TIME: 11:49 AM PAGER: [phone] Linda Gómez MD, 06/19/2019 3:17 PM Attested Attestation signed by Porfirio Sanchez at 06/21/2019 8:0 3 AM This patient was seen in [facility] with the resident staff, Nursing staff and Clinical Pharmacy. I have personally seen and examined the p atient. I have reviewed labs, clinical data and pertinent images. Arvin lynn discussed the case with the care team. I agree with the documentation, excepts as annotated. Clinical issues addressed on this visit: 1. NSTEMI (non-ST elevated myocardial in farction) ([facility]) - ICD9: 410.70, ICD10: I21.4 2. Cardiomyopathy, ischemic - ICD9: 414.8, ICD10: I25.5 3. Chronic systolic heart failure ([facility]) - ICD9: 428.22, ICD1 0: I50.22 4. Ventricular fibrillation, paroxysmal ([facility]) - ICD9: 427. 41, ICD10: I49.01 5. VT (ventricular tachycardia) ([facility]) - ICD9: 427.1, ICD10: I47.2 6. Implantable cardioverter-defibrillator (ICD) generator end of life - ICD9: V53.32, ICD10: Z45.02 7. Encounter for management of biventricular implantable cardioverter-defibrillator (ICD) - ICD9: V53.32, ICD10: Z45. 02 8. Ischemic cardiomyopathy - ICD9: 414.8, ICD10: I25.5 Porfirio Sanchez MD, [facility]. Pager # [phone] Cardiovascular Intensive Care Progress Note June 19, 2019 Patient Name: Leo Mc Patient Location: [id number] [facility]-323* Admission Date: 06/18/2019 Length of Stay: 1 [...] ordered. Signed: Linda Gómez MD, PGY-1 Pager: [phone] [facility] Date: June 19, 2019 Time: 12:01 PM Recommendations are not finalized until co-signed by Staff catherine chin. Leilani Tran MD 06/20/2019 5:40 PM Addendum Cardiovascular Intensive Care Progress Note June 20, 2019 Patient Name: Leo Mc Patient Location: [id number] [facility]-323* Admission Date: 06/18/2019 Length of Stay: [...] ordered. Signed: Ceci Navarro DO, PGY-1 Pager: [phone] Date: June 20, 2019 Time: 11:02 AM [...] in place. The patient presented to the [facility] with confusion. He developed ve ntricular [...] 38 minutes excluding procedures. Leilani Tran MD, [facility] Cardiovascular Medicine Pager: [phone] June 20, 2019 Previous Version James Smith MD 06/20/2019 11:28 AM Signed CARDIAC CATHETERIZATION REPORT PATIENT NAME: Leo Mc SERVICE DATE: 06/20/2019 SERVICE TIME: 11:24 AM Engineering Faculty Member: Attending: Leilani Tran RECOMMENDATIONS: Continued medical therapy [...] 20, 2019 TIME: 11:24 AM Donald Chatterjee APRN.LASER PRINTING OPERATOR, LASER PRINTING OPERATOR 06/20/2019 4:15 PM Signed PROGRESS NOTE ELECTROPHYSIOLOGY [...] Limited ROS due to mild disorientation AND RINCON. Objective PHYSICAL EXAM: Body mass index is [...] Bi-Ventricular pacemaker/ICD placed 2012. Per chart at [facility], Echo February 2017 with EF 20%, per cardiac cath March 2017 EF 25%. Echo done today - pending. Continue heart failure meds when able. NSTEMI - troponins elevated in the setting of multiple defibrillations AND chest pain. Cardiac cath today showed moderate in-stent restenos is of the mid and distal LAD stents (30-40%) with mild dis ihs left main coronary artery disease; RCA with mild diffuse disease (per chart prior RCA stent); C irc with mild diffuse disease. Continue me dical therapy (aspirin, Plavix, statin, beta josé (after pacer/ICD generator changed). Hypokalemia: 2.8 on arrival to [place]; corrected to 4.7 t maikel. Continue to monitor. 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 {Readmit:365977::No} Advance Directive: Current Advance Directive: None Monitor Tech Attempted to Assist with AD Completion: Yes Action: Education Provided {CM Health Literacy REQUIRED IF PATIENT ABLE:304146} FUNCTIONAL AND COGNITIVE/BEHAVIORAL {PRIOR TO ADMISSION STATUS/EQUIPMENT:320318} Has the Patient Been in a Penitentiary Facility in the Past 30 days? {30 DAYS:439103} SOCIAL: Living Arrangement: {LIVING ARRANGEMENT:92733::Home} Lives With: {lives:141058} Financial Resources: {occupation:326340} Primary Contact: Extended Emergency Contact Information Primary Emergency Contact: JesusitaLoida solizyn Address: [address] [place] [address] [facility] Relation: Daughter Supportive: {YES/NO:299573::Yes} Other Important Patient Contacts: {Resources:48667} Caregiver Assessment: Caregiver is ready, willing and able to meet the patient's needs as recommended by the inter-professional team? {caregiver:036144} Patient's transition needs and plan for meeting these needs: Does the patient have an acu te stroke diagnosis, or has the patient had a stroke during this admission? {YES/NO:252384::Yes} {CM med adherence REQUIRED IF PATIENT ABLE:7851703} Are you interested in bedside delivery of your medications? {CM delivery yes/no:727033} Food Concerns: In the Last Month, Have You had Trouble Getting Food? {food:977149::No trouble getting food} During the Last Month, Have You Worried Whether Your Food Would Run Out Before You Had Enough Money to Buy More? {foodlist:705358::No} Is the Patient Psychosocially Complex? {CM yes:026977::No} ASSESSMENT AND PLAN: Medical Needs: {Medical Needs:294811} Psychosocial Needs: {psychosocial:317165::None} {REQUIRED ONLY FOR OB PATIENTS. SELECT BLANK IF N/A :967210: : } FREEDOM OF CHOICE EXPLAINED: { :428988} POTENTIAL TRANSITION PLANS {DC PLANS:17910::No Services Indicated} SIGNATURE: Orin Grady RN PATIENT [...] he is taking. Reconciliation completed? Yes All BANKRUPTCY ATTORNEY medications addressed by LIP Additional comments: No [...] Allergies: ALLERGIES No Known Allergies Preferred Pharmacy: [facility] pharmacy ([phone]) Current BANKRUPTCY ATTORNEY Medications: Prior to Admission medications as of [...] h daily at bedtime. No fill at [facility] since 12/2017 for a 30 day supply [...] mouth once kathy ly. No fill at [facility] since 2017 Evelia Sherman, Pharmacist June 20, 2019 3:45 PM Guanako Romero DO 06/20/2019 6:44 PM Signed Leo Mc had a medtroni c ICD implanted 02-27-2006 and then in 01-26-2103 it was upgraded to a [facility] CRTD by Dr. Esparza in [place] and more recently followed by the device clinic in [place] . In December Mr. Mc was noted [...] shock and presented to the ED in [place] with sustained VT not treated by his [...] family indicated that [place] is our veterans contact representative) confirm that he did not want his [...] change out his d evice to a ABALONE SHELLER PPM which will give pacing but no [...] not able to do hi s [facility] as will not be at the [facility], I did check with Dr. Brown [...] 2019 Patient Name: Leo Mc Patient Location: [place] [address] [address]* Admission Date: 06/18/2019 Length of Stay: 3 [...] doesn't want to get a shock. [facility] and had a [...] in put(s): VPH, VPC2, VPO2C, RESPHCO3, BASEX, T0DPJSUF, PH, PCO2, RESPHCO3, BASEX, T7BOXKIT in the last 168 hours. Invalid input(s): [...] ordered. Signed: Ceci Navarro DO PGY-1 Pager: [phone] Date: June 21, 2019 Time: 8:30 AM [...] in place. The patient presented to the [facility] with confusion. He developed ve ntricular [...] AM Signed Report to 4100. Ayaka Chatterjee, SECTION HOUSEKEEPER.LASER PRINTING OPERATOR, LASER PRINTING OPERATOR 06/21/2019 4:09 PM Addendum PROGRESS NOTE ELECTROPHYSIOLOGY SERVICE SERVICE DATE: 06/21/2019 SERVICE TIME: 3:31 PM Subjective INTERIM HISTORY: Transferred out of [facility] this afternoon. No family at bedside [...] dizziness and headaches. ROS limited due to RINCON AND decreased memory. Objective PHYSICAL EXAM: Body [...] replacement earlier this year. [facility] with 1.6 [...] Bi-Ventricular pacemaker/ICD placed 2012. Per chart at [place], Echo February 2017 with EF 20%, per [...] admit. ? Hypokalemia: 2.8 on arrival to [place]; corrected to 4.7 on 06/20 AND today below normal 3.4. Will given K-Dur 40 meq toda y. Continue to monitor. On bactrim for UTI- watch for hyperkalemia. Check BMP AND Mg+ level in AM. SIGNATURE: Donald Chatterjee APRN.LASER PRINTING OPERATOR PATIENT NAME: Leo Mc DATE: June 21, [...] decision. Guanako Romero DO [facility] OR Normal 01-19-2018 [facility] ([id number] ) ed note on ED NOTE HNO ID: [id number] Normal 01-05-2018 [facility] Author: Jose M PrattRn) LUZ Bennett ([id number]) Service: Emergency Medicine Author Type: Registered Nurse Type: ED Notes Filed: 01/04/2018 10:51 PM Note Text: Patient leaves at this time for [facility] in stable c ondition. ED NOTE HNO ID: [id number] Normal 01-05-2018 [facility] Author: Jose M PrattRn) LUZ Bennett ([id number]) Service: Emergency Medicine Author Type: Registered Nurse Type: ED Notes Filed: 01/04/2018 10:45 PM Note Text: Samaritin care team here. Report to team. ed prov note on 201 05-28-12 ED PROV HNO ID: [id number]: Carla Normal 01-04-2018 [place] NOTE [place], DOService: Emergency Clinic MedicineAuthor Type: PhysicianType: ED [place] Provider NotesFiled: 01/05/2018 7:52 AMNote ([id number]) Text:ED Provider NotePatient Name: Leo McMRN: [id number] DATE: 01/04/18HistoryPatient presents with:Altered Level Of ConsciousnessHPI [...] mental status.History provided by: Patient and relativeLanguage critical care unit manager used: NoMental Status ChangesPresenting symptoms: confusionSeverity: ModerateMost [...] results with family at bedside. They state [place] is the[facility] he typically goes to.Time: [address] Hernandez, hospitalist at [place], who is accepting foradmission. Lactic acid will be added.Encounter Diagnosis ICD-10-CM1. Altered mental status, unspecified altered mental status type R41.822. Urinary tract infection with hematuria, site unspecified N39.0 R31.93. Congestive heart failure, unspecified chronicity, unspecified heartfailure type ([facility]) I50.94. STACY (acute kidney injury) ([facility]) N17.9PlanThe [facility] time of disposition: stableSIGNATURE: KACEY Schmidt Interpretation:RHYTHM: Normal sinus rhythm at 74 beats per minute and Pacemaker function,rhythms and complexes. Ventricular paced rhythmBiventricular pacemakerCOMPARED WITH PRIOR: None availableMorenoanna Gerard, 01/05/18 0752 ed note on ED NOTE HNO ID: [id number]: Oly Normal 01-04-2018 [facility] (RnSANCHO Camejoervice: [place] ([id number]) Emergency MedicineAuthor Type: Registered NurseType: ED NotesFiled: 01/04/2018 10:04 PMNote Text: Bed received at [facility], [place] [address], report number [id number], face sheet faxedto [phone], [facility] eta 30 minutes ED NOTE HNO ID: [id number] Normal 01-04-2018 [facility] Author: Jose M Bennett RN [place] ([id number]) Service: Emergency Medicine Author Type: Registered Nurse Type: ED Notes Filed: 01/04/2018 9:43 PM Note Text: Lactic Acid level drawn from left arm IV site. ED NOTE HNO ID: [id number] Normal 01-04-2018 [facility] Author: Jose M Bennett RN [place] ([id number]) Service: Emergency Medicine Author Type: Registered Nurse Type: ED Notes Filed: 01/04/2018 9:31 PM Note Text: 2nd set of Blood cultures drawn and sent. ED NOTE HNO ID: [id number] Normal 01-04-2018 [facility] Author: Oly Ferrera RN [place] ([id number]) Service: Emergency Medicine Author Type: Registered Nurse Type: ED Notes Filed: 01/04/2018 9:26 PM Note Text: Dr. Hernandez from [facility] called back and accepted pt. ED NOTE HNO ID: [id number] Normal 01-04-2018 [facility] Author: Jose M Bennett RN [place] ([id number]) Service: Emergency Medicine Author Type: Registered Nurse Type: ED Notes Filed: 01/04/2018 9:30 PM Note Text: 1st set of Blood cultures drawn and sent. ED NOTE HNO ID: [id number] Normal 01-04-2018 [facility] Author: Oly Ferrera RN [place] ([id number]) Service: Emergency Medicine Author Type: Registered Nurse Type: ED Notes Filed: 01/04/2018 9:08 PM Note Text: Spoke with Apolonia ESCOBAR supervisor litharge from [facility] about possible transf er ED NOTE HNO ID: [id number] Normal 01-04-2018 [facility] Author: Jose M Bennett RN [place] ([id number]) Service: Emergency Medicine Author Type: Registered Nurse Type: ED Notes Filed: 01/04/2018 8:31 PM Note Text: CC Urine specimen obtained and sent. ED NOTE HNO ID: [id number] Normal 01-04-2018 [facility] Author: Jose M Bennett RN [place] ([id number]) Service: Emergency Medicine Author Type: Registered Nurse Type: ED Notes Filed: 01/04/2018 8:26 PM Note Text: Patient returned to the Emergency Department. ED NOTE HNO ID: [id number] Normal 01-04-2018 [facility] Author: Jose M Bennett RN [place] ([id number]) Service: Emergency Medicine Author Type: Registered Nurse Type: ED Notes Filed: 01/04/2018 8:02 PM Note Text: To radiology at this time. ED NOTE HNO ID: [id number]: Jose M Normal 01-04-2018 [facility] (SANCHO Casianoervice: [place] ([id number]) Emergency MedicineAuthor Type: Registered NurseType: ED NotesFiled: 01/04/2018 7:43 PMNote Text: Encouraged for UA. Unable to void at this time. Family at bedside. [place] speaking with family members x2 at this time. office visit on 201 05-04-17 Documentation of Done Invalid Interpretation 08-11-2017 - [facility] current medications Code 08-11-2017 Group ([id number]) (procedure) Fall risk assessment No Invalid Interpretat ion 08-11-2017 - [facility] Code 08-11-2017 Group ([id number]) office visit on 04-30-28 Documentation of Done Invalid Interpretation 04-22-2017 - [facility] current medications Code 04-22-2017 Group ([id number]) (procedure) Fall risk assessment No Invalid Interpretat ion 04-22-2017 - [facility] Code 04-22-2017 Group ([id number]) Protein mass conc Done 04-22-2017 - [facility] 04-22-2017 Group ([id number]) clinical lists update: preload on 2017-04-02 Tobacco smoking Former smoker 04-02-2017 - [facility] status NHIS 04-02-2017 Group ( [id number]) Tobacco use Former smoker Invalid 04-02-2017 - [facility] CPHS Interpretation Code 04-02-2017 Group ([id number]) clinical lists update: preload on 2017-03-27 Anion gap 9 mmol/L Invalid Interpretation 017 - [facility] Code 03-27-2017 Group ([id number]) Anion gap molar 9 mmol/L 03-27-2017 - [facility] conc 03-27-2017 Group ([id number]) BUN/Creatinine 15.1 mg/mg Invalid Interpretation - [facility] Ratio Code 03-27-2017 Group ([id number]) Calcium 8.4 mg/dL Low 03-27-2017 - [facility] 03-27-2017 Group ([id number]) Chloride 102 mmol/L Invalid Interpretation 017 - [facility] Code 03-27-2017 Group ([id number]) CO2 30 mmol/L Invalid Interpretation 017 - [facility] Code 03-27-2017 Group ([id number]) CO2 ppres (BldV) 30 mmol/L 03-27-2017 - [facility] 03-27-2017 Group ([id number]) Creatinine 1.72 mg/dL High 03-27-2017 - [facility] 03-27-2017 Group ([id number]) Glucose 88 mg/dL Invalid Interpretation 017 - [facility] Code 03-27-2017 Group ([id number]) Glucose mass conc 88 mg/dL Invalid Interpretation 03-27-2017 - [facility] Code 03-27-2017 Group ([id number]) Potassium 3.3 mmol/L Low 03-27-2017 - [facility] 03-27-2017 Group (44 [id number]) Sodium 141 mmol/L Invalid Interpretation 017 - [facility] Code 03-27-2017 Group ([id number]) Urea nitrogen 26 mg/dL High 03-27-2017 - [facility] 03-27-2017 Group ([id number]) clinical lists update: preload on 2017-03-26 Hematocrit (HCT) 37.0 % Low 03-26-2017 - 03-26-2017 [facility] ([id number]) Hematocrit Volume 37.0 % Low 03-26-2016 - 03-26-2017 [facility] Fraction (Bld) ([id number]) Hemoglobin (HGB) 12.6 g/dL Low 03-26-2016 - 03-26-2017 [facility] ([id number]) Platelets 147 10*3/mm3 Low 03-26-2016 - 017 [facility] ([id number]) Platelets #/vol (Bld) 147 10*3/mm3 Low 03-26-2003-26-2017 [facility] ([id number]) clinical lists update: preload on 2017-03-25 Cholesterol 135 mg/dL Invalid Interpretation 03-25 - [facility] Code 03-25-2017 Group ([id number]) HDL Cholesterol 28 mg/dL Invalid Interpretation 0 03-25-2017 - [facility] Code 03-25-2017 Group ([id number]) LDL Cholesterol 92 mg/dL Invalid Interpretation 0 03-25-2017 - [facility] Code 03-25-2017 Group ([id number]) Left ventricular 20 % Invalid Interpretation 03-25-2017 - [facility] Ejection fraction Code 03-25-2017 [facility] ([id number]) Triglyceride 76 mg/dL Invalid Interpretation 02-25 - [facility] Code 03-25-2017 Group ([id number]) Vital Signs Vital Sign Description Value / Unit Date Location The following section is limited to 5 en tries per type and includes entries from the following time range: 20170422 - [id number] 7. BMI (Body Mass Index) 25.54 kg/m2 08-11-2017 - 08-11-2017 [facility] ([id number]) BMI (Body Mass Index) 25.9 kg/m2 04-22-2017 - 04-22-2017 [facility] ([id number]) BP Diastolic 60 mm[Hg] 08-11-2017 - 08-11-2017 [facility] ([id number]) BP Diastolic 60 mm[Hg] 04-22-2017 - 04-22-2017 [facility] ([id number]) BP Systolic 120 mm[Hg] 08-11-2017 - 08-11-2017 [facility] ([id number]) BP Systolic 100 mm[Hg] 04-22-2017 - 04-22-2017 [facility] ([id number]) Height 177.8 cm 08-11-2017 - 08-11-2017 [facility] ([id number]) Height 177.8 cm 04-22-2017 - 04-22-2017 [facility] ([id number]) Pulse (Heart Rate) 70 /min 08-11-2017 - 08-11-2017 [facility] ([id number]) Pulse (Heart Rate) 72 /min 04-22-2017 - 04-22-2017 [facility] ([id number]) Respiratory Rate 20 /min 08-11-2017 - 08-11-2017 [facility] ([id number]) Respiratory Rate 20 /min 04-22-2017 - 04-22-2017 [facility] ([id number]) Weight 80.74 kg 08-11-2017 - 08-11-2017 [facility] ([id number]) Weight 81.87 kg 04-22-2017 - 04-22-2017 [facility] ([id number]) Procedures Procedure Name Date Provider Location Electrocardiogram 06-19-2019 [facility] ([id number]) Electrocardiogram 06-19-2019 [facility] ([id number]) Prgrmg eval implantable in 08-24-2017 - Toan Soto MD [facility] person multi lead dfb 08-25-2017 ([id number]) Device Interrogation 08-11-2017 - [facility] 08-11-2017 ([id number]) Follow Up Appt 3 months 08-11-2017 - [facility] 08-11-2017 ([id number]) JHR 08-11-2017 - MD [facility] 08-11-2017 ([id number]) Device Interrogation 04-22-2017 - [facility] 08-11-2017 ([id number]) Follow Up Appt 3 months 04-22-2017 - Toan Soto MD [facility] 04-22-2017 ([id number]) [facility] 04-22-2017 - Toan Soto MD [facility] 04-22-2017 ([id number]) Follow Up Appt 3 months 04-22-2017 - Toan Soto MD [facility] 04-22-2017 ([id number]) [facility] 04-22-2017 - Toan Soto MD [facility] 04-22-2017 ([id number]) Implantation of internal 04-02-2017 [facility] cardiac defibrillator ([id number]) Placement of stent in coronary 04-02-2017 [facility] artery ([id number]) Plan of Treatment Plan Description Date Location Appointment Appointment 11-27-2017 - [facility] 11-27-2017 ([id number]) Appointment Appointment 11-12-2017 - [facility] 11-12-2017 ([id number]) Appointment no information 08-24-2017 - [facility] 08-24-2017 ([id number]) Follow Up Appt 3 months Follow Up Appt 3 months 08-24-2017 - [facility] 08-25-2017 ([id number]) Pacer Clinic Pacer Clinic 08-24-2017 - [facility] 08-25-2017 ([id number]) Device Interrogation Device Interrogation 08-11-2017 - [facility] 08-11-2017 ([id number]) Follow Up Appt 3 months Follow Up Appt 3 months 08-11-2017 - [facility] 08-11-2017 ([id number]) JHR JHR 08-11-2017 - [facility] 08-11-2017 ([id number]) Appointment Appointment 07-28-2017 - [facility] 07-28-2017 ([id number]) Device Interrogation Device Interrogation 04-22-2017 - [facility] 08-11-2017 ([id number]) Follow Up Appt 3 months Follow Up Appt 3 months 04-22-2017 - [facility] 04-22-2017 ([id number]) MMM MMM 04-22-2017 - [facility] 04-22-2017 ([id number]) Device Interrogation Device Interrogation 04-22-2017 - [facility] 04-22-2017 ([id number]) Follow Up Appt 3 months Follow Up Appt 3 months 04-22-2017 - [facility] 04-22-2017 ([id number]) MMM MMM 04-22-2017 - [facility] 04-22-2017 ([id number]) Appointment Appointment 04-03-2017 - [facility] 04-03-2017 ([id number]) Summary Purpose Family History No Family History [...] BE BASED ON THE PRIMARY CLINICAL RECORDS. [facility] provides no warranty or guarantee of the accuracy or completeness of information in this document. UNRECOGNIZED CONTENT PROVIDED BELOW FOR UNRECOGNIZED SECTION No Status Records FoundNo Status Records FoundNo Status Records FoundNo Status Records Found UNRECOGNIZED CONTENT PROVIDED BELOW FOR UNRECOGNIZED SECTION INFORMATION SOURCE DATE CREATED AUTHOR AUTHOR'S ORGANIZATIO N 04/16/2018 [facility] DATE CREATED AUTHOR AUTHOR'S ORGANIZATIO N [facility] [facility] DATE CREATED AUTHOR AUTHOR'S ORGANIZATIO N 06/26/2019 [facility] DATE CREATED AUTHOR AUTHOR'S ORGANIZATIO N 06/28/2019 [facility]
== END 2020-03-15 16:45 | disposition home health service (06) | DRG 291 ==
LOC: ED 19:55 → PCU 03-13 00:14
PROVIDERS: Physician Assistant; Admitting Provider Family Medicine; Emergency Provider Emergency Medicine; PCP Family Medicine; Visit Provider Internal Medicine
DX: I13.0 Hypertensive heart and chronic kidney disease with heart failure and stage 1 through stage 4 chronic kidney disease, or unspecified chronic kidney disease (principal); I50.23 Acute on chronic systolic (congestive) heart failure; N17.9 Acute kidney failure, unspecified; N18.3 Chronic kidney disease, stage 3 (moderate); R09.02 Hypoxemia; I25.10 Atherosclerotic heart disease of native coronary artery without angina pectoris; I25.5 Ischemic cardiomyopathy; I27.29 Other secondary pulmonary hypertension; I36.1 Nonrheumatic tricuspid (valve) insufficiency; I34.0 Nonrheumatic mitral (valve) insufficiency; R13.12 Dysphagia, oropharyngeal phase; F03.90 Unspecified dementia, unspecified severity, without behavioral disturbance, psychotic disturbance, mood disturbance, and anxiety; E78.5 Hyperlipidemia, unspecified; H91.90 Unspecified hearing loss, unspecified ear; F17.210 Nicotine dependence, cigarettes, uncomplicated; Z79.82 Long term (current) use of aspirin; Z79.899 Other long term (current) drug therapy; I25.2 Old myocardial infarction; Z95.810 Presence of automatic (implantable) cardiac defibrillator; Z95.5 Presence of coronary angioplasty implant and graft
CPT/HCPCS: 36415; 71045; 74230; 80048; 80053; 80061; 83735; 83880; 84439; 84443; 84484; 85025; 87040; 87449; 87633; 87635; 92610; 92611; 93005; 93306; 97116; 97162; 97166; 97530; 99251; 99285; 99406; G2023; J7030; J7040; Q9957; A4216; G0463; J0295; J1940; U0002